=== PATIENT | female | born 1975 | race Caucasian/White ===

== ENCOUNTER 2017-05-21 10:13 | Emergency (ER) | payer OTHER ==
[2017-05-21 10:31] VITALS: BP 149/93; PULSE 83; TEMP 98; BMI 55.7
--- NOTE | 2017-05-21 11:00 | PDOC ---
History of Present Illness - General Chief Complaint: Pain Stated Complaint: LT SHOULDER PAIN Time Seen by Provider: 05/21/17 10:43 History Source: Patient - History of Present Illness Occurred: reports: other (2 weeks ago) Upper Extremity Pain Location: left: forearm Past History - Past Medical History Allergies/Adverse Reactions: Allergies Allergy/AdvReac Type Severity Reaction Status Date / Time No Known Allergies Allergy Verified 05/21/17 10:27 Home Medications: Ambulatory Orders NK [No Known Home Medication] 05/21/17 Asthma: Yes COPD: No HTN: Yes - Suicide/Smoking/Psychosocial Hx Smoking History: Never smoked Review of Systems - Review of Systems Constitutional: No: Chills, Fever Respiratory: No: Shortness of Breath Cardiac (ROS): No: Chest Pain, Palpitations *Physical Exam - Vital Signs Last Vital Signs Temp Pulse Resp BP Pulse Ox 98 F 83 19 149/93 93 L 05/21/17 10:27 05/21/17 10:27 05/21/17 10:27 05/21/17 10:27 05/21/17 10:27 - Physical Exam General Appearance: Yes: Appropriately Dressed. No: Apparent Distress HEENT: positive: Normal Voice Neck: positive: Supple Respiratory/Chest: positive: Lungs Clear, Normal Breath Sounds. negative: Respiratory Distress Cardiovascular: positive: Regular Rate, S1, S2 Musculoskeletal: positive: Other (non-pitting edema to dorsum of L hand/forearm w/ patchy areas of erythema throughout, no increased warmth, no tenderness, NVI , FROMI) ED Treatment Course - LABORATORY CBC & Chemistry Diagram: 05/21/17 11:05 05/21/17 11:05 Medical Decision Making - Medical Decision Making 05/21/17 10:53 41-year-old morbidly obese female with history of asthma, here with swelling of left upper arm 2 weeks. States arm only painful when she lifts things and states pain radiates to shoulder. Seen by her PMD 2 weeks ago and prescribed Tylenol. States she has had cellulitis of her left upper extremity in the past but this feels different. States she does notice some redness to arm on and off. No fever or chills. No recent trauma. See exam LUE edema Possible dependent edema, unlikely cellulitis as d/w ED attg who also evaluated pt, unlikely DVT -labs/US 05/21/17 11:03 05/21/17 11:07 05/21/17 12:20 Labd and US negative. As d/w ED attg, no abx necessary as unlikely infection. Dc to continue tylenol, sling for extremity elevation and follow up with PMD *DC/Admit/Observation/Transfer Diagnosis at time of Disposition: Left arm swelling - Discharge Dispostion Disposition: HOME - Referrals - Patient Instructions Additional Instructions: The cause of your arm swelling is unclear at this time, but there is no sign of infection or blood clot. Take Tylenol for pain and use sling to be able to elevate arm at home. Please follow-up with your PMD next week - Post Discharge Activity
[2017-05-21 11:13] LABS: EOSINOPHIL 2.7 % (0-4.5); MCH 21.4 pg (25.7-33.7); MCHC 29.7 g/dl (32.0-36.0); MEAN PLT VOLUME 7.6 fl (7.5-11.1); NEUTROPHILS 74.3 % (42.8-82.8); PLATELET COUNT 367 K/MM3 (134-434); RDW 18.9 % (11.6-15.6); WHITE BLOOD COUNT 9.3 K/mm3 (4.0-10.0)
[2017-05-21 11:37] LABS: ALBUMIN 3.3 g/dl (3.4-5.0); ANION GAP 4 (8-16); BILIRUBIN,TOTAL 0.7 mg/dL (0.2-1.0); CALCIUM 8.2 mg/dL (8.5-10.1); CO2 33 mmol/L (21-32); CREATININE 0.5 mg/dL (0.55-1.02); GLUCOSE,RANDOM 102 mg/dL (74-106); SGPT/ALT 18 U/L (12-78)
[2017-05-21 11:38] LABS: ALK PHOS 87 U/L (45-117); TOT PROT 7.1 g/dl (6.4-8.2)
[2017-05-21 11:42] LABS: SGOT/AST 16 U/L (15-37)
[2017-05-21 22:16] LABS: ANISOCYTOSIS OCCASIONAL; HYPOCHROMIA 2+; POLYCHROMASIA 1+
[2017-05-21 22:17] LABS: MACROCYTOSIS OCCASIONAL; PLATELET COMMENTS ADEQUATE
== END 2017-05-21 12:37 | disposition home or self-care (01) ==
LOC: JER 10:13
DX: R22.32 Localized swelling, mass and lump, left upper limb (principal); E66.01 Morbid (severe) obesity due to excess calories; Z68.43 Body mass index [BMI] 50.0-59.9, adult; J45.909 Unspecified asthma, uncomplicated
CPT/HCPCS: 36415; 80053; 85025; 93971; 99282-25

== ENCOUNTER 2019-02-11 09:40 | Inpatient (IN) | payer OTHER ==
[2019-02-11] MEDS ORDERED: SULFAMETHOXAZOLE/TRIMETHOPRIM 800MG/160MG D.S. TABLET PO ONE (10:52)
--- NOTE | 2019-02-11 10:52 | PDOC ---
History of Present Illness - General Chief Complaint: Pain Stated Complaint: ABD PAIN Time Seen by Provider: 02/11/19 09:56 - History of Present Illness Initial Comments: 02/11/19 11:36 43f with pmh of asthma, RAINA, HTN, HLD and diabetes, morbidly obese presents with worsening shortness of breath on exertion since last night and fullness in her protuberent panniculus that is hurting her when she ambulates. She denies fever, chills, chest pain, cough, leg swelling. Denies recent travel, denies hormone therapy. 02/11/19 13:50 Past History - Past Medical History Allergies/Adverse Reactions: Allergies Allergy/AdvReac Type Severity Reaction Status Date / Time No Known Allergies Allergy Verified 02/11/19 09:51 Home Medications: Ambulatory Orders NK [No Known Home Medication] 05/21/17 Asthma: Yes COPD: No DVT: No Diabetes: Yes HTN: Yes Hypercholesterolemia: Yes Other medical history: sleep apnea, low oxygen levels - Suicide/Smoking/Psychosocial Hx Smoking History: Never smoked Hx Alcohol Use: No Drug/Substance Use Hx: No Review of Systems - Review of Systems Able to Perform ROS?: Yes Is the patient limited Latvian proficient: No Constitutional: No: Symptoms Reported HEENTM: No: Symptoms Reported Respiratory: Yes: See HPI Cardiac (ROS): No: Symptoms Reported ABD/GI: Yes: See HPI : No: Symptoms Reported Musculoskeletal: No: Symptoms Reported Integumentary: No: Symptoms Reported Neurological: No: Symptoms reported *Physical Exam - Vital Signs Last Vital Signs Temp Pulse Resp BP Pulse Ox 98.3 F 71 20 155/72 88 L 02/11/19 09:46 02/11/19 09:46 02/11/19 09:46 02/11/19 09:46 02/11/19 09:46 - Physical Exam General Appearance: Yes: Obese (morbidly) HEENT: positive: EOMI, WING, Normal ENT Inspection Respiratory/Chest: positive: Lungs Clear, Normal Breath Sounds. negative: Chest Tender, Respiratory Distress Cardiovascular: positive: Regular Rhythm, Regular Rate, S1, S2 Gastrointestinal/Abdominal: positive: Other (cellulitic panniculus) Musculoskeletal: positive: Normal Inspection. negative: CVA Tenderness Extremity: positive: Normal Capillary Refill, Normal Inspection, Normal Range of Motion Integumentary: positive: Normal Color, Dry, Warm Neurologic: positive: Fully Oriented, Normal Response, Motor Strength 10/23 ED Treatment Course - LABORATORY CBC & Chemistry Diagram: 02/11/19 10:46 02/11/19 10:46 - RADIOLOGY Radiology Studies Ordered: Category Date Time Status CXRPORT [CHEST X-RAY PORTABLE*] [RAD] Stat Radiology 02/11/19 10:43 Ordered Medical Decision Making - Medical Decision Making 02/11/19 13:52 43f with acute sob on exertion and superficial cellulitis of the abdomen skin., Treating skin infection with Bactrim Ds. Wells score of 0, cannot PERC out. Due to the acute nature of the shortness of breath, we will need to rule out PE. Unable to obtain CTA chest, machine stopped working due to patient's weight. Will need V/Q scan. Will admit until test can be performed. *DC/Admit/Observation/Transfer Diagnosis at time of Disposition: Shortness of breath on exertion, Cellulitis, Abdominal panniculus, symptomatic - Discharge Dispostion Decision to Admit order: Yes - Referrals - Patient Instructions - Post Discharge Activity
[2019-02-11 11:08] LABS: BASO % 0.9 % (0-2.0); EOS % 2.4 % (0-4.5); HEMATOCRIT 45.1 % (32.4-45.2); HEMOGLOBIN 13.8 GM/dL (10.7-15.3); LYMPH % 13.8 % (8-40); MCH 22.6 pg (25.7-33.7); MCHC 30.5 g/dl (32.0-36.0); MEAN PLT VOLUME 8.4 fl (7.5-11.1); MONO % 5.7 % (3.8-10.2); NEUT % 77.2 % (42.8-82.8); RBC 6.09 M/mm3 (3.60-5.2); RDW 21.6 % (11.6-15.6); WHITE BLOOD COUNT 9.2 K/mm3 (4.0-10.0)
[2019-02-11 11:17] LABS: PLATELET COUNT 273 K/MM3 (134-434)
[2019-02-11 11:40] LABS: ALBUMIN 2.8 g/dl (3.4-5.0); ALK PHOS 67 U/L (45-117); ANION GAP 4 MMOL/L (8-16); BILIRUBIN,TOTAL 0.7 mg/dL (0.2-1); BLOOD UREA NITROGEN 9.3 mg/dL (7-18); CALCIUM 8.3 mg/dL (8.5-10.1); CHLORIDE 100 mmol/L (98-107); CO2 36 mmol/L (21-32); CREATININE 0.6 mg/dL (0.55-1.3); GLUCOSE,RANDOM 104 mg/dL (74-106); POTASSIUM 4.8 mmol/L (3.5-5.1); SGOT/AST 29 U/L (15-37); SGPT/ALT 15 U/L (13-61); SODIUM 140 mmol/L (136-145); TOT PROT 6.4 g/dl (6.4-8.2)
--- NOTE | 2019-02-11 11:46 | PDOC ---
Documentation entered by Panfilo Morris SCRIBE, acting as scribe for Kacie Crawford MD. Kacie Crawford MD: This documentation has been prepared by the Arturo becerril Elijah, SCRIBE, under my direction and personally reviewed by me in its entirety. I confirm that the documentation accurately reflects all work, treatment, procedures, and medical decision making performed by me. Attending Attestation - Resident Resident Name: Stefano Braun - ED Attending Attestation I have performed the following: I have examined & evaluated the patient, The case was reviewed & discussed with the resident, I agree w/resident's findings & plan - HPI HPI: 02/11/19 10:35 Patient is a 43 year old female with a significant past medical history of DM, Asthma, HTN, HLD, and Sleep Apnea who presents to the ED with Lower Abdominal Pain (L>R side) lasting for x3 days. Patient describes her symptoms more as discomfort and notes that her it worsens when she walks. Patient associates dyspnea on exertion beginning last night and reports being tired walking to the which is reported to be below her baseline. Patient reports her SOB is different in nature than her asthma and notes her inhaler did not alleviate her symptoms this morning. Denies fever and cough. Allergies: NKA PCP: Dr. Charlton Surgical History: None - Physicial Exam PE: 02/11/19 10:31 CONSTITUTIONAL: +Morbidly Obese Well-appearing; well-nourished; in no apparent distress HEAD: Normocephalic; atraumatic EYES: PERRL; EOM intact ENMT: External appears normal; normal oropharynx NECK: Supple; non-tender; no cervical lymphadenopathy CARD: Normal S1, S2; no murmurs, rubs, or gallops RESP: +83% on Room air, Back to 99% on Oxygen. Normal chest excursion with respiration; breath sounds clear and equal bilaterally; no wheezes, rhonchi, or rales ABD: +Mild Erythema, Firm Endurated, Thelma rash. Normal Bowel Sounds EXT: Normal ROM in all four extremities; non-tender to palpation; distal pulses intact SKIN: Warm, dry NEURO: No focal neurological deficiencies. - Medical Decision Making 02/11/19 11:42 43 y/o morbidly obese female seen and examined at bedside sitting in chair. Pt came in due to left lower quadrant discomfort with walking x 3 days, pt also with new c/o sob with minimal exertion since last night. DD includes but not limited to: cellulitis of abdomen due to erythema and new discomfort in this morbidly obese female, vs abcess, pt also high risk for Pulm embolism due to acute sob, hypoxia at rest, rm air saturation is 83% pt does not have oxygen at [facility], pt stauration inc to 99% on 3 liter nasal cannula.. Will obtain cbc, cmp, preg test, ua, cxr, d dimer is positive so ct of chest to r/o pulm embolism 02/11/19 13:42 Pt's weight exceeds the limits of the CT scanner here at this facility, will admit pt to hospital obtain V/Q scan to r/o pulm embolism. Pt with recent Sleep study revealing a baseline saturation of 84% during wakefullness but pt was not c/o sob at that time. PT does not have oxygen at home and needs to have home oxygen. Pt's saturation increased to 99% on 3 liters of oxygen, will maintain on 3 liters for now. Will not initiate treatment for PE given recent report that she had a room air sat of 84% during her sleep study. Pt agrees to admisison ,pt in stable condition at time of this note. Pt will require serial abdominal exams while in the hospital due to initial complaint of left lower quadrant discomfort with walking, pt with nl wbc, no fever , and no palpable masses or lesions noted to left lower quadrant. PT is morbidly obese if pain persists imaging of left lower quadrant via sonogram maybe indictaed as pt exceeds limits of ct scan at this facility.
[2019-02-11] MEDS ORDERED: SULFAMETHOXAZOLE/TRIMETHOPRIM 800MG/160MG D.S. TABLET ONE (11:49)
[2019-02-11 12:50] LABS: ANISOCYTOSIS 1+; MACROCYTOSIS 0; OVALOCYTE 1+; PLATELET ESTIMATE NORMAL
[2019-02-11] MEDS ORDERED: LOSARTAN POTASSIUM 25 MG TABLET PO ONE (15:07)
[2019-02-11] MEDS ORDERED: ALBUTEROL SO4 0.083% IH SOL 2.5 MG/3 ML VIAL.NEB. NEB PRN (15:09)
[2019-02-11] MEDS ORDERED: ALBUTEROL SO4 2.5/IPRATROPIUM 0.5 INH SOL 3 ML VIAL.NEB. NEB PRN (15:09)
[2019-02-11] MEDS ORDERED: CLINDAMYCIN 600MG PREMIX IVPB 600 MG/50 ML BAG IVPB ONE (15:22)
[2019-02-11] MEDS ORDERED: LOSARTAN POTASSIUM 50 MG TABLET (FP) ONE (15:22)
[2019-02-11] MEDS: CLINDAMYCIN 300 MG PREMIX IVPB 300 MG/50 ML BAG IVPB SCH ×2 (15:26→18:15)
--- NOTE | 2019-02-11 15:38 | HP ---
CHIEF COMPLAINT: Abdominal Pain and SOB for 3 days PCP: Dr. Charlton HISTORY OF PRESENT ILLNESS: 43 year old female with PMH significant for Asthma (5 years), HTN (4 years), DM (3 years), CHF (2 years), RAINA (sleep study done 4 weeks ago, prescribed BiPAP for home), depression, and restless leg syndrome. She presented to the ER with complaints of LLQ abdominal swelling and pain for the past 3 days, associated with shortness of breath and erythema in LLQ first noticed last night. The abdominal pain is localized in the LLQ, is brought on only when she stands or walks, and is described as a feeling of increased pressure in the LLQ, 7/10 in intesnsity, and alleviated by sitting or lying down. She first noticed LLQ erythema last night, and has no associated complaints itching, fevers, or chills. She has no associated diarrhea, constipation, dysuria, fevers, or chills. Her LMP was from 02/07-02/10. Her menstrual cycles have been regular for the the past 1 year, last 3-4 days and occurs every 4 weeks. Previously, she had irregular cycles of 7-10 days every month, and she would frequently skip cycles every few months. She normally uses 7-8 pads per day, and has not noted any changes in volume or quality. She first noticed SOB as dyspnea on exertion 3 days ago. She is normally able to walk 2-3 steps without becoming short of breath, and uses 2-3 pillows to prop herself up to sleep at night. She is not on any oxygen at home, and does not use any support to ambulate, and does not complain of orthopnea or paroxysmal nocturnal dyspnea. She has no associated cough, chest pain. ER course was notable for: (1) d dimer 508, CTA attempted but unable to perform (2) Sat 83% on room air, 99% on 3L O2 (3) Given Bactrim PO, Ucx collected Recent Travel: None PAST MEDICAL HISTORY: Asthma (5 years) On Albuterol Nebs HTN (4 years). On Losartan 25mg PO DM (3 years) On Metformin 500mg BID CHF (2 years) On Lasix 40mg PO BID RAINA (sleep study done 4 weeks ago, prescribed BiPAP for home) Depression, on Wellbutrin Restless leg syndrome, on PAST SURGICAL HISTORY: None Social History: Smoking: None Alcohol: None Drugs: None Family History: Mother: of Ovarian CA 2 years ago (age 62), DM, HTN, CHF, Asthma Allergies No Known Allergies Allergy (Verified 02/11/19 09:51) HOME MEDICATIONS: Home Medications Medication Instructions Recorded Albuterol Sulfate Inhaler - 1 puff PRN 02/11/19 [Ventolin HFA Inhaler -] Bupropion HCl [Wellbutrin Xl -] 150 mg PO DAILY 02/11/19 Furosemide [Lasix] 40 mg PO BID 02/11/19 Lisinopril/Hydrochlorothiazide 02/11/19 [Lisinopril-Hctz 10-12.5 mg Tab] Losartan Potassium 25 mg PO DAILY 02/11/19 Pravastatin Sodium 10 mg PO DAILY 02/11/19 Ropinirole HCl 0.5 mg PO DAILY 02/11/19 metFORMIN HCL [Glucophage -] 500 mg PO BID 02/11/19 REVIEW OF SYSTEMS CONSTITUTIONAL: Absent: fever, chills, diaphoresis, generalized weakness, malaise, loss of appetite, weight change HEENT: Absent: rhinorrhea, nasal congestion, throat pain, throat swelling, difficulty swallowing, mouth swelling, ear pain, eye pain, visual changes CARDIOVASCULAR: peripheral edema Absent: chest pain, syncope, palpitations, irregular heart rate, lightheadedness RESPIRATORY: shortness of breath, dyspnea with exertion Absent: cough,, orthopnea, wheezing, stridor, hemoptysis GASTROINTESTINAL: abdominal pain Absent: abdominal distension, nausea, vomiting, diarrhea, constipation, melena, hematochezia GENITOURINARY: Absent: dysuria, frequency, urgency, hesitancy, hematuria, flank pain, genital pain MUSCULOSKELETAL: Absent: myalgia, arthralgia, joint swelling, back pain, neck pain SKIN: rash Absent: itching, pallor HEMATOLOGIC/IMMUNOLOGIC: Absent: easy bleeding, easy bruising, lymphadenopathy, frequent infections ENDOCRINE: Absent: unexplained weight gain, unexplained weight loss, heat intolerance, cold intolerance NEUROLOGIC: Absent: headache, focal weakness or paresthesias, dizziness, unsteady gait, seizure, mental status changes, bladder or bowel incontinence PSYCHIATRIC: Absent: anxiety, depression, suicidal or homicidal ideation, hallucinations. PHYSICAL EXAMINATION Vital Signs - 24 hr 02/11/19 09:46 Temperature 98.3 F Pulse Rate 71 Respiratory 20 Rate Blood Pressure 155/72 O2 Sat by Pulse 88 L Oximetry (%) GENERAL: AOx3, signs of hirsutism present HEAD: Normal with no signs of trauma. EYES: Pupils equal, round and reactive to light, extraocular movements intact, sclera anicteric, conjunctiva clear. No lid lag. EARS, NOSE, THROAT: Ears normal, nares patent, oropharynx clear without exudates. Moist mucous membranes. NECK: limited range of motion due to body habitus LUNGS: Breath clear, decreased B/L, no wheezes, and no crackles. No accessory muscle use. HEART: Regular rate and rhythm, normal S1 and S2 without murmur, rub or gallop. ABDOMEN: Soft, erythema over RLQ and LLQ pannus present, nontender, not distended, normoactive bowel sounds, no guarding, no rebound MUSCULOSKELETAL: limited range of motion at all joints. No bony deformities or tenderness. No CVA tenderness. UPPER EXTREMITIES: 2+ pulses, warm, well-perfused. No cyanosis. No clubbing. No peripheral edema. LOWER EXTREMITIES: +1 pitting edema B/L, no ulcers NEUROLOGICAL: Cranial nerves II-XII intact. Normal speech. Normal gait. PSYCHIATRIC: Cooperative. Good eye contact. Appropriate mood and affect. SKIN: Warm, dry, normal turgor, no rashes or lesions noted, normal capillary refill. Laboratory Results - last 24 hr 02/11/19 02/11/19 02/11/19 10:46 10:46 10:46 WBC 9.2 RBC 6.09 H Hgb 13.8 Hct 45.1 MCV 74.0 L MCH 22.6 L MCHC 30.5 L RDW 21.6 H Plt Count 273 MPV 8.4 Absolute Neuts (auto) 7.1 Neutrophils % 77.2 Lymphocytes % 13.8 D Monocytes % 5.7 Eosinophils % 2.4 Basophils % 0.9 Nucleated RBC % 0 Hypochromia 1+ Platelet Estimate Normal Polychromasia 1+ Poikilocytosis 0 Anisocytosis 1+ Microcytosis 1+ Macrocytosis 0 Ovalocytes 1+ Stomatocytes 2+ D-Dimer 598 H Sodium 140 Potassium 4.8 Chloride 100 Carbon Dioxide 36 H Anion Gap 4 L BUN 9.3 Creatinine 0.6 Est GFR (CKD-EPI)AfAm 128.48 Est GFR (CKD-EPI)NonAf 110.86 Random Glucose 104 Calcium 8.3 L Total Bilirubin 0.7 AST 29 ALT 15 Alkaline Phosphatase 67 Troponin I < 0.02 Total Protein 6.4 Albumin 2.8 L Serum , Qual 02/11/19 10:46 WBC RBC Hgb Hct MCV MCH MCHC RDW Plt Count MPV Absolute Neuts (auto) Neutrophils % Lymphocytes % Monocytes % Eosinophils % Basophils % Nucleated RBC % Hypochromia Platelet Estimate Polychromasia Poikilocytosis Anisocytosis Microcytosis Macrocytosis Ovalocytes Stomatocytes D-Dimer Sodium Potassium Chloride Carbon Dioxide Anion Gap BUN Creatinine Est GFR (CKD-EPI)AfAm Est GFR (CKD-EPI)NonAf Random Glucose Calcium Total Bilirubin AST ALT Alkaline Phosphatase Troponin I Total Protein Albumin Serum , Qual Negative ASSESSMENT/PLAN: # Abdominal Pain - USG LLQ to r/o subcutaneous abcess - Given Bactrim PO in ER - Clindamycin for cellulitis/potential sq abcess #PE Risk - d dimer 508\ - CTA attempted but unsuccessful - Duplex LE to check for DVT #CHF exacerbation - Start Lasix 40mg BD IVPUSH - 3L O2 - Echo ordered - Per patient, last echo 2 weeks ago was normal #Hx of asthma - Duonebs, Ventolin #RAINA - Bipap at night #Hx of DM - Home med metofmrin held - Novolog SS started #Hx of HTN - Cont home med Losartan 25mg #FEN - Low Na/Diabetic Diet Visit type - Emergency Visit Emergency Visit: Yes ED Registration Date: 02/11/19 Care time: The patient presented to the Emergency Department on the above date and was hospitalized for further evaluation of their emergent condition. - New Patient This patient is new to me today: Yes Date on this admission: 02/11/19 - Critical Care Critical Care patient: No ATTENDING PHYSICIAN STATEMENT I saw and evaluated the patient. I reviewed the resident's note and discussed the case with the resident. I agree with the resident's findings and plan as documented. SUBJECTIVE: OBJECTIVE: ASSESSMENT AND PLAN:
--- NOTE | 2019-02-11 15:39 | EKG ---
Test Reason : Blood Pressure : / mmHG Vent. Rate : 069 BPM Atrial Rate : 069 BPM P-R Int : 186 ms QRS Dur : 096 ms QT Int : 414 ms P-R-T Axes : 012 152 042 degrees QTc Int : 443 ms NORMAL SINUS RHYTHM LEFT POSTERIOR FASCICULAR BLOCK NONSPECIFIC T WAVE ABNORMALITY POOR R WAVE PROGRESSION ABNORMAL ECG WHEN COMPARED WITH ECG OF 10-FEB-2018 11:28, NO SIGNIFICANT CHANGE WAS FOUND Confirmed by TREVOR SPANN, JONATAN ([id number]) on 02/11/2019 3:38:47 PM Referred By: Confirmed By:JONATAN MURRAY MD
[2019-02-11] MEDS ORDERED: INSULIN SLIDING SCALE (NOVOLOG) 1 VIAL SQ SCH (16:30)
--- NOTE | 2019-02-11 17:01 | PN ---
Teaching Attending Note Name of Resident: Elier Almazan ATTENDING PHYSICIAN STATEMENT I saw and evaluated the patient. I reviewed the resident's note and discussed the case with the resident. I agree with the resident's findings and plan as documented. SUBJECTIVE: CC: Abd pain. HPI: 43 y/o lady with h/o morbid obesity, Asthma, depression , Dm , and HTN, ( denied heart failure) ,who presented with LLQ abd pain and worsening MARKHAM. patient noticed this pain in LLQ 3 days ago. it is present when she stands up, but resolves when she sits down or lies down. she denies any fever or chills. She noticed erythema on L side of her abdomen, yesterday. her base line is walking few steps without SOB as she is mainly bed and chair bound. She noticed in past 3 days that she gets SOB when she takes few steps to her bathroom. she denies any cough or sputum production. she denies wheezing. She had a sleep study recently and she was told she needed BIPAP and she needed O2. All this is in process through her PCP. She deos not have a liner roll changer. she denies h/o heart failrue , and does not have a supervisor nuclear medicine. Her PCP put her on lasix BID. She did not notice any increased swelling in her LE . Now she is in ER, she denies any abd pain or SOB. she feels at her base line. In ER, she had an elevated D dimer and was not able to get a CTA due to her weight. OBJECTIVE: NAD , comfortable, cooperative , alert and awake. Hisrsutism noted. HEENT: facaial hair, no facial droop, EOMI, round equal pupils, MMM, no obvious JVD CV: RRR, 2/6 Sm at SB. Lungs: CTAB Abd: morbidly obese. large pannus . unable to hear any BS. erythema on lower half of her pannus, with increased warmth and thick skin. erythema, wet abrasions under the right side of her pannus and upper thigh . EXt : no edema on legs . very dry cracked skin on soles. EKG reviewed. Not changed from 02/10/18 Cxray reviewed. LAbs reviewed. ASSESSMENT AND PLAN: 43 y/o lady with h/o morbid obesity, RAINA, Asthma, depression , DM , and HTN, ( denied heart failure) ,who presented with LLQ abd pain and worsening MARKHAM. 1- Abd pain: Abdominal wall is thick and erythematous. this could be due to panniculitis vs fluid accumulation. I do not suspect internal abdominal process. - will try lasix 40 mg BId and monitor response and renal function - will start clindamycin - will get US of abd and abdominal wall - I &O. - she denies h/o Heart failure . will get echo 2- MARKHAM and hypoxia: she is hypoxic at base line .recent sleep study 01/13/19 showed base line O2 84 % during wakefulness, and dropped to 30s during sleep Doubt PE even with slightly elevated D dimer ( No tachycardia, no change in O2 sat, R axis on EKG is old , ,,,) . No evidence of PNA or asthma attack - try lasix - cont O2 , 3 L through [place] - USe BIPAP at night - will get US of LE. if neg will ask Pulm if VQ is indicated 4- H/o HTN: will confirm and resume her medications 5- DM : hold metformin and start SSI 6- DVT px : SQ heparin
[2019-02-11] MEDS: HEPARIN NA (PORCINE) 5,000 UNITS/ML 1ML VIAL SQ SCH (22:39)
[2019-02-11] MEDS: NYSTATIN POWDER 100,000 UNITS/GM - 15 GM TOPICAL POWDER TP SCH (22:40)
[2019-02-11] MEDS: INSULIN SLIDING SCALE (NOVOLOG) 1 VIAL SQ SCH (22:43)
[2019-02-12] MEDS: CLINDAMYCIN 300 MG PREMIX IVPB 300 MG/50 ML BAG IVPB SCH ×3 (02:01→17:50)
[2019-02-12] MEDS: ACETAMINOPHEN 325 MG TABLET (FP) PO PRN ×3 (02:02→21:59)
[2019-02-12] MEDS: INSULIN SLIDING SCALE (NOVOLOG) 1 VIAL SQ SCH ×4 (06:38→22:05)
[2019-02-12] MEDS: FUROSEMIDE 40 MG/4 ML INJECTABLE VIAL IVPUSH SCH ×2 (06:39→14:06)
[2019-02-12] MEDS: HEPARIN NA (PORCINE) 5,000 UNITS/ML 1ML VIAL SQ SCH ×3 (06:39→22:00)
[2019-02-12] MEDS ORDERED: PT OWN MED DRAWER 7, Y5N ONE ×2 (10:30→17:32)
[2019-02-12] MEDS: NYSTATIN POWDER 100,000 UNITS/GM - 15 GM TOPICAL POWDER TP SCH ×2 (11:16→22:02)
--- NOTE | 2019-02-12 12:24 | PN ---
Progress Note (short form) - Note Progress Note: PULMONARY CONSULTATION DICTATED 02/12/29 IMP DYSPNEA LIKELY CHRONIC HYPOXEMIC/HYPERCAPNEIC RESPIRATORY FAILURE LIKELY OBESITY HYPOVENTILATION SYNDROME SEVERE RAINA ASTHMA HTN DM MORBID OBESITY ELEVATED D-DIMER NON-SPECIFIC DOUBT PE PLAN INHALED BRONCHODILATORS HOME O2 BIPAP AT [facility] DVT PROPHYLAXIS BARIATRIC SURGERY EVALUATION ECHO TO EVALUATE FOR PULMONARY HTN ABG DR GARCIA Problem List - Problems (1) Morbid (severe) obesity with alveolar hypoventilation Code(s): E66.2 - MORBID (SEVERE) OBESITY WITH ALVEOLAR HYPOVENTILATION (2) Shortness of breath on exertion Code(s): R06.02 - SHORTNESS OF BREATH (3) Asthma Code(s): J45.909 - UNSPECIFIED ASTHMA, UNCOMPLICATED (4) Leg swelling Code(s): M79.89 - OTHER SPECIFIED SOFT TISSUE DISORDERS (5) HTN (hypertension) Code(s): I10 - ESSENTIAL (PRIMARY) HYPERTENSION
[2019-02-12] MEDS ORDERED: ALBUTEROL SO4 0.083% IH SOL 2.5 MG/3 ML VIAL.NEB. NEB PRN (12:32)
[2019-02-12 13:00] LABS: ARTERIAL BLD GAS O2 SATURATION 85.5 % (95-98); ARTERIAL BLOOD GAS BASE EXCESS 9.3 meq/l (-2-2); ARTERIAL BLOOD GAS PCO2 59.3 mmHg (35-45); ARTERIAL BLOOD GAS PO2 54.9 mmHg (80-100)
[2019-02-12 13:12] LABS: ALLENS TEST POSITIVE
[2019-02-12] MEDS ORDERED: LOSARTAN POTASSIUM 25 MG TABLET PO ONE (13:59)
--- NOTE | 2019-02-12 14:00 | PN ---
Progress Note (short form) - Note Progress Note: Subjective: No fever or chills. SOB is better . no pain . Objective: Vital Signs: Last Vital Signs Temp Pulse Resp BP Pulse Ox 97.8 F 76 18 151/77 99 02/12/19 06:00 02/12/19 06:00 02/12/19 06:00 02/12/19 06:00 02/11/19 18:28 Laboratory Results - last 24 hr 02/11/19 02/12/19 02/12/19 22:42 06:37 06:55 Anticoagulation Therapy Puncture Site ABG pH ABG pCO2 at Pt Temp ABG pO2 at Pt Temp ABG HCO3 ABG O2 Sat (Measured) ABG O2 Content ABG Base Excess Raffi Test O2 Delivery Device Oxygen Flow Rate Vent Mode Vent Rate Mechanical Rate Pressure Support Vent POC Glucometer 122 109 TSH 1.11 02/12/19 02/12/19 12:40 12:49 Anticoagulation Therapy No Result Required. Puncture Site Left radial ABG pH 7.40 ABG pCO2 at Pt Temp 59.3 H ABG pO2 at Pt Temp 54.9 L ABG HCO3 36.0 H ABG O2 Sat (Measured) 85.5 L ABG O2 Content 16.5 ABG Base Excess 9.3 H Raffi Test Positive O2 Delivery Device Room air Oxygen Flow Rate 21% Vent Mode No Result Required. Vent Rate No Result Required. Mechanical Rate No Result Required. Pressure Support Vent No Result Required. POC Glucometer 105 TSH Physical Exam: NAD , comfortable HEENT: facial hair, no facial droop, CV: RRR, 2/6 Sm at LUSB. No JVD Lungs: CTAB Abd: morbidly obese. large pannus . unable to hear any BS. erythema on lower half of her pannus ( better ) , with increased warmth and thick skin. erythema, wet abrasions under the right side of her pannus and upper thigh . EXt : no edema on legs . very dry cracked skin on soles. ASSESSMENT AND PLAN: 43 y/o lady with h/o morbid obesity, RAINA, Asthma, depression , DM , and HTN, ( denied heart failure) ,who presented with LLQ abd pain and worsening MARKHAM. 1- Possibel abd wall celluliits /panniculitis VS fluid overload. erythema improved - cont clinda . - cont diuresis 2- MARKHAM and hypoxia: - d/w pulm, unlikely PE despite elevated D dimer. no need fro VQ - cont O2 supp - cont diuresis 4- H/o HTN: give losartan . will confirm is she is on ACEI/HCTZ 5- DM : SSI 6- DVT px : SQ heparin Visit type - Emergency Visit Emergency Visit: Yes ED Registration Date: 02/11/19 Care time: The patient presented to the Emergency Department on the above date and was hospitalized for further evaluation of their emergent condition. - New Patient This patient is new to me today: No - Critical Care Critical Care patient: No
--- NOTE | 2019-02-12 14:24 | CONS ---
DATE OF CONSULTATION: 02/12/2019 REFERRING PHYSICIAN: Alma Rainey MD The patient is a 43-year-old female, with asthma for approximately 5 years, hypertension, morbid obesity, likely obesity hypoventilation syndrome, with chronic hypoxemia, diabetes, congestive heart failure, severe obstructive sleep apnea with AHI of 99, with baseline O2 saturation 84 and DSAT 42, depression, restless legs syndrome, admitted to [facility] with complaint of left lower quadrant abdominal pain for the past 3 days, associated with shortness of breath, erythema to the left lower quadrant. Patient states that a couple days ago she started developing some swelling and left lower quadrant pain. She denied any nausea or vomiting. She stated the pain was 7/10 in intensity, improved with sitting or lying down. She also complained of increasing shortness of breath for the past 3 days and she states that using an inhaler did not offer significant improvement. Apparently she is normally able to walk 2 to 3 steps without getting short of breath. As stated before, apparently she states that her asthma symptoms were not like usual. She has a cough which is nonproductive. States her grandchild had a URI recently. She denies any fevers, chills. Denies hemoptysis. Patient presented to the emergency room with above. In the ER, she was noted to be hypoxic on room air with 83% and then placed on 3 L, with improvement to 99%. She had a D-dimer which is mildly elevated at 508 and the CTA was unable to be performed due to morbid obesity. Past medical history, again, includes asthma, hypertension, diabetes, CHF, obstructive sleep apnea, severe, with severe O2 desaturation, chronic hypoxemia, depression, restless legs syndrome. REVIEW OF SYSTEMS: Positive orthopnea, positive dyspnea, positive wheeze, positive cough. No chest pain. No palpitation. No nausea, no vomiting. Positive lower extremity edema. Current medications include Tylenol, Cleocin, heparin, albuterol, DuoNeb, NovoLog, Lasix, and nystatin. PHYSICAL EXAMINATION: General: The patient is a morbidly obese female, well developed, awake, alert, currently comfortable, in no acute distress. Vital Signs: She is currently afebrile. Blood pressure is 151/77. Respiratory rate 18. O2 saturation is 84% on room air. HEENT: Normocephalic, atraumatic. Neck: Supple. Heart: Regular, S1, S2. Chest: A few scattered bilateral wheezes. Abdomen: Soft. Morbidly obese. Extremities: No cyanosis edema and chronic changes bilaterally. LABORATORY DATA: WBC 9.2, hemoglobin 13.8, hematocrit 45.1, with a platelet count of 273,000, D-dimer is 598. Chemistries: BUN 9, creatinine 0.6. BNP is pending. Chest x-ray: No acute infiltrates or effusion but there are increased markings bilaterally at the bases. Duplex of lower extremities negative for DVT. IMPRESSION: 1. Dyspnea, likely chronic hypoxemic hypercapnic respiratory failure due to obesity hypoventilation syndrome. 2. Severe obstructive sleep apnea, not on CPAP. 3. Chronic asthma, mild exacerbation. 4. Hypertension. 5. Diabetes. 6. Morbid obesity. 7. Elevated D-dimer, nonspecific, doubt pulmonary embolism. PLAN: Inhaled bronchodilators, supplemental O2, also patient will require home O2, BiPAP at night as well as p.r.n., DVT prophylaxis. Check arterial blood gas. Obtain bariatric surgery evaluation. Echo to evaluate for possible pulmonary hypertension. LUCERO GARCIA M.D. [id number]
[2019-02-12] MEDS: ALBUTEROL SO4 2.5/IPRATROPIUM 0.5 INH SOL 3 ML VIAL.NEB. NEB SCH ×2 (16:30→22:00)
[2019-02-12] MEDS ORDERED: INSULIN (NOVOLOG) ASPART 100 UNITS/ML 10ML VIAL ONE (22:05)
[2019-02-13] MEDS ORDERED: PT OWN MED DRAWER 7, Y5N ONE ×3 (02:31→17:45)
[2019-02-13] MEDS: CLINDAMYCIN 300 MG PREMIX IVPB 300 MG/50 ML BAG IVPB SCH (02:40)
[2019-02-13] MEDS: HEPARIN NA (PORCINE) 5,000 UNITS/ML 1ML VIAL SQ SCH ×3 (06:35→21:58)
[2019-02-13] MEDS: FUROSEMIDE 40 MG/4 ML INJECTABLE VIAL IVPUSH SCH ×2 (06:35→13:20)
[2019-02-13] MEDS: INSULIN SLIDING SCALE (NOVOLOG) 1 VIAL SQ SCH ×4 (06:35→21:58)
[2019-02-13] MEDS: ACETAMINOPHEN 325 MG TABLET (FP) PO PRN (06:48)
[2019-02-13] MEDS: ALBUTEROL SO4 2.5/IPRATROPIUM 0.5 INH SOL 3 ML VIAL.NEB. NEB SCH ×4 (07:37→21:02)
[2019-02-13] MEDS ORDERED: INSULIN (NOVOLOG) ASPART 100 UNITS/ML 10ML VIAL ONE (07:45)
[2019-02-13 08:33] LABS: BASO % 0.6 % (0-2.0); EOS % 2.3 % (0-4.5); HEMOGLOBIN 14.6 GM/dL (10.7-15.3); LYMPH % 15.8 % (8-40); MCH 22.3 pg (25.7-33.7); MCHC 29.8 g/dl (32.0-36.0); MEAN CELL VOLUME 74.7 fl (80-96); MEAN PLT VOLUME 8.4 fl (7.5-11.1); MONO % 7.3 % (3.8-10.2); PLATELET COUNT 265 K/MM3 (134-434); RBC 6.56 M/mm3 (3.60-5.2); WHITE BLOOD COUNT 6.3 K/mm3 (4.0-10.0)
--- NOTE | 2019-02-13 08:35 | CON.ID ---
Consult Consult Specialty:: infectious diseases Referred by:: Reason for Consultation:: abd wall cellulitis - History of Present Illness Chief Complaint: sob and abd wall hardness and pain left side History of Present Illness: 43 year old morbidly obese female with PMH significant for Asthma , HTN , DM, CHF , RAINA on BiPAP , depression, and restless leg syndrome. patient came to the hospital because of left sided abd pain and says that it suddenly became hard.Following that she became sob denies any fever SOB on exertion 3 days ago. She is normally able to walk 2-3 steps without becoming short of breath, and uses 2-3 pillows to prop herself up to sleep at night. She is not on any oxygen at home, and does not use any support to ambulate, and does not complain of orthopnea or paroxysmal nocturnal dyspnea. She has no associated cough, chest pain. currently she does feel much better - History Source History Provided By: Patient Limitations to Obtaining History: No Limitations - Alcohol/Substance Use Hx Alcohol Use: No - Smoking History Smoking history: Never smoked Home Medications - Allergies Allergies/Adverse Reactions: Allergies Allergy/AdvReac Type Severity Reaction Status Date / Time No Known Allergies Allergy Verified 02/11/19 09:51 - Home Medications Home Medications: Ambulatory Orders Albuterol Sulfate Inhaler - [Ventolin HFA Inhaler -] 1 puff PRN 02/11/19 Bupropion HCl [Wellbutrin Xl -] 150 mg PO DAILY 02/11/19 Furosemide [Lasix] 40 mg PO BID 02/11/19 Lisinopril/Hydrochlorothiazide [Lisinopril-Hctz 10-12.5 mg Tab] 1 tab PO DAILY 02/11/19 Losartan Potassium 25 mg PO DAILY 02/11/19 Pravastatin Sodium 10 mg PO DAILY 02/11/19 Ropinirole HCl 0.5 mg PO DAILY 02/11/19 metFORMIN HCL [Glucophage -] 500 mg PO BID 02/11/19 Review of Systems - Review of Systems Constitutional: reports: No Symptoms Eyes: reports: No Symptoms HENT: reports: No Symptoms Neck: reports: No Symptoms Cardiovascular: reports: No Symptoms Respiratory: reports: SOB, SOB on Exertion, Wheezing Gastrointestinal: reports: Abdominal Pain, Other (redness on the left side of the abd) Genitourinary: reports: No Symptoms Musculoskeletal: reports: No Symptoms Integumentary: reports: Erythema (abd wall) Neurological: reports: No Symptoms Endocrine: reports: No Symptoms Hematology/Lymphatic: reports: No Symptoms Psychiatric: reports: No Symptoms Physical Exam Vital Signs: Vital Signs Temperature 98.1 F 02/13/19 06:00 Pulse Rate 91 H 02/13/19 06:00 Respiratory Rate 20 02/13/19 06:00 Blood Pressure 135/70 02/13/19 06:00 O2 Sat by Pulse Oximetry (%) 97 02/13/19 07:37 Constitutional: Yes: Well Nourished, No Distress, Calm, Obese (morbid obesity) Eyes: Yes: Conjunctiva Clear Cardiovascular: Yes: Regular Rate and Rhythm Respiratory: Yes: Regular, On Nasal O2, Poor Air Entry Gastrointestinal: Yes: Normal Bowel Sounds, Soft Musculoskeletal: Yes: WNL Extremities: Yes: WNL Integumentary: Yes: Erythema (minimal on the left sie of the abd wall) Neurological: Yes: Alert, Oriented Psychiatric: Yes: Alert, Oriented Imaging - Results Chest X-ray: Report Reviewed, Image Reviewed Cat Scan: Image Reviewed Ultrasound: Report Reviewed, Image Reviewed Assessment/Plan 43 y/o lady with h/o morbid obesity, RAINA, Asthma, depression , DM , and HTN, , who presented with LLQ abd pain and erythema of the abd wall i am going to change abx to unasyn,her erythema has improved from what she is saying . by tomorrow we will see how she doing and then decide further plan Problem List - Problems (1) Morbid (severe) obesity with alveolar hypoventilation Code(s): E66.2 - MORBID (SEVERE) OBESITY WITH ALVEOLAR HYPOVENTILATION (2) Shortness of breath on exertion Code(s): R06.02 - SHORTNESS OF BREATH (3) Asthma Code(s): J45.909 - UNSPECIFIED ASTHMA, UNCOMPLICATED (4) Leg swelling Code(s): M79.89 - OTHER SPECIFIED SOFT TISSUE DISORDERS (5) HTN (hypertension) Code(s): I10 - ESSENTIAL (PRIMARY) HYPERTENSION 6 abd wall cellulitis
[2019-02-13 09:10] LABS: BLOOD UREA NITROGEN 10.1 mg/dL (7-18); CALCIUM 8.9 mg/dL (8.5-10.1); CREATININE 0.6 mg/dL (0.55-1.3); N-TERMINAL BNP 162.1 pg/ml (5-125); POTASSIUM 3.9 mmol/L (3.5-5.1)
[2019-02-13] MEDS: LOSARTAN POTASSIUM 25 MG TABLET PO SCH (09:45)
[2019-02-13] MEDS: NYSTATIN POWDER 100,000 UNITS/GM - 15 GM TOPICAL POWDER TP SCH ×2 (09:45→21:58)
[2019-02-13] MEDS: AMPICILLIN NA/SULBACTAM NA 3 GM in SODIUM CHLORIDE 100 ML IVPB SCH ×2 (10:38→17:48)
--- NOTE | 2019-02-13 12:28 | PN ---
Progress Note, Physician History of Present Illness: PULMONARY ALERT,OOB-CHAIR,FEELING BETTER,LESS DYSPNEIC - Current Medication List Current Medications: Active Medications Acetaminophen (Tylenol -) 650 mg PO Q4H PRN PRN Reason: PAIN Last Admin: 02/13/19 06:48 Dose: 650 mg Albuterol Sulfate (Ventolin 0.083% Nebulizer Soln -) 1 amp NEB Q4H PRN PRN Reason: SHORT OF BREATH/WHEEZING Albuterol/Ipratropium (Duoneb -) 1 amp NEB RQID [facility] Last Admin: 02/13/19 11:33 Dose: 1 amp Furosemide (Lasix Injection -) 40 mg IVPUSH BID@0600,1400 [facility] Last Admin: 02/13/19 06:35 Dose: 40 mg Heparin Sodium (Porcine) (Heparin -) 5,000 unit SQ TID [facility] Last Admin: 02/13/19 06:35 Dose: 5,000 unit Ampicillin Sodium/Sulbactam (Sodium 3 gm/ Sodium Chloride) 100 mls @ 200 mls/ hr IVPB Q8H-IV [facility] Last Admin: 02/13/19 10:38 Dose: 200 mls/hr Insulin Aspart (Novolog Vial Sliding Scale -) 1 vial SQ ACHS [facility]; Protocol Last Admin: 02/13/19 11:36 Dose: Not Given Losartan Potassium (Cozaar -) 25 mg PO DAILY [facility] Last Admin: 02/13/19 09:45 Dose: 25 mg Nystatin (Nystop Powder -) 1 applic TP BID [facility] Last Admin: 02/13/19 09:45 Dose: 1 applic - Objective Vital Signs: Vital Signs Temperature 97.6 F 02/13/19 08:27 Pulse Rate 79 02/13/19 08:27 Respiratory Rate 20 02/13/19 09:00 Blood Pressure 145/81 02/13/19 08:27 O2 Sat by Pulse Oximetry (%) 96 02/13/19 09:00 Constitutional: Yes: Calm, Obese Eyes: Yes: WNL HENT: Yes: WNL Neck: Yes: WNL Cardiovascular: Yes: Regular Rate and Rhythm, S1, S2 Respiratory: Yes: Diminished, Wheezes (FEW WHEEZES) Gastrointestinal: Yes: Normal Bowel Sounds, Soft Extremities: Yes: WNL Edema: Yes Labs: CBC, BMP 02/13/19 06:55 02/13/19 06:55 Laboratory Tests 02/12/19 12:40 ABG pH 7.40 ABG pCO2 at Pt Temp 59.3 H ABG pO2 at Pt Temp 54.9 L ABG HCO3 36.0 H ABG O2 Sat (Measured) 85.5 L Oxygen Flow Rate 21% Problem List - Problems (1) Morbid (severe) obesity with alveolar hypoventilation Code(s): E66.2 - MORBID (SEVERE) OBESITY WITH ALVEOLAR HYPOVENTILATION (2) Shortness of breath on exertion Code(s): R06.02 - SHORTNESS OF BREATH (3) Asthma Code(s): J45.909 - UNSPECIFIED ASTHMA, UNCOMPLICATED (4) Leg swelling Code(s): M79.89 - OTHER SPECIFIED SOFT TISSUE DISORDERS (5) HTN (hypertension) Code(s): I10 - ESSENTIAL (PRIMARY) HYPERTENSION Assessment/Plan IMP DYSPNEA CHRONIC HYPOXEMIC/HYPERCAPNEIC RESPIRATORY FAILURE OBESITY HYPOVENTILATION SYNDROME SEVERE RAINA ASTHMA HTN DM MORBID OBESITY ELEVATED D-DIMER NON-SPECIFIC DOUBT PE PLAN INHALED BRONCHODILATORS HOME O2 BIPAP AT [facility] DVT PROPHYLAXIS BARIATRIC SURGERY EVALUATION ECHO TO EVALUATE FOR PULMONARY HTN ABG ON O2 DR GARCIA Problem List - Problems (1) Morbid (severe) obesity with alveolar hypoventilation Code(s): E66.2 - MORBID (SEVERE) OBESITY WITH ALVEOLAR HYPOVENTILATION (2) Shortness of breath on exertion Code(s): R06.02 - SHORTNESS OF BREATH (3) Asthma Code(s): J45.909 - UNSPECIFIED ASTHMA, UNCOMPLICATED (4) Leg swelling Code(s): M79.89 - OTHER SPECIFIED SOFT TISSUE DISORDERS (5) HTN (hypertension) Code(s): I10 - ESSENTIAL (PRIMARY) HYPERTENSION
--- NOTE | 2019-02-13 14:12 | ECHO ---
Name: VALENTÍN CARLSON Exam:Adult Echocardiogram Study Date: 02/13/2019 12:39 PM Age: 43 yrs Reason For Study: fluid overload Height: 71 in Weight: 450 lb BSA: 3.0 m2 MMode/2D Measurements & Calculations IVSd: 0.85 cm Ao root diam: 2.2 cm LVIDd: 4.6 cm LA dimension: 3.8 cm LVIDs: 2.8 cm LVPWd: 1.1 cm EDV(Teich): 97.8 ml LVOT diam: 2.0 cm ESV(Teich): 30.2 ml Doppler Measurements & Calculations MV E max yon: 23.8 cm/sec Ao V2 max: 190.0 cm/sec MV A max yon: 77.1 cm/sec Ao max P.4 mmHg MV E/A: 0.31 MV dec time: 0.24 sec SANDRA(V,D): 1.5 cm2 LV V1 max P.3 mmHg PA V2 max: 171.0 cm/sec LV V1 max: 90.7 cm/sec PA max P.7 mmHg Med Peak E' Yon: 7.6 cm/sec Med E/e': 3.1 Lat Peak E' Yon: 9.4 cm/sec Lat E/e': 2.5 Procedure A complete two-dimensional transthoracic echocardiogram was performed (2D, M-mode, Doppler and color flow Doppler). Technically limited study with poor acoustic window. Left Ventricle The left ventricle is normal in size. Left ventricular systolic function is normal. Ejection Fraction = 60- 65%. No regional wall motion abnormalities noted. Right Ventricle The right ventricle is not well visualized. Atria The left atrial size is normal. Right atrium not well visualized. Mitral Valve There is mild mitral annular calcification. There is no mitral regurgitation noted. Tricuspid Valve The tricuspid valve is normal in structure and function. No tricuspid regurgitation. Aortic Valve The aortic valve is normal in structure and function. No aortic regurgitation is present. Pulmonic Valve The pulmonic valve is not well visualized. Great Vessels The aortic root is normal size. Pericardium/Pleura There is no pericardial effusion. Interpretation Summary Technically limited study with poor acoustic window The left ventricle is normal in size. Left ventricular systolic function is normal. No regional wall motion abnormalities noted. Ejection Fraction = 60-65%. The right ventricle is not well visualized. The left atrial size is normal. Right atrium not well visualized. There is mild mitral annular calcification. Valvular regurgitations could not be accurately assessed due to poor acoustic window There is no pericardial effusion. Previous study is not available for comparison Onel Dodd MD 02/13/2019 02:11 PM
--- NOTE | 2019-02-13 15:22 | PN ---
Physical Exam: SUBJECTIVE: Patient seen and examined at the bedside. There were no acute events overnight, patient reports her abdominal pain and breathing is improving. OBJECTIVE: Vital Signs Period Temp Pulse Resp BP Sys/Quan Pulse Ox Last 24 Hr 97.6 F-98.1 F 70-91 20-20 135-156/70-90 94-97 GENERAL: awake, alert and oriented in NAD, signs of hirsutism present ( thickened body hair and facial hair present). HEAD: Normal with no signs of trauma. EYES: Pupils equal, round and reactive to light, extraocular movements intact, sclera anicteric, conjunctiva clear. No lid lag. EARS, NOSE, THROAT: Ears normal, nares patent, oropharynx clear without exudates. Moist mucous membranes. LUNGS: Breath clear, decreased B/L due to body habitus, no wheezes, and no crackles. No accessory muscle use. HEART: Regular rate and rhythm, normal S1 and S2 without murmur, rub or gallop. ABDOMEN: Soft, erythema over RLQ and LLQ (appears to have line of demarcation on the L side, will continue to observe), large pannus present, nontender, not distended, no guarding, no rebound, thickened skin over RLQ. MUSCULOSKELETAL: limited range of motion at all joints due to body habitus. No bony deformities or tenderness. UPPER EXTREMITIES: 2+ pulses, warm, well-perfused. No cyanosis. No clubbing. No peripheral edema. LOWER EXTREMITIES: 2+ pulses, no edema, no ulcers NEUROLOGICAL: Cranial nerves II-XII intact. Normal speech. Difficulty with gait due to body habitus, patient was able to move from bed to chair on her own. PSYCHIATRIC: Cooperative. Good eye contact. Appropriate mood and affect. SKIN: Warm, dry, normal turgor, diffuse redness over pannus with apparent line of demarcation on the L side, red rash/ apparent fungal infection beneath pannus , thickened skin over R side of pannus. Laboratory Results - last 24 hr 02/12/19 02/12/19 02/13/19 17:49 21:58 06:33 WBC RBC Hgb Hct MCV MCH MCHC RDW Plt Count MPV Absolute Neuts (auto) Neutrophils % Lymphocytes % Monocytes % Eosinophils % Basophils % Nucleated RBC % Sodium Potassium Chloride Carbon Dioxide Anion Gap BUN Creatinine Est GFR (CKD-EPI)AfAm Est GFR (CKD-EPI)NonAf POC Glucometer 109 155 127 Random Glucose Calcium B-Natriuretic Peptide 02/13/19 02/13/19 02/13/19 06:55 06:55 11:31 WBC 6.3 RBC 6.56 H Hgb 14.6 Hct 49.0 H MCV 74.7 L MCH 22.3 L MCHC 29.8 L RDW 21.0 H Plt Count 265 MPV 8.4 Absolute Neuts (auto) 4.7 Neutrophils % 74.0 Lymphocytes % 15.8 Monocytes % 7.3 Eosinophils % 2.3 Basophils % 0.6 Nucleated RBC % 0 Sodium 140 Potassium 3.9 Chloride 97 L Carbon Dioxide 38 H Anion Gap 6 L BUN 10.1 Creatinine 0.6 Est GFR (CKD-EPI)AfAm 128.48 Est GFR (CKD-EPI)NonAf 110.86 POC Glucometer 149 Random Glucose 98 Calcium 8.9 B-Natriuretic Peptide 162.1 H Active Medications Generic Name Dose Route Start Last Admin Trade Name Freq PRN Reason Stop Dose Admin Acetaminophen 650 mg 02/12/19 01:40 02/13/19 06:48 Tylenol - PO 650 mg Q4H PRN Administration PAIN Albuterol Sulfate 1 amp 02/12/19 12:32 Ventolin 0.083% Nebulizer Soln - NEB Q4H PRN SHORT OF BREATH/WHEEZING Albuterol/Ipratropium 1 amp 02/12/19 16:00 02/13/19 11:33 Duoneb - NEB 1 amp RQID LAK[facility] Administration Furosemide 40 mg 02/12/19 06:00 02/13/19 13:20 Lasix Injection - IVPUSH 40 mg BID@0600,1400 [facility] Administration Heparin Sodium (Porcine) 5,000 unit 02/11/19 22:00 02/13/19 13:20 Heparin - SQ 5,000 unit TID [facility] Administration Ampicillin Sodium/Sulbactam 100 mls @ 200 mls/hr 02/13/19 10:00 02/13/19 10: 38 Sodium 3 gm/ Sodium Chloride IVPB 200 mls/hr Q8H-IV [facility] Administration Insulin Aspart 1 vial 02/11/19 16:56 02/13/19 11:36 Novolog Vial Sliding Scale - SQ Not Given ACHS [facility] Protocol Losartan Potassium 25 mg 02/13/19 10:00 02/13/19 09:45 Cozaar - PO 25 mg DAILY [facility] Administration Nystatin 1 applic 02/11/19 22:00 02/13/19 09:45 Nystop Powder - TP 1 applic BID [facility] Administration ASSESSMENT/PLAN: Ms. Ward is a 43 year old F with morbid obesity, RAINA, asthma, depression, DM , and HTN (w/o HF), presenting with LLQ pain, erythema of the abdominal wall and worsening MARKHAM. # Abdominal Pain- most likely 2/2 cellulitis/ panniculitis vs. volume overload - USG LLQ to r/o subcutaneous abcess > not revealing of any pathology, limited by body habitus - ID Following (Dr. Song) appreciate recommendations: - D/C Clindamycin - Start unasyn for cellulitis/potential sq abcess - Dr. Song will F/U tomorrow to decide further plan #MARKHAM- possibly due to volume overload, improving with diuresis -Dr. Alas following, appreciate reccs - continue inhaled bronchodilators - BiPAP at night - F/U ambulatory pulse ox pre/post to assess for home O2 requirement - DVT PPX - Repeat ABG on O2 -Echo> limited by body habitus, EF 60-65%, no pleural effusion. Cardiac form and function otherwise appears normal, valves not able to be assessed. - continue Lasix 40mg BD IVPUSH - 3L O2 NC #Hx of asthma - Duonebs, Ventolin #RAINA - Bipap at night #Hx of DM - Home med metofmrin held - Novolog SS started #Hx of HTN - Cont home med Losartan 25mg - Home meds also included an ACEi and Thiazide, D/Cing both these meds because patient is well controlled on Losartan and is being actively diuresed. #FEN -Actively diuresing -Replete PRN - Low Na/Diabetic Diet DVT Heparin 5000u TID Visit type - Emergency Visit Emergency Visit: Yes ED Registration Date: 02/11/19 Care time: The patient presented to the Emergency Department on the above date and was hospitalized for further evaluation of their emergent condition. - New Patient This patient is new to me today: Yes Date on this admission: 02/13/19 - Critical Care Critical Care patient: No ATTENDING PHYSICIAN STATEMENT I saw and evaluated the patient. I reviewed the resident's note and discussed the case with the resident. I agree with the resident's findings and plan as documented. SUBJECTIVE: OBJECTIVE: ASSESSMENT AND PLAN:
--- NOTE | 2019-02-13 15:35 | PN ---
Teaching Attending Note Name of Resident: Carol Hicks ATTENDING PHYSICIAN STATEMENT I saw and evaluated the patient. I reviewed the resident's note and discussed the case with the resident. I agree with the resident's findings and plan as documented. SUBJECTIVE: no fever or chills. NO SOB and nO abd pain OBJECTIVE: NAD , comfortable HEENT: facial hair, no facial droop, CV: RRR, 2/6 SM at LUSB. No JVD Lungs: CTAB Abd: morbidly obese. large pannus . unable to hear any BS. erythema on lower half of her pannus ( improved again today ) , erythema, wet abrasions under the right side of her pannus and upper thigh . erythema and wet skin in L groin EXt : no edema on legs . ASSESSMENT AND PLAN: 43 y/o lady with h/o morbid obesity, RAINA, Asthma, depression , DM , and HTN, ( denied heart failure) ,who presented with LLQ abd pain and worsening MARKHAM. 1- Possible abd wall cellulits /panniculitis VS fluid overload. erythema improved - d/w ID , use Unasyn - cont diuresis , as renal function improved 2- MARKHAM and hypoxia: due to chronic hypoventilation/RAINA and likely pulm HTN - Pre-post ambulatory pulse ox - cont O2 supp - cont diuresis - echo reviewed. unable to visualixze R heart . 4- H/o HTN: cont losartan for now 5- DM : SSI 6- DVT px : SQ heparin HLOC
[2019-02-14] MEDS ORDERED: PT OWN MED DRAWER 7, Y5N ONE ×4 (01:41→11:39)
[2019-02-14] MEDS: AMPICILLIN NA/SULBACTAM NA 3 GM in SODIUM CHLORIDE 100 ML IVPB SCH ×2 (02:01→09:16)
[2019-02-14] MEDS: ACETAMINOPHEN 325 MG TABLET (FP) PO PRN ×3 (02:18→21:54)
[2019-02-14] MEDS ORDERED: INSULIN (NOVOLOG) ASPART 100 UNITS/ML 10ML VIAL ONE (06:18)
[2019-02-14] MEDS: FUROSEMIDE 40 MG/4 ML INJECTABLE VIAL IVPUSH SCH ×2 (06:50→13:32)
[2019-02-14] MEDS: HEPARIN NA (PORCINE) 5,000 UNITS/ML 1ML VIAL SQ SCH ×3 (06:50→21:53)
[2019-02-14] MEDS: INSULIN SLIDING SCALE (NOVOLOG) 1 VIAL SQ SCH ×4 (07:01→21:53)
[2019-02-14 07:13] LABS: BLOOD UREA NITROGEN 11.6 mg/dL (7-18); CALCIUM 8.6 mg/dL (8.5-10.1); CREATININE 0.6 mg/dL (0.55-1.3); POTASSIUM 4.1 mmol/L (3.5-5.1)
[2019-02-14] MEDS: ALBUTEROL SO4 2.5/IPRATROPIUM 0.5 INH SOL 3 ML VIAL.NEB. NEB SCH ×4 (08:31→20:35)
[2019-02-14] MEDS: LOSARTAN POTASSIUM 25 MG TABLET PO SCH (09:19)
[2019-02-14] MEDS: NYSTATIN POWDER 100,000 UNITS/GM - 15 GM TOPICAL POWDER TP SCH ×2 (09:20→21:53)
--- NOTE | 2019-02-14 11:31 | PN ---
Progress Note, Physician History of Present Illness: stable feels much better cellulitis nearly resolved - Current Medication List Current Medications: Active Medications Acetaminophen (Tylenol -) 650 mg PO Q4H PRN PRN Reason: PAIN Last Admin: 02/14/19 10:47 Dose: 650 mg Albuterol Sulfate (Ventolin 0.083% Nebulizer Soln -) 1 amp NEB Q4H PRN PRN Reason: SHORT OF BREATH/WHEEZING Albuterol/Ipratropium (Duoneb -) 1 amp NEB RQID [facility] Last Admin: 02/14/19 08:31 Dose: 1 amp Furosemide (Lasix Injection -) 40 mg IVPUSH BID@0600,1400 [facility] Last Admin: 02/14/19 06:50 Dose: 40 mg Heparin Sodium (Porcine) (Heparin -) 5,000 unit SQ TID [facility] Last Admin: 02/14/19 06:50 Dose: 5,000 unit Ampicillin Sodium/Sulbactam (Sodium 3 gm/ Sodium Chloride) 100 mls @ 200 mls/ hr IVPB Q8H-IV [facility] Last Admin: 02/14/19 09:16 Dose: 200 mls/hr Insulin Aspart (Novolog Vial Sliding Scale -) 1 vial SQ ACHS [facility]; Protocol Last Admin: 02/14/19 07:01 Dose: Not Given Losartan Potassium (Cozaar -) 25 mg PO DAILY [facility] Last Admin: 02/14/19 09:19 Dose: 25 mg Nystatin (Nystop Powder -) 1 applic TP BID [facility] Last Admin: 02/14/19 09:20 Dose: 1 applic - Objective Vital Signs: Vital Signs Temperature 97.8 F 02/14/19 10:00 Pulse Rate 68 02/14/19 10:00 Respiratory Rate 20 02/14/19 10:00 Blood Pressure 132/88 02/14/19 10:00 O2 Sat by Pulse Oximetry (%) 98 02/13/19 21:00 Constitutional: Yes: No Distress, Calm, Obese (morbid) HENT: Yes: Atraumatic Cardiovascular: Yes: S1, S2 Respiratory: Yes: Regular, CTA Bilaterally, On Nasal O2 Gastrointestinal: Yes: Normal Bowel Sounds, Soft Musculoskeletal: Yes: WNL Extremities: Yes: WNL Integumentary: Yes: Rash (in both groins) Neurological: Yes: Alert, Oriented Psychiatric: Yes: Alert, Oriented Labs: CBC, BMP 02/13/19 06:55 02/14/19 06:30 Assessment/Plan 43 y/o lady with h/o morbid obesity, RAINA, Asthma, depression , DM , and HTN, , who presented with LLQ abd pain and erythema of the abd wall Problem List - Problems (1) Morbid (severe) obesity with alveolar hypoventilation Code(s): E66.2 - MORBID (SEVERE) OBESITY WITH ALVEOLAR HYPOVENTILATION (2) Shortness of breath on exertion Code(s): R06.02 - SHORTNESS OF BREATH (3) Asthma Code(s): J45.909 - UNSPECIFIED ASTHMA, UNCOMPLICATED (4) Leg swelling Code(s): M79.89 - OTHER SPECIFIED SOFT TISSUE DISORDERS (5) HTN (hypertension) Code(s): I10 - ESSENTIAL (PRIMARY) HYPERTENSION 6 abd wall cellulitis plan can change abx to augmentin to be given for another 5 days
--- NOTE | 2019-02-14 12:43 | PN ---
Progress Note (short form) - Note Progress Note: PULMONARY States breathing is better today. No cough or wheezing. +epistaxis with oxygen. Vital Signs Period Temp Pulse Resp BP Sys/Quan Pulse Ox Last 24 Hr 97.8 F-98.4 F 68-78 20-20 122-154/74-88 96-98 Gen: NAD at rest Heart: RRR Lung: decreased breath sounds at the bases Abd: soft, nontender Ext: +edema CBC, BMP 02/13/19 06:55 02/14/19 06:30 Active Medications Acetaminophen (Tylenol -) 650 mg PO Q4H PRN PRN Reason: PAIN Last Admin: 02/14/19 10:47 Dose: 650 mg Albuterol Sulfate (Ventolin 0.083% Nebulizer Soln -) 1 amp NEB Q4H PRN PRN Reason: SHORT OF BREATH/WHEEZING Albuterol/Ipratropium (Duoneb -) 1 amp NEB RQID [facility] Last Admin: 02/14/19 12:11 Dose: 1 amp Furosemide (Lasix Injection -) 40 mg IVPUSH BID@0600,1400 [facility] Last Admin: 02/14/19 06:50 Dose: 40 mg Heparin Sodium (Porcine) (Heparin -) 5,000 unit SQ TID [facility] Last Admin: 02/14/19 06:50 Dose: 5,000 unit Ampicillin Sodium/Sulbactam (Sodium 3 gm/ Sodium Chloride) 100 mls @ 200 mls/ hr IVPB Q8H-IV [facility] Last Admin: 02/14/19 09:16 Dose: 200 mls/hr Insulin Aspart (Novolog Vial Sliding Scale -) 1 vial SQ ACHS [facility]; Protocol Last Admin: 02/14/19 11:45 Dose: Not Given Losartan Potassium (Cozaar -) 25 mg PO DAILY [facility] Last Admin: 02/14/19 09:19 Dose: 25 mg Nystatin (Nystop Powder -) 1 applic TP BID [facility] Last Admin: 02/14/19 09:20 Dose: 1 applic A/P Chronic Hypoxic and Hypercapneic Respiratory Failure Volume Overload RAINA/OHS Asthma HTN DM Morbid Obesity r/o Cellulitis - continue lasix - monitor urine output, creatinine - o2 to keep Spo2 >90% - BiPAP at night - antibiotics per ID - outpt PFTs - DVT prophylaxis
--- NOTE | 2019-02-14 14:52 | PN ---
Teaching Attending Note Name of Resident: Carol Hicks ATTENDING PHYSICIAN STATEMENT I saw and evaluated the patient. I reviewed the resident's note and discussed the case with the resident. I agree with the resident's findings and plan as documented. SUBJECTIVE: No fever or chills. no pain . feels better OBJECTIVE: NAD, comfortable HEENT: facial hair, no facial droop, CV: RRR, 2/6 SM at LUSB. No JVD Lungs: CTAB Abd: morbidly obese. large pannus . unable to hear any BS. improved erythema over lower abdomen , erythema, wet abrasions under the right side of her pannus and upper thigh . erythema and wet skin in L groin EXt : no edema on legs . ASSESSMENT AND PLAN: 43 y/o lady with h/o morbid obesity, RAINA, Asthma, depression , DM , and HTN, ( denied heart failure) ,who presented with LLQ abd pain and worsening MARKHAM. 1- Possible abd wall cellulits /panniculitis VS fluid overload. erythema improved -switch to Augmentin . seen with Dr. Song 2- MARKHAM and hypoxia: due to chronic hypoventilation/RAINA and likely pulm HTN - Pre-post ambulatory pulse ox. need O2 . 4L with ambulationand 3 at rest switch to po lasix at home dose 40 BID 4- H/o HTN: cont losartan . she was on lisinopril /HCTZ and losartan at home. will continue only losartan due to risk f renal failrue 5- DM : resume metformin dc home f/u with card and pulm as out pt
[2019-02-14] MEDS: SODIUM CHLORIDE NASAL SPRAY 44 ML BOTTLE NS PRN ×2 (15:17→21:52)
[2019-02-14] MEDS: AMOX TR/POT CLAV 875MG/125MG TABLETS (FP) PO SCH (17:38)
--- NOTE | 2019-02-14 18:13 | DS ---
Physical Exam: SUBJECTIVE: Patient seen and examined at the bedside. Patient is breathing well on NC and rash is improving. OBJECTIVE: Vital Signs Period Temp Pulse Resp BP Sys/Quan Pulse Ox Last 24 Hr 97.7 F-98.3 F 68-78 20-20 113-154/71-88 96-98 PHYSICAL EXAM GENERAL: awake, alert and oriented in NAD, signs of hirsutism present ( thickened body hair and facial hair present). HEAD: Normal with no signs of trauma. EYES: Pupils equal, round and reactive to light, extraocular movements intact, sclera anicteric, conjunctiva clear. No lid lag. EARS, NOSE, THROAT: Ears normal, nares patent, oropharynx clear without exudates. Moist mucous membranes. LUNGS: Breath clear, decreased B/L due to body habitus, no wheezes, and no crackles. No accessory muscle use. HEART: Regular rate and rhythm, normal S1 and S2 without murmur, rub or gallop. ABDOMEN: Soft, erythema over RLQ and LLQ (improved from previous exams), large pannus present, nontender, not distended, no guarding, no rebound, thickened skin over RLQ. MUSCULOSKELETAL: limited range of motion at all joints due to body habitus. No bony deformities or tenderness. UPPER EXTREMITIES: 2+ pulses, warm, well-perfused. No cyanosis. No clubbing. No peripheral edema. LOWER EXTREMITIES: 2+ pulses, no edema, no ulcers NEUROLOGICAL: Cranial nerves II-XII intact. Normal speech. Difficulty with gait due to body habitus, patient was able to move from bed to chair on her own. PSYCHIATRIC: Cooperative. Good eye contact. Appropriate mood and affect. SKIN: Warm, dry, normal turgor, diffuse redness over pannus greatly improved on the L side, red rash/ apparent fungal infection beneath pannus, thickened skin over R side of pannus. LABS Laboratory Results - last 24 hr 02/13/19 02/14/19 02/14/19 21:56 06:30 06:49 Sodium 138 Potassium 4.1 Chloride 94 L Carbon Dioxide 38 H Anion Gap 5 L BUN 11.6 Creatinine 0.6 Est GFR (CKD-EPI)AfAm 128.48 Est GFR (CKD-EPI)NonAf 110.86 POC Glucometer 133 130 Random Glucose 105 Calcium 8.6 02/14/19 02/14/19 11:10 16:11 Sodium Potassium Chloride Carbon Dioxide Anion Gap BUN Creatinine Est GFR (CKD-EPI)AfAm Est GFR (CKD-EPI)NonAf POC Glucometer 122 113 Random Glucose Calcium HOSPITAL COURSE: Date of Admission:02/11/19 Ms. Ward is a 43 year old F with a pmhx of morbid obesity, RAINA, Asthma, depression, DM, and HTN (without HF) who presented with LLQ abdominal erythema and pain and worsening dyspnea on exertion. Imaging was difficult because of patient's body habitus but US did not reveal any SQ abcess. The patient was emperically started on Clindamycin, was then switched to Ampicillin/ sulbactam and her symptoms of pain and redness continued to improve. Differential for her abdominal pain/ redness in combination with her worsening MARKHAM also included volume overload so the patient was begun om IV Lasix. ABG revealed she had chronic hypercapnea superimposed on an acute episode of hypoxemic/ hypercapneic respiratory failure. The patient was started on NC and BiPAP at night as her RAINA was likely contributing to her symptoms. Symptoms greatly improved with Lasix and Antibiotics and the patient was discharged with a new prescription for home O2, 5 days of antibiotics to treat for any cellulitis. Reconciliation of her home medications revealed that she was taking both an ACEi and an ARB in addition to Lasix and HCTZ. We discontinued her ACEi and HCTZ on discharge. We also discharged her with instructions to follow up with her PCP and Pulmonology to better assess her home oxygen requirements and potential future need for BiPAP. Date of Discharge: 02/14/19 Minutes to complete discharge: 40 Discharge Summary Reason For Visit: SHORT OF BREATH ON EXERION;CELLUTITIS;SYMPTOMATIC Current Active Problems Asthma (Chronic) HTN (hypertension) (Chronic) Morbid (severe) obesity with alveolar hypoventilation (Chronic) Condition: Improved - Instructions Diet, Activity, Other Instructions: You were in the hospital because you have stomach pain and worsening shortness of breath. When we examined you we found that you had a possible skin infection on your stomach. We also found that your worsening shortness of breath may have been due to fluid overload and/ or your obstructive sleep apnea. While you were in the hospital we put you on medicines to decrease your fluids and antibiotics for a skin infection. We also put you on nasal cannula oxygen during the day and a BiPAP machine which improved your breathing. When you leave the hospital you should follow up with the following doctors within the next week: Dr. Charlton, your primary care doctor within [address] Alas, the title investigator to follow up on your breathing issues, within 1 week follow up with concrete pourer Melita santiago We will discharge you home with a prescription for: 4L nasal cannula Oxygen while walking 3L nsal cannula Oxygen while sitting Augmentin 875mg by moth TWICE per day for FIVE days. () You will be going home with oxygen. do not smoke so you don't burn your face Please return to the ED if you experience increased shortness of breath that does not improve with your oxygen or chest pain, nausea/vomiting fevers, chills. do not take lisinopril/hydrochlorothiazide any more . we stopped it Referrals: Ayan Alas MD [Staff Physician] - 1 Week Ayan Charlton MD [Primary Care Provider] - 1 Week John Jackson MD [Staff Physician] - 2 Weeks Disposition: HOME - Home Medications Comprehensive Discharge Medication List: Ambulatory Orders Albuterol Sulfate Inhaler - [Ventolin HFA Inhaler -] 1 puff PRN 02/11/19 Bupropion HCl [Wellbutrin Xl -] 150 mg PO DAILY 02/11/19 Furosemide [Lasix] 40 mg PO BID 02/11/19 Losartan Potassium 25 mg PO DAILY 02/11/19 Pravastatin Sodium 10 mg PO DAILY 02/11/19 Ropinirole HCl 0.5 mg PO DAILY 02/11/19 metFORMIN HCL [Glucophage -] 500 mg PO BID 02/11/19 Amox-Tr/K Cl [Augmentin 875-125mg Tablet -] 1 tab PO BID@0800,1730 5 Days #10 tablet 02/14/19 This patient is new to me today: No Emergency Visit: Yes ED Registration Date: 02/11/19 Care time: The patient presented to the Emergency Department on the above date and was hospitalized for further evaluation of their emergent condition. Critical Care patient: No - Discharge Referral Referred to [facility] No ATTENDING PHYSICIAN STATEMENT I saw and evaluated the patient. I reviewed the resident's note and discussed the case with the resident. I agree with the resident's findings and plan as documented. SUBJECTIVE: OBJECTIVE: ASSESSMENT AND PLAN:
[2019-02-15] MEDS: ACETAMINOPHEN 325 MG TABLET (FP) PO PRN ×2 (03:49→07:17)
[2019-02-15] MEDS: HEPARIN NA (PORCINE) 5,000 UNITS/ML 1ML VIAL SQ SCH (06:59)
[2019-02-15] MEDS: FUROSEMIDE 40 MG/4 ML INJECTABLE VIAL IVPUSH SCH (06:59)
[2019-02-15] MEDS: INSULIN SLIDING SCALE (NOVOLOG) 1 VIAL SQ SCH ×2 (07:00→11:48)
[2019-02-15] MEDS ORDERED: INSULIN (NOVOLOG) ASPART 100 UNITS/ML 10ML VIAL ONE (07:35)
[2019-02-15] MEDS: ALBUTEROL SO4 2.5/IPRATROPIUM 0.5 INH SOL 3 ML VIAL.NEB. NEB SCH ×2 (07:59→11:17)
[2019-02-15] MEDS: SODIUM CHLORIDE NASAL SPRAY 44 ML BOTTLE NS PRN (09:05)
[2019-02-15] MEDS: AMOX TR/POT CLAV 875MG/125MG TABLETS (FP) PO SCH (09:05)
[2019-02-15] MEDS: NYSTATIN POWDER 100,000 UNITS/GM - 15 GM TOPICAL POWDER TP SCH (09:59)
[2019-02-15] MEDS: LOSARTAN POTASSIUM 25 MG TABLET PO SCH (09:59)
[2019-02-15 10:32] VITALS: BP 108/59; PULSE 71; TEMP 98.2
--- NOTE | 2019-02-15 11:27 | PN ---
Progress Note (short form) - Note Progress Note: PULMONARY States breathing continues to improve. No cough or wheezing. Vital Signs Period Temp Pulse Resp BP Sys/Quan Pulse Ox Last 24 Hr 97.6 F-98.2 F 70-106 20-30 108-140/59-94 93-96 Gen: NAD at rest Heart: RRR Lung: decreased breath sounds at the bases Abd: soft, nontender Ext: +edema CBC, BMP 02/13/19 06:55 02/14/19 06:30 Active Medications Acetaminophen (Tylenol -) 650 mg PO Q4H PRN PRN Reason: PAIN Last Admin: 02/15/19 07:17 Dose: 650 mg Albuterol Sulfate (Ventolin 0.083% Nebulizer Soln -) 1 amp NEB Q4H PRN PRN Reason: SHORT OF BREATH/WHEEZING Albuterol/Ipratropium (Duoneb -) 1 amp NEB RQID [facility] Last Admin: 02/15/19 11:17 Dose: 1 amp Amoxicillin/Clavulanate Potassium (Augmentin - 875mg Tablet) 1 tab PO BID@0800, 1730 [facility] Stop: 02/19/19 17:29 Last Admin: 02/15/19 09:05 Dose: 1 tab Furosemide (Lasix Injection -) 40 mg IVPUSH BID@0600,1400 [facility] Last Admin: 02/15/19 06:59 Dose: 40 mg Heparin Sodium (Porcine) (Heparin -) 5,[address] [facility] Last Admin: 02/15/19 06:59 Dose: 5,000 unit Insulin Aspart (Novolog Vial Sliding Scale -) [address] [facility]; Protocol Last Admin: 02/15/19 07:00 Dose: 2 units Losartan Potassium (Cozaar -) [address] [facility] Last Admin: 02/15/19 09:59 Dose: 25 mg Nystatin (Nystop Powder -) [address] [facility] Last Admin: 02/15/19 09:59 Dose: 1 applic Sodium Chloride ([place] -) 2 spray NS BID PRN PRN Reason: NASAL CONGESTION Last Admin: 02/15/19 09:05 Dose: 2 spray A/P Chronic Hypoxic and Hypercapneic Respiratory Failure Volume Overload RAINA/OHS Asthma HTN DM Morbid Obesity r/o Cellulitis - continue lasix - monitor urine output, creatinine - o2 to keep Spo2 >90% - BiPAP at night - antibiotics per ID - outpt PFTs - encourage weight loss - DVT prophylaxis
[2019-02-16 13:17] VITALS: BMI 63.1
== END 2019-02-15 12:28 | disposition home health service (06) | DRG 383 ==
LOC: JER 09:40 → JERBED 13:17 → J8W 20:01
PROVIDERS: ADMIT Internal Medicine; ATTEND Internal Medicine
DX: L03.311 Cellulitis of abdominal wall (principal); E66.01 Morbid (severe) obesity due to excess calories; E11.9 Type 2 diabetes mellitus without complications; F32.9 Major depressive disorder, single episode, unspecified; G25.81 Restless legs syndrome; G47.33 Obstructive sleep apnea (adult) (pediatric); M79.3 Panniculitis, unspecified; J45.909 Unspecified asthma, uncomplicated; R06.81 Apnea, not elsewhere classified; Z68.44 Body mass index [BMI] 60.0-69.9, adult; E66.2 Morbid (severe) obesity with alveolar hypoventilation; J96.22 Acute and chronic respiratory failure with hypercapnia; I11.0 Hypertensive heart disease with heart failure; E87.70 Fluid overload, unspecified; E78.5 Hyperlipidemia, unspecified; J96.21 Acute and chronic respiratory failure with hypoxia
CPT/HCPCS: 36415; 36600; 71045-TC-FY; 71275-TC; 76700-TC; 80048; 80053; 82803; 82962; 83880; 84443; 84484; 84703; 85025; 85379; 93005; 93010; 93306-TC; 93970-TC; 94640; 94660; 94761; 99283-25; J1644

== ENCOUNTER 2019-05-20 14:53 | Inpatient (IN) | payer OTHER ==
[2019-05-20] MEDS ORDERED: predniSONE 20 MG TABLET (UD) PO ONE (16:19)
[2019-05-20] MEDS ORDERED: methylPREDNISolone NA SUCC 125 MG/2 ML VIAL IVPUSH ONE (16:48)
[2019-05-20 16:55] LABS: VENOUS PO2 < 49 mmHg (28-48)
--- NOTE | 2019-05-20 16:55 | PDOC ---
History of Present Illness - General Chief Complaint: Respiratory Stated Complaint: ASTHMA Time Seen by Provider: 05/20/19 16:05 History Source: Patient Exam Limitations: No Limitations Past History - Past Medical History Allergies/Adverse Reactions: Allergies Allergy/AdvReac Type Severity Reaction Status Date / Time No Known Allergies Allergy Verified 05/20/19 15:06 Home Medications: Ambulatory Orders Albuterol Sulfate Inhaler - [Ventolin HFA Inhaler -] 1 puff PRN 02/11/19 Bupropion HCl [Wellbutrin Xl -] 150 mg PO DAILY 02/11/19 Losartan Potassium 25 mg PO DAILY 02/11/19 Pravastatin Sodium 10 mg PO DAILY 02/11/19 Ropinirole HCl 0.5 mg PO DAILY 02/11/19 metFORMIN HCL [Glucophage -] 500 mg PO BID 02/11/19 Furosemide [Lasix] 40 mg PO BID #60 tablet 02/17/19 Asthma: Yes COPD: No DVT: No Diabetes: Yes HTN: Yes Hypercholesterolemia: Yes Other medical history: morbid obesity - Psycho Social/Smoking Cessation Hx Smoking History: Unknown if ever smoked Hx Alcohol Use: No Drug/Substance Use Hx: No *Physical Exam - Vital Signs Last Vital Signs Temp Pulse Resp BP Pulse Ox 98.3 F 67 20 136/70 97 05/20/19 15:11 05/20/19 15:11 05/20/19 15:11 05/20/19 15:11 05/20/19 15:11 - Physical Exam General Appearance: Yes: Obese. No: Apparent Distress Respiratory/Chest: positive: Wheezing (expiratory B/L). negative: Respiratory Distress, Accessory Muscle Use, Labored Respiration, Rapid RR Cardiovascular: positive: Regular Rhythm, Regular Rate, S1, S2. negative: Murmur Gastrointestinal/Abdominal: positive: Soft. negative: Tender Extremity: positive: Pedal Edema (2+ BLE pitting edema). negative: Calf Tenderness, Erythema Neurologic: positive: Alert ED Treatment Course - LABORATORY CBC & Chemistry Diagram: 05/20/19 16:45 05/20/19 16:45 - RADIOLOGY Radiology Studies Ordered: Category Date Time Status CHEST PA & LAT [RAD] Stat Radiology 05/20/19 16:18 Ordered Medical Decision Making - Medical Decision Making 43 y/o F morbidly obese hx of RAINA (on home 4L oxygen), asthma (never intubated, hospitalized once), depression, HTN, HLD presents with exacerbation of her asthma from 2 days ago. +SOB, chest tightness, wheezing. Mentions she had a cold the past weekend, which exacerbated her sxs. Used albuterol inhaler which wasn't helping; states no longer has her nebulizer machine from last year. Last exacerbation was this year, but did not come to hospital for it; states sxs feel césar her asthma. Denies fever, abd pain, n/v/d. Denies smoking or drug use. On chart review, patient was last admitted on 01/2019, where she was found to have chronic hypercapnea due to her RAINA and was started on home oxygen then; she had echo 01/2019 which showed normal EF and BLE ultrasound was negative for DVT EKG: NSR at 68 bpm, left posterior fascicular block (seen in prior EKG) Consider asthma exacerbation, ACS, CHF Plan: labs, CXR, duonebs, steroids, reassess 05/20/19 16:55 Abnormal Lab Results 05/20/19 05/20/19 05/20/19 16:45 16:45 16:45 RBC 6.42 H Hct 48.3 H MCV 75.3 L MCH 21.9 L MCHC 29.1 L RDW 21.9 H Nucleated RBC % 1 H VBG pH 7.30 L POC VBG pCO2 88.9 H* POC VBG pO2 < 49 H VBG HCO3 42.5 H VBG O2 Sat ([place]) 58.7 L VBG Base Excess 11.7 H Chloride 96 L Carbon Dioxide 43 H Anion Gap 1 L AST 9 L B-Natriuretic Peptide 1270.0 H Total Protein 6.3 L Albumin 2.8 L Labs reviewed - CO2 high Patient started on BiPAP - IPAP of 14 and EPAP of 5 Patient also receiving nebs and steroids Patient feeling better on reassessment BNP also noted to be elevated - patient takes Lasix 40 mg BID Will give Lasix 40 mg IV as well Of note, during last admission, patient was referred to pulmonology, but patient states she never followed up Will admit for further management 05/20/19 18:11 Discharge - Discharge Information Problems reviewed: Yes Clinical Impression/Diagnosis: RAINA (obstructive sleep apnea) Asthma exacerbation Qualifiers: Asthma severity: mild Asthma persistence: unspecified Qualified Code(s): J45.901 - Unspecified asthma with (acute) exacerbation Condition: Improved - Admission Yes - Follow up/Referral Referrals: Ayan Charlton MD [Primary Care Provider] - - Patient Discharge Instructions - Post Discharge Activity
[2019-05-20 16:56] LABS: VENOUS PC02 88.9 mmHg (38-52)
[2019-05-20] MEDS ORDERED: ALBUTEROL SO4 2.5/IPRATROPIUM 0.5 INH SOL 3 ML VIAL.NEB. NEB ONE (16:58)
[2019-05-20] MEDS ORDERED: methylPREDNISolone NA SUCC 125 MG/2 ML VIAL ONE (16:58)
[2019-05-20 17:10] LABS: BASO % 0.7 % (0-2.0); EOS % 2.1 % (0-4.5); HEMATOCRIT 48.3 % (32.4-45.2); HEMOGLOBIN 14.1 GM/dL (10.7-15.3); LYMPH % 15.3 % (8-40); MCH 21.9 pg (25.7-33.7); MCHC 29.1 g/dl (32.0-36.0); MEAN CELL VOLUME 75.3 fl (80-96); MEAN PLT VOLUME 8.2 fl (7.5-11.1); MONO % 7.2 % (3.8-10.2); NEUT % 74.7 % (42.8-82.8); PLATELET COUNT 290 K/MM3 (134-434); RBC 6.42 M/mm3 (3.60-5.2); RDW 21.9 % (11.6-15.6); WHITE BLOOD COUNT 9.3 K/mm3 (4.0-10.0)
[2019-05-20] MEDS: ALBUTEROL SO4 2.5/IPRATROPIUM 0.5 INH SOL 3 ML VIAL.NEB. NEB SCH ×3 (17:20→17:24)
--- NOTE | 2019-05-20 17:20 | PDOC ---
*Physical Exam - Vital Signs Last Vital Signs Temp Pulse Resp BP Pulse Ox 98.3 F 67 20 136/70 97 05/20/19 15:11 05/20/19 15:11 05/20/19 15:11 05/20/19 15:11 05/20/19 15:11 ED Treatment Course - LABORATORY CBC & Chemistry Diagram: 05/23/19 06:35 05/23/19 06:35 - ADDITIONAL ORDERS Additional order review: Laboratory Results 05/20/19 05/20/19 16:45 16:45 WBC 9.3 RBC 6.42 H Hgb 14.1 Hct 48.3 H MCV 75.3 L MCH 21.9 L MCHC 29.1 L RDW 21.9 H Plt Count 290 MPV 8.2 Absolute Neuts (auto) 7.0 Neutrophils % 74.7 Lymphocytes % 15.3 Monocytes % 7.2 Eosinophils % 2.1 Basophils % 0.7 Nucleated RBC % 1 H VBG pH 7.30 L POC VBG pCO2 88.9 H* POC VBG pO2 < 49 H VBG HCO3 42.5 H VBG O2 Sat ([place]) 58.7 L VBG Base Excess 11.7 H 05/20/19 16:45 RBC 6.42 H MCV 75.3 L MCHC 29.1 L RDW 21.9 H MPV 8.2 Neutrophils % 74.7 Lymphocytes % 15.3 Monocytes % 7.2 Eosinophils % 2.1 Basophils % 0.7 - Medications Given in the ED: ED Medications Discontinued Medications Generic Name Dose Route Start Last Admin Trade Name Freq PRN Reason Stop Dose Admin Methylprednisolone Sodium Succinate 125 mg 05/20/19 16:48 05/20/19 17:02 Solu-Medrol - IVPUSH 05/20/19 16:49 125 mg ONCE ONE Administration Medical Decision Making - Critical Care Time Total Critical Care Time (minutes): 60 Critical Care Statement: The care of this patient involved high complexity decision making to prevent further life threatening deterioration of the patient 's condition and/or to evaluate & treat vital organ system(s) failure or risk of failure. - Medical Decision Making 05/20/19 17:19 Mr. Ward is a 43 y/o F morbidly obese hx of RAINA (on home 4L oxygen), asthma ( never intubated, hospitalized once), depression, HTN, HLD presents with exacerbation of her asthma x 2 days. (+) SOB, chest tightness, wheezing. (+) URI since last week Has attempted to use albuterol but this was not helpful No fevers, no productive sputum No tobacco use Denies smoking or drug use. On examination Morbidly obese RRR Faint lung sounds No abdominal tenderness Large pannus facial hair lower extremity edema EKG: NSR rate of 68 bpm, axis nml, intervals nml, t wave inversions noted lateral leads Pt seen by Midlevel Provider under my direct supervision Pt interviewed and examined Ancillary studies reviewed Laboratory Tests 05/20/19 05/20/19 16:45 16:45 WBC 9.3 Hgb 14.1 Hct 48.3 H Plt Count 290 VBG pH 7.30 L POC VBG pCO2 88.9 H* POC VBG pO2 < 49 H VBG HCO3 42.5 H Laboratory Tests 05/20/19 16:45 BUN 13.7 Creatinine 0.6 Troponin I < 0.02 B-Natriuretic Peptide 1270.0 H I agree with plan as outlined by Midlevel Provider 05/20/19 17:20 05/20/19 17:26 05/20/19 17:56 Placed on Bipap BNP elevated , will give Lasix 40mg IV Will admit 05/20/19 21:51 Called to assess pt for somnolence Bipap mask removed spoke with patient and she was more arousable call placed to ICU for assessment Pt is wide awake upon his assessment Pt can go to tele EKG: NSR rate of 68 bpm, RAD, Left posterior fascicular block, no st elevation or depression, t wave inversions I, aVL, lead v2 05/23/19 09:33 Discharge - Discharge Information Problems reviewed: Yes Clinical Impression/Diagnosis: RAINA (obstructive sleep apnea) Asthma exacerbation Qualifiers: Asthma severity: moderate Asthma persistence: persistent Qualified Code(s): J45.41 - Moderate persistent asthma with (acute) exacerbation Condition: Improved - Follow up/Referral - Patient Discharge Instructions - Post Discharge Activity
[2019-05-20 17:40] LABS: ALBUMIN 2.8 g/dl (3.4-5.0); ALK PHOS 70 U/L (45-117); ANION GAP 1 MMOL/L (8-16); BILIRUBIN,TOTAL 0.6 mg/dL (0.2-1); BLOOD UREA NITROGEN 13.7 mg/dL (7-18); CALCIUM 8.5 mg/dL (8.5-10.1); CHLORIDE 96 mmol/L (98-107); CO2 43 mmol/L (21-32); CREATININE 0.6 mg/dL (0.55-1.3); GLUCOSE,RANDOM 96 mg/dL (74-106); POTASSIUM 4.6 mmol/L (3.5-5.1); SGOT/AST 9 U/L (15-37); SGPT/ALT 15 U/L (13-61); SODIUM 140 mmol/L (136-145); TOT PROT 6.3 g/dl (6.4-8.2)
[2019-05-20 17:47] LABS: ANISOCYTOSIS 2+; PLATELET ESTIMATE NORMAL
[2019-05-20] MEDS ORDERED: FUROSEMIDE 40 MG/4 ML INJECTABLE VIAL IVPUSH ONE (18:08)
[2019-05-20] MEDS ORDERED: FUROSEMIDE 40 MG/4 ML INJECTABLE VIAL ONE (18:32)
[2019-05-20] MEDS ORDERED: ALBUTEROL SO4 8 GM HFA INHALER IH SCH (19:45)
--- NOTE | 2019-05-20 20:13 | HP ---
CHIEF COMPLAINT: Shortness of breath PCP: HISTORY OF PRESENT ILLNESS: 43 y/o M, pmh of morbid obesity, hx of RAINA on home oxygen (2-3 L at rest and 3- 4L on ambulation), asthma (never been intubated, one time hospitalization), depression, HTN, HLD, DM presents w/ sob, wheezing and mild chest tightness of 2 day duration that started on exertion. She states that her symptoms did not respond to albuterol, but exertion made her symptoms worse. Pt reports that recently she has been getting short of breath more often at both rest and exertion, with nonproductive coughing and SOB waking her up at night. She reports using multiple pillows to sleep. She is mostly bed bound with minimal ambulation when going to the bathroom or kitchen. She mentions a mild URI last weekend that could have contributed to her exacerbation. She was previously admitted for SOB and cellulitis of her right abdominal skin fold, requiring antibiotics. ECHO and b/l LE duplex were both normal at her last admission. At the time she was sent home with prescription for a CPAP machine, which she never received, therefore, she never used it at home. She also does not use nebulizers at home. She never had any sleep studies, cardiac caths or PFT's done. She was supposed to follow up with a concrete pile driver operator, which she could not do. Pt denies f/c/n/v/d/chest pain/abdominal pain/ lower extremity pain, numbness or tingling. ER course was notable for: (1)40 mg Lasix given (2)Solumderol 125 mg and Prednisone 60 given (3)BNP: 1270 Recent Travel: denies PAST MEDICAL HISTORY: morbid obesity, hx of RAINA on home oxygen (2-3 L at rest and 3-4L on ambulation) , asthma (never been intubated, one time hospitalization), depression, HTN, HLD , DM PAST SURGICAL HISTORY: Denies Social History: Smoking:denies Alcohol:denies Drugs:denies Allergies No Known Allergies Allergy (Verified 05/20/19 15:06) HOME MEDICATIONS: Home Medications Medication Instructions Recorded Albuterol Sulfate Inhaler - 1 puff PRN 02/11/19 [Ventolin HFA Inhaler -] Bupropion HCl [Wellbutrin Xl -] 150 mg PO DAILY 02/11/19 Losartan Potassium 25 mg PO DAILY 02/11/19 Pravastatin Sodium 10 mg PO DAILY 02/11/19 Ropinirole HCl 0.5 mg PO DAILY 02/11/19 metFORMIN HCL [Glucophage -] 500 mg PO BID 02/11/19 Furosemide [Lasix] 40 mg PO BID #60 tablet 02/17/19 REVIEW OF SYSTEMS CONSTITUTIONAL: Absent: fever, chills, diaphoresis, generalized weakness HEENT: Admits: difficulty swallowing Absent: rhinorrhea, nasal congestion, throat pain, throat swelling, CARDIOVASCULAR: Absent: chest pain, syncope, palpitations, RESPIRATORY: Admits: cough, shortness of breath, dyspnea with exertion, orthopnea, wheezing, Absent: stridor, hemoptysis GASTROINTESTINAL: Absent: abdominal pain, abdominal distension, nausea, vomiting, diarrhea, GENITOURINARY: Absent: dysuria, frequency, urgency, SKIN: Absent: rash, itching, pallor HEMATOLOGIC/IMMUNOLOGIC: Absent: easy bleeding, easy bruising, ENDOCRINE: Admits: feeling hot Absent: unexplained weight gain, unexplained weight loss NEUROLOGIC: Absent: headache, focal weakness or paresthesias, dizziness, PSYCHIATRIC: Absent: anxiety, depression PHYSICAL EXAMINATION Vital Signs - 24 hr 05/20/19 05/20/19 15:11 18:41 Temperature 98.3 F 98.2 F Pulse Rate 67 Pulse Rate [ 67 Left Apical] Respiratory 20 22 H Rate Blood Pressure 136/70 Blood Pressure 154/83 [Right Arm] O2 Sat by Pulse 97 100 Oximetry (%) GENERAL: Awake, alert, and fully oriented, in no acute distress. Morbidly obese , On BiPAP- IPAP14, EPAP5, Rate 14, FiO2 40 EYES: Pupils equal, round and reactive to light, extraocular movements intact EARS, NOSE, THROAT: oropharynx clear without exudates. Moist mucous membranes. NECK: Normal range of motion, supple without lymphadenopathy, excess fat around the neck LUNGS: Breath sounds equal, clear to auscultation bilaterally. No wheezes, and trace crackles heard. HEART: Regular rate and rhythm, normal S1 and S2 without murmur, rub or gallop. ABDOMEN: Soft, nontender, not distended, normoactive bowel sounds, no guarding, no rebound, no masses. UPPER EXTREMITIES: 2+ pulses, warm, well-perfused. No cyanosis. No clubbing. Mild peripheral edema b/l LOWER EXTREMITIES: 2+ pulses, warm, well-perfused. No calf tenderness. 3+ peripheral edema b/l w/ scaling and skin breakdown due to chronic venous stasis NEUROLOGICAL: Cranial nerves II-XII intact. Normal speech PSYCHIATRIC: Cooperative. Good eye contact. Appropriate mood and affect. SKIN: Warm, dry, normal turgor, Laboratory Results - last 24 hr 05/20/19 05/20/19 05/20/19 16:45 16:45 16:45 WBC 9.3 RBC 6.42 H Hgb 14.1 Hct 48.3 H MCV 75.3 L MCH 21.9 L MCHC 29.1 L RDW 21.9 H Plt Count 290 MPV 8.2 Absolute Neuts (auto) 7.0 Neutrophils % 74.7 Neutrophils % (Manual) 79.4 Band Neutrophils % 1.0 Lymphocytes % 15.3 Lymphocytes % (Manual) 8.3 Monocytes % 7.2 Monocytes % (Manual) 6 Eosinophils % 2.1 Eosinophils % (Manual) 0.0 Basophils % 0.7 Basophils % (Manual) 1.0 Myelocytes % (Man) 0 Promyelocytes % (Man) 0 Blast Cells % (Manual) 0 Nucleated RBC % 1 H Metamyelocytes 0 Platelet Estimate Normal Polychromasia 1+ Anisocytosis 2+ VBG pH 7.30 L POC VBG pCO2 88.9 H* POC VBG pO2 < 49 H VBG HCO3 42.5 H VBG O2 Sat ([place]) 58.7 L VBG Base Excess 11.7 H Sodium 140 Potassium 4.6 Chloride 96 L Carbon Dioxide 43 H Anion Gap 1 L BUN 13.7 Creatinine 0.6 Est GFR (CKD-EPI)AfAm 128.48 Est GFR (CKD-EPI)NonAf 110.86 Random Glucose 96 Calcium 8.5 Total Bilirubin 0.6 AST 9 L ALT 15 Alkaline Phosphatase 70 Troponin I < 0.02 B-Natriuretic Peptide 1270.0 H Total Protein 6.3 L Albumin 2.8 L ASSESSMENT/PLAN: 43 y/o M, pmh of morbid obesity, hx of RAINA on home oxygen (2-3 L at rest and 3- 4L on ambulation), asthma (never been intubated, one time hospitalization), depression, HTN, HLD, DM presents w/ sob, wheezing and mild chest tightness of 2 day duration is admitted for CHF exacerbation superimposed with asthma exacerbation #CHF exacerbation EF preserved on last ECHO, thus suspect diastolic dysfxn Pt appears fluid overloaded, w/ 3+ b/l extremity edema trace crackles b/l, clinical signs of CHF- recent orthopnea, SOB on exertion, multiple pillow to sleep, b/l leg swelling consider room air in am to see if pt is able to tolerate Lasix 40mg IV BID Fluid restriction Cardiology consulted- Dr. Manuel Goyal ordered to monitor I's&O's Daily weights No reason for an Echo now- last Echo in 02/06- unremarkable Will need Bariatric surgery referral, morbid obesity could be the underlying factor behind her symptoms monitor on Tele #Acute on Chronic hypoxic/hypercapnic resp failure BiPAP overnight r/p ABG (VBG is not enough) Pulmonary consulted-Dr Alas PFT's outpt #R/o PE or DVT low risk, low wells score But due to hx of risk factors and obesity Duplex US of b/l leg ordered #LE edema Lasix 40 BID #HTN cont home meds consider beta blockers in am #DM ISS #Hx of depression Wellbutrin #DVT ppx Lovenox FEN no fluids monitor lytes Diabetic/sodium diet Dispo: f/u with cardio and pulmonary in am, f/u with ABG, monitor on tele Visit type - Emergency Visit Emergency Visit: Yes ED Registration Date: 05/20/19 Care time: The patient presented to the Emergency Department on the above date and was hospitalized for further evaluation of their emergent condition. - New Patient This patient is new to me today: Yes Date on this admission: 05/22/19 - Critical Care Critical Care patient: No ATTENDING PHYSICIAN STATEMENT I saw and evaluated the patient. I reviewed the resident's note and discussed the case with the resident. I agree with the resident's findings and plan as documented. SUBJECTIVE: OBJECTIVE: ASSESSMENT AND PLAN:
--- NOTE | 2019-05-20 20:22 | PN ---
Teaching Attending Note Name of Resident: Yuniel Liu ATTENDING PHYSICIAN STATEMENT I saw and evaluated the patient. I reviewed the resident's note and discussed the case with the resident. I agree with the resident's findings and plan as documented. SUBJECTIVE: 43 y/o F morbidly obese, w/ hx of chronic respiratory failure, RAINA (on home 4L oxygen), asthma, depression, HTN, HLD complained of progressive shortness of breath, nonproductive cough, chest tightness for the past 2 to 3 days. She is using her albuterol inhaler at home which was not helping much. Denied any recent travels or sick contacts. Patient does not use CPAP for her RAINA and has never underwent formal pulmonary function testing. Noted to have been treated for abdominal wall cellulitis on prior admission. OBJECTIVE: Last Vital Signs Temp Pulse Resp BP Pulse Ox 98.2 F 67 22 H 154/83 100 05/20/19 18:41 05/20/19 18:41 05/20/19 18:41 05/20/19 18:41 05/20/19 18:41 GENERAL: Morbidly obese, nontoxic-appearing HEENT: Normocephalic, atraumatic. PERRLA, EOMI. No conjunctival pallor. Sclera are non- icteric. Moist mucous membranes. Oropharynx is clear. NECK: Supple. Full ROM. No JVD. Carotid pulses 2+ and symmetric, without bruits. No thyromegaly. No lymphadenopathy. CARDIOVASCULAR: Regular rate and rhythm. No murmurs, rubs, or gallops. Distal pulses are 2+ and symmetric. PULMONARY: No evidence of respiratory distress. Lungs clear to auscultation bilaterally. No wheezing, rales or rhonchi. ABDOMINAL: Morbidly obese, Soft. Non-tender. Non-distended. No rebound or guarding. No organomegaly. Normoactive bowel sounds. MUSCULOSKELETAL Normal range of motion at all joints. No bony deformities or tenderness. No CVA tenderness. EXTREMITIES: Bilateral lower extremity SKIN: Warm and dry. Normal capillary refill. No rashes. No jaundice. PSYCHIATRIC: Cooperative. Good eye contact. Appropriate mood and affect. Abnormal Lab Results 05/20/19 05/20/19 05/20/19 16:45 16:45 16:45 RBC 6.42 H Hct 48.3 H MCV 75.3 L MCH 21.9 L MCHC 29.1 L RDW 21.9 H Nucleated RBC % 1 H ABG pH ABG pCO2 at Pt Temp ABG HCO3 ABG Base Excess VBG pH 7.30 L POC VBG pCO2 88.9 H* POC VBG pO2 < 49 H VBG HCO3 42.5 H VBG O2 Sat ([place]) 58.7 L VBG Base Excess 11.7 H Chloride 96 L Carbon Dioxide 43 H Anion Gap 1 L AST 9 L B-Natriuretic Peptide 1270.0 H Total Protein 6.3 L Albumin 2.8 L 05/20/19 20:45 RBC Hct MCV MCH MCHC RDW Nucleated RBC % ABG pH 7.32 L ABG pCO2 at Pt Temp 81.3 H* ABG HCO3 40.7 H ABG Base Excess 10.6 H VBG pH POC VBG pCO2 POC VBG pO2 VBG HCO3 VBG O2 Sat ([place]) VBG Base Excess Chloride Carbon Dioxide Anion Gap AST B-Natriuretic Peptide Total Protein Albumin EKG: NSR at 68 bpm, left posterior fascicular block (seen in prior EKG) Chest x-ray with what appears to be bilateral pulmonary edema Imaging studies reviewed ASSESSMENT AND PLAN: 43-year-old woman with morbid obesity on acute on chronic respiratory failure, likely CHF exacerbation. Evidence of fluid overload on exam and elevated BNP. EF was preserved on last echo performed earlier this year however suspect diastolic dysfunction as well as probable pulmonary hypertension. VBG noted to have CO2 retention, suspect probable respiratory acidosis. CO2 retention is likely secondary to obesity hypoventilation syndrome. Admit to telemetry Furosemide 40 mg IV twice daily Beta-rajinder JULIO inhibitor Goyal catheter for accurate I's and O's Monitor I's and O's Daily weights Salt and free water restriction No echo at this time since recent echo was appreciated from 02/06 Cardiology evaluation Trend troponin Weight loss Lower extremity duplex to rule out DVT #Acute on chronic hypoxic/hypercapnic respiratory failure BiPAP ABG on room air Pulmonary follow-up Will need PFTs as an outpatient #Morbid obesity Strongly suggest weight loss Suggest bariatric surgery referral #Heparin subcutaneous for DVT prophylaxis
[2019-05-20 21:11] LABS: ARTERIAL BLD GAS O2 SATURATION 95.3 % (95-98); ARTERIAL BLOOD GAS BASE EXCESS 10.6 meq/l (-2-2); ARTERIAL BLOOD GAS pH 7.32 (7.35-7.45); CARBOXYHEMOGLOBIN 1.6 % (0-2)
[2019-05-20 21:18] LABS: ARTERIAL BLOOD GAS PCO2 81.3 mmHg (35-45)
[2019-05-21 00:11] LABS: ARTERIAL BLD GAS O2 SATURATION 96.3 % (95-98); ARTERIAL BLOOD GAS BASE EXCESS 11.2 meq/l (-2-2); ARTERIAL BLOOD GAS PO2 94.2 mmHg (80-100); ARTERIAL BLOOD GAS pH 7.35 (7.35-7.45)
[2019-05-21 00:17] LABS: ARTERIAL BLOOD GAS PCO2 75.5 mmHg (35-45)
[2019-05-21] MEDS ORDERED: CLOTRIMAZOLE 1% CREAM 15 GM TUBE TP SCH (00:46)
[2019-05-21] MEDS ORDERED: ALBUTEROL SO4 8 GM HFA INHALER IH SCH (06:30)
[2019-05-21] MEDS: FUROSEMIDE 40 MG/4 ML INJECTABLE VIAL IVPUSH SCH ×2 (07:05→14:07)
[2019-05-21 07:20] LABS: ARTERIAL BLOOD GAS PCO2 84.2 mmHg (35-45); ARTERIAL BLOOD GAS PO2 95.3 mmHg (80-100); ARTERIAL BLOOD GAS pH 7.32 (7.35-7.45)
[2019-05-21 07:21] LABS: ARTERIAL BLD GAS O2 SATURATION 96.1 % (95-98); ARTERIAL BLOOD GAS BASE EXCESS 12.5 meq/l (-2-2)
[2019-05-21 07:22] LABS: ALLENS TEST POSITIVE
[2019-05-21 07:22] LABS: HEMATOCRIT 48.2 % (32.4-45.2); HEMOGLOBIN 14.2 GM/dL (10.7-15.3); MCH 22.2 pg (25.7-33.7); MCHC 29.5 g/dl (32.0-36.0); MEAN CELL VOLUME 75.1 fl (80-96); MEAN PLT VOLUME 8.4 fl (7.5-11.1); PLATELET COUNT 326 K/MM3 (134-434); RBC 6.41 M/mm3 (3.60-5.2); RDW 21.6 % (11.6-15.6); WHITE BLOOD COUNT 10.8 K/mm3 (4.0-10.0)
[2019-05-21 07:25] LABS: ALBUMIN 2.9 g/dl (3.4-5.0); ALK PHOS 69 U/L (45-117); ANION GAP 4 MMOL/L (8-16); BILIRUBIN,TOTAL 0.9 mg/dL (0.2-1); BLOOD UREA NITROGEN 14.9 mg/dL (7-18); CALCIUM 8.9 mg/dL (8.5-10.1); CHLORIDE 93 mmol/L (98-107); CO2 41 mmol/L (21-32); CREATININE 0.6 mg/dL (0.55-1.3); GLUCOSE,RANDOM 119 mg/dL (74-106); MAGNESIUM 2.2 mg/dL (1.8-2.4); PHOSPHOROUS 3.8 mg/dL (2.5-4.9); SGOT/AST 9 U/L (15-37); SGPT/ALT 14 U/L (13-61); SODIUM 137 mmol/L (136-145); TOT PROT 6.8 g/dl (6.4-8.2)
[2019-05-21 08:16] LABS: N-TERMINAL BNP 890.9 pg/ml (5-125)
[2019-05-21] MEDS ORDERED: PT OWN MED DRAWER 7, Y5N ONE (09:35)
[2019-05-21] MEDS ORDERED: PATIENT'S OWN MEDICATION (NON-FORMULARY) (Pravastatin Sodium [Pravastatin Sodium] 10 MG) PO SCH (10:00)
[2019-05-21] MEDS ORDERED: FLU VACCINE QUAD 60 MCG/0.5 ML (MDV 19-20) IM ONE (10:00)
--- NOTE | 2019-05-21 10:21 | PN ---
Progress Note (short form) - Note Progress Note: Subjective: No fever or chills. SOB is better . NO NEVAREZ . no cough now but had cough at home with whitish sputum. was wheezy at home. reports increased LE and abd wall edema compared to base line Objective: Vital Signs: Last Vital Signs Temp Pulse Resp BP Pulse Ox 97.6 F 64 18 150/66 96 05/21/19 07:09 05/21/19 07:09 05/21/19 07:09 05/21/19 07:09 05/21/19 07:53 Laboratory Results - last 24 hr 05/20/19 05/20/19 05/20/19 16:45 16:45 16:45 WBC 9.3 RBC 6.42 H Hgb 14.1 Hct 48.3 H MCV 75.3 L MCH 21.9 L MCHC 29.1 L RDW 21.9 H Plt Count 290 MPV 8.2 Absolute Neuts (auto) 7.0 Neutrophils % 74.7 Neutrophils % (Manual) 79.4 Band Neutrophils % 1.0 Lymphocytes % 15.3 Lymphocytes % (Manual) 8.3 Monocytes % 7.2 Monocytes % (Manual) 6 Eosinophils % 2.1 Eosinophils % (Manual) 0.0 Basophils % 0.7 Basophils % (Manual) 1.0 Myelocytes % (Man) 0 Promyelocytes % (Man) 0 Blast Cells % (Manual) 0 Nucleated RBC % 1 H Metamyelocytes 0 Platelet Estimate Normal Polychromasia 1+ Anisocytosis 2+ Anticoagulation Therapy Puncture Site ABG pH ABG pCO2 at Pt Temp ABG pO2 at Pt Temp ABG HCO3 ABG O2 Sat (Measured) ABG O2 Content ABG Base Excess Raffi Test VBG pH 7.30 L POC VBG pCO2 88.9 H* POC VBG pO2 < 49 H VBG HCO3 42.5 H VBG O2 Sat ([place]) 58.7 L VBG Base Excess 11.7 H Carboxyhemoglobin Methemoglobin O2 Delivery Device Oxygen Flow Rate Vent Mode Vent Rate Mechanical Rate Pressure Support Vent Sodium 140 Potassium 4.6 Chloride 96 L Carbon Dioxide 43 H Anion Gap 1 L BUN 13.7 Creatinine 0.6 Est GFR (CKD-EPI)AfAm 128.48 Est GFR (CKD-EPI)NonAf 110.86 POC Glucometer Random Glucose 96 Calcium 8.5 Phosphorus Magnesium Total Bilirubin 0.6 AST 9 L ALT 15 Alkaline Phosphatase 70 Troponin I < 0.02 B-Natriuretic Peptide 1270.0 H Total Protein 6.3 L Albumin 2.8 L 05/20/19 05/20/19 05/21/19 20:45 23:55 05:40 WBC 10.8 H RBC 6.41 H Hgb 14.2 Hct 48.2 H MCV 75.1 L MCH 22.2 L MCHC 29.5 L RDW 21.6 H Plt Count 326 MPV 8.4 Absolute Neuts (auto) Neutrophils % Neutrophils % (Manual) Band Neutrophils % Lymphocytes % Lymphocytes % (Manual) Monocytes % Monocytes % (Manual) Eosinophils % Eosinophils % (Manual) Basophils % Basophils % (Manual) Myelocytes % (Man) Promyelocytes % (Man) Blast Cells % (Manual) Nucleated RBC % Metamyelocytes Platelet Estimate Polychromasia Anisocytosis Anticoagulation Therapy No Result Required. No Result Required. Puncture Site Right radial Right radial ABG pH 7.32 L 7.35 ABG pCO2 at Pt Temp 81.3 H* 75.5 H* ABG pO2 at Pt Temp 90.0 94.2 ABG HCO3 40.7 H 40.3 H ABG O2 Sat (Measured) 95.3 96.3 ABG O2 Content 20.5 19.5 ABG Base Excess 10.6 H 11.2 H Raffi Test No Result Required. No Result Required. VBG pH POC VBG pCO2 POC VBG pO2 VBG HCO3 VBG O2 Sat ([place]) VBG Base Excess Carboxyhemoglobin 1.6 Methemoglobin < 1.0 O2 Delivery Device Bipap Bipap Oxygen Flow Rate 40% 40% Vent Mode S/t S/t Vent Rate 14 18 Mechanical Rate No Result Required. No Result Required. Pressure Support Vent 14/5 14/5 Sodium Potassium Chloride Carbon Dioxide Anion Gap BUN Creatinine Est GFR (CKD-EPI)AfAm Est GFR (CKD-EPI)NonAf POC Glucometer Random Glucose Calcium Phosphorus Magnesium Total Bilirubin AST ALT Alkaline Phosphatase Troponin I B-Natriuretic Peptide Total Protein Albumin 05/21/19 05/21/19 05/21/19 05:40 06:45 07:04 WBC RBC Hgb Hct MCV MCH MCHC RDW Plt Count MPV Absolute Neuts (auto) Neutrophils % Neutrophils % (Manual) Band Neutrophils % Lymphocytes % Lymphocytes % (Manual) Monocytes % Monocytes % (Manual) Eosinophils % Eosinophils % (Manual) Basophils % Basophils % (Manual) Myelocytes % (Man) Promyelocytes % (Man) Blast Cells % (Manual) Nucleated RBC % Metamyelocytes Platelet Estimate Polychromasia Anisocytosis Anticoagulation Therapy No Result Required. Puncture Site Right radial ABG pH 7.32 L ABG pCO2 at Pt Temp 84.2 H* ABG pO2 at Pt Temp 95.3 ABG HCO3 42.5 H ABG O2 Sat (Measured) 96.1 ABG O2 Content 18.5 ABG Base Excess 12.5 H Raffi Test Positive VBG pH POC VBG pCO2 POC VBG pO2 VBG HCO3 VBG O2 Sat ([place]) VBG Base Excess Carboxyhemoglobin Methemoglobin O2 Delivery Device Bipap Oxygen Flow Rate 40% Vent Mode S/t Vent Rate 18 Mechanical Rate No Result Required. Pressure Support Vent 14/5 Sodium 137 Potassium 5.0 Chloride 93 L Carbon Dioxide 41 H Anion Gap 4 L BUN 14.9 Creatinine 0.6 Est GFR (CKD-EPI)AfAm 128.48 Est GFR (CKD-EPI)NonAf 110.86 POC Glucometer 132 Random Glucose 119 H Calcium 8.9 Phosphorus 3.8 Magnesium 2.2 Total Bilirubin 0.9 AST 9 L ALT 14 Alkaline Phosphatase 69 Troponin I < 0.02 B-Natriuretic Peptide 890.9 H Total Protein 6.8 Albumin 2.9 L Physical Exam: NAD, morbidly obese. comfortable, facial hair, no facial droop, CV: RRR, 2/6 SM at LUSB. Lungs: decreased breath sounds half way down on both sides Abd: morbidly obese. large pannus. pitting edema on abd wall . erythema and moist skin under pannus EXt:edema on legs and thighs ASSESSMENT AND PLAN: 43 y/o lady with h/o morbid obesity, RAINA, chronic resp failure with 4 L of O2 at base line Asthma, depression , DM , and HTN,who presented with cough and SOB .She was diagnosed with acute CHF. 1- Acute diastolic heart failure: last echo in 02/06 with NL EF. - cont lasix 40 BID. - Low salt diet. - I&O and weight - not sure that a new echo will foreign exchange clerk. will hold off now - cont losartan - EKG and tele reviewed. No events 2- Acute on chronic resp failure : with hypercapnia . Due to CHF, RAINA, and obesity - ABG this am reviewed. - cont BIPAP PRN and HS - Treat CHF - weight loss sx referral at dc 3-H/o HTN: cont losartan 5- H/o DM ; cont SSI . hold metformin 6- Fungal infection under breasts and pannus: cont clotrimazole 7- DVT PX : Lovenox Visit type - Emergency Visit Emergency Visit: Yes ED Registration Date: 05/20/19 Care time: The patient presented to the Emergency Department on the above date and was hospitalized for further evaluation of their emergent condition. - New Patient This patient is new to me today: Yes Date on this admission: 05/21/19 - Critical Care Critical Care patient: No
[2019-05-21] MEDS: ENOXAPARIN NA (PORCINE) 40 MG/0.4 ML DISP.SYRIN SQ SCH (10:41)
[2019-05-21] MEDS: LOSARTAN POTASSIUM 25 MG TABLET PO SCH (10:41)
[2019-05-21] MEDS: rOPINIRole HCL 0.5 MG TABLET PO SCH (10:41)
[2019-05-21] MEDS: ACETAMINOPHEN 325 MG TABLET (FP) PO PRN ×2 (11:12→22:10)
--- NOTE | 2019-05-21 13:43 | CON.PULM ---
Consult Consult Specialty:: PULMONARY Referred by:: DONNIE Reason for Consultation:: SOB - History of Present Illness Chief Complaint: SOB/COUGH History of Present Illness: 43 y/o M, pmh of morbid obesity, hx of RAINA on home oxygen (2-3 L at rest and 3- 4L on ambulation), asthma (never been intubated, one time hospitalization), depression, HTN, HLD, DM presents w/ sob, wheezing and mild chest tightness of 2 day duration that started on exertion. She states that her symptoms did not respond to albuterol. Pt reports that recently she has been getting short of breath more often at both rest and exertion, with nonproductive coughing and SOB waking her up at night. She is mostly bed bound with minimal ambulation when going to the bathroom or kitchen. She was previously admitted for SOB and cellulitis of her right abdominal skin fold, requiring antibiotics. ECHO and b/ l LE duplex were both normal at her last admission. At the time she was sent home with prescription for a CPAP machine, which she never received, therefore, she never used it at home. She also does not use nebulizers at home. She never had any sleep studies, cardiac caths or PFT's done. She was supposed to follow up with a cryptologic technician operator/analyst, which she could not do. - History Source History Provided By: Patient, Medical Record Limitations to Obtaining History: No Limitations - Past Medical History CAREER DEVELOPMENT ASSOCIATE: No: Alzheimer's Cardio/Vascular: No: AFIB Pulmonary: Yes: Asthma, COPD, O2 Dependent, Sleep Apnea. No: Pneumonia, Previously Intubated, Pulmonary Fibrosis Gastrointestinal: No: Ascites Hepatobiliary: No: Cirrhosis Renal/: No: Renal Failure Heme/Onc: No: Anemia - Alcohol/Substance Use Hx Alcohol Use: No - Smoking History Smoking history: Never smoked Have you smoked in the past 12 months: No Home Medications - Allergies Allergies/Adverse Reactions: Allergies Allergy/AdvReac Type Severity Reaction Status Date / Time No Known Allergies Allergy Verified 05/20/19 15:06 - Home Medications Home Medications: Ambulatory Orders Albuterol Sulfate Inhaler - [Ventolin HFA Inhaler -] 1 puff PRN 02/11/19 Bupropion HCl [Wellbutrin Xl -] 150 mg PO DAILY 02/11/19 Losartan Potassium 25 mg PO DAILY 02/11/19 Pravastatin Sodium 10 mg PO DAILY 02/11/19 Ropinirole HCl 0.5 mg PO DAILY 02/11/19 metFORMIN HCL [Glucophage -] 500 mg PO BID 02/11/19 Furosemide [Lasix] 40 mg PO BID #60 tablet 02/17/19 Family Medical History Family History: Unremarkable Review of Systems - Review of Systems Constitutional: denies: Fever, Loss of Appetite Eyes: denies: Double Vision HENT: denies: Ear Discharge Neck: denies: Lumps Cardiovascular: reports: Edema Respiratory: reports: Cough, Exercise Intolerance, Orthopnea, SOB on Exertion, Wheezing. denies: Hemoptysis Gastrointestinal: denies: Abdominal Pain Genitourinary: denies: Burning Breasts: reports: No Symptoms Reported Musculoskeletal: reports: No Symptoms Integumentary: reports: No Symptoms Neurological: reports: No Symptoms Physical Exam Vital Sings: Vital Signs Temperature 98.8 F 05/21/19 09:00 Pulse Rate 76 05/21/19 09:00 Respiratory Rate 18 05/21/19 09:00 Blood Pressure 114/58 L 05/21/19 09:00 O2 Sat by Pulse Oximetry (%) 95 05/21/19 09:00 Constitutional: Yes: Calm Eyes: Yes: EOM Intact HENT: Yes: Normocephalic Neck: Yes: Trachea Midline Cardiovascular: Yes: S1, S2 Respiratory: Yes: Diminished Gastrointestinal: Yes: Abdomen, Obese Edema: Yes Integumentary: Yes: WNL Neurological: Yes: Alert Psychiatric: Yes: Alert Labs: CBC, BMP 05/21/19 05:40 05/21/19 05:40 ABG Results ABG pH 7.32 (7.35-7.45) L 05/21/19 06:45 ABG pCO2 at Pt Temp 84.2 mmHg (35-45) H* 05/21/19 06:45 ABG pO2 at Pt Temp 95.3 mmHg (80-100) 05/21/19 06:45 ABG HCO3 42.5 mmol/L (22-27) H 05/21/19 06:45 ABG O2 Sat (Measured) 96.1 % (95-98) 05/21/19 06:45 ABG O2 Content 18.5 % vol 05/21/19 06:45 ABG Base Excess 12.5 meq/l (-2-2) H 05/21/19 06:45 REST REVIEWED Problem List - Problems (1) Asthma exacerbation Code(s): J45.901 - UNSPECIFIED ASTHMA WITH (ACUTE) EXACERBATION Qualifiers: Asthma severity: moderate Asthma persistence: persistent Qualified Code(s ): J45.41 - Moderate persistent asthma with (acute) exacerbation (2) RAINA (obstructive sleep apnea) Code(s): G47.33 - OBSTRUCTIVE SLEEP APNEA (ADULT) (PEDIATRIC) (3) HTN (hypertension) Code(s): I10 - ESSENTIAL (PRIMARY) HYPERTENSION (4) Morbid (severe) obesity with alveolar hypoventilation Code(s): E66.2 - MORBID (SEVERE) OBESITY WITH ALVEOLAR HYPOVENTILATION (5) Shortness of breath on exertion Code(s): R06.02 - SHORTNESS OF BREATH (6) Acute on chronic respiratory failure with hypoxemia Code(s): J96.21 - ACUTE AND CHRONIC RESPIRATORY FAILURE WITH HYPOXIA (7) Hypercapnic respiratory failure, chronic Code(s): J96.12 - CHRONIC RESPIRATORY FAILURE WITH HYPERCAPNIA Assessment/Plan OHS/OSAS AUTOPAP HS/PRN O2 TO KEEP SAT GREATER THAN 90% BRONCHODILATORS ANTIBIOTICS CONSIDER SHORT COURSE OF STEROIDS CONTINUE TELE MONITORING FOR NOW DVT PROPHYLAXSIS NEEDS PSG OUTPATIENT Leah GALLEGO MD
[2019-05-21] MEDS: ALBUTEROL SO4 0.083% IH SOL 2.5 MG/3 ML VIAL.NEB. NEB PRN ×2 (16:57→20:35)
--- NOTE | 2019-05-21 17:52 | CON.CARD ---
Consult Consult Specialty:: Cardiology for Dr. Jackson Referred by:: Hospitalist Medicine Reason for Consultation:: Diastolic heart failure - History of Present Illness Chief Complaint: Dyspnea History of Present Illness: 43 y/o F morbidly obese, w/ hx of chronic hypercapneic respiratory failure, RAINA (on home 4L oxygen but no cpap), asthma, depression, HTN, HLD, diastolic dysfunction with h/o failure complained of progressive exertional shortness of breath, nonproductive cough, chest tightness for the past 2 to 3 days. She is using her albuterol inhaler at home which was not helping much. Denied any recent travels or sick contacts. Patient does not use CPAP for her RAINA and has never underwent formal pulmonary function testing. Dyspnea and orthopnea improving with diuresis. - History Source History Provided By: Patient Limitations to Obtaining History: No Limitations - Past Medical History CURTAIN STITCHER: No: Alzheimer's Cardio/Vascular: No: AFIB Pulmonary: Yes: Asthma, COPD, O2 Dependent, Sleep Apnea. No: Pneumonia, Previously Intubated, Pulmonary Fibrosis Gastrointestinal: No: Ascites Hepatobiliary: No: Cirrhosis Renal/: No: Renal Failure - Alcohol/Substance Use Hx Alcohol Use: No - Smoking History Smoking history: Never smoked Have you smoked in the past 12 months: No Home Medications - Allergies Allergies/Adverse Reactions: Allergies Allergy/AdvReac Type Severity Reaction Status Date / Time No Known Allergies Allergy Verified 05/20/19 15:06 - Home Medications Home Medications: Ambulatory Orders Albuterol Sulfate Inhaler - [Ventolin HFA Inhaler -] 1 puff PRN 02/11/19 Bupropion HCl [Wellbutrin Xl -] 150 mg PO DAILY 02/11/19 Losartan Potassium 25 mg PO DAILY 02/11/19 Pravastatin Sodium 10 mg PO DAILY 02/11/19 Ropinirole HCl 0.5 mg PO DAILY 02/11/19 metFORMIN HCL [Glucophage -] 500 mg PO BID 02/11/19 Furosemide [Lasix] 40 mg PO BID #60 tablet 02/17/19 Review of Systems - Review of Systems Cardiovascular: reports: Edema Respiratory: reports: Exercise Intolerance, Orthopnea, SOB, SOB on Exertion Vital Signs: Vital Signs Temperature 98.5 F 05/21/19 14:00 Pulse Rate 71 05/21/19 14:00 Respiratory Rate 20 05/21/19 14:00 Blood Pressure 137/73 05/21/19 14:00 O2 Sat by Pulse Oximetry (%) 95 05/21/19 09:00 Constitutional: Yes: No Distress, Calm Neck: Yes: Supple Respiratory: Yes: Regular, Diminished, On Nasal O2 Gastrointestinal: Yes: Normal Bowel Sounds, Soft, Abdomen, Obese Cardiovascular: Yes: Regular Rate and Rhythm, Other (Distant heart sounds) JVD: No Carotid Bruit: No Heart Sounds: Yes: S1, S2 Edema: Yes Integumentary: Yes: Venous Stasis Changes - Other Data Labs, Other Data: CBC, BMP 05/21/19 05:40 05/21/19 05:40 Troponin, BNP 05/21/19 05:40 Troponin I < 0.02 B-Natriuretic Peptide 890.9 H Troponin, BNP 05/21/19 05:40 Troponin I < 0.02 B-Natriuretic Peptide 890.9 H NSR @ 68 PRWP Echo: Report Reviewed Ejection Fraction %: LVEF > or = 40 % Imaging - Results Chest X-ray: Report Reviewed (Congestion) Problem List - Problems (1) Acute on chronic diastolic (congestive) heart failure Code(s): I50.33 - ACUTE ON CHRONIC DIASTOLIC (CONGESTIVE) HEART FAILURE (2) Hyperlipidemia Code(s): E78.5 - HYPERLIPIDEMIA, UNSPECIFIED Qualifiers: Hyperlipidemia type: pure hypercholesterolemia Qualified Code(s): E78.00 - Pure hypercholesterolemia, unspecified; E78.0 - Pure hypercholesterolemia (3) Hypercapnic respiratory failure, chronic Code(s): J96.12 - CHRONIC RESPIRATORY FAILURE WITH HYPERCAPNIA (4) RAINA (obstructive sleep apnea) Code(s): G47.33 - OBSTRUCTIVE SLEEP APNEA (ADULT) (PEDIATRIC) (5) Morbid (severe) obesity with alveolar hypoventilation Code(s): E66.2 - MORBID (SEVERE) OBESITY WITH ALVEOLAR HYPOVENTILATION Assessment/Plan 1. Acute on chronic hypercapneic respiratory failure 2. Acute on chronic diastolic heart failure 3. Morbid obesity with OHS/OSAS not on cpap! 4. HTN 5. Type 2 DM 6. Hyperlipidemia P:1. IV diuresis with monitor diuretic response, renal function and electrolyes 2. Continue losartan 25 qd, pravachol 10 qd 3. BD, bipap nightly, O2 as needed to keep Spo2 >90%, SW input for cpap at home 4. Thank you for consultative opportunity
[2019-05-21] MEDS: ATORVASTATIN CA 10 MG TABLET (FP) PO SCH (22:11)
[2019-05-21] MEDS: CLOTRIMAZOLE 1% CREAM 15 GM TUBE TP SCH (22:20)
[2019-05-22] MEDS: ALBUTEROL SO4 0.083% IH SOL 2.5 MG/3 ML VIAL.NEB. NEB PRN ×2 (05:02→20:49)
[2019-05-22] MEDS ORDERED: diphenhydrAMINE HCL 25 MG CAPSULE (FP) PO ONE (05:36)
[2019-05-22] MEDS: FUROSEMIDE 40 MG/4 ML INJECTABLE VIAL IVPUSH SCH ×2 (06:59→14:29)
[2019-05-22 07:20] LABS: BLOOD UREA NITROGEN 18.3 mg/dL (7-18); CALCIUM 8.6 mg/dL (8.5-10.1); CREATININE 0.7 mg/dL (0.55-1.3); POTASSIUM 4.1 mmol/L (3.5-5.1)
[2019-05-22] MEDS: ACETAMINOPHEN 325 MG TABLET (FP) PO PRN (08:15)
[2019-05-22] MEDS: ENOXAPARIN NA (PORCINE) 40 MG/0.4 ML DISP.SYRIN SQ SCH (09:28)
[2019-05-22] MEDS: rOPINIRole HCL 0.5 MG TABLET PO SCH (09:29)
[2019-05-22] MEDS: CLOTRIMAZOLE 1% CREAM 15 GM TUBE TP SCH ×2 (09:29→22:37)
[2019-05-22] MEDS: LOSARTAN POTASSIUM 25 MG TABLET PO SCH (09:29)
[2019-05-22 09:37] LABS: BASO % 0.9 % (0-2.0); EOS % 1.9 % (0-4.5); HEMATOCRIT 46.8 % (32.4-45.2); HEMOGLOBIN 13.8 GM/dL (10.7-15.3); LYMPH % 19.7 % (8-40); MCH 21.8 pg (25.7-33.7); MCHC 29.4 g/dl (32.0-36.0); MEAN CELL VOLUME 74.1 fl (80-96); MEAN PLT VOLUME 7.6 fl (7.5-11.1); MONO % 5.5 % (3.8-10.2); PLATELET COUNT 288 K/MM3 (134-434); RBC 6.32 M/mm3 (3.60-5.2); RDW 22.2 % (11.6-15.6); WHITE BLOOD COUNT 7.6 K/mm3 (4.0-10.0)
--- NOTE | 2019-05-22 09:55 | PN ---
Progress Note, Physician History of Present Illness: 43 y/o F morbidly obese, w/ hx of chronic hypercapneic respiratory failure, RAINA (on home 4L oxygen but no cpap), asthma, depression, HTN, HLD, diastolic dysfunction with h/o failure complained of progressive exertional shortness of breath, nonproductive cough, chest tightness for the past 2 to 3 days. She is using her albuterol inhaler at home which was not helping much. Denied any recent travels or sick contacts. Patient does not use CPAP for her RAINA and has never underwent formal pulmonary function testing. Dyspnea and orthopnea improving with diuresis. - Current Medication List Current Medications: Active Medications Acetaminophen (Tylenol -) 650 mg PO Q6H PRN PRN Reason: PAIN Last Admin: 05/22/19 08:15 Dose: 650 mg Albuterol Sulfate (Ventolin 0.083% Nebulizer Soln -) 1 amp NEB Q4H PRN PRN Reason: SHORT OF BREATH/WHEEZING Last Admin: 05/22/19 05:02 Dose: 1 amp Atorvastatin Calcium (Lipitor -) 10 mg PO HS [facility] Last Admin: 05/21/19 22:11 Dose: 10 mg Bupropion HCl (Wellbutrin Xl -) 150 mg PO DAILY [facility] Last Admin: 05/22/19 09:29 Dose: 150 mg Clotrimazole (Lotrimin 1% Cream -) 1 applic TP BID [facility] Last Admin: 05/22/19 09:29 Dose: 1 applic Enoxaparin Sodium (Lovenox -) 40 mg SQ DAILY [facility] Last Admin: 05/22/19 09:28 Dose: 40 mg Furosemide (Lasix Injection -) 40 mg IVPUSH BID@0600,1400 [facility] Last Admin: 05/22/19 06:59 Dose: 40 mg Losartan Potassium (Cozaar -) 25 mg PO DAILY [facility] Last Admin: 05/22/19 09:29 Dose: 25 mg Magnesium Hydroxide (Milk Of Magnesia -) 20 ml PO PRN PRN PRN Reason: CONSTIPATION Ropinirole HCl (Requip -) 0.5 mg PO DAILY [facility] Last Admin: 05/22/19 09:29 Dose: 0.5 mg - Objective Vital Signs: Vital Signs Temperature 97.8 F 05/22/19 08:41 Pulse Rate 62 05/22/19 08:41 Respiratory Rate 20 05/22/19 08:52 Blood Pressure 142/67 05/22/19 08:41 O2 Sat by Pulse Oximetry (%) 96 05/22/19 08:52 Eyes: Yes: WNL, Conjunctiva Clear, EOM Intact HENT: Yes: WNL, Atraumatic, Normocephalic Neck: Yes: WNL, Supple, Trachea Midline Cardiovascular: Yes: WNL, Regular Rate and Rhythm Respiratory: Yes: WNL, Regular, CTA Bilaterally Gastrointestinal: Yes: WNL, Normal Bowel Sounds Genitourinary: Yes: WNL Musculoskeletal: Yes: WNL Extremities: Yes: WNL Edema: Yes Integumentary: Yes: WNL Neurological: Yes: WNL, Alert, Oriented ...Motor Strength: WNL Psychiatric: Yes: WNL Labs: CBC, BMP 05/22/19 09:15 Assessment/Plan 1. Acute on chronic hypercapneic respiratory failure 2. Acute on chronic diastolic heart failure 3. Morbid obesity with OHS/OSAS not on cpap! 4. HTN 5. Type 2 DM 6. Hyperlipidemia P:1. IV diuresis with monitor diuretic response, renal function and electrolyes 2. Continue losartan 25 qd, pravachol 10 qd 3. BD, bipap nightly, O2 as needed to keep Spo2 >90%, SW input for cpap at home
[2019-05-22 10:14] LABS: BLOOD UREA NITROGEN 18.7 mg/dL (7-18); CALCIUM 8.7 mg/dL (8.5-10.1); CREATININE 0.7 mg/dL (0.55-1.3); POTASSIUM 3.7 mmol/L (3.5-5.1)
--- NOTE | 2019-05-22 10:36 | PN ---
Progress Note, Physician History of Present Illness: PULMONARY ALERT ON NASAL CANNULA STILL C/O CHEST CONGESTION - Current Medication List Current Medications: Active Medications Acetaminophen (Tylenol -) 650 mg PO Q6H PRN PRN Reason: PAIN Last Admin: 05/22/19 08:15 Dose: 650 mg Albuterol Sulfate (Ventolin 0.083% Nebulizer Soln -) 1 amp NEB Q4H PRN PRN Reason: SHORT OF BREATH/WHEEZING Last Admin: 05/22/19 05:02 Dose: 1 amp Atorvastatin Calcium (Lipitor -) 10 mg PO HS [facility] Last Admin: 05/21/19 22:11 Dose: 10 mg Bupropion HCl (Wellbutrin Xl -) 150 mg PO DAILY [facility] Last Admin: 05/22/19 09:29 Dose: 150 mg Clotrimazole (Lotrimin 1% Cream -) 1 applic TP BID [facility] Last Admin: 05/22/19 09:29 Dose: 1 applic Enoxaparin Sodium (Lovenox -) 40 mg SQ DAILY [facility] Last Admin: 05/22/19 09:28 Dose: 40 mg Furosemide (Lasix Injection -) 40 mg IVPUSH BID@0600,1400 [facility] Last Admin: 05/22/19 06:59 Dose: 40 mg Losartan Potassium (Cozaar -) 25 mg PO DAILY [facility] Last Admin: 05/22/19 09:29 Dose: 25 mg Magnesium Hydroxide (Milk Of Magnesia -) 20 ml PO PRN PRN PRN Reason: CONSTIPATION Ropinirole HCl (Requip -) 0.5 mg PO DAILY [facility] Last Admin: 05/22/19 09:29 Dose: 0.5 mg - Objective Vital Signs: Vital Signs Temperature 97.8 F 05/22/19 08:41 Pulse Rate 62 05/22/19 08:41 Respiratory Rate 20 05/22/19 08:52 Blood Pressure 142/67 05/22/19 08:41 O2 Sat by Pulse Oximetry (%) 96 05/22/19 08:52 Constitutional: Yes: Calm, Other (MORBIDLY OBESE) Eyes: Yes: WNL HENT: Yes: WNL Neck: Yes: WNL Cardiovascular: Yes: Regular Rate and Rhythm, S1, S2 Respiratory: Yes: Diminished, Wheezes (FEW SCATTTERED WHEEZES) Gastrointestinal: Yes: Normal Bowel Sounds, Soft Extremities: Yes: WNL Edema: Yes Labs: CBC, BMP 05/22/19 09:15 05/22/19 09:15 Assessment/Plan Problem List - Problems (1) Asthma exacerbation Code(s): J45.901 - UNSPECIFIED ASTHMA WITH (ACUTE) EXACERBATION Qualifiers: Asthma severity: moderate Asthma persistence: persistent Qualified Code(s ): J45.41 - Moderate persistent asthma with (acute) exacerbation (2) RAINA (obstructive sleep apnea) Code(s): G47.33 - OBSTRUCTIVE SLEEP APNEA (ADULT) (PEDIATRIC) (3) HTN (hypertension) Code(s): I10 - ESSENTIAL (PRIMARY) HYPERTENSION (4) Morbid (severe) obesity with alveolar hypoventilation Code(s): E66.2 - MORBID (SEVERE) OBESITY WITH ALVEOLAR HYPOVENTILATION (5) Shortness of breath on exertion Code(s): R06.02 - SHORTNESS OF BREATH (6) Acute on chronic respiratory failure with hypoxemia Code(s): J96.21 - ACUTE AND CHRONIC RESPIRATORY FAILURE WITH HYPOXIA (7) Hypercapnic respiratory failure, chronic Code(s): J96.12 - CHRONIC RESPIRATORY FAILURE WITH HYPERCAPNIA Assessment/Plan OHS/OSAS AUTOPAP HS/PRN O2 TO KEEP SAT GREATER THAN 90% BRONCHODILATORS ANTIBIOTICS SHORT COURSE OF STEROIDS BARIATRIC SURGERY EVALUATION DVT PROPHYLAXIS NEEDS PSG OUTPATIENT DR GARCIA
--- NOTE | 2019-05-22 10:45 | EKG ---
Test Reason : Blood Pressure : / mmHG Vent. Rate : 068 BPM Atrial Rate : 068 BPM P-R Int : 176 ms QRS Dur : 100 ms QT Int : 410 ms P-R-T Axes : 046 138 090 degrees QTc Int : 435 ms NORMAL SINUS RHYTHM LEFT POSTERIOR FASCICULAR BLOCK POSSIBLE ANTERIOR INFARCT (CITED ON OR BEFORE 20-MAY-2019) ABNORMAL ECG WHEN COMPARED WITH ECG OF 11-FEB-2019 11:05, T WAVE VARIATION Confirmed by BIANCA LOZANO MD ([id number]) on 05/22/2019 10:45:39 AM Referred By: Confirmed By:BIANCA LOZANO MD
[2019-05-22] MEDS: methylPREDNISolone NA SUCC 40 MG/1 ML VIAL IVPUSH SCH ×2 (11:52→17:13)
[2019-05-22 13:40] LABS: ANISOCYTOSIS 2+; MACROCYTOSIS 1+; PLATELET ESTIMATE NORMAL
--- NOTE | 2019-05-22 14:15 | PN ---
Physical Exam: SUBJECTIVE: Patient seen and examined. Pt appears much more improved and better than previously. Pt had no overnight issues. She c/o of a rash around her neck. She is tolerating room air well. She slept overnight with the BiPAP. No other c/ o. Denies f/c/n/v/d/sob/chest pain OBJECTIVE: Vital Signs Period Temp Pulse Resp BP Sys/Quan Pulse Ox Last 24 Hr 97.3 F-97.8 F 59-66 20-20 124-149/56-75 94-96 GENERAL: Awake, alert, and fully oriented, in no acute distress. Morbidly obese , On Room air- tolerating well EYES: Pupils equal, round and reactive to light, extraocular movements intact EARS, NOSE, THROAT: oropharynx clear without exudates. Moist mucous membranes. NECK: Normal range of motion, supple without lymphadenopathy, excess fat around the neck. Erythematous macular rash around the chest on exposed skin Breast: Intretrigo under left breast, right breast appears normal LUNGS: Breath sounds equal, clear to auscultation bilaterally. No wheezes, and trace crackles heard. HEART: Regular rate and rhythm, normal S1 and S2 without murmur, rub or gallop. ABDOMEN: Soft, nontender, not distended, normoactive bowel sounds, no guarding, no rebound, no masses. No signs of candidal infection under the skin fold of the inguinal region b/l. Difficult to asses for ascites UPPER EXTREMITIES: 2+ pulses, warm, well-perfused. No cyanosis. No clubbing. Mild peripheral edema b/l LOWER EXTREMITIES: 2+ pulses, warm, well-perfused. No calf tenderness. 2+ peripheral edema b/l w/ scaling and skin breakdown due to chronic venous stasis NEUROLOGICAL: Cranial nerves II-XII intact. Normal speech PSYCHIATRIC: Cooperative. Good eye contact. Appropriate mood and affect. SKIN: Warm, dry, normal turgor, Laboratory Results - last 24 hr 05/21/19 05/22/19 05/22/19 16:37 05:00 06:17 WBC RBC Hgb Hct MCV MCH MCHC RDW Plt Count MPV Absolute Neuts (auto) Neutrophils % Lymphocytes % Monocytes % Eosinophils % Basophils % Nucleated RBC % Sodium 139 Potassium 4.1 Chloride 94 L Carbon Dioxide 40 H Anion Gap 5 L BUN 18.3 H Creatinine 0.7 Est GFR (CKD-EPI)AfAm 122.13 Est GFR (CKD-EPI)NonAf 105.37 POC Glucometer 137 159 Random Glucose 106 Calcium 8.6 Active Medications Current Medications Acetaminophen (Tylenol -) 650 mg PO Q6H PRN PRN Reason: PAIN Last Admin: 05/22/19 08:15 Dose: 650 mg Albuterol Sulfate (Ventolin 0.083% Nebulizer Soln -) 1 amp NEB Q4H PRN PRN Reason: SHORT OF BREATH/WHEEZING Last Admin: 05/22/19 05:02 Dose: 1 amp Atorvastatin Calcium (Lipitor -) 10 mg PO HS [facility] Last Admin: 05/21/19 22:11 Dose: 10 mg Bupropion HCl (Wellbutrin Xl -) 150 mg PO DAILY [facility] Last Admin: 05/22/19 09:29 Dose: 150 mg Clotrimazole (Lotrimin 1% Cream -) 1 applic TP BID [facility] Last Admin: 05/22/19 09:29 Dose: 1 applic Enoxaparin Sodium (Lovenox -) 40 mg SQ DAILY [facility] Last Admin: 05/22/19 09:28 Dose: 40 mg Furosemide (Lasix Injection -) 60 mg IVPUSH BID@0600,1400 [facility] Losartan Potassium (Cozaar -) 25 mg PO DAILY [facility] Last Admin: 05/22/19 09:29 Dose: 25 mg Magnesium Hydroxide (Milk Of Magnesia -) 20 ml PO PRN PRN PRN Reason: CONSTIPATION Methylprednisolone Sodium Succinate (Solu-Medrol -) 40 mg IVPUSH Q8H-IV [facility] Last Admin: 05/22/19 11:52 Dose: 40 mg Ropinirole HCl (Requip -) 0.5 mg PO DAILY [facility] Last Admin: 05/22/19 09:29 Dose: 0.5 mg Home Medications Medication Instructions Recorded Albuterol Sulfate Inhaler - 1 puff PRN 02/11/19 [Ventolin HFA Inhaler -] Bupropion HCl [Wellbutrin Xl -] 150 mg PO DAILY 02/11/19 Losartan Potassium 25 mg PO DAILY 02/11/19 Pravastatin Sodium 10 mg PO DAILY 02/11/19 Ropinirole HCl 0.5 mg PO DAILY 02/11/19 metFORMIN HCL [Glucophage -] 500 mg PO BID 02/11/19 Furosemide [Lasix] 40 mg PO BID #60 tablet 02/17/19 ASSESSMENT/PLAN: 43 y/o M, pmh of morbid obesity, hx of RAINA on home oxygen (2-3 L at rest and 3- 4L on ambulation), asthma (never been intubated, one time hospitalization), depression, HTN, HLD, DM presents w/ sob, wheezing and mild chest tightness of 2 day duration is admitted for CHF exacerbation superimposed with asthma exacerbation #CHF exacerbation Last Echo in 02/06- unremarkable, thus suspect diastolic dysfxn Lasix 60mg IV BID Fluid restriction Goyal ordered to monitor I's&O's Daily weights Will need Bariatric surgery referral, morbid obesity could be the underlying factor behind her symptoms monitor on Tele #Acute on Chronic hypoxic/hypercapnic resp failure BiPAP overnight Pulmonary consulted-Dr Alas appreciated PFT's outpt Short course of steroids for now- solumedrol 40 Q8 Arranged BiPaP after D/c #Rash around the neck Benadryl Hydrocortisone topical given #LE edema Lasix 60 BID #HTN cont home meds- Losartan 25mg #DM ISS #Intertrigo under left breast Clotrimazole #Hx of depression Wellbutrin #HLD Pravachol 10 #DVT ppx Lovenox FEN no fluids monitor lytes Diabetic/sodium diet Dispo: monitor overnight, keep bipap if room air not tolerable, Visit type - Emergency Visit Emergency Visit: Yes ED Registration Date: 05/20/19 Care time: The patient presented to the Emergency Department on the above date and was hospitalized for further evaluation of their emergent condition. - New Patient This patient is new to me today: Yes Date on this admission: 05/22/19 - Critical Care Critical Care patient: No - Discharge Referral Referred to [facility] Med P.C.: No ATTENDING PHYSICIAN STATEMENT I saw and evaluated the patient. I reviewed the resident's note and discussed the case with the resident. I agree with the resident's findings and plan as documented. SUBJECTIVE: OBJECTIVE: ASSESSMENT AND PLAN:
--- NOTE | 2019-05-22 17:32 | PN ---
Teaching Attending Note Name of Resident: Yuniel Liu ATTENDING PHYSICIAN STATEMENT I saw and evaluated the patient. I reviewed the resident's note and discussed the case with the resident. I agree with the resident's findings and plan as documented. SUBJECTIVE: itchy rash on upper chest . no CP. SOB has improved OBJECTIVE: NAD, morbidly obese. comfortable, facial hair, no facial droop, maculopapular rash on upper chest . CV: RRR, 2/6 SM at LUSB. Lungs: decreased breath sounds half way down on both sides Abd: morbidly obese. large pannus. pitting edema on abd wall . EXt:edema on legs and thighs ASSESSMENT AND PLAN: 43 y/o lady with h/o morbid obesity, RAINA, chronic resp failure with 4 L of O2 at base line Asthma, depression , DM , and HTN,who presented with cough and SOB .She was diagnosed with acute CHF. 1- Acute diastolic heart failure: - increase lasix to 60 BID - Low salt diet. - I&O and weight - cont losartan - tele reviewed. No events 2- Acute on chronic resp failure : with hypercapnia . Due to CHF, RAINA, and obesity - cont BIPAP PRN and HS - Treat CHF - spoke to SW to help arrange BIPAP after dc 3- H/o HTN: cont losartan 5- H/o DM ; cont SSI . hold metformin 6- Fungal infection under breasts and pannus: cont clotrimazole 7- Rash: likely contact dermatitis . add hydrocortisone cream DVT PX: Lovenox
[2019-05-22] MEDS: INSULIN SLIDING SCALE (NOVOLOG) 1 VIAL SQ SCH (22:37)
[2019-05-22] MEDS: ATORVASTATIN CA 10 MG TABLET (FP) PO SCH (22:37)
[2019-05-23] MEDS: methylPREDNISolone NA SUCC 40 MG/1 ML VIAL IVPUSH SCH ×3 (01:08→17:55)
[2019-05-23] MEDS: BENZOCAINE/MENTH/CETYLPYRD CL 1 EACH LOZENGE MM PRN (03:55)
[2019-05-23] MEDS: ACETAMINOPHEN 325 MG TABLET (FP) PO PRN ×2 (04:40→22:08)
[2019-05-23] MEDS: INSULIN SLIDING SCALE (NOVOLOG) 1 VIAL SQ SCH ×3 (06:44→17:55)
[2019-05-23] MEDS: FUROSEMIDE 40 MG/4 ML INJECTABLE VIAL IVPUSH SCH ×2 (06:44→14:07)
[2019-05-23 07:18] LABS: HEMATOCRIT 48.4 % (32.4-45.2); HEMOGLOBIN 14.4 GM/dL (10.7-15.3); MCHC 29.8 g/dl (32.0-36.0); MEAN CELL VOLUME 73.9 fl (80-96); MEAN PLT VOLUME 8.3 fl (7.5-11.1); PLATELET COUNT 297 K/MM3 (134-434); RBC 6.55 M/mm3 (3.60-5.2); RDW 21.3 % (11.6-15.6); WHITE BLOOD COUNT 8.6 K/mm3 (4.0-10.0)
[2019-05-23] MEDS: ALBUTEROL SO4 0.083% IH SOL 2.5 MG/3 ML VIAL.NEB. NEB PRN (07:30)
[2019-05-23 07:55] LABS: BLOOD UREA NITROGEN 17.6 mg/dL (7-18); CALCIUM 8.8 mg/dL (8.5-10.1); CREATININE 0.6 mg/dL (0.55-1.3); POTASSIUM 4.2 mmol/L (3.5-5.1)
[2019-05-23] MEDS: rOPINIRole HCL 0.5 MG TABLET PO SCH (09:23)
[2019-05-23] MEDS: LOSARTAN POTASSIUM 25 MG TABLET PO SCH (09:23)
[2019-05-23] MEDS: ENOXAPARIN NA (PORCINE) 40 MG/0.4 ML DISP.SYRIN SQ SCH (09:23)
[2019-05-23] MEDS: CLOTRIMAZOLE 1% CREAM 15 GM TUBE TP SCH ×2 (09:24→22:07)
--- NOTE | 2019-05-23 12:17 | PN ---
Progress Note, Physician History of Present Illness: pulmonary alert,sitting up in bed,less dyspneic - Current Medication List Current Medications: Active Medications Acetaminophen (Tylenol -) 650 mg PO Q6H PRN PRN Reason: PAIN Last Admin: 05/23/19 04:40 Dose: 650 mg Albuterol Sulfate (Ventolin 0.083% Nebulizer Soln -) 1 amp NEB Q4H PRN PRN Reason: SHORT OF BREATH/WHEEZING Last Admin: 05/23/19 07:30 Dose: 1 amp Atorvastatin Calcium (Lipitor -) 10 mg PO HS [facility] Last Admin: 05/22/19 22:37 Dose: 10 mg Benzocaine/Menthol (Cepacol Lozenge -) 1 each MM PRN PRN PRN Reason: SORE THROAT Last Admin: 05/23/19 03:55 Dose: 1 each Bupropion HCl (Wellbutrin Xl -) 150 mg PO DAILY [facility] Last Admin: 05/23/19 09:23 Dose: 150 mg Clotrimazole (Lotrimin 1% Cream -) 1 applic TP BID [facility] Last Admin: 05/23/19 09:24 Dose: 1 applic Enoxaparin Sodium (Lovenox -) 40 mg SQ DAILY [facility] Last Admin: 05/23/19 09:23 Dose: 40 mg Furosemide (Lasix Injection -) 60 mg IVPUSH BID@0600,1400 [facility] Last Admin: 05/23/19 06:44 Dose: 60 mg Insulin Aspart (Novolog Vial Sliding Scale -) 1 vial SQ TIDAC [facility]; Protocol Last Admin: 05/23/19 11:40 Dose: Not Given Losartan Potassium (Cozaar -) 25 mg PO DAILY [facility] Last Admin: 05/23/19 09:23 Dose: 25 mg Magnesium Hydroxide (Milk Of Magnesia -) 20 ml PO PRN PRN PRN Reason: CONSTIPATION Methylprednisolone Sodium Succinate (Solu-Medrol -) 40 mg IVPUSH Q8H-IV [facility] Last Admin: 05/23/19 09:23 Dose: 40 mg Ropinirole HCl (Requip -) 0.5 mg PO DAILY [facility] Last Admin: 05/23/19 09:23 Dose: 0.5 mg - Objective Vital Signs: Vital Signs Temperature 97.3 F L 05/23/19 08:15 Pulse Rate 71 05/23/19 08:15 Respiratory Rate 18 05/23/19 08:16 Blood Pressure 132/69 05/23/19 08:15 O2 Sat by Pulse Oximetry (%) 93 L 05/23/19 08:16 Constitutional: Yes: Calm, Other (morbidly obese) Eyes: Yes: WNL HENT: Yes: WNL Neck: Yes: WNL Cardiovascular: Yes: Regular Rate and Rhythm, S1, S2 Respiratory: Yes: Diminished Gastrointestinal: Yes: Soft, Abdomen, Obese Extremities: Yes: WNL Edema: Yes Labs: CBC, BMP 05/23/19 06:35 05/23/19 06:35 Assessment/Plan Problem List - Problems (1) Asthma exacerbation Code(s): J45.901 - UNSPECIFIED ASTHMA WITH (ACUTE) EXACERBATION Qualifiers: Asthma severity: moderate Asthma persistence: persistent Qualified Code(s ): J45.41 - Moderate persistent asthma with (acute) exacerbation (2) RAINA (obstructive sleep apnea) Code(s): G47.33 - OBSTRUCTIVE SLEEP APNEA (ADULT) (PEDIATRIC) (3) HTN (hypertension) Code(s): I10 - ESSENTIAL (PRIMARY) HYPERTENSION (4) Morbid (severe) obesity with alveolar hypoventilation Code(s): E66.2 - MORBID (SEVERE) OBESITY WITH ALVEOLAR HYPOVENTILATION (5) Shortness of breath on exertion Code(s): R06.02 - SHORTNESS OF BREATH (6) Acute on chronic respiratory failure with hypoxemia Code(s): J96.21 - ACUTE AND CHRONIC RESPIRATORY FAILURE WITH HYPOXIA (7) Hypercapnic respiratory failure, chronic Code(s): J96.12 - CHRONIC RESPIRATORY FAILURE WITH HYPERCAPNIA Assessment/Plan OHS/OSAS AUTOPAP HS/PRN O2 TO KEEP SAT GREATER THAN 90% BRONCHODILATORS ANTIBIOTICS SHORT COURSE OF STEROIDS BARIATRIC SURGERY EVALUATION DVT PROPHYLAXIS NEEDS PSG OUTPATIENT CONSIDER TRILOGY DEVICE DR GARCIA
--- NOTE | 2019-05-23 13:04 | CONSULT ---
Consult - text type - Consultation Consultation Note: Asked to see this 43 y.o. female admitted 05/20/19 with SOB and apparent exacerbation of asthma. Pt also noted to have CHF and was treated with diuresis. Pt with hx of HTN, DM, Arthritis, and suspected RAINA. Pt with home O2 secondary to SOB upon minimal exertion. Pt seen with pt sitting upright in bed. Pt with weight of 471 pounds and has fair knowledge of weight-loss surgery. Pt states her sister underwent evaluation for weight loss surgery in the past. Details of sleeve gastrectomy surgery explained including pre-op work-up, surgery and in-hospital care and recovery, and post-surgery recovery at home. Pt asked questions which were answered. I- Morbid Obesity DM, HTN, Asthma, RAINA, Arthritis Asthma exacerbation CHF on admission Rec- Pt encouraged to contact my office to make appointment to begin evaluation for weight-loss surgery. All necessary contact info given to patient. Thank you for the referral.
--- NOTE | 2019-05-23 14:06 | PN ---
Physical Exam: SUBJECTIVE: Patient seen and examined. Pt appears much more improved and better than previously. Pt had no overnight issues. She c/o of a rash around her neck, which has improved. She is tolerating room air well. She slept overnight with the BiPAP. No other c/o. Denies f/c/n/v/d/sob/chest pain OBJECTIVE: Vital Signs Period Temp Pulse Resp BP Sys/Quan Pulse Ox Last 24 Hr 97.3 F-98.2 F 64-75 18-20 129-137/48-69 92-96 GENERAL: Awake, alert, and fully oriented, in no acute distress. Morbidly obese , On Room air- tolerating well EYES: Pupils equal, round and reactive to light, extraocular movements intact EARS, NOSE, THROAT: oropharynx clear without exudates. Moist mucous membranes. NECK: Normal range of motion, supple without lymphadenopathy, excess fat around the neck. Erythematous macular rash around the chest on exposed skin- improved Breast: Intretrigo under left breast, right breast appears normal LUNGS: Breath sounds equal, clear to auscultation bilaterally. No wheezes, and trace crackles heard. HEART: Regular rate and rhythm, normal S1 and S2 without murmur, rub or gallop. ABDOMEN: Soft, nontender, not distended, normoactive bowel sounds, no guarding, no rebound, no masses. No signs of candidal infection under the skin fold of the inguinal region b/l. Difficult to asses for ascites UPPER EXTREMITIES: 2+ pulses, warm, well-perfused. No cyanosis. No clubbing. Mild peripheral edema b/l LOWER EXTREMITIES: 2+ pulses, warm, well-perfused. No calf tenderness. 2+ peripheral edema b/l w/ scaling and skin breakdown due to chronic venous stasis NEUROLOGICAL: Cranial nerves II-XII intact. Normal speech PSYCHIATRIC: Cooperative. Good eye contact. Appropriate mood and affect. SKIN: Warm, dry, normal turgor, Laboratory Results - last 24 hr CBC,CMP WBC 8.6 K/mm3 (4.0-10.0) 05/23/19 06:35 RBC 6.55 M/mm3 (3.60-5.2) H 05/23/19 06:35 Hgb 14.4 GM/dL (10.7-15.3) 05/23/19 06:35 Hct 48.4 % (32.4-45.2) H 05/23/19 06:35 MCV 73.9 fl (80-96) L 05/23/19 06:35 MCH 22.0 pg (25.7-33.7) L 05/23/19 06:35 MCHC 29.8 g/dl (32.0-36.0) L 05/23/19 06:35 RDW 21.3 % (11.6-15.6) H 05/23/19 06:35 Plt Count 297 K/MM3 (134-434) 05/23/19 06:35 MPV 8.3 fl (7.5-11.1) 05/23/19 06:35 Absolute Neuts (auto) 5.4 K/mm3 (1.5-8.0) 05/22/19 09:15 Neutrophils % 72.0 % (42.8-82.8) 05/22/19 09:15 Neutrophils % (Manual) 68.8 % (42.8-82.8) 05/22/19 09:15 Band Neutrophils % 4.6 % 05/22/19 09:15 Lymphocytes % 19.7 % (8-40) D 05/22/19 09:15 Lymphocytes % (Manual) 14.7 % (8-40) D 05/22/19 09:15 Monocytes % 5.5 % (3.8-10.2) 05/22/19 09:15 Monocytes % (Manual) 6 % (3.8-10.2) 05/22/19 09:15 Eosinophils % 1.9 % (0-4.5) 05/22/19 09:15 Eosinophils % (Manual) 3.7 % (0-4.5) D 05/22/19 09:15 Basophils % 0.9 % (0-2.0) 05/22/19 09:15 Basophils % (Manual) 0.0 % (0-2.0) 05/22/19 09:15 Myelocytes % (Man) 0 % (0-2) 05/22/19 09:15 Promyelocytes % (Man) 0 % (0-2) 05/22/19 09:15 Blast Cells % (Manual) 0 % (0-0) 05/22/19 09:15 Nucleated RBC % 0 % (0-0) 05/22/19 09:15 Metamyelocytes 0 % (0-2) 05/22/19 09:15 Hypochromia 0 05/22/19 09:15 Platelet Estimate Normal 05/22/19 09:15 Polychromasia 0 05/22/19 09:15 Poikilocytosis 1+ 05/22/19 09:15 Anisocytosis 2+ 05/22/19 09:15 Microcytosis 2+ 05/22/19 09:15 Macrocytosis 1+ 05/22/19 09:15 Stomatocytes 2+ 05/22/19 09:15 Sodium 135 mmol/L (136-145) L 05/23/19 06:35 Potassium 4.2 mmol/L (3.5-5.1) 05/23/19 06:35 Chloride 93 mmol/L (98-107) L 05/23/19 06:35 Carbon Dioxide 39 mmol/L (21-32) H 05/23/19 06:35 Anion Gap 3 MMOL/L (8-16) L 05/23/19 06:35 BUN 17.6 mg/dL (7-18) 05/23/19 06:35 Creatinine 0.6 mg/dL (0.55-1.3) 05/23/19 06:35 Est GFR (CKD-EPI)AfAm 128.48 05/23/19 06:35 Est GFR (CKD-EPI)NonAf 110.86 05/23/19 06:35 POC Glucometer 148 UNITS (80-120) 05/23/19 11:38 Random Glucose 156 mg/dL (74-106) H 05/23/19 06:35 Calcium 8.8 mg/dL (8.5-10.1) 05/23/19 06:35 Phosphorus 3.8 mg/dL (2.5-4.9) 05/21/19 05:40 Magnesium 2.2 mg/dL (1.8-2.4) 05/21/19 05:40 Total Bilirubin 0.9 mg/dL (0.2-1) 05/21/19 05:40 AST 9 U/L (15-37) L 05/21/19 05:40 ALT 14 U/L (13-61) 05/21/19 05:40 Alkaline Phosphatase 69 U/L (45-117) 05/21/19 05:40 Troponin I < 0.02 ng/ml (0.00-0.05) 05/21/19 05:40 B-Natriuretic Peptide 890.9 pg/ml (5-125) H 05/21/19 05:40 Total Protein 6.8 g/dl (6.4-8.2) 05/21/19 05:40 Albumin 2.9 g/dl (3.4-5.0) L 05/21/19 05:40 Active Medications Current Medications Acetaminophen (Tylenol -) 650 mg PO Q6H PRN PRN Reason: PAIN Last Admin: 05/23/19 04:40 Dose: 650 mg Albuterol Sulfate (Ventolin 0.083% Nebulizer Soln -) 1 amp NEB Q4H PRN PRN Reason: SHORT OF BREATH/WHEEZING Last Admin: 05/23/19 07:30 Dose: 1 amp Atorvastatin Calcium (Lipitor -) 10 mg PO HS [facility] Last Admin: 05/22/19 22:37 Dose: 10 mg Benzocaine/Menthol (Cepacol Lozenge -) 1 each MM PRN PRN PRN Reason: SORE THROAT Last Admin: 05/23/19 03:55 Dose: 1 each Bupropion HCl (Wellbutrin Xl -) 150 mg PO DAILY [facility] Last Admin: 05/23/19 09:23 Dose: 150 mg Clotrimazole (Lotrimin 1% Cream -) 1 applic TP BID [facility] Last Admin: 05/23/19 09:24 Dose: 1 applic Enoxaparin Sodium (Lovenox -) 40 mg SQ DAILY [facility] Last Admin: 05/23/19 09:23 Dose: 40 mg Furosemide (Lasix Injection -) 60 mg IVPUSH BID@0600,1400 [facility] Last Admin: 05/23/19 06:44 Dose: 60 mg Insulin Aspart (Novolog Vial Sliding Scale -) 1 vial SQ TIDAC [facility]; Protocol Last Admin: 05/23/19 11:40 Dose: Not Given Losartan Potassium (Cozaar -) 25 mg PO DAILY [facility] Last Admin: 05/23/19 09:23 Dose: 25 mg Magnesium Hydroxide (Milk Of Magnesia -) 20 ml PO PRN PRN PRN Reason: CONSTIPATION Methylprednisolone Sodium Succinate (Solu-Medrol -) 40 mg IVPUSH Q8H-IV [facility] Last Admin: 05/23/19 09:23 Dose: 40 mg Ropinirole HCl (Requip -) 0.5 mg PO DAILY [facility] Last Admin: 05/23/19 09:23 Dose: 0.5 mg Home Medications Medication Instructions Recorded Albuterol Sulfate Inhaler - 1 puff PRN 02/11/19 [Ventolin HFA Inhaler -] Bupropion HCl [Wellbutrin Xl -] 150 mg PO DAILY 02/11/19 Losartan Potassium 25 mg PO DAILY 02/11/19 Pravastatin Sodium 10 mg PO DAILY 02/11/19 Ropinirole HCl 0.5 mg PO DAILY 02/11/19 metFORMIN HCL [Glucophage -] 500 mg PO BID 02/11/19 Furosemide [Lasix] 40 mg PO BID #60 tablet 02/17/19 ASSESSMENT/PLAN: 43 y/o M, pmh of morbid obesity, hx of RAINA on home oxygen (2-3 L at rest and 3- 4L on ambulation), asthma (never been intubated, one time hospitalization), depression, HTN, HLD, DM presents w/ sob, wheezing and mild chest tightness of 2 day duration is admitted for CHF exacerbation superimposed with asthma exacerbation #CHF exacerbation Last Echo in 02/06- unremarkable, thus suspect diastolic dysfxn Lasix 60mg IV BID Fluid restriction Goyal ordered to monitor I's&O's Daily weights Bariatric surgery saw pt- recommended outpt appt and f/u for weight loss surgery monitor on Tele #Acute on Chronic hypoxic/hypercapnic resp failure BiPAP overnight Pulmonary consulted-Dr Alas appreciated PFT's outpt Arranged BiPaP after D/c #Rash around the neck Hydrocortisone topical given #LE edema Lasix 60 BID Still significant swelling present #HTN cont home meds- Losartan 25mg #DM ISS #Intertrigo under left breast Clotrimazole #Hx of depression Wellbutrin #HLD Pravachol 10 #DVT ppx Lovenox FEN no fluids monitor lytes Diabetic/sodium diet Dispo: monitor overnight, keep bipap if room air not tolerable, will cont lasix Visit type - Emergency Visit Emergency Visit: Yes ED Registration Date: 05/20/19 Care time: The patient presented to the Emergency Department on the above date and was hospitalized for further evaluation of their emergent condition. - New Patient This patient is new to me today: Yes Date on this admission: 05/26/19 - Critical Care Critical Care patient: No - Discharge Referral Referred to [facility] Med [facility] No ATTENDING PHYSICIAN STATEMENT I saw and evaluated the patient. I reviewed the resident's note and discussed the case with the resident. I agree with the resident's findings and plan as documented. SUBJECTIVE: OBJECTIVE: ASSESSMENT AND PLAN:
--- NOTE | 2019-05-23 14:52 | PN ---
Progress Note, Physician History of Present Illness: 43 y/o F morbidly obese, w/ hx of chronic hypercapneic respiratory failure, RAINA (on home 4L oxygen but no cpap), asthma, depression, HTN, HLD, diastolic dysfunction with h/o failure complained of progressive exertional shortness of breath, nonproductive cough, chest tightness for the past 2 to 3 days. She is using her albuterol inhaler at home which was not helping much. Denied any recent travels or sick contacts. Patient does not use CPAP for her RAINA and has never underwent formal pulmonary function testing. Dyspnea and orthopnea improving with diuresis. - Current Medication List Current Medications: Active Medications Acetaminophen (Tylenol -) 650 mg PO Q6H PRN PRN Reason: PAIN Last Admin: 05/23/19 04:40 Dose: 650 mg Albuterol Sulfate (Ventolin 0.083% Nebulizer Soln -) 1 amp NEB Q4H PRN PRN Reason: SHORT OF BREATH/WHEEZING Last Admin: 05/23/19 07:30 Dose: 1 amp Atorvastatin Calcium (Lipitor -) 10 mg PO HS [facility] Last Admin: 05/22/19 22:37 Dose: 10 mg Benzocaine/Menthol (Cepacol Lozenge -) 1 each MM PRN PRN PRN Reason: SORE THROAT Last Admin: 05/23/19 03:55 Dose: 1 each Bupropion HCl (Wellbutrin Xl -) 150 mg PO DAILY [facility] Last Admin: 05/23/19 09:23 Dose: 150 mg Clotrimazole (Lotrimin 1% Cream -) 1 applic TP BID [facility] Last Admin: 05/23/19 09:24 Dose: 1 applic Enoxaparin Sodium (Lovenox -) 40 mg SQ DAILY [facility] Last Admin: 05/23/19 09:23 Dose: 40 mg Furosemide (Lasix Injection -) 60 mg IVPUSH BID@0600,1400 [facility] Last Admin: 05/23/19 14:07 Dose: 60 mg Insulin Aspart (Novolog Vial Sliding Scale -) 1 vial SQ TIDAC [facility]; Protocol Last Admin: 05/23/19 11:40 Dose: Not Given Losartan Potassium (Cozaar -) 25 mg PO DAILY [facility] Last Admin: 05/23/19 09:23 Dose: 25 mg Magnesium Hydroxide (Milk Of Magnesia -) 20 ml PO PRN PRN PRN Reason: CONSTIPATION Methylprednisolone Sodium Succinate (Solu-Medrol -) 40 mg IVPUSH Q8H-IV [facility] Last Admin: 05/23/19 09:23 Dose: 40 mg Ropinirole HCl (Requip -) 0.5 mg PO DAILY [facility] Last Admin: 05/23/19 09:23 Dose: 0.5 mg - Objective Vital Signs: Vital Signs Temperature 97.3 F L 05/23/19 08:15 Pulse Rate 71 05/23/19 08:15 Respiratory Rate 18 05/23/19 08:16 Blood Pressure 132/69 05/23/19 08:15 O2 Sat by Pulse Oximetry (%) 93 L 05/23/19 08:16 Eyes: Yes: WNL, Conjunctiva Clear, EOM Intact HENT: Yes: WNL, Atraumatic, Normocephalic Neck: Yes: WNL, Supple, Trachea Midline Cardiovascular: Yes: WNL, Regular Rate and Rhythm Respiratory: Yes: WNL, Regular, CTA Bilaterally Gastrointestinal: Yes: WNL, Normal Bowel Sounds Genitourinary: Yes: WNL Musculoskeletal: Yes: WNL Extremities: Yes: WNL Edema: Yes Integumentary: Yes: WNL Neurological: Yes: WNL, Alert, Oriented ...Motor Strength: WNL Psychiatric: Yes: WNL Labs: CBC, BMP 05/23/19 06:35 05/23/19 06:35 Assessment/Plan 1. Acute on chronic hypercapneic respiratory failure 2. Acute on chronic diastolic heart failure 3. Morbid obesity with OHS/OSAS not on cpap! 4. HTN 5. Type 2 DM 6. Hyperlipidemia P:1. IV diuresis with monitor diuretic response, renal function and electrolyes 2. Continue losartan 25 qd, pravachol 10 qd 3. BD, bipap nightly, O2 as needed to keep Spo2 >90%, SW input for cpap at home
--- NOTE | 2019-05-23 18:30 | PN ---
Teaching Attending Note Name of Resident: Yuniel Liu ATTENDING PHYSICIAN STATEMENT I saw and evaluated the patient. I reviewed the resident's note and discussed the case with the resident. I agree with the resident's findings and plan as documented. SUBJECTIVE: No fever or chills. Rash on chest has improved. SOB has improved. OBJECTIVE: NAD, morbidly obese. comfortable, facial hair. maculopapular rash on upper chest has improved ( fading ) CV: RRR, 2/6 SM at LUSB. Lungs: decreased breath sounds half way down on both sides Abd: morbidly obese. large pannus. pitting edema on abd wall ( improved ) . EXt: edema on legs and thighs ASSESSMENT AND PLAN: 43 y/o lady with h/o morbid obesity, RAINA, chronic resp failure with 4 L of O2 at base line Asthma, depression , DM , and HTN,who presented with cough and SOB .She was diagnosed with acute CHF. 1- Acute diastolic heart failure: - Cont lasix at 60 BID - Low salt diet. - I&O and weight - cont losartan 2- Acute on chronic resp failure: with hypercapnia Due to CHF, RAINA, and obesity - cont BIPAP PRN and HS - Spoke to the Rep: Insurance did not approve BIPAP as she never had CPAP before. Will try to arrange for CPAP q HS at me . Insurance approval might need 36 hrs. will ask Pulm about IPAP setting 3- H/o HTN: cont losartan 5- H/o DM ; cont SSI . hold metformin 6- Fungal infection under breasts and pannus: cont clotrimazole 7- Rash: likely contact dermatitis. Cont hydrocortisone DVT PX: Lovenox
[2019-05-23] MEDS: ATORVASTATIN CA 10 MG TABLET (FP) PO SCH (22:08)
[2019-05-24] MEDS: MAGNESIUM HYDROX 2400MG/30ML ORAL SUSPENSION 30 ML CUP PO PRN (01:46)
[2019-05-24] MEDS: methylPREDNISolone NA SUCC 40 MG/1 ML VIAL IVPUSH SCH ×3 (01:46→22:12)
[2019-05-24] MEDS: FUROSEMIDE 40 MG/4 ML INJECTABLE VIAL IVPUSH SCH ×2 (06:19→14:27)
[2019-05-24] MEDS: INSULIN SLIDING SCALE (NOVOLOG) 1 VIAL SQ SCH ×3 (06:21→17:44)
[2019-05-24 06:25] LABS: HEMATOCRIT 51.4 % (32.4-45.2); HEMOGLOBIN 15.1 GM/dL (10.7-15.3); MCH 21.9 pg (25.7-33.7); MCHC 29.4 g/dl (32.0-36.0); MEAN CELL VOLUME 74.4 fl (80-96); MEAN PLT VOLUME 7.5 fl (7.5-11.1); PLATELET COUNT 296 K/MM3 (134-434); RBC 6.91 M/mm3 (3.60-5.2); RDW 21.9 % (11.6-15.6); WHITE BLOOD COUNT 8.7 K/mm3 (4.0-10.0)
[2019-05-24 07:10] LABS: BLOOD UREA NITROGEN 20.4 mg/dL (7-18); CALCIUM 9.1 mg/dL (8.5-10.1); CREATININE 0.6 mg/dL (0.55-1.3); POTASSIUM 4.4 mmol/L (3.5-5.1)
--- NOTE | 2019-05-24 09:20 | PN ---
Teaching Attending Note Name of Resident: Yuniel Liu ATTENDING PHYSICIAN STATEMENT I saw and evaluated the patient. I reviewed the resident's note and discussed the case with the resident. I agree with the resident's findings and plan as documented. SUBJECTIVE: Patient is feeling better with no acute distress. OBJECTIVE: Vital Signs Temperature 98.9 F 05/24/19 06:00 Pulse Rate 60 05/24/19 06:00 Respiratory Rate 20 05/24/19 06:00 Blood Pressure 144/92 05/24/19 06:00 O2 Sat by Pulse Oximetry (%) 92 L 05/24/19 08:16 GENERAL: The patient is awake, alert, and fully oriented, in no acute distress. HEAD: Normal with no signs of trauma. EYES: PERRL, extraocular movements intact, sclera anicteric, conjunctiva clear. ENT: Ears normal, oropharynx clear without exudates, moist mucous membranes. NECK: Trachea midline, full range of motion, supple. LUNGS: decreased BS BL , no wheezes, no crackles, no accessory muscle use. HEART: Regular rate and rhythm, S1, S2 without murmur, rub or gallop. ABDOMEN: Soft,Nt,ND, morbidly obese ,NT , normoactive bowel sounds, no guarding , no rebound, no hepatosplenomegaly, no masses. EXTREMITIES: 2+ pulses, warm, well-perfused, no edema. NEUROLOGICAL: Cranial nerves II through XII grossly intact. Normal speech, gait not observed. PSYCH: Normal mood, normal affect. SKIN: Warm, dry, normal turgor, no rashes or lesions noted CBCD WBC 8.7 K/mm3 (4.0-10.0) 05/24/19 06:00 RBC 6.91 M/mm3 (3.60-5.2) H 05/24/19 06:00 Hgb 15.1 GM/dL (10.7-15.3) 05/24/19 06:00 Hct 51.4 % (32.4-45.2) H 05/24/19 06:00 MCV 74.4 fl (80-96) L 05/24/19 06:00 MCHC 29.4 g/dl (32.0-36.0) L 05/24/19 06:00 RDW 21.9 % (11.6-15.6) H 05/24/19 06:00 Plt Count 296 K/MM3 (134-434) 05/24/19 06:00 MPV 7.5 fl (7.5-11.1) 05/24/19 06:00 CMP Sodium 137 mmol/L (136-145) 05/24/19 06:00 Potassium 4.4 mmol/L (3.5-5.1) 05/24/19 06:00 Chloride 94 mmol/L (98-107) L 05/24/19 06:00 Carbon Dioxide 37 mmol/L (21-32) H 05/24/19 06:00 Anion Gap 6 MMOL/L (8-16) L 05/24/19 06:00 BUN 20.4 mg/dL (7-18) H 05/24/19 06:00 Creatinine 0.6 mg/dL (0.55-1.3) 05/24/19 06:00 Random Glucose 146 mg/dL (74-106) H 05/24/19 06:00 Calcium 9.1 mg/dL (8.5-10.1) 05/24/19 06:00 Total Bilirubin 0.9 mg/dL (0.2-1) 05/21/19 05:40 AST 9 U/L (15-37) L 05/21/19 05:40 ALT 14 U/L (13-61) 05/21/19 05:40 Alkaline Phosphatase 69 U/L (45-117) 05/21/19 05:40 Total Protein 6.8 g/dl (6.4-8.2) 05/21/19 05:40 Albumin 2.9 g/dl (3.4-5.0) L 05/21/19 05:40 CARDIAC ENZYMES Troponin I < 0.02 ng/ml (0.00-0.05) 05/21/19 05:40 Current Medications Generic Name Dose Route Start Last Admin Trade Name Freq PRN Reason Stop Dose Admin Acetaminophen 650 mg 05/21/19 10:39 05/23/19 22:08 Tylenol - PO 650 mg Q6H PRN Administration PAIN Albuterol Sulfate 1 amp 05/21/19 10:13 05/23/19 07:30 Ventolin 0.083% Nebulizer Soln - NEB 1 amp Q4H PRN Administration SHORT OF BREATH/WHEEZING Atorvastatin Calcium 10 mg 05/21/19 22:00 05/23/19 22:08 Lipitor - PO 10 mg HS L[facility]SEH[facility] Administration Benzocaine/Menthol 1 each 05/23/19 03:40 05/23/19 03:55 Cepacol Lozenge - MM 1 each PRN PRN Administration SORE THROAT Bupropion HCl 150 mg 05/21/19 10:00 05/23/19 09:23 Wellbutrin Xl - PO 150 mg DAILY [facility] Administration Clotrimazole 1 applic 05/21/19 10:14 05/23/19 22:07 Lotrimin 1% Cream - TP 1 applic BID [facility] Administration Enoxaparin Sodium 40 mg 05/21/19 10:00 05/23/19 09:23 Lovenox - SQ 40 mg DAILY [facility] Administration Furosemide 60 mg 05/22/19 13:00 05/24/19 06:19 Lasix Injection - IVPUSH 60 mg BID@0600,1400 [facility] Administration Insulin Aspart 1 vial 05/22/19 22:45 05/24/19 06:21 Novolog Vial Sliding Scale - SQ 2 units TIDAC [facility] Administration Protocol Losartan Potassium 25 mg 05/21/19 10:00 05/23/19 09:23 Cozaar - PO 25 mg DAILY [facility] Administration Magnesium Hydroxide 20 ml 05/22/19 05:37 05/24/19 01:46 Milk Of Magnesia - PO 20 ml PRN PRN Administration CONSTIPATION Methylprednisolone Sodium Succinate 40 mg 05/22/19 10:45 05/24/19 01:46 Solu-Medrol - IVPUSH 40 mg Q8H-IV [facility] Administration Ropinirole HCl 0.5 mg 05/21/19 10:00 05/23/19 09:23 Requip - PO 0.5 mg DAILY [facility] Administration CBCD WBC 8.7 K/mm3 (4.0-10.0) 05/24/19 06:00 RBC 6.91 M/mm3 (3.60-5.2) H 05/24/19 06:00 Hgb 15.1 GM/dL (10.7-15.3) 05/24/19 06:00 Hct 51.4 % (32.4-45.2) H 05/24/19 06:00 MCV 74.4 fl (80-96) L 05/24/19 06:00 MCHC 29.4 g/dl (32.0-36.0) L 05/24/19 06:00 RDW 21.9 % (11.6-15.6) H 05/24/19 06:00 Plt Count 296 K/MM3 (134-434) 05/24/19 06:00 MPV 7.5 fl (7.5-11.1) 05/24/19 06:00 CMP Sodium 137 mmol/L (136-145) 05/24/19 06:00 Potassium 4.4 mmol/L (3.5-5.1) 05/24/19 06:00 Chloride 94 mmol/L (98-107) L 05/24/19 06:00 Carbon Dioxide 37 mmol/L (21-32) H 05/24/19 06:00 Anion Gap 6 MMOL/L (8-16) L 05/24/19 06:00 BUN 20.4 mg/dL (7-18) H 05/24/19 06:00 Creatinine 0.6 mg/dL (0.55-1.3) 05/24/19 06:00 Random Glucose 146 mg/dL (74-106) H 05/24/19 06:00 Calcium 9.1 mg/dL (8.5-10.1) 05/24/19 06:00 Total Bilirubin 0.9 mg/dL (0.2-1) 05/21/19 05:40 AST 9 U/L (15-37) L 05/21/19 05:40 ALT 14 U/L (13-61) 05/21/19 05:40 Alkaline Phosphatase 69 U/L (45-117) 05/21/19 05:40 Total Protein 6.8 g/dl (6.4-8.2) 05/21/19 05:40 Albumin 2.9 g/dl (3.4-5.0) L 05/21/19 05:40 CARDIAC ENZYMES Troponin I < 0.02 ng/ml (0.00-0.05) 05/21/19 05:40 Home Medications Medication Instructions Recorded Albuterol Sulfate Inhaler - 1 puff PRN 02/11/19 [Ventolin HFA Inhaler -] Bupropion HCl [Wellbutrin Xl -] 150 mg PO DAILY 02/11/19 Losartan Potassium 25 mg PO DAILY 02/11/19 Pravastatin Sodium 10 mg PO DAILY 02/11/19 Ropinirole HCl 0.5 mg PO DAILY 02/11/19 metFORMIN HCL [Glucophage -] 500 mg PO BID 02/11/19 Furosemide [Lasix] 40 mg PO BID #60 tablet 02/17/19 ASSESSMENT AND PLAN: Patient is a 43 y/o morbidly obese female with RAINA, chronic resp failure with 4 L of O2 at base line Asthma, depression , T2DM , and HTN, who presented with cough and SOB. She was diagnosed with acute D. CHF. # Acute diastolic heart failure: on IV lasix continue, Low salt diet, I&O and weight , cont losartan, will continue to monitor # Acute on chronic resp failure: with hypercapnia Due to CHF, RAINA, and obesity , cont BIPAP PRN and HS Spoke to the Rep: Insurance did not approve BIPAP as she never had CPAP before. Will try to arrange for CPAP q HS at al, Insurance approval might need 36 hrs. will ask Pulm about IPAP setting # H/o HTN: cont losartan # H/o T2DM ; cont SSI . hold metformin # Intertiganeous of Breasts and pannus: cont clotrimazole # Rash: likely contact dermatitis. Cont hydrocortisone DVT PX: Lovenox
[2019-05-24] MEDS ORDERED: PT OWN MED DRAWER 7, Y5N ONE (09:47)
[2019-05-24] MEDS: ENOXAPARIN NA (PORCINE) 40 MG/0.4 ML DISP.SYRIN SQ SCH (09:49)
[2019-05-24] MEDS: CLOTRIMAZOLE 1% CREAM 15 GM TUBE TP SCH ×2 (09:49→22:26)
[2019-05-24] MEDS: rOPINIRole HCL 0.5 MG TABLET PO SCH (09:49)
[2019-05-24] MEDS: LOSARTAN POTASSIUM 25 MG TABLET PO SCH (09:49)
[2019-05-24] MEDS: ACETAMINOPHEN 325 MG TABLET (FP) PO PRN ×2 (10:05→22:21)
--- NOTE | 2019-05-24 11:14 | PN ---
Progress Note, Physician History of Present Illness: pulmonary alert,feeling better,less dyspneic,oob-chair - Current Medication List Current Medications: Active Medications Acetaminophen (Tylenol -) 650 mg PO Q6H PRN PRN Reason: PAIN Last Admin: 05/24/19 10:05 Dose: 650 mg Albuterol Sulfate (Ventolin 0.083% Nebulizer Soln -) 1 amp NEB Q4H PRN PRN Reason: SHORT OF BREATH/WHEEZING Last Admin: 05/23/19 07:30 Dose: 1 amp Atorvastatin Calcium (Lipitor -) 10 mg PO HS [facility] Last Admin: 05/23/19 22:08 Dose: 10 mg Benzocaine/Menthol (Cepacol Lozenge -) 1 each MM PRN PRN PRN Reason: SORE THROAT Last Admin: 05/23/19 03:55 Dose: 1 each Bupropion HCl (Wellbutrin Xl -) 150 mg PO DAILY [facility] Last Admin: 05/24/19 09:49 Dose: 150 mg Clotrimazole (Lotrimin 1% Cream -) 1 applic TP BID [facility] Last Admin: 05/24/19 09:49 Dose: 1 applic Enoxaparin Sodium (Lovenox -) 40 mg SQ DAILY [facility] Last Admin: 05/24/19 09:49 Dose: 40 mg Furosemide (Lasix Injection -) 60 mg IVPUSH BID@0600,1400 [facility] Last Admin: 05/24/19 06:19 Dose: 60 mg Insulin Aspart (Novolog Vial Sliding Scale -) 1 vial SQ TIDAC [facility]; Protocol Last Admin: 05/24/19 06:21 Dose: 2 units Losartan Potassium (Cozaar -) 25 mg PO DAILY [facility] Last Admin: 05/24/19 09:49 Dose: 25 mg Magnesium Hydroxide (Milk Of Magnesia -) 20 ml PO PRN PRN PRN Reason: CONSTIPATION Last Admin: 05/24/19 01:46 Dose: 20 ml Methylprednisolone Sodium Succinate (Solu-Medrol -) 40 mg IVPUSH Q8H-IV [facility] Last Admin: 05/24/19 09:49 Dose: 40 mg Ropinirole HCl (Requip -) 0.5 mg PO DAILY [facility] Last Admin: 05/24/19 09:49 Dose: 0.5 mg - Objective Vital Signs: Vital Signs Temperature 98.9 F 05/24/19 06:00 Pulse Rate 60 12/04/19 06:00 Respiratory Rate 20 05/24/19 06:00 Blood Pressure 144/92 05/24/19 06:00 O2 Sat by Pulse Oximetry (%) 92 L 05/24/19 08:16 Constitutional: Yes: No Distress, Calm, Obese, Other (severely obese) Eyes: Yes: WNL HENT: Yes: WNL Neck: Yes: WNL Cardiovascular: Yes: Regular Rate and Rhythm, S1, S2 Respiratory: Yes: Diminished Gastrointestinal: Yes: Soft, Abdomen, Obese Extremities: Yes: WNL Edema: Yes Labs: CBC, BMP 05/24/19 06:00 05/24/19 06:00 Assessment/Plan Problem List - Problems (1) Asthma exacerbation Code(s): J45.901 - UNSPECIFIED ASTHMA WITH (ACUTE) EXACERBATION Qualifiers: Asthma severity: moderate Asthma persistence: persistent Qualified Code(s ): J45.41 - Moderate persistent asthma with (acute) exacerbation (2) RAINA (obstructive sleep apnea) Code(s): G47.33 - OBSTRUCTIVE SLEEP APNEA (ADULT) (PEDIATRIC) (3) HTN (hypertension) Code(s): I10 - ESSENTIAL (PRIMARY) HYPERTENSION (4) Morbid (severe) obesity with alveolar hypoventilation Code(s): E66.2 - MORBID (SEVERE) OBESITY WITH ALVEOLAR HYPOVENTILATION (5) Shortness of breath on exertion Code(s): R06.02 - SHORTNESS OF BREATH (6) Acute on chronic respiratory failure with hypoxemia Code(s): J96.21 - ACUTE AND CHRONIC RESPIRATORY FAILURE WITH HYPOXIA (7) Hypercapnic respiratory failure, chronic Code(s): J96.12 - CHRONIC RESPIRATORY FAILURE WITH HYPERCAPNIA Assessment/Plan OHS/OSAS NIPPV AT NIGHT AND PRN O2 TO KEEP SAT GREATER THAN 90% BRONCHODILATORS STEROIDS BARIATRIC SURGERY EVALUATION DVT PROPHYLAXIS NEEDS PSG OUTPATIENT CONSIDER TRILOGY DEVICE DR GARCIA
--- NOTE | 2019-05-24 12:18 | PN ---
Progress Note, Physician History of Present Illness: 43 y/o F morbidly obese, w/ hx of chronic hypercapneic respiratory failure, RAINA (on home 4L oxygen but no cpap), asthma, depression, HTN, HLD, diastolic dysfunction with h/o failure complained of progressive exertional shortness of breath, nonproductive cough, chest tightness for the past 2 to 3 days. She is using her albuterol inhaler at home which was not helping much. Denied any recent travels or sick contacts. Patient does not use CPAP for her RAINA and has never underwent formal pulmonary function testing. Dyspnea and orthopnea improving with diuresis. - Current Medication List Current Medications: Active Medications Acetaminophen (Tylenol -) 650 mg PO Q6H PRN PRN Reason: PAIN Last Admin: 05/24/19 10:05 Dose: 650 mg Albuterol Sulfate (Ventolin 0.083% Nebulizer Soln -) 1 amp NEB Q4H PRN PRN Reason: SHORT OF BREATH/WHEEZING Last Admin: 05/23/19 07:30 Dose: 1 amp Atorvastatin Calcium (Lipitor -) 10 mg PO HS [facility] Last Admin: 05/23/19 22:08 Dose: 10 mg Benzocaine/Menthol (Cepacol Lozenge -) 1 each MM PRN PRN PRN Reason: SORE THROAT Last Admin: 05/23/19 03:55 Dose: 1 each Bupropion HCl (Wellbutrin Xl -) 150 mg PO DAILY [facility] Last Admin: 05/24/19 09:49 Dose: 150 mg Clotrimazole (Lotrimin 1% Cream -) 1 applic TP BID [facility] Last Admin: 05/24/19 09:49 Dose: 1 applic Enoxaparin Sodium (Lovenox -) 40 mg SQ DAILY [facility] Last Admin: 05/24/19 09:49 Dose: 40 mg Furosemide (Lasix Injection -) 60 mg IVPUSH BID@0600,1400 [facility] Last Admin: 05/24/19 06:19 Dose: 60 mg Insulin Aspart (Novolog Vial Sliding Scale -) 1 vial SQ TIDAC [facility]; Protocol Last Admin: 05/24/19 06:21 Dose: 2 units Losartan Potassium (Cozaar -) 25 mg PO DAILY [facility] Last Admin: 05/24/19 09:49 Dose: 25 mg Magnesium Hydroxide (Milk Of Magnesia -) 20 ml PO PRN PRN PRN Reason: CONSTIPATION Last Admin: 05/24/19 01:46 Dose: 20 ml Methylprednisolone Sodium Succinate (Solu-Medrol -) 40 mg IVPUSH BID [facility] Ropinirole HCl (Requip -) 0.5 mg PO DAILY [facility] Last Admin: 05/24/19 09:49 Dose: 0.5 mg - Objective Vital Signs: Vital Signs Temperature 98.9 F 05/24/19 06:00 Pulse Rate 60 05/24/19 06:00 Respiratory Rate 20 05/24/19 09:00 Blood Pressure 144/92 05/24/19 06:00 O2 Sat by Pulse Oximetry (%) 92 L 05/24/19 09:00 Eyes: Yes: WNL, Conjunctiva Clear, EOM Intact HENT: Yes: WNL, Atraumatic, Normocephalic Neck: Yes: WNL, Supple, Trachea Midline Cardiovascular: Yes: WNL, Regular Rate and Rhythm Respiratory: Yes: WNL, Regular, CTA Bilaterally Gastrointestinal: Yes: WNL, Normal Bowel Sounds Genitourinary: Yes: WNL Musculoskeletal: Yes: WNL Extremities: Yes: WNL Edema: Yes Integumentary: Yes: WNL Neurological: Yes: WNL, Alert, Oriented ...Motor Strength: WNL Psychiatric: Yes: WNL Labs: CBC, BMP 05/24/19 06:00 05/24/19 06:00 Assessment/Plan 1. Acute on chronic hypercapneic respiratory failure 2. Acute on chronic diastolic heart failure 3. Morbid obesity with OHS/OSAS not on cpap! 4. HTN 5. Type 2 DM 6. Hyperlipidemia P:1. IV diuresis with monitor diuretic response, renal function and electrolyes 2. Continue losartan 25 qd, pravachol 10 qd 3. BD, bipap nightly, O2 as needed to keep Spo2 >90%, SW input for cpap at home
--- NOTE | 2019-05-24 13:44 | PN ---
Physical Exam: SUBJECTIVE: Patient seen and examined. Pt appears much more improved and better than previously. Pt had no overnight issues. She c/o of feeling disoriented for a few seconds upon waking up. She also c/o of feeling sweaty and hot. She slept overnight with the BiPAP. No other c/o. Denies f/c/n/v/d/sob/chest pain OBJECTIVE: Vital Signs Period Temp Pulse Resp BP Sys/Quan Pulse Ox Last 24 Hr 97.3 F-98.9 F 60-65 18-20 108-181/59-92 88-93 GENERAL: Awake, alert, and fully oriented, in no acute distress. Morbidly obese , On Room air- tolerating well EYES: Pupils equal, round and reactive to light, extraocular movements intact EARS, NOSE, THROAT: oropharynx clear without exudates. Moist mucous membranes. NECK: Normal range of motion, supple without lymphadenopathy, excess fat around the neck. Erythematous macular rash around the chest on exposed skin- improved Breast: Intretrigo under left breast-improved, right breast appears normal LUNGS: Breath sounds equal, clear to auscultation bilaterally. No wheezes, and trace crackles heard. HEART: Regular rate and rhythm, normal S1 and S2 without murmur, rub or gallop. ABDOMEN: Soft, nontender, not distended, normoactive bowel sounds, no guarding, no rebound, no masses. No signs of candidal infection under the skin fold of the inguinal region b/l. Difficult to asses for ascites UPPER EXTREMITIES: 2+ pulses, warm, well-perfused. No cyanosis. No clubbing. Mild peripheral edema b/l LOWER EXTREMITIES: 2+ pulses, warm, well-perfused. No calf tenderness. 2+ peripheral edema b/l w/ scaling and skin breakdown due to chronic venous stasis NEUROLOGICAL: Cranial nerves II-XII intact. Normal speech PSYCHIATRIC: Cooperative. Good eye contact. Appropriate mood and affect. SKIN: Warm, dry, normal turgor, Laboratory Results - last 24 hr CBC,CMP WBC 8.7 K/mm3 (4.0-10.0) 05/24/19 06:00 RBC 6.91 M/mm3 (3.60-5.2) H 05/24/19 06:00 Hgb 15.1 GM/dL (10.7-15.3) 05/24/19 06:00 Hct 51.4 % (32.4-45.2) H 05/24/19 06:00 MCV 74.4 fl (80-96) L 05/24/19 06:00 MCH 21.9 pg (25.7-33.7) L 05/24/19 06:00 MCHC 29.4 g/dl (32.0-36.0) L 05/24/19 06:00 RDW 21.9 % (11.6-15.6) H 05/24/19 06:00 Plt Count 296 K/MM3 (134-434) 05/24/19 06:00 MPV 7.5 fl (7.5-11.1) 05/24/19 06:00 Absolute Neuts (auto) 5.4 K/mm3 (1.5-8.0) 05/22/19 09:15 Neutrophils % 72.0 % (42.8-82.8) 05/22/19 09:15 Neutrophils % (Manual) 68.8 % (42.8-82.8) 05/22/19 09:15 Band Neutrophils % 4.6 % 05/22/19 09:15 Lymphocytes % 19.7 % (8-40) D 05/22/19 09:15 Lymphocytes % (Manual) 14.7 % (8-40) D 05/22/19 09:15 Monocytes % 5.5 % (3.8-10.2) 05/22/19 09:15 Monocytes % (Manual) 6 % (3.8-10.2) 05/22/19 09:15 Eosinophils % 1.9 % (0-4.5) 05/22/19 09:15 Eosinophils % (Manual) 3.7 % (0-4.5) D 05/22/19 09:15 Basophils % 0.9 % (0-2.0) 05/22/19 09:15 Basophils % (Manual) 0.0 % (0-2.0) 05/22/19 09:15 Myelocytes % (Man) 0 % (0-2) 05/22/19 09:15 Promyelocytes % (Man) 0 % (0-2) 05/22/19 09:15 Blast Cells % (Manual) 0 % (0-0) 05/22/19 09:15 Nucleated RBC % 0 % (0-0) 05/22/19 09:15 Metamyelocytes 0 % (0-2) 05/22/19 09:15 Hypochromia 0 05/22/19 09:15 Platelet Estimate Normal 05/22/19 09:15 Polychromasia 0 05/22/19 09:15 Poikilocytosis 1+ 05/22/19 09:15 Anisocytosis 2+ 05/22/19 09:15 Microcytosis 2+ 05/22/19 09:15 Macrocytosis 1+ 05/22/19 09:15 Stomatocytes 2+ 05/22/19 09:15 Sodium 137 mmol/L (136-145) 05/24/19 06:00 Potassium 4.4 mmol/L (3.5-5.1) 05/24/19 06:00 Chloride 94 mmol/L (98-107) L 05/24/19 06:00 Carbon Dioxide 37 mmol/L (21-32) H 05/24/19 06:00 Anion Gap 6 MMOL/L (8-16) L 05/24/19 06:00 BUN 20.4 mg/dL (7-18) H 05/24/19 06:00 Creatinine 0.6 mg/dL (0.55-1.3) 05/24/19 06:00 Est GFR (CKD-EPI)AfAm 128.48 05/24/19 06:00 Est GFR (CKD-EPI)NonAf 110.86 05/24/19 06:00 POC Glucometer 140 UNITS (80-120) 05/24/19 12:02 Random Glucose 146 mg/dL (74-106) H 05/24/19 06:00 Calcium 9.1 mg/dL (8.5-10.1) 05/24/19 06:00 Phosphorus 3.8 mg/dL (2.5-4.9) 05/21/19 05:40 Magnesium 2.2 mg/dL (1.8-2.4) 05/21/19 05:40 Total Bilirubin 0.9 mg/dL (0.2-1) 05/21/19 05:40 AST 9 U/L (15-37) L 05/21/19 05:40 ALT 14 U/L (13-61) 05/21/19 05:40 Alkaline Phosphatase 69 U/L (45-117) 05/21/19 05:40 Troponin I < 0.02 ng/ml (0.00-0.05) 05/21/19 05:40 B-Natriuretic Peptide 890.9 pg/ml (5-125) H 05/21/19 05:40 Total Protein 6.8 g/dl (6.4-8.2) 05/21/19 05:40 Albumin 2.9 g/dl (3.4-5.0) L 05/21/19 05:40 Active Medications Current Medications Acetaminophen (Tylenol -) 650 mg PO Q6H PRN PRN Reason: PAIN Last Admin: 05/24/19 10:05 Dose: 650 mg Albuterol Sulfate (Ventolin 0.083% Nebulizer Soln -) 1 amp NEB Q4H PRN PRN Reason: SHORT OF BREATH/WHEEZING Last Admin: 05/23/19 07:30 Dose: 1 amp Atorvastatin Calcium (Lipitor -) 10 mg PO HS [facility] Last Admin: 05/23/19 22:08 Dose: 10 mg Benzocaine/Menthol (Cepacol Lozenge -) 1 each MM PRN PRN PRN Reason: SORE THROAT Last Admin: 05/23/19 03:55 Dose: 1 each Bupropion HCl (Wellbutrin Xl -) 150 mg PO DAILY [facility] Last Admin: 05/24/19 09:49 Dose: 150 mg Clotrimazole (Lotrimin 1% Cream -) 1 applic TP BID [facility] Last Admin: 05/24/19 09:49 Dose: 1 applic Enoxaparin Sodium (Lovenox -) 40 mg SQ DAILY [facility] Last Admin: 05/24/19 09:49 Dose: 40 mg Furosemide (Lasix Injection -) 60 mg IVPUSH BID@0600,1400 [facility] Last Admin: 05/24/19 06:19 Dose: 60 mg Insulin Aspart (Novolog Vial Sliding Scale -) 1 vial SQ TIDAC [facility]; Protocol Last Admin: 05/24/19 06:21 Dose: 2 units Losartan Potassium (Cozaar -) 25 mg PO DAILY [facility] Last Admin: 05/24/19 09:49 Dose: 25 mg Magnesium Hydroxide (Milk Of Magnesia -) 20 ml PO PRN PRN PRN Reason: CONSTIPATION Last Admin: 12/04/19 01:46 Dose: 20 ml Methylprednisolone Sodium Succinate (Solu-Medrol -) 40 mg IVPUSH BID [facility] Ropinirole HCl (Requip -) 0.5 mg PO DAILY [facility] Last Admin: 05/24/19 09:49 Dose: 0.5 mg Home Medications Medication Instructions Recorded Albuterol Sulfate Inhaler - 1 puff PRN 02/11/19 [Ventolin HFA Inhaler -] Bupropion HCl [Wellbutrin Xl -] 150 mg PO DAILY 02/11/19 Losartan Potassium 25 mg PO DAILY 02/11/19 Pravastatin Sodium 10 mg PO DAILY 02/11/19 Ropinirole HCl 0.5 mg PO DAILY 02/11/19 metFORMIN HCL [Glucophage -] 500 mg PO BID 02/11/19 Furosemide [Lasix] 40 mg PO BID #60 tablet 02/17/19 ASSESSMENT/PLAN: 43 y/o M, pmh of morbid obesity, hx of RAINA on home oxygen (2-3 L at rest and 3- 4L on ambulation), asthma (never been intubated, one time hospitalization), depression, HTN, HLD, DM presents w/ sob, wheezing and mild chest tightness of 2 day duration is admitted for CHF exacerbation superimposed with asthma exacerbation #CHF exacerbation Last Echo in 02/06- unremarkable, thus suspect diastolic dysfxn Lasix 60mg IV BID Fluid restriction monitor I's&O's Daily weights Bariatric surgery saw pt- recommended outpt appt and f/u for weight loss surgery Feeling sweaty and disoriented could be likely to overnight BiPaP use, will monitor for now Pulmonology recommends pt for Trilogy device #Acute on Chronic hypoxic/hypercapnic resp failure BiPAP overnight Solumedrol 40mg BID PFT's outpt Arranged BiPaP after D/c #Rash around the neck Now improved Hydrocortisone topical given #LE edema Lasix 60 BID Still significant swelling present #Intertrigo under left breast Now improved Clotrimazole #HTN cont home meds- Losartan 25mg #DM ISS #Hx of depression Wellbutrin #HLD Pravachol 10 #DVT ppx Lovenox FEN no fluids monitor lytes Diabetic/sodium diet Dispo: monitor overnight, keep bipap if room air not tolerable, will cont lasix Visit type - Emergency Visit Emergency Visit: Yes ED Registration Date: 05/20/19 Care time: The patient presented to the Emergency Department on the above date and was hospitalized for further evaluation of their emergent condition. - New Patient This patient is new to me today: Yes Date on this admission: 05/25/19 - Critical Care Critical Care patient: No - Discharge Referral Referred to [facility] Med P.C.: No ATTENDING PHYSICIAN STATEMENT I saw and evaluated the patient. I reviewed the resident's note and discussed the case with the resident. I agree with the resident's findings and plan as documented. SUBJECTIVE: OBJECTIVE: ASSESSMENT AND PLAN:
--- NOTE | 2019-05-24 15:42 | EKG ---
Test Reason : Blood Pressure : / mmHG Vent. Rate : 068 BPM Atrial Rate : 068 BPM P-R Int : 166 ms QRS Dur : 098 ms QT Int : 438 ms P-R-T Axes : 060 132 104 degrees QTc Int : 465 ms NORMAL SINUS RHYTHM LEFT POSTERIOR FASCICULAR BLOCK CANNOT RULE OUT ANTERIOR INFARCT (CITED ON OR BEFORE 20-MAY-2019) ABNORMAL ECG WHEN COMPARED WITH ECG OF 20-MAY-2019 14:59, NO SIGNIFICANT CHANGE WAS FOUND Confirmed by JOSELIN TY MD ([id number]) on 05/24/2019 3:41:59 PM Referred By: Confirmed By:JOSELIN TY MD
[2019-05-24] MEDS: ALBUTEROL SO4 0.083% IH SOL 2.5 MG/3 ML VIAL.NEB. NEB PRN ×2 (16:25→20:36)
[2019-05-24 17:43] VITALS: BMI 65.7
[2019-05-24] MEDS: ATORVASTATIN CA 10 MG TABLET (FP) PO SCH (22:12)
[2019-05-24] MEDS: BENZOCAINE/MENTH/CETYLPYRD CL 1 EACH LOZENGE MM PRN (22:31)
[2019-05-25] MEDS: ALBUTEROL SO4 0.083% IH SOL 2.5 MG/3 ML VIAL.NEB. NEB PRN ×3 (03:40→20:34)
[2019-05-25] MEDS: MAGNESIUM HYDROX 2400MG/30ML ORAL SUSPENSION 30 ML CUP PO PRN (05:21)
[2019-05-25] MEDS: INSULIN SLIDING SCALE (NOVOLOG) 1 VIAL SQ SCH ×3 (06:35→18:00)
[2019-05-25] MEDS: FUROSEMIDE 40 MG/4 ML INJECTABLE VIAL IVPUSH SCH ×2 (06:58→13:37)
[2019-05-25 07:21] LABS: HEMOGLOBIN 14.8 GM/dL (10.7-15.3); MCH 22.1 pg (25.7-33.7); MCHC 29.7 g/dl (32.0-36.0); MEAN CELL VOLUME 74.4 fl (80-96); MEAN PLT VOLUME 8.4 fl (7.5-11.1); PLATELET COUNT 284 K/MM3 (134-434); RBC 6.71 M/mm3 (3.60-5.2); RDW 21.4 % (11.6-15.6); WHITE BLOOD COUNT 8.9 K/mm3 (4.0-10.0)
[2019-05-25 07:46] LABS: BLOOD UREA NITROGEN 23.8 mg/dL (7-18); CALCIUM 9.4 mg/dL (8.5-10.1); CREATININE 0.7 mg/dL (0.55-1.3); POTASSIUM 4.2 mmol/L (3.5-5.1)
[2019-05-25] MEDS: methylPREDNISolone NA SUCC 40 MG/1 ML VIAL IVPUSH SCH ×2 (10:34→21:40)
[2019-05-25] MEDS: LOSARTAN POTASSIUM 25 MG TABLET PO SCH (10:34)
[2019-05-25] MEDS: ENOXAPARIN NA (PORCINE) 40 MG/0.4 ML DISP.SYRIN SQ SCH (10:34)
[2019-05-25] MEDS: CLOTRIMAZOLE 1% CREAM 15 GM TUBE TP SCH ×2 (10:35→21:43)
[2019-05-25] MEDS: rOPINIRole HCL 0.5 MG TABLET PO SCH (10:35)
[2019-05-25] MEDS: ACETAMINOPHEN 325 MG TABLET (FP) PO PRN (10:39)
[2019-05-25] MEDS ORDERED: SODIUM CHLORIDE NASAL SPRAY 44 ML BOTTLE NS PRN (13:09)
--- NOTE | 2019-05-25 13:11 | PN ---
Progress Note (short form) - Note Progress Note: PULMONARY States breathing is better. Cough with yellow sputum. No fevers. Vital Signs Period Temp Pulse Resp BP Sys/Quan Pulse Ox Last 24 Hr 97.5 F-98.4 F 51-74 18-20 121-174/73-97 91-98 Gen: NAD at rest Heart: RRR Lung: distant breath sounds Abd: soft, nontender Ext: + edema CBC, BMP 05/25/19 06:45 05/25/19 06:45 Active Medications Acetaminophen (Tylenol -) 650 mg PO Q6H PRN PRN Reason: PAIN Last Admin: 05/25/19 10:39 Dose: 650 mg Albuterol Sulfate (Ventolin 0.083% Nebulizer Soln -) 1 amp NEB Q4H PRN PRN Reason: SHORT OF BREATH/WHEEZING Last Admin: 05/25/19 07:45 Dose: 1 amp Atorvastatin Calcium (Lipitor -) 10 mg PO HS [facility] Last Admin: 05/24/19 22:12 Dose: 10 mg Benzocaine/Menthol (Cepacol Lozenge -) 1 each MM PRN PRN PRN Reason: SORE THROAT Last Admin: 05/24/19 22:31 Dose: 1 each Bupropion HCl (Wellbutrin Xl -) 150 mg PO DAILY [facility] Last Admin: 05/25/19 10:34 Dose: 150 mg Clotrimazole (Lotrimin 1% Cream -) 1 applic TP BID [facility] Last Admin: 05/25/19 10:35 Dose: 1 applic Enoxaparin Sodium (Lovenox -) 40 mg SQ DAILY [facility] Last Admin: 05/25/19 10:34 Dose: 40 mg Furosemide (Lasix Injection -) 60 mg IVPUSH BID@0600,1400 [facility] Last Admin: 05/25/19 06:58 Dose: 60 mg Insulin Aspart (Novolog Vial Sliding Scale -) 1 vial SQ TIDAC [facility]; Protocol Last Admin: 05/25/19 12:15 Dose: Not Given Losartan Potassium (Cozaar -) 25 mg PO DAILY [facility] Last Admin: 05/25/19 10:34 Dose: 25 mg Magnesium Hydroxide (Milk Of Magnesia -) 20 ml PO PRN PRN PRN Reason: CONSTIPATION Last Admin: 05/25/19 05:21 Dose: 20 ml Methylprednisolone Sodium Succinate (Solu-Medrol -) 40 mg IVPUSH BID [facility] Last Admin: 05/25/19 10:34 Dose: 40 mg Ropinirole HCl (Requip -) 0.5 mg PO DAILY [facility] Last Admin: 05/25/19 10:35 Dose: 0.5 mg Sodium Chloride ([place] -) 2 spray NS TID PRN PRN Reason: NASAL CONGESTION A/P Acute on Chronic Hypercapneic Respiratory Failure Acute on Chronic Diastolic Heart Failure Morbid Obesity RAINA/OHS HTN DM Hyperlipidemia - continue lasix - monitor urine output, creatinine - taper off medrol - inhaled bronchodilators - O2 to keep Spo2 >90% - BiPAP at night and PRN during day
--- NOTE | 2019-05-25 17:10 | PN ---
Physical Exam: SUBJECTIVE: Patient seen and examined. Pt appears much more improved. Pt had no overnight issues. Pt reports feeling "good" today. She slept overnight with the BiPAP. No other c/o. Denies f/c/n/v/d/sob/chest pain OBJECTIVE: Vital Signs Period Temp Pulse Resp BP Sys/Quan Pulse Ox Last 24 Hr 97.5 F-98.3 F 51-74 18-20 121-159/73-97 91-98 GENERAL: Awake, alert, and fully oriented, in no acute distress. Morbidly obese , On Room air- tolerating well EYES: Pupils equal, round and reactive to light, extraocular movements intact EARS, NOSE, THROAT: oropharynx clear without exudates. Moist mucous membranes. NECK: Normal range of motion, supple without lymphadenopathy, excess fat around the neck. Erythematous macular rash around the chest on exposed skin- improved Breast: Intretrigo under left breast-improved, right breast appears normal LUNGS: Breath sounds equal, clear to auscultation bilaterally. No wheezes, and trace crackles heard. HEART: Regular rate and rhythm, normal S1 and S2 without murmur, rub or gallop. ABDOMEN: Soft, nontender, not distended, normoactive bowel sounds, no guarding, no rebound, no masses. No signs of candidal infection under the skin fold of the inguinal region b/l. Difficult to asses for ascites UPPER EXTREMITIES: 2+ pulses, warm, well-perfused. No cyanosis. No clubbing. Mild peripheral edema b/l LOWER EXTREMITIES: 2+ pulses, warm, well-perfused. No calf tenderness. 2+ peripheral edema b/l w/ scaling and skin breakdown due to chronic venous stasis NEUROLOGICAL: Cranial nerves II-XII intact. Normal speech PSYCHIATRIC: Cooperative. Good eye contact. Appropriate mood and affect. SKIN: Warm, dry, normal turgor, Laboratory Results - last 24 hr 05/24/19 05/25/19 05/25/19 17:28 06:23 06:45 WBC 8.9 RBC 6.71 H Hgb 14.8 Hct 50.0 H MCV 74.4 L MCH 22.1 L MCHC 29.7 L RDW 21.4 H Plt Count 284 MPV 8.4 D Sodium Potassium Chloride Carbon Dioxide Anion Gap BUN Creatinine Est GFR (CKD-EPI)AfAm Est GFR (CKD-EPI)NonAf POC Glucometer 140 150 Random Glucose Calcium Active Medications Generic Name Dose Route Start Last Admin Trade Name Freq PRN Reason Stop Dose Admin Acetaminophen 650 mg 05/21/19 10:39 05/25/19 10:39 Tylenol - PO 650 mg Q6H PRN Administration PAIN Albuterol Sulfate 1 amp 05/21/19 10:13 05/25/19 07:45 Ventolin 0.083% Nebulizer Soln - NEB 1 amp Q4H PRN Administration SHORT OF BREATH/WHEEZING Atorvastatin Calcium 10 mg 05/21/19 22:00 05/24/19 22:12 Lipitor - PO 10 mg HS [facility] Administration Benzocaine/Menthol 1 each 05/23/19 03:40 05/24/19 22:31 Cepacol Lozenge - MM 1 each PRN PRN Administration SORE THROAT Bupropion HCl 150 mg 05/21/19 10:00 05/25/19 10:34 Wellbutrin Xl - PO 150 mg DAILY [facility] Administration Clotrimazole 1 applic 05/21/19 10:14 05/25/19 10:35 Lotrimin 1% Cream - TP 1 applic BID [facility] Administration Enoxaparin Sodium 40 mg 05/21/19 10:00 05/25/19 10:34 Lovenox - SQ 40 mg DAILY [facility] Administration Furosemide 60 mg 05/22/19 13:00 05/25/19 13:37 Lasix Injection - IVPUSH 60 mg BID@0600,1400 [facility] Administration Insulin Aspart 1 vial 05/22/19 22:45 05/25/19 12:15 Novolog Vial Sliding Scale - SQ Not Given TIDAC [facility] Protocol Losartan Potassium 25 mg 05/21/19 10:00 05/25/19 10:34 Cozaar - PO 25 mg DAILY [facility] Administration Magnesium Hydroxide 20 ml 05/22/19 05:37 05/25/19 05:21 Milk Of Magnesia - PO 20 ml PRN PRN Administration CONSTIPATION Methylprednisolone Sodium Succinate 40 mg 05/24/19 22:00 05/25/19 10:34 Solu-Medrol - IVPUSH 40 mg BID [facility] Administration Ropinirole HCl 0.5 mg 05/21/19 10:00 05/25/19 10:35 Requip - PO 0.5 mg DAILY [facility] Administration Sodium Chloride 2 spray 05/25/19 13:09 05/25/19 13:36 [place] Nasal [place] - NS 2 spray TID PRN Administration NASAL CONGESTION ASSESSMENT/PLAN: 43 y/o M, pmh of morbid obesity, hx of RAINA on home oxygen (2-3 L at rest and 3- 4L on ambulation), asthma (never been intubated, one time hospitalization), depression, HTN, HLD, DM presents w/ sob, wheezing and mild chest tightness of 2 day duration is admitted for CHF exacerbation superimposed with asthma exacerbation #CHF exacerbation Last Echo in 02/06- unremarkable, thus suspect diastolic dysfxn Lasix 60mg IV BID Fluid restriction monitor I's&O's Daily weights Bariatric surgery saw pt- recommended outpt appt and f/u for weight loss surgery Pulmonology recommends pt for Trilogy device Waiting for social work to set up Bipap at home #Acute on Chronic hypoxic/hypercapnic resp failure BiPAP overnight Solumedrol 40mg BID PFT's outpt #LE edema Lasix 60 BID Still significant swelling present #Intertrigo under left breast Now improved Clotrimazole #HTN cont home meds- Losartan 25mg #DM ISS #Hx of depression Wellbutrin #HLD Pravachol 10 #DVT ppx Lovenox FEN no fluids monitor lytes Diabetic/sodium diet Dispo: monitor overnight, keep bipap if room air not tolerable, will cont lasix Visit type - Emergency Visit Emergency Visit: Yes ED Registration Date: 05/20/19 Care time: The patient presented to the Emergency Department on the above date and was hospitalized for further evaluation of their emergent condition. - New Patient This patient is new to me today: Yes Date on this admission: 05/26/19 - Critical Care Critical Care patient: No - Discharge Referral Referred to [facility] Med P.C.: No ATTENDING PHYSICIAN STATEMENT I saw and evaluated the patient. I reviewed the resident's note and discussed the case with the resident. I agree with the resident's findings and plan as documented. SUBJECTIVE: OBJECTIVE: ASSESSMENT AND PLAN:
--- NOTE | 2019-05-25 18:24 | PN ---
Teaching Attending Note Name of Resident: Yuniel Liu ATTENDING PHYSICIAN STATEMENT I saw and evaluated the patient. I reviewed the resident's note and discussed the case with the resident. I agree with the resident's findings and plan as documented. SUBJECTIVE: Patient is feeling better with no acute distress. OBJECTIVE: Vital Signs Temperature 98.3 F 05/25/19 14:00 Pulse Rate 64 05/25/19 14:00 Respiratory Rate 18 05/25/19 10:00 Blood Pressure 150/76 05/25/19 14:00 O2 Sat by Pulse Oximetry (%) 95 05/25/19 12:40 GENERAL: The patient is awake, alert, and fully oriented, in no acute distress. HEAD: Normal with no signs of trauma. EYES: PERRL, extraocular movements intact, sclera anicteric, conjunctiva clear. ENT: Ears normal, oropharynx clear without exudates, moist mucous membranes. NECK: Trachea midline, full range of motion, supple. LUNGS: decreased BS BL , no wheezes, no crackles, no accessory muscle use. HEART: Regular rate and rhythm, S1, S2 without murmur, rub or gallop. ABDOMEN: Soft,Nt,ND, morbidly obese ,NT , normoactive bowel sounds, no guarding , no rebound, no hepatosplenomegaly, no masses. EXTREMITIES: 2+ pulses, warm, well-perfused, no edema. NEUROLOGICAL: Cranial nerves II through XII grossly intact. Normal speech, gait not observed. PSYCH: Normal mood, normal affect. SKIN: Warm, dry, normal turgor, no rashes or lesions noted CBCD WBC 8.9 K/mm3 (4.0-10.0) 05/25/19 06:45 RBC 6.71 M/mm3 (3.60-5.2) H 05/25/19 06:45 Hgb 14.8 GM/dL (10.7-15.3) 05/25/19 06:45 Hct 50.0 % (32.4-45.2) H 05/25/19 06:45 MCV 74.4 fl (80-96) L 05/25/19 06:45 MCHC 29.7 g/dl (32.0-36.0) L 05/25/19 06:45 RDW 21.4 % (11.6-15.6) H 05/25/19 06:45 Plt Count 284 K/MM3 (134-434) 05/25/19 06:45 MPV 8.4 fl (7.5-11.1) D 05/25/19 06:45 CMP Sodium 138 mmol/L (136-145) 05/25/19 06:45 Potassium 4.2 mmol/L (3.5-5.1) 05/25/19 06:45 Chloride 94 mmol/L (98-107) L 05/25/19 06:45 Carbon Dioxide 38 mmol/L (21-32) H 05/25/19 06:45 Anion Gap 6 MMOL/L (8-16) L 05/25/19 06:45 BUN 23.8 mg/dL (7-18) H 05/25/19 06:45 Creatinine 0.7 mg/dL (0.55-1.3) 05/25/19 06:45 Random Glucose 141 mg/dL (74-106) H 05/25/19 06:45 Calcium 9.4 mg/dL (8.5-10.1) 05/25/19 06:45 Total Bilirubin 0.9 mg/dL (0.2-1) 05/21/19 05:40 AST 9 U/L (15-37) L 05/21/19 05:40 ALT 14 U/L (13-61) 05/21/19 05:40 Alkaline Phosphatase 69 U/L (45-117) 05/21/19 05:40 Total Protein 6.8 g/dl (6.4-8.2) 05/21/19 05:40 Albumin 2.9 g/dl (3.4-5.0) L 05/21/19 05:40 CARDIAC ENZYMES Troponin I < 0.02 ng/ml (0.00-0.05) 05/21/19 05:40 Current Medications Generic Name Dose Route Start Last Admin Trade Name Freq PRN Reason Stop Dose Admin Acetaminophen 650 mg 05/21/19 10:39 05/25/19 10:39 Tylenol - PO 650 mg Q6H PRN Administration PAIN Albuterol Sulfate 1 amp 05/21/19 10:13 05/25/19 07:45 Ventolin 0.083% Nebulizer Soln - NEB 1 amp Q4H PRN Administration SHORT OF BREATH/WHEEZING Atorvastatin Calcium 10 mg 05/21/19 22:00 05/24/19 22:12 Lipitor - PO 10 mg HS LAKESHIA Administration Benzocaine/Menthol 1 each 05/23/19 03:40 05/24/19 22:31 Cepacol Lozenge - MM 1 each PRN PRN Administration SORE THROAT Bupropion HCl 150 mg 05/21/19 10:00 05/25/19 10:34 Wellbutrin Xl - PO 150 mg DAILY LAKESHIA Administration Clotrimazole 1 applic 05/21/19 10:14 05/25/19 10:35 Lotrimin 1% Cream - TP 1 applic BID LAKESHIA Administration Enoxaparin Sodium 40 mg 05/21/19 10:00 05/25/19 10:34 Lovenox - SQ 40 mg DAILY LAKESHIA Administration Furosemide 60 mg 05/22/19 13:00 05/25/19 13:37 Lasix Injection - IVPUSH 60 mg BID@0600,1400 LAKESHIA Administration Insulin Aspart 1 vial 05/22/19 22:45 05/25/19 18:00 Novolog Vial Sliding Scale - SQ 2 units TIDAC LAKESHIA Administration Protocol Losartan Potassium 25 mg 05/21/19 10:00 05/25/19 10:34 Cozaar - PO 25 mg DAILY LAKESHIA Administration Magnesium Hydroxide 20 ml 05/22/19 05:37 05/25/19 05:21 Milk Of Magnesia - PO 20 ml PRN PRN Administration CONSTIPATION Methylprednisolone Sodium Succinate 40 mg 05/24/19 22:00 05/25/19 10:34 Solu-Medrol - IVPUSH 40 mg BID LAKESHIA Administration Ropinirole HCl 0.5 mg 05/21/19 10:00 05/25/19 10:35 Requip - PO 0.5 mg DAILY LAKESHIA Administration Sodium Chloride 2 spray 05/25/19 13:09 05/25/19 13:36 [place] Nasal [place] - NS 2 spray TID PRN Administration NASAL CONGESTION Home Medications Medication Instructions Recorded Albuterol Sulfate Inhaler - 1 puff PRN 02/11/19 [Ventolin HFA Inhaler -] Bupropion HCl [Wellbutrin Xl -] 150 mg PO DAILY 02/11/19 Losartan Potassium 25 mg PO DAILY 02/11/19 Pravastatin Sodium 10 mg PO DAILY 02/11/19 Ropinirole HCl 0.5 mg PO DAILY 02/11/19 metFORMIN HCL [Glucophage -] 500 mg PO BID 02/11/19 Furosemide [Lasix] 40 mg PO BID #60 tablet 02/17/19 ASSESSMENT AND PLAN: Patient is a 43 y/o morbidly obese female with RAINA, chronic resp failure with 4 L of O2 at base line Asthma, depression , T2DM , and HTN, who presented with cough and SOB. She was diagnosed with acute D. CHF. # Acute diastolic heart failure: on IV lasix continue, Low salt diet, I&O and weight , cont losartan, will continue to monitor # Acute on chronic resp failure: with hypercapnia Due to CHF, RAINA, and obesity , cont BIPAP PRN and HS The insurance did not approve BIPAP as she never had CPAP before. SW is getting CPAP machine arranged to deliver to her house, wait for insurance authorization , q HS at [place],will ask Pulm about IPAP setting . On steroid continue # H/o HTN: cont losartan # H/o T2DM ; cont SSI . hold metformin # Intertiganeous of Breasts and pannus: cont clotrimazole # Rash: likely contact dermatitis. Cont hydrocortisone DVT PX: Lovenox
[2019-05-25] MEDS: ATORVASTATIN CA 10 MG TABLET (FP) PO SCH (21:40)
[2019-05-25] MEDS: BENZOCAINE/MENTH/CETYLPYRD CL 1 EACH LOZENGE MM PRN (21:44)
[2019-05-25] MEDS ORDERED: IBUPROFEN 600 MG TABLET (FP) PO ONE (21:56)
[2019-05-26 06:55] LABS: HEMATOCRIT 52.5 % (32.4-45.2); HEMOGLOBIN 15.4 GM/dL (10.7-15.3); MCH 21.8 pg (25.7-33.7); MCHC 29.3 g/dl (32.0-36.0); MEAN CELL VOLUME 74.6 fl (80-96); MEAN PLT VOLUME 8.2 fl (7.5-11.1); PLATELET COUNT 312 K/MM3 (134-434); RDW 21.7 % (11.6-15.6)
[2019-05-26] MEDS: INSULIN SLIDING SCALE (NOVOLOG) 1 VIAL SQ SCH ×3 (07:09→17:53)
[2019-05-26 07:12] LABS: BLOOD UREA NITROGEN 25.9 mg/dL (7-18); CALCIUM 9.5 mg/dL (8.5-10.1); CREATININE 0.7 mg/dL (0.55-1.3); POTASSIUM 4.2 mmol/L (3.5-5.1)
[2019-05-26] MEDS: FUROSEMIDE 40 MG/4 ML INJECTABLE VIAL IVPUSH SCH ×2 (07:15→14:36)
[2019-05-26 07:56] LABS: RBC 7.04 M/mm3 (3.60-5.2)
[2019-05-26] MEDS: ALBUTEROL SO4 0.083% IH SOL 2.5 MG/3 ML VIAL.NEB. NEB PRN (08:25)
[2019-05-26] MEDS: LOSARTAN POTASSIUM 25 MG TABLET PO SCH (09:29)
[2019-05-26] MEDS: ENOXAPARIN NA (PORCINE) 40 MG/0.4 ML DISP.SYRIN SQ SCH (09:29)
[2019-05-26] MEDS: rOPINIRole HCL 0.5 MG TABLET PO SCH (09:29)
[2019-05-26] MEDS: CLOTRIMAZOLE 1% CREAM 15 GM TUBE TP SCH ×2 (09:30→21:43)
[2019-05-26] MEDS: methylPREDNISolone NA SUCC 40 MG/1 ML VIAL IVPUSH SCH (09:30)
--- NOTE | 2019-05-26 12:31 | PN ---
Progress Note (short form) - Note Progress Note: OOB to chair. Breathing is better but some intermittent wheeze and cough. No acute events overnight. No fevers. Intake & Output 05/23/19 05/24/19 05/25/19 05/26/19 23:59 23:59 23:59 23:59 Intake Total 531 175 6800 Balance 819 042 8962 Weight 471 lb 6 oz 471 lb 6 oz 448 lb Last Vital Signs Temp Pulse Resp BP Pulse Ox 98.7 F 68 22 H 155/50 L 92 L 05/26/19 10:00 05/26/19 10:00 05/26/19 10:00 05/26/19 10:00 05/26/19 10:00 Active Medications Acetaminophen (Tylenol -) 650 mg PO Q6H PRN PRN Reason: PAIN Last Admin: 05/25/19 10:39 Dose: 650 mg Albuterol Sulfate (Ventolin 0.083% Nebulizer Soln -) 1 amp NEB Q4H PRN PRN Reason: SHORT OF BREATH/WHEEZING Last Admin: 05/26/19 08:25 Dose: 1 amp Atorvastatin Calcium (Lipitor -) 10 mg PO HS [facility] Last Admin: 05/25/19 21:40 Dose: 10 mg Benzocaine/Menthol (Cepacol Lozenge -) 1 each MM PRN PRN PRN Reason: SORE THROAT Last Admin: 05/25/19 21:44 Dose: 1 each Bupropion HCl (Wellbutrin Xl -) 150 mg PO DAILY [facility] Last Admin: 05/26/19 09:29 Dose: 150 mg Clotrimazole (Lotrimin 1% Cream -) 1 applic TP BID [facility] Last Admin: 05/26/19 09:30 Dose: 1 applic Enoxaparin Sodium (Lovenox -) 40 mg SQ DAILY [facility] Last Admin: 05/26/19 09:29 Dose: 40 mg Furosemide (Lasix Injection -) 60 mg IVPUSH BID@0600,1400 [facility] Last Admin: 05/26/19 07:15 Dose: 60 mg Insulin Aspart (Novolog Vial Sliding Scale -) 1 vial SQ TIDAC [facility]; Protocol Last Admin: 05/26/19 11:58 Dose: Not Given Losartan Potassium (Cozaar -) 25 mg PO DAILY [facility] Last Admin: 05/26/19 09:29 Dose: 25 mg Magnesium Hydroxide (Milk Of Magnesia -) 20 ml PO PRN PRN PRN Reason: CONSTIPATION Last Admin: 05/25/19 05:21 Dose: 20 ml Methylprednisolone Sodium Succinate (Solu-Medrol -) 40 mg IVPUSH BID [facility] Last Admin: 05/26/19 09:30 Dose: 40 mg Ropinirole HCl (Requip -) 0.5 mg PO DAILY [facility] Last Admin: 05/26/19 09:29 Dose: 0.5 mg Sodium Chloride ([place] Nasal [place] -) 2 spray NS TID PRN PRN Reason: NASAL CONGESTION Last Admin: 05/25/19 13:36 Dose: 2 spray Gen: NAD at rest Heart: RRR Lung: distant breath sounds Abd: soft, nontender Ext: + edema Laboratory Results - last 24 hr 05/25/19 05/26/19 05/26/19 17:34 05:45 05:45 WBC 9.0 RBC 7.04 H Hgb 15.4 H Hct 52.5 H MCV 74.6 L MCH 21.8 L MCHC 29.3 L RDW 21.7 H Plt Count 312 MPV 8.2 Sodium 137 Potassium 4.2 Chloride 92 L Carbon Dioxide 39 H Anion Gap 6 L BUN 25.9 H Creatinine 0.7 Est GFR (CKD-EPI)AfAm 122.13 Est GFR (CKD-EPI)NonAf 105.37 POC Glucometer 160 Random Glucose 136 H Calcium 9.5 05/26/19 05/26/19 05:57 11:53 WBC RBC Hgb Hct MCV MCH MCHC RDW Plt Count MPV Sodium Potassium Chloride Carbon Dioxide Anion Gap BUN Creatinine Est GFR (CKD-EPI)AfAm Est GFR (CKD-EPI)NonAf POC Glucometer 155 137 Random Glucose Calcium A/P Acute on Chronic Hypercapneic Respiratory Failure Acute on Chronic Diastolic Heart Failure Morbid Obesity RAINA/OHS HTN DM Hyperlipidemia - continue lasix - monitor urine output, creatinine - Medrol: cam change to Prednisone over the next 24 hours - inhaled bronchodilators - O2 to keep Spo2 >90% - BiPAP at night and PRN during day Dr Carreno
--- NOTE | 2019-05-26 15:45 | PN ---
Physical Exam: SUBJECTIVE: Patient seen and examined. Pt appears much more improved. Wants to go home. Pt had no overnight issues. Pt reports feeling "good" today. She slept overnight with the BiPAP. No other c/o. Denies f/c/n/v/d/sob/chest pain OBJECTIVE: Vital Signs Period Temp Pulse Resp BP Sys/Quan Pulse Ox Last 24 Hr 97.9 F-98.7 F 60-68 20-22 124-163/50-91 92-95 GENERAL: Awake, alert, and fully oriented, in no acute distress. Morbidly obese , On Room air- tolerating well EYES: Pupils equal, round and reactive to light, extraocular movements intact EARS, NOSE, THROAT: oropharynx clear without exudates. Moist mucous membranes. NECK: Normal range of motion, supple without lymphadenopathy, excess fat around the neck. Breast: Intretrigo under left breast-improved, right breast appears normal LUNGS: Breath sounds equal, clear to auscultation bilaterally. No wheezes, and trace crackles heard. HEART: Regular rate and rhythm, normal S1 and S2 without murmur, rub or gallop. ABDOMEN: Soft, nontender, not distended, normoactive bowel sounds, no guarding, no rebound, no masses. No signs of candidal infection under the skin fold of the inguinal region b/l. Difficult to asses for ascites UPPER EXTREMITIES: 2+ pulses, warm, well-perfused. No cyanosis. No clubbing. Mild peripheral edema b/l LOWER EXTREMITIES: 2+ pulses, warm, well-perfused. No calf tenderness. 2+ peripheral edema b/l w/ scaling and skin breakdown due to chronic venous stasis NEUROLOGICAL: Cranial nerves II-XII intact. Normal speech PSYCHIATRIC: Cooperative. Good eye contact. Appropriate mood and affect. SKIN: Warm, dry, normal turgor, Laboratory Results - last 24 hr CBC,CMP WBC 9.0 K/mm3 (4.0-10.0) 05/26/19 05:45 RBC 7.04 M/mm3 (3.60-5.2) H 05/26/19 05:45 Hgb 15.4 GM/dL (10.7-15.3) H 05/26/19 05:45 Hct 52.5 % (32.4-45.2) H 05/26/19 05:45 MCV 74.6 fl (80-96) L 05/26/19 05:45 MCH 21.8 pg (25.7-33.7) L 05/26/19 05:45 MCHC 29.3 g/dl (32.0-36.0) L 05/26/19 05:45 RDW 21.7 % (11.6-15.6) H 05/26/19 05:45 Plt Count 312 K/MM3 (134-434) 05/26/19 05:45 MPV 8.2 fl (7.5-11.1) 05/26/19 05:45 Absolute Neuts (auto) 5.4 K/mm3 (1.5-8.0) 05/22/19 09:15 Neutrophils % 72.0 % (42.8-82.8) 05/22/19 09:15 Neutrophils % (Manual) 68.8 % (42.8-82.8) 05/22/19 09:15 Band Neutrophils % 4.6 % 05/22/19 09:15 Lymphocytes % 19.7 % (8-40) D 05/22/19 09:15 Lymphocytes % (Manual) 14.7 % (8-40) D 05/22/19 09:15 Monocytes % 5.5 % (3.8-10.2) 05/22/19 09:15 Monocytes % (Manual) 6 % (3.8-10.2) 05/22/19 09:15 Eosinophils % 1.9 % (0-4.5) 05/22/19 09:15 Eosinophils % (Manual) 3.7 % (0-4.5) D 05/22/19 09:15 Basophils % 0.9 % (0-2.0) 05/22/19 09:15 Basophils % (Manual) 0.0 % (0-2.0) 05/22/19 09:15 Myelocytes % (Man) 0 % (0-2) 05/22/19 09:15 Promyelocytes % (Man) 0 % (0-2) 05/22/19 09:15 Blast Cells % (Manual) 0 % (0-0) 05/22/19 09:15 Nucleated RBC % 0 % (0-0) 05/22/19 09:15 Metamyelocytes 0 % (0-2) 05/22/19 09:15 Hypochromia 0 05/22/19 09:15 Platelet Estimate Normal 05/22/19 09:15 Polychromasia 0 05/22/19 09:15 Poikilocytosis 1+ 05/22/19 09:15 Anisocytosis 2+ 05/22/19 09:15 Microcytosis 2+ 05/22/19 09:15 Macrocytosis 1+ 05/22/19 09:15 Stomatocytes 2+ 05/22/19 09:15 Sodium 137 mmol/L (136-145) 05/26/19 05:45 Potassium 4.2 mmol/L (3.5-5.1) 05/26/19 05:45 Chloride 92 mmol/L (98-107) L 05/26/19 05:45 Carbon Dioxide 39 mmol/L (21-32) H 05/26/19 05:45 Anion Gap 6 MMOL/L (8-16) L 05/26/19 05:45 BUN 25.9 mg/dL (7-18) H 05/26/19 05:45 Creatinine 0.7 mg/dL (0.55-1.3) 05/26/19 05:45 Est GFR (CKD-EPI)AfAm 122.13 05/26/19 05:45 Est GFR (CKD-EPI)NonAf 105.37 05/26/19 05:45 POC Glucometer 137 UNITS (80-120) 05/26/19 11:53 Random Glucose 136 mg/dL (74-106) H 05/26/19 05:45 Calcium 9.5 mg/dL (8.5-10.1) 05/26/19 05:45 Phosphorus 3.8 mg/dL (2.5-4.9) 05/21/19 05:40 Magnesium 2.2 mg/dL (1.8-2.4) 05/21/19 05:40 Total Bilirubin 0.9 mg/dL (0.2-1) 05/21/19 05:40 AST 9 U/L (15-37) L 05/21/19 05:40 ALT 14 U/L (13-61) 05/21/19 05:40 Alkaline Phosphatase 69 U/L (45-117) 05/21/19 05:40 Troponin I < 0.02 ng/ml (0.00-0.05) 05/21/19 05:40 B-Natriuretic Peptide 890.9 pg/ml (5-125) H 05/21/19 05:40 Total Protein 6.8 g/dl (6.4-8.2) 05/21/19 05:40 Albumin 2.9 g/dl (3.4-5.0) L 05/21/19 05:40 Active Medications Current Medications Acetaminophen (Tylenol -) 650 mg PO Q6H PRN PRN Reason: PAIN Last Admin: 05/25/19 10:39 Dose: 650 mg Albuterol Sulfate (Ventolin 0.083% Nebulizer Soln -) 1 amp NEB Q4H PRN PRN Reason: SHORT OF BREATH/WHEEZING Last Admin: 05/26/19 08:25 Dose: 1 amp Atorvastatin Calcium (Lipitor -) 10 mg PO HS [facility] Last Admin: 05/25/19 21:40 Dose: 10 mg Benzocaine/Menthol (Cepacol Lozenge -) 1 each MM PRN PRN PRN Reason: SORE THROAT Last Admin: 05/25/19 21:44 Dose: 1 each Bupropion HCl (Wellbutrin Xl -) 150 mg PO DAILY [facility] Last Admin: 05/26/19 09:29 Dose: 150 mg Clotrimazole (Lotrimin 1% Cream -) 1 applic TP BID [facility] Last Admin: 05/26/19 09:30 Dose: 1 applic Enoxaparin Sodium (Lovenox -) 40 mg SQ DAILY [facility] Last Admin: 05/26/19 09:29 Dose: 40 mg Furosemide (Lasix Injection -) 60 mg IVPUSH BID@0600,1400 [facility] Last Admin: 05/26/19 14:36 Dose: 60 mg Insulin Aspart (Novolog Vial Sliding Scale -) 1 vial SQ TIDAC [facility]; Protocol Last Admin: 05/26/19 11:58 Dose: Not Given Losartan Potassium (Cozaar -) 25 mg PO DAILY [facility] Last Admin: 05/26/19 09:29 Dose: 25 mg Magnesium Hydroxide (Milk Of Magnesia -) 20 ml PO PRN PRN PRN Reason: CONSTIPATION Last Admin: 05/25/19 05:21 Dose: 20 ml Ropinirole HCl (Requip -) 0.5 mg PO DAILY [facility] Last Admin: 05/26/19 09:29 Dose: 0.5 mg Sodium Chloride ([place] Nasal [place] -) 2 spray NS TID PRN PRN Reason: NASAL CONGESTION Last Admin: 05/25/19 13:36 Dose: 2 spray Home Medications Medication Instructions Recorded Albuterol Sulfate Inhaler - 1 puff PRN 02/11/19 [Ventolin HFA Inhaler -] Bupropion HCl [Wellbutrin Xl -] 150 mg PO DAILY 02/11/19 Losartan Potassium 25 mg PO DAILY 02/11/19 Pravastatin Sodium 10 mg PO DAILY 02/11/19 Ropinirole HCl 0.5 mg PO DAILY 02/11/19 metFORMIN HCL [Glucophage -] 500 mg PO BID 02/11/19 Furosemide [Lasix] 40 mg PO BID #60 tablet 02/17/19 ASSESSMENT/PLAN: 43 y/o M, pmh of morbid obesity, hx of RAINA on home oxygen (2-3 L at rest and 3- 4L on ambulation), asthma (never been intubated, one time hospitalization), depression, HTN, HLD, DM presents w/ sob, wheezing and mild chest tightness of 2 day duration is admitted for CHF exacerbation superimposed with asthma exacerbation #CHF exacerbation Last Echo in 02/06- unremarkable, thus suspect diastolic dysfxn Lasix 60mg IV BID Bariatric surgery saw pt- recommended outpt appt and f/u for weight loss surgery Pulmonology recommends pt for Trilogy device Waiting for social work to set up Bipap at home- likely authorization in am tomorrow Pt wants to establish care at our clinic #Acute on Chronic hypoxic/hypercapnic resp failure BiPAP overnight Solumedrol 40mg BID PFT's outpt #LE edema Lasix 60 BID Still significant swelling present #Intertrigo under left breast Now improved #HTN cont home meds- Losartan 25mg #DM ISS #Hx of depression Wellbutrin #HLD Pravachol 10 #DVT ppx Lovenox FEN no fluids monitor lytes Diabetic/sodium diet Dispo: monitor overnight, keep bipap if room air not tolerable, will cont lasix , f/u authorization for bipap at home Visit type - Emergency Visit Emergency Visit: Yes ED Registration Date: 05/20/19 Care time: The patient presented to the Emergency Department on the above date and was hospitalized for further evaluation of their emergent condition. - New Patient This patient is new to me today: Yes Date on this admission: 05/28/19 - Critical Care Critical Care patient: No - Discharge Referral Referred to [facility] Med [facility] No ATTENDING PHYSICIAN STATEMENT I saw and evaluated the patient. I reviewed the resident's note and discussed the case with the resident. I agree with the resident's findings and plan as documented. SUBJECTIVE: OBJECTIVE: ASSESSMENT AND PLAN:
--- NOTE | 2019-05-26 17:18 | PN ---
Progress Note, Physician History of Present Illness: 43 y/o F morbidly obese, w/ hx of chronic hypercapneic respiratory failure, RAINA (on home 4L oxygen but no cpap), asthma, depression, HTN, HLD, diastolic dysfunction with h/o failure complained of progressive exertional shortness of breath, nonproductive cough, chest tightness for the past 2 to 3 days. She is using her albuterol inhaler at home which was not helping much. Denied any recent travels or sick contacts. Patient does not use CPAP for her RAINA and has never underwent formal pulmonary function testing. Dyspnea and orthopnea improving with diuresis. - Current Medication List Current Medications: Active Medications Acetaminophen (Tylenol -) 650 mg PO Q6H PRN PRN Reason: PAIN Last Admin: 05/25/19 10:39 Dose: 650 mg Albuterol Sulfate (Ventolin 0.083% Nebulizer Soln -) 1 amp NEB Q4H PRN PRN Reason: SHORT OF BREATH/WHEEZING Last Admin: 05/26/19 08:25 Dose: 1 amp Atorvastatin Calcium (Lipitor -) 10 mg PO HS [facility] Last Admin: 05/25/19 21:40 Dose: 10 mg Benzocaine/Menthol (Cepacol Lozenge -) 1 each MM PRN PRN PRN Reason: SORE THROAT Last Admin: 05/25/19 21:44 Dose: 1 each Bupropion HCl (Wellbutrin Xl -) 150 mg PO DAILY [facility] Last Admin: 05/26/19 09:29 Dose: 150 mg Clotrimazole (Lotrimin 1% Cream -) 1 applic TP BID [facility] Last Admin: 05/26/19 09:30 Dose: 1 applic Enoxaparin Sodium (Lovenox -) 40 mg SQ DAILY [facility] Last Admin: 05/26/19 09:29 Dose: 40 mg Furosemide (Lasix Injection -) 60 mg IVPUSH BID@0600,1400 [facility] Last Admin: 05/26/19 14:36 Dose: 60 mg Insulin Aspart (Novolog Vial Sliding Scale -) 1 vial SQ TIDAC [facility]; Protocol Last Admin: 05/26/19 11:58 Dose: Not Given Losartan Potassium (Cozaar -) 25 mg PO DAILY [facility] Last Admin: 05/26/19 09:29 Dose: 25 mg Magnesium Hydroxide (Milk Of Magnesia -) 20 ml PO PRN PRN PRN Reason: CONSTIPATION Last Admin: 05/25/19 05:21 Dose: 20 ml Ropinirole HCl (Requip -) 0.5 mg PO DAILY [facility] Last Admin: 05/26/19 09:29 Dose: 0.5 mg Sodium Chloride ([place] Nasal [place] -) 2 spray NS TID PRN PRN Reason: NASAL CONGESTION Last Admin: 05/25/19 13:36 Dose: 2 spray - Objective Vital Signs: Vital Signs Temperature 98.7 F 05/26/19 14:00 Pulse Rate 66 05/26/19 14:00 Respiratory Rate 21 H 05/26/19 14:00 Blood Pressure 147/63 05/26/19 14:00 O2 Sat by Pulse Oximetry (%) 92 L 05/26/19 10:00 Eyes: Yes: WNL, Conjunctiva Clear, EOM Intact HENT: Yes: WNL, Atraumatic, Normocephalic Neck: Yes: WNL, Supple, Trachea Midline Cardiovascular: Yes: WNL, Regular Rate and Rhythm Respiratory: Yes: WNL, Regular, CTA Bilaterally Gastrointestinal: Yes: WNL, Normal Bowel Sounds Genitourinary: Yes: WNL Musculoskeletal: Yes: WNL Extremities: Yes: WNL Edema: Yes Integumentary: Yes: WNL Neurological: Yes: WNL, Alert, Oriented ...Motor Strength: WNL Psychiatric: Yes: WNL Labs: CBC, BMP 05/26/19 05:45 05/26/19 05:45 Assessment/Plan 1. Acute on chronic hypercapneic respiratory failure 2. Acute on chronic diastolic heart failure 3. Morbid obesity with OHS/OSAS not on cpap! 4. HTN 5. Type 2 DM 6. Hyperlipidemia P:1. change Lasix to PO 2. Continue losartan 25 qd, pravachol 10 qd 3. BD, bipap nightly, O2 as needed to keep Spo2 >90%, SW input for cpap at home Add Amlodipine for BP control d/c telemetry cardiac gerard stable
[2019-05-26] MEDS: amLODIPine BESYLATE 5 MG TABLET (FP) PO SCH (17:53)
--- NOTE | 2019-05-26 19:31 | PN ---
Teaching Attending Note Name of Resident: Yunile Liu ATTENDING PHYSICIAN STATEMENT I saw and evaluated the patient. I reviewed the resident's note and discussed the case with the resident. I agree with the resident's findings and plan as documented. SUBJECTIVE: Patient is feeling better with no acute distress. OBJECTIVE: Vital Signs Temperature 97.8 F 05/26/19 18:00 Pulse Rate 61 05/26/19 18:00 Respiratory Rate 20 05/26/19 18:00 Blood Pressure 152/81 05/26/19 18:00 O2 Sat by Pulse Oximetry (%) 92 L 05/26/19 10:00 GENERAL: The patient is awake, alert, and fully oriented, in no acute distress. HEAD: Normal with no signs of trauma. EYES: PERRL, extraocular movements intact, sclera anicteric, conjunctiva clear. ENT: Ears normal, oropharynx clear without exudates, moist mucous membranes. NECK: Trachea midline, full range of motion, supple. LUNGS: decreased BS BL , no wheezes, no crackles, no accessory muscle use. HEART: Regular rate and rhythm, S1, S2 without murmur, rub or gallop. ABDOMEN: Soft,Nt,ND, morbidly obese ,NT , normoactive bowel sounds, no guarding , no rebound, no hepatosplenomegaly, no masses. EXTREMITIES: 2+ pulses, warm, well-perfused, no edema. NEUROLOGICAL: Cranial nerves II through XII grossly intact. Normal speech, gait not observed. PSYCH: Normal mood, normal affect. SKIN: Warm, dry, normal turgor, no rashes or lesions noted CBCD WBC 9.0 K/mm3 (4.0-10.0) 05/26/19 05:45 RBC 7.04 M/mm3 (3.60-5.2) H 05/26/19 05:45 Hgb 15.4 GM/dL (10.7-15.3) H 05/26/19 05:45 Hct 52.5 % (32.4-45.2) H 05/26/19 05:45 MCV 74.6 fl (80-96) L 05/26/19 05:45 MCHC 29.3 g/dl (32.0-36.0) L 05/26/19 05:45 RDW 21.7 % (11.6-15.6) H 05/26/19 05:45 Plt Count 312 K/MM3 (134-434) 05/26/19 05:45 MPV 8.2 fl (7.5-11.1) 05/26/19 05:45 CMP Sodium 137 mmol/L (136-145) 05/26/19 05:45 Potassium 4.2 mmol/L (3.5-5.1) 05/26/19 05:45 Chloride 92 mmol/L (98-107) L 05/26/19 05:45 Carbon Dioxide 39 mmol/L (21-32) H 05/26/19 05:45 Anion Gap 6 MMOL/L (8-16) L 05/26/19 05:45 BUN 25.9 mg/dL (7-18) H 05/26/19 05:45 Creatinine 0.7 mg/dL (0.55-1.3) 05/26/19 05:45 Random Glucose 136 mg/dL (74-106) H 05/26/19 05:45 Calcium 9.5 mg/dL (8.5-10.1) 05/26/19 05:45 Total Bilirubin 0.9 mg/dL (0.2-1) 05/21/19 05:40 AST 9 U/L (15-37) L 05/21/19 05:40 ALT 14 U/L (13-61) 05/21/19 05:40 Alkaline Phosphatase 69 U/L (45-117) 05/21/19 05:40 Total Protein 6.8 g/dl (6.4-8.2) 05/21/19 05:40 Albumin 2.9 g/dl (3.4-5.0) L 05/21/19 05:40 CARDIAC ENZYMES Troponin I < 0.02 ng/ml (0.00-0.05) 05/21/19 05:40 Current Medications Generic Name Dose Route Start Last Admin Trade Name Freq PRN Reason Stop Dose Admin Acetaminophen 650 mg 05/21/19 10:39 05/25/19 10:39 Tylenol - PO 650 mg Q6H PRN Administration PAIN Albuterol Sulfate 1 amp 05/21/19 10:13 05/26/19 08:25 Ventolin 0.083% Nebulizer Soln - NEB 1 amp Q4H PRN Administration SHORT OF BREATH/WHEEZING Amlodipine Besylate 5 mg 05/26/19 17:30 05/26/19 17:53 Norvasc - PO 5 mg DAILY [facility] Administration Atorvastatin Calcium 10 mg 05/21/19 22:00 05/25/19 21:40 Lipitor - PO 10 mg HS [facility] Administration Benzocaine/Menthol 1 each 05/23/19 03:40 05/25/19 21:44 Cepacol Lozenge - MM 1 each PRN PRN Administration SORE THROAT Bupropion HCl 150 mg 05/21/19 10:00 05/26/19 09:29 Wellbutrin Xl - PO 150 mg DAILY [facility] Administration Clotrimazole 1 applic 05/21/19 10:14 05/26/19 09:30 Lotrimin 1% Cream - TP 1 applic BID [facility] Administration Enoxaparin Sodium 40 mg 05/21/19 10:00 05/26/19 09:29 Lovenox - SQ 40 mg DAILY [facility] Administration Furosemide 40 mg 05/27/19 10:00 Lasix - PO DAILY [facility] Insulin Aspart 1 vial 05/22/19 22:45 05/26/19 17:53 Novolog Vial Sliding Scale - SQ 2 units TIDAC [facility] Administration Protocol Losartan Potassium 25 mg 05/21/19 10:00 05/26/19 09:29 Cozaar - PO 25 mg DAILY [facility] Administration Magnesium Hydroxide 20 ml 05/22/19 05:37 05/25/19 05:21 Milk Of Magnesia - PO 20 ml PRN PRN Administration CONSTIPATION Ropinirole HCl 0.5 mg 05/21/19 10:00 05/26/19 09:29 Requip - PO 0.5 mg DAILY [facility] Administration Sodium Chloride 2 spray 05/25/19 13:09 05/25/19 13:36 [place] Nasal [place] - NS 2 spray TID PRN Administration NASAL CONGESTION Home Medications Medication Instructions Recorded Albuterol Sulfate Inhaler - 1 puff PRN 02/11/19 [Ventolin HFA Inhaler -] Bupropion HCl [Wellbutrin Xl -] 150 mg PO DAILY 02/11/19 Losartan Potassium 25 mg PO DAILY 02/11/19 Pravastatin Sodium 10 mg PO DAILY 02/11/19 Ropinirole HCl 0.5 mg PO DAILY 02/11/19 metFORMIN HCL [Glucophage -] 500 mg PO BID 02/11/19 Furosemide [Lasix] 40 mg PO BID #60 tablet 02/17/19 ASSESSMENT AND PLAN: Patient is a 43 y/o morbidly obese female with RAINA, chronic resp failure with 4 L of O2 at base line Asthma, depression , T2DM , and HTN, who presented with cough and SOB. She was diagnosed with acute D. CHF. # Acute diastolic heart failure: on IV lasix continue, Low salt diet, I&O and weight , cont losartan, will continue to monitor # Acute on chronic resp failure: with hypercapnia Due to CHF, RAINA, and obesity , cont BIPAP PRN and HS The insurance did not approve BIPAP as she never had CPAP before. SW is getting CPAP machine arranged to deliver to her house, waitng for insurance authorization , q HS at [place],will ask Pulm about IPAP setting . On steroid will taper # H/o HTN: cont losartan # H/o T2DM ; cont SSI . hold metformin # Intertiganeous of Breasts and pannus: cont clotrimazole # Rash: likely contact dermatitis. Cont hydrocortisone DVT PX: Lovenox waiting for insurance approval for Cpap
[2019-05-26] MEDS: ATORVASTATIN CA 10 MG TABLET (FP) PO SCH (21:43)
[2019-05-27] MEDS: INSULIN SLIDING SCALE (NOVOLOG) 1 VIAL SQ SCH ×3 (06:05→17:54)
[2019-05-27 08:17] LABS: BLOOD UREA NITROGEN 26.6 mg/dL (7-18); CALCIUM 9.4 mg/dL (8.5-10.1); CREATININE 0.7 mg/dL (0.55-1.3); POTASSIUM 3.6 mmol/L (3.5-5.1)
[2019-05-27] MEDS: amLODIPine BESYLATE 5 MG TABLET (FP) PO SCH (09:11)
[2019-05-27] MEDS: LOSARTAN POTASSIUM 25 MG TABLET PO SCH (09:11)
[2019-05-27] MEDS: rOPINIRole HCL 0.5 MG TABLET PO SCH (09:12)
[2019-05-27] MEDS: ENOXAPARIN NA (PORCINE) 40 MG/0.4 ML DISP.SYRIN SQ SCH (09:12)
[2019-05-27] MEDS: CLOTRIMAZOLE 1% CREAM 15 GM TUBE TP SCH (09:12)
[2019-05-27] MEDS: ACETAMINOPHEN 325 MG TABLET (FP) PO PRN (09:14)
[2019-05-27] MEDS ORDERED: FUROSEMIDE 40 MG TABLET (FP) PO SCH (10:00)
[2019-05-27 11:42] LABS: HEMATOCRIT 54.2 % (32.4-45.2); MCHC 29.5 g/dl (32.0-36.0); MEAN CELL VOLUME 74.7 fl (80-96); MEAN PLT VOLUME 8.7 fl (7.5-11.1); PLATELET COUNT 317 K/MM3 (134-434); RDW 21.5 % (11.6-15.6); WHITE BLOOD COUNT 11.6 K/mm3 (4.0-10.0)
[2019-05-27 11:45] LABS: RBC 7.25 M/mm3 (3.60-5.2)
[2019-05-27] MEDS: ALBUTEROL SO4 0.083% IH SOL 2.5 MG/3 ML VIAL.NEB. NEB PRN (11:59)
--- NOTE | 2019-05-27 13:47 | PN ---
Progress Note (short form) - Note Progress Note: OOB to wheelchair. Breathing is better but some intermittent cough. No acute events overnight. No fevers. Intake & Output 05/24/19 05/25/19 05/26/19 05/27/19 23:59 23:59 23:59 23:59 Intake Total 600 1050 400 10 Balance 600 1050 400 10 Weight 471 lb 6 oz 448 lb Last Vital Signs Temp Pulse Resp BP Pulse Ox 97.8 F 63 20 133/70 95 05/27/19 10:00 05/27/19 10:00 05/27/19 10:00 05/27/19 10:00 05/27/19 11:58 Active Medications Acetaminophen (Tylenol -) 650 mg PO Q6H PRN PRN Reason: PAIN Last Admin: 05/27/19 09:14 Dose: 650 mg Albuterol Sulfate (Ventolin 0.083% Nebulizer Soln -) 1 amp NEB Q4H PRN PRN Reason: SHORT OF BREATH/WHEEZING Last Admin: 05/27/19 11:59 Dose: 1 amp Amlodipine Besylate (Norvasc -) 5 mg PO DAILY [facility] Last Admin: 05/27/19 09:11 Dose: 5 mg Atorvastatin Calcium (Lipitor -) 10 mg PO HS [facility] Last Admin: 05/26/19 21:43 Dose: 10 mg Benzocaine/Menthol (Cepacol Lozenge -) 1 each MM PRN PRN PRN Reason: SORE THROAT Last Admin: 05/25/19 21:44 Dose: 1 each Bupropion HCl (Wellbutrin Xl -) 150 mg PO DAILY [facility] Last Admin: 05/27/19 09:11 Dose: 150 mg Clotrimazole (Lotrimin 1% Cream -) 1 applic TP BID [facility] Last Admin: 05/27/19 09:12 Dose: 1 applic Enoxaparin Sodium (Lovenox -) 40 mg SQ DAILY [facility] Last Admin: 05/27/19 09:12 Dose: 40 mg Furosemide (Lasix -) 40 mg PO DAILY [facility] Last Admin: 05/27/19 09:11 Dose: 40 mg Insulin Aspart (Novolog Vial Sliding Scale -) 1 vial SQ TIDAC [facility]; Protocol Last Admin: 05/27/19 11:01 Dose: Not Given Losartan Potassium (Cozaar -) 25 mg PO DAILY [facility] Last Admin: 12/07/19 09:11 Dose: 25 mg Magnesium Hydroxide (Milk Of Magnesia -) 20 ml PO PRN PRN PRN Reason: CONSTIPATION Last Admin: 05/25/19 05:21 Dose: 20 ml Ropinirole HCl (Requip -) 0.5 mg PO DAILY [facility] Last Admin: 05/27/19 09:12 Dose: 0.5 mg Sodium Chloride ([place] Nasal [place] -) 2 spray NS TID PRN PRN Reason: NASAL CONGESTION Last Admin: 05/25/19 13:36 Dose: 2 spray Gen: NAD at rest Heart: RRR Lung: distant breath sounds Abd: soft, nontender Ext: + edema Laboratory Results - last 24 hr 05/26/19 05/27/19 05/27/19 17:26 05:50 06:05 WBC 11.6 H RBC 7.25 H Hgb 16.0 H Hct 54.2 H MCV 74.7 L MCH 22.0 L MCHC 29.5 L RDW 21.5 H Plt Count 317 MPV 8.7 Sodium Potassium Chloride Carbon Dioxide Anion Gap BUN Creatinine Est GFR (CKD-EPI)AfAm Est GFR (CKD-EPI)NonAf POC Glucometer 161 112 Random Glucose Calcium 05/27/19 05/27/19 06:05 10:58 WBC RBC Hgb Hct MCV MCH MCHC RDW Plt Count MPV Sodium 140 Potassium 3.6 Chloride 92 L Carbon Dioxide 39 H Anion Gap 9 BUN 26.6 H Creatinine 0.7 Est GFR (CKD-EPI)AfAm 122.13 Est GFR (CKD-EPI)NonAf 105.37 POC Glucometer 119 Random Glucose 89 Calcium 9.4 A/P Acute on Chronic Hypercapneic Respiratory Failure Acute on Chronic Diastolic Heart Failure Morbid Obesity RAINA/OHS HTN DM Hyperlipidemia - Lasix PO - monitor urine output, creatinine - inhaled bronchodilators - O2 to keep Spo2 >90% - BiPAP at night and PRN during day - DC planning Dr Carreno
--- NOTE | 2019-05-27 14:57 | PN ---
Progress Note, Physician Chief Complaint: Events noted Coverage for Dr. Joe Not in distress History of Present Illness: Patient was seen and examined. Awake and alert. Chart was reviewed Denies chest pain or palpitations Less SOB - Current Medication List Current Medications: Active Medications Acetaminophen (Tylenol -) 650 mg PO Q6H PRN PRN Reason: PAIN Last Admin: 05/27/19 09:14 Dose: 650 mg Albuterol Sulfate (Ventolin 0.083% Nebulizer Soln -) 1 amp NEB Q4H PRN PRN Reason: SHORT OF BREATH/WHEEZING Last Admin: 05/27/19 11:59 Dose: 1 amp Amlodipine Besylate (Norvasc -) 5 mg PO DAILY [facility] Last Admin: 05/27/19 09:11 Dose: 5 mg Atorvastatin Calcium (Lipitor -) 10 mg PO HS [facility] Last Admin: 05/26/19 21:43 Dose: 10 mg Benzocaine/Menthol (Cepacol Lozenge -) 1 each MM PRN PRN PRN Reason: SORE THROAT Last Admin: 05/25/19 21:44 Dose: 1 each Bupropion HCl (Wellbutrin Xl -) 150 mg PO DAILY [facility] Last Admin: 05/27/19 09:11 Dose: 150 mg Clotrimazole (Lotrimin 1% Cream -) 1 applic TP BID [facility] Last Admin: 05/27/19 09:12 Dose: 1 applic Enoxaparin Sodium (Lovenox -) 40 mg SQ DAILY [facility] Last Admin: 05/27/19 09:12 Dose: 40 mg Furosemide (Lasix -) 40 mg PO DAILY [facility] Last Admin: 05/27/19 09:11 Dose: 40 mg Insulin Aspart (Novolog Vial Sliding Scale -) 1 vial SQ TIDAC [facility]; Protocol Last Admin: 05/27/19 11:01 Dose: Not Given Losartan Potassium (Cozaar -) 25 mg PO DAILY [facility] Last Admin: 05/27/19 09:11 Dose: 25 mg Magnesium Hydroxide (Milk Of Magnesia -) 20 ml PO PRN PRN PRN Reason: CONSTIPATION Last Admin: 05/25/19 05:21 Dose: 20 ml Ropinirole HCl (Requip -) 0.5 mg PO DAILY [facility] Last Admin: 05/27/19 09:12 Dose: 0.5 mg Sodium Chloride ([place] Nasal [place] -) 2 spray NS TID PRN PRN Reason: NASAL CONGESTION Last Admin: 05/25/19 13:36 Dose: 2 spray - Objective Vital Signs: Vital Signs Temperature 97.8 F 05/27/19 10:00 Pulse Rate 63 05/27/19 10:00 Respiratory Rate 20 05/27/19 10:00 Blood Pressure 133/70 05/27/19 10:00 O2 Sat by Pulse Oximetry (%) 95 05/27/19 11:58 Eyes: Yes: PERRL HENT: Yes: Atraumatic Neck: Yes: Supple Cardiovascular: Yes: Regular Rate and Rhythm, S1, S2 Respiratory: Yes: Diminished Gastrointestinal: Yes: Normal Bowel Sounds, Soft, Abdomen, Obese. No: Tenderness Edema: Yes Additional Findings/Remarks: - Review of Systems Constitutional: denies: Chills, Fever Cardiovascular: denies Palpitations, (+) Shortness of Breath. denies: Chest Pain Respiratory: reports: SOB. denies: Cough, Hemoptysis, PND, Snoring, (+) SOB on Exertion, Wheezing Gastrointestinal: denies Abdominal Pain, Bloating, Diarrhea, Nausea, Vomiting. denies: Constipation, Melena, Rectal Bleeding Genitourinary: denies: Discharge, Hematuria Neurological: denies: Dizziness, Headache, Seizure, Syncope Labs: CBC, BMP 05/27/19 06:05 05/27/19 06:05 Problem List - Problems (1) Hypercholesterolemia Code(s): E78.00 - PURE HYPERCHOLESTEROLEMIA, UNSPECIFIED (2) Acute on chronic diastolic (congestive) heart failure Code(s): I50.33 - ACUTE ON CHRONIC DIASTOLIC (CONGESTIVE) HEART FAILURE (3) Acute on chronic respiratory failure with hypoxemia Code(s): J96.21 - ACUTE AND CHRONIC RESPIRATORY FAILURE WITH HYPOXIA (4) Asthma exacerbation Code(s): J45.901 - UNSPECIFIED ASTHMA WITH (ACUTE) EXACERBATION Qualifiers: Asthma severity: moderate Asthma persistence: persistent Qualified Code(s ): J45.41 - Moderate persistent asthma with (acute) exacerbation (5) Hypercapnic respiratory failure, chronic Code(s): J96.12 - CHRONIC RESPIRATORY FAILURE WITH HYPERCAPNIA (6) Hyperlipidemia Code(s): E78.5 - HYPERLIPIDEMIA, UNSPECIFIED Qualifiers: Hyperlipidemia type: pure hypercholesterolemia Qualified Code(s): E78.00 - Pure hypercholesterolemia, unspecified; E78.0 - Pure hypercholesterolemia (7) RAINA (obstructive sleep apnea) Code(s): G47.33 - OBSTRUCTIVE SLEEP APNEA (ADULT) (PEDIATRIC) (8) HTN (hypertension) Code(s): I10 - ESSENTIAL (PRIMARY) HYPERTENSION Assessment/Plan 1. Acute on chronic hypercapneic respiratory failure 2. Acute on chronic diastolic heart failure 3. Morbid obesity with RAINA 4. HTN 5. T2DM 6. Hyperlipidemia PLAN: 1. Oral diuretics and monitor renal function and electrolytes 2. Continue Losartan 25 mg QD, Amlodipine 5 mg QD and Atorvastatin 10 mg QD 3. Bronchodilator, BIPAP nightly, O2 as needed to keep Spo2 >90% May transfer to floor care Onel Dodd MD
[2019-05-27] MEDS ORDERED: BENZOCAINE/MENTH/CETYLPYRD CL 1 EACH LOZENGE MM PRN (18:29)
[2019-05-27] MEDS ORDERED: ACETAMINOPHEN 325 MG TABLET (FP) PO PRN (18:29)
[2019-05-27] MEDS ORDERED: ALBUTEROL SO4 0.083% IH SOL 2.5 MG/3 ML VIAL.NEB. NEB PRN (18:29)
[2019-05-27] MEDS ORDERED: SODIUM CHLORIDE NASAL SPRAY 44 ML BOTTLE NS PRN (18:29)
[2019-05-27] MEDS ORDERED: MAGNESIUM HYDROX 2400MG/30ML ORAL SUSPENSION 30 ML CUP PO PRN (18:29)
--- NOTE | 2019-05-27 18:53 | PN ---
Progress Note (short form) - Note Progress Note: Patient is feeling better with no acute distress. OBJECTIVE: Vital Signs Temperature 97.8 F 05/27/19 10:00 Pulse Rate 63 05/27/19 10:00 Respiratory Rate 20 05/27/19 10:00 Blood Pressure 133/70 05/27/19 10:00 O2 Sat by Pulse Oximetry (%) 96 05/27/19 16:01 GENERAL: The patient is awake, alert, and fully oriented, in no acute distress. HEAD: Normal with no signs of trauma. EYES: PERRL, extraocular movements intact, sclera anicteric, conjunctiva clear. ENT: Ears normal, oropharynx clear without exudates, moist mucous membranes. NECK: Trachea midline, full range of motion, supple. LUNGS: decreased BS BL , no wheezes, no crackles, no accessory muscle use. HEART: Regular rate and rhythm, S1, S2 without murmur, rub or gallop. ABDOMEN: Soft,Nt,ND, morbidly obese ,NT , normoactive bowel sounds, no guarding , no rebound, no hepatosplenomegaly, no masses. EXTREMITIES: 2+ pulses, warm, well-perfused, no edema. NEUROLOGICAL: Cranial nerves II through XII grossly intact. Normal speech, gait not observed. PSYCH: Normal mood, normal affect. SKIN: Warm, dry, normal turgor, CBCD WBC 11.6 K/mm3 (4.0-10.0) H 05/27/19 06:05 RBC 7.25 M/mm3 (3.60-5.2) H 05/27/19 06:05 Hgb 16.0 GM/dL (10.7-15.3) H 05/27/19 06:05 Hct 54.2 % (32.4-45.2) H 05/27/19 06:05 MCV 74.7 fl (80-96) L 05/27/19 06:05 MCHC 29.5 g/dl (32.0-36.0) L 05/27/19 06:05 RDW 21.5 % (11.6-15.6) H 05/27/19 06:05 Plt Count 317 K/MM3 (134-434) 05/27/19 06:05 MPV 8.7 fl (7.5-11.1) 05/27/19 06:05 CMP Sodium 140 mmol/L (136-145) 05/27/19 06:05 Potassium 3.6 mmol/L (3.5-5.1) 05/27/19 06:05 Chloride 92 mmol/L (98-107) L 05/27/19 06:05 Carbon Dioxide 39 mmol/L (21-32) H 05/27/19 06:05 Anion Gap 9 MMOL/L (8-16) 05/27/19 06:05 BUN 26.6 mg/dL (7-18) H 05/27/19 06:05 Creatinine 0.7 mg/dL (0.55-1.3) 05/27/19 06:05 Random Glucose 89 mg/dL (74-106) 05/27/19 06:05 Calcium 9.4 mg/dL (8.5-10.1) 05/27/19 06:05 Total Bilirubin 0.9 mg/dL (0.2-1) 05/21/19 05:40 AST 9 U/L (15-37) L 05/21/19 05:40 ALT 14 U/L (13-61) 05/21/19 05:40 Alkaline Phosphatase 69 U/L (45-117) 05/21/19 05:40 Total Protein 6.8 g/dl (6.4-8.2) 05/21/19 05:40 Albumin 2.9 g/dl (3.4-5.0) L 05/21/19 05:40 CARDIAC ENZYMES Troponin I < 0.02 ng/ml (0.00-0.05) 05/21/19 05:40 Current Medications Generic Name Dose Route Start Last Admin Trade Name Freq PRN Reason Stop Dose Admin Acetaminophen 650 mg 05/27/19 18:29 Tylenol - PO Q6H PRN PAIN Albuterol Sulfate 1 amp 05/27/19 18:29 Ventolin 0.083% Nebulizer Soln - NEB Q4H PRN SHORT OF BREATH/WHEEZING Amlodipine Besylate 5 mg 05/28/19 10:00 Norvasc - PO DAILY [facility] Atorvastatin Calcium 10 mg 05/27/19 22:00 Lipitor - PO HS [facility] Benzocaine/Menthol 1 each 05/27/19 18:29 Cepacol Lozenge - MM PRN PRN SORE THROAT Bupropion HCl 150 mg 05/28/19 10:00 Wellbutrin Xl - PO DAILY [facility] Clotrimazole 1 applic 05/27/19 22:00 Lotrimin 1% Cream - TP BID [facility] Enoxaparin Sodium 40 mg 05/28/19 10:00 Lovenox - SQ DAILY [facility] Furosemide 40 mg 05/28/19 10:00 Lasix - PO DAILY [facility] Insulin Aspart 1 vial 05/28/19 07:00 Novolog Vial Sliding Scale - SQ TIDAC [facility] Protocol Losartan Potassium 25 mg 05/28/19 10:00 Cozaar - PO DAILY [facility] Magnesium Hydroxide 20 ml 05/27/19 18:29 Milk Of Magnesia - PO PRN PRN CONSTIPATION Ropinirole HCl 0.5 mg 05/28/19 10:00 Requip - PO DAILY [facility] Sodium Chloride 2 spray 05/27/19 18:29 [place] Nasal [place] - NS TID PRN NASAL CONGESTION Home Medications Medication Instructions Recorded Albuterol Sulfate Inhaler - 1 puff PRN 02/11/19 [Ventolin HFA Inhaler -] Bupropion HCl [Wellbutrin Xl -] 150 mg PO DAILY 02/11/19 Losartan Potassium 25 mg PO DAILY 02/11/19 Pravastatin Sodium 10 mg PO DAILY 02/11/19 Ropinirole HCl 0.5 mg PO DAILY 02/11/19 metFORMIN HCL [Glucophage -] 500 mg PO BID 02/11/19 Furosemide [Lasix] 40 mg PO BID #60 tablet 02/17/19 ASSESSMENT AND PLAN: Patient is a 43 y/o morbidly obese female with RAINA, chronic resp failure with 4 L of O2 at base line Asthma, depression , T2DM , and HTN, who presented with cough and SOB. She was diagnosed with acute D. CHF. # Acute diastolic heart failure: on po lasix now, continue, Low salt diet, I& O and weight , cont losartan, will continue to monitor # Acute on chronic resp failure: with hypercapnia Due to CHF, RAINA, and obesity , cont BIPAP PRN and HS Spoke to the Rep: Insurance did not approve BIPAP as she never had CPAP before. Will try to arrange for CPAP q [place], Insurance approval might need 36 hrs. will ask Pulm about IPAP setting , started the patient on oral prednisone with taper for 12 days # H/o HTN: cont losartan # H/o T2DM ; cont SSI . hold metformin # Intertiganeous of Breasts and pannus: cont clotrimazole # Rash: likely contact dermatitis. Cont hydrocortisone DVT PX: Lovenox waiting for Cpap approval Visit type - Emergency Visit Emergency Visit: Yes ED Registration Date: 05/20/19 Care time: The patient presented to the Emergency Department on the above date and was hospitalized for further evaluation of their emergent condition. - New Patient This patient is new to me today: No - Critical Care Critical Care patient: No - Discharge Referral Referred to [facility] Med P.C.: No
[2019-05-27 19:21] VITALS: TEMP 98.2
[2019-05-27 21:52] VITALS: BP 146/73; PULSE 72
[2019-05-27] MEDS ORDERED: ATORVASTATIN CA 10 MG TABLET (FP) PO SCH (22:00)
[2019-05-27] MEDS ORDERED: CLOTRIMAZOLE 1% CREAM 15 GM TUBE TP SCH (22:00)
[2019-05-28] MEDS ORDERED: INSULIN SLIDING SCALE (NOVOLOG) 1 VIAL SQ SCH (07:00)
[2019-05-28] MEDS ORDERED: amLODIPine BESYLATE 5 MG TABLET (FP) PO SCH (10:00)
[2019-05-28] MEDS ORDERED: LOSARTAN POTASSIUM 25 MG TABLET PO SCH (10:00)
[2019-05-28] MEDS ORDERED: ENOXAPARIN NA (PORCINE) 40 MG/0.4 ML DISP.SYRIN SQ SCH (10:00)
[2019-05-28] MEDS ORDERED: FUROSEMIDE 40 MG TABLET (FP) PO SCH (10:00)
[2019-05-28] MEDS ORDERED: rOPINIRole HCL 0.5 MG TABLET PO SCH (10:00)
--- NOTE | 2019-05-30 13:19 | DS ---
Physical Exam: SUBJECTIVE: Patient seen and examined Pt appears much more improved. Wants to go home. Pt had no overnight issues. Pt reports feeling "good" today. She slept overnight with the BiPAP. No other c/o. Denies f/c/n/v/d/sob/chest pain OBJECTIVE: PHYSICAL EXAM GENERAL: Awake, alert, and fully oriented, in no acute distress. Morbidly obese , On Room air- tolerating well EYES: Pupils equal, round and reactive to light, extraocular movements intact EARS, NOSE, THROAT: oropharynx clear without exudates. Moist mucous membranes. NECK: Normal range of motion, supple without lymphadenopathy, excess fat around the neck. Breast: Intretrigo under left breast-improved, right breast appears normal LUNGS: Breath sounds equal, clear to auscultation bilaterally. No wheezes, and trace crackles heard. HEART: Regular rate and rhythm, normal S1 and S2 without murmur, rub or gallop. ABDOMEN: Soft, nontender, not distended, normoactive bowel sounds, no guarding, no rebound, no masses. No signs of candidal infection under the skin fold of the inguinal region b/l. Difficult to asses for ascites UPPER EXTREMITIES: 2+ pulses, warm, well-perfused. No cyanosis. No clubbing. Mild peripheral edema b/l LOWER EXTREMITIES: 2+ pulses, warm, well-perfused. No calf tenderness. 2+ peripheral edema b/l w/ scaling and skin breakdown due to chronic venous stasis NEUROLOGICAL: Cranial nerves II-XII intact. Normal speech PSYCHIATRIC: Cooperative. Good eye contact. Appropriate mood and affect. SKIN: Warm, dry, normal turgor, LABS CBC,CMP WBC 11.6 K/mm3 (4.0-10.0) H 05/27/19 06:05 RBC 7.25 M/mm3 (3.60-5.2) H 05/27/19 06:05 Hgb 16.0 GM/dL (10.7-15.3) H 05/27/19 06:05 Hct 54.2 % (32.4-45.2) H 05/27/19 06:05 MCV 74.7 fl (80-96) L 05/27/19 06:05 MCH 22.0 pg (25.7-33.7) L 05/27/19 06:05 MCHC 29.5 g/dl (32.0-36.0) L 05/27/19 06:05 RDW 21.5 % (11.6-15.6) H 05/27/19 06:05 Plt Count 317 K/MM3 (134-434) 05/27/19 06:05 MPV 8.7 fl (7.5-11.1) 05/27/19 06:05 Absolute Neuts (auto) 5.4 K/mm3 (1.5-8.0) 05/22/19 09:15 Neutrophils % 72.0 % (42.8-82.8) 05/22/19 09:15 Neutrophils % (Manual) 68.8 % (42.8-82.8) 05/22/19 09:15 Band Neutrophils % 4.6 % 05/22/19 09:15 Lymphocytes % 19.7 % (8-40) D 05/22/19 09:15 Lymphocytes % (Manual) 14.7 % (8-40) D 05/22/19 09:15 Monocytes % 5.5 % (3.8-10.2) 05/22/19 09:15 Monocytes % (Manual) 6 % (3.8-10.2) 05/22/19 09:15 Eosinophils % 1.9 % (0-4.5) 05/22/19 09:15 Eosinophils % (Manual) 3.7 % (0-4.5) D 05/22/19 09:15 Basophils % 0.9 % (0-2.0) 05/22/19 09:15 Basophils % (Manual) 0.0 % (0-2.0) 05/22/19 09:15 Myelocytes % (Man) 0 % (0-2) 05/22/19 09:15 Promyelocytes % (Man) 0 % (0-2) 05/22/19 09:15 Blast Cells % (Manual) 0 % (0-0) 05/22/19 09:15 Nucleated RBC % 0 % (0-0) 05/22/19 09:15 Metamyelocytes 0 % (0-2) 05/22/19 09:15 Hypochromia 0 05/22/19 09:15 Platelet Estimate Normal 05/22/19 09:15 Polychromasia 0 05/22/19 09:15 Poikilocytosis 1+ 12/02/19 09:15 Anisocytosis 2+ 05/22/19 09:15 Microcytosis 2+ 05/22/19 09:15 Macrocytosis 1+ 05/22/19 09:15 Stomatocytes 2+ 05/22/19 09:15 Sodium 140 mmol/L (136-145) 05/27/19 06:05 Potassium 3.6 mmol/L (3.5-5.1) 05/27/19 06:05 Chloride 92 mmol/L (98-107) L 05/27/19 06:05 Carbon Dioxide 39 mmol/L (21-32) H 05/27/19 06:05 Anion Gap 9 MMOL/L (8-16) 05/27/19 06:05 BUN 26.6 mg/dL (7-18) H 05/27/19 06:05 Creatinine 0.7 mg/dL (0.55-1.3) 05/27/19 06:05 Est GFR (CKD-EPI)AfAm 122.13 05/27/19 06:05 Est GFR (CKD-EPI)NonAf 105.37 05/27/19 06:05 POC Glucometer 102 UNITS (80-120) 05/27/19 16:55 Random Glucose 89 mg/dL (74-106) 05/27/19 06:05 Calcium 9.4 mg/dL (8.5-10.1) 05/27/19 06:05 Phosphorus 3.8 mg/dL (2.5-4.9) 05/21/19 05:40 Magnesium 2.2 mg/dL (1.8-2.4) 05/21/19 05:40 Total Bilirubin 0.9 mg/dL (0.2-1) 05/21/19 05:40 AST 9 U/L (15-37) L 05/21/19 05:40 ALT 14 U/L (13-61) 05/21/19 05:40 Alkaline Phosphatase 69 U/L (45-117) 05/21/19 05:40 Troponin I < 0.02 ng/ml (0.00-0.05) 05/21/19 05:40 B-Natriuretic Peptide 890.9 pg/ml (5-125) H 05/21/19 05:40 Total Protein 6.8 g/dl (6.4-8.2) 05/21/19 05:40 Albumin 2.9 g/dl (3.4-5.0) L 05/21/19 05:40 Home Medications Medication Instructions Recorded Albuterol Sulfate Inhaler - 1 puff PRN 02/11/19 [Ventolin HFA Inhaler -] Bupropion HCl [Wellbutrin Xl -] 150 mg PO DAILY 02/11/19 Losartan Potassium 25 mg PO DAILY 02/11/19 Pravastatin Sodium 10 mg PO DAILY 02/11/19 Ropinirole HCl 0.5 mg PO DAILY 02/11/19 metFORMIN HCL [Glucophage -] 500 mg PO BID 02/11/19 Albuterol 0.083% Nebulizer Licha 1 amp NEB Q4H PRN #25 amp 05/27/19 [Ventolin 0.083% Nebulizer Soln -] Amlodipine Besylate [Norvasc -] 5 mg PO DAILY tablet 05/27/19 Furosemide [Lasix] 40 mg PO BID #60 tablet 05/27/19 Prednisone See Taper PO DAILY #17 tablet 05/27/19 HOSPITAL COURSE: Date of Admission:05/20/19 43 y/o M, pmh of morbid obesity, hx of RAINA on home oxygen (2-3 L at rest and 3- 4L on ambulation), asthma (never been intubated, one time hospitalization), depression, HTN, HLD, DM presents w/ sob, wheezing and mild chest tightness of 2 day duration is admitted for Acute on Chronic hypoxic/hypercapnic resp failure along with CHF exacerbation. On presentation pt appeared fluid overloaded, w/ 3+ b/l extremity edema, trace crackles b/l, clinical signs of CHF including recent orthopnea, SOB on exertion, multiple pillow to sleep, b/l leg swelling. Pt also had b/l wheezing and needed respiratory support with a BiPAP machine. She was previously admitted for a similar presentation and at the time she was sent home with prescription for a CPAP machine, which she never received, therefore, she never used it at home. She also does not use nebulizers at home. She never had any sleep studies, cardiac caths or PFT's done. ECHO and b/l LE duplex were both normal at her last admission. She was started on 40 mg IV Lasix then switched to 60mg IV Lasix BID, Solumderol 125 mg and Prednisone 60. After a few treatment courses with medications nad BiPAP, her symptoms improved significantly. She was set up with a BiPAP machine at home and discharged w/ recommendation to f/u with chain machine operator for outpt PFT work up. CXR 05/20- worsening new congestive changes EKG: NSR, posterior fasicular block Duplex- no DVT Last Echo in 02/06- unremarkable, thus suspect diastolic dysfxn BNP: 1270 Bariatric surgery saw pt- recommended outpt appt and f/u for weight loss surgery Date of Discharge: 05/30/19 Minutes to complete discharge: 35 Discharge Summary Problems reviewed: Yes Reason For Visit: EXACERBATION OF ASTHMA, OBSTRUCTIVE SLEEP Condition: Improved - Instructions Referrals: Ayan Charlton MD [Primary Care Provider] - Disposition: AGAINST MEDICAL ADVICE - Home Medications Comprehensive Discharge Medication List: Ambulatory Orders Albuterol Sulfate Inhaler - [Ventolin HFA Inhaler -] 1 puff PRN 02/11/19 Bupropion HCl [Wellbutrin Xl -] 150 mg PO DAILY 02/11/19 Losartan Potassium 25 mg PO DAILY 02/11/19 Pravastatin Sodium 10 mg PO DAILY 02/11/19 Ropinirole HCl 0.5 mg PO DAILY 02/11/19 metFORMIN HCL [Glucophage -] 500 mg PO BID 02/11/19 Albuterol 0.083% Nebulizer Licha [Ventolin 0.083% Nebulizer Soln -] 1 amp NEB Q4H PRN #25 amp 05/27/19 Amlodipine Besylate [Norvasc -] 5 mg PO DAILY tablet 05/27/19 Furosemide [Lasix] 40 mg PO BID #60 tablet 05/27/19 Prednisone See Taper PO DAILY #17 tablet 05/27/19 This patient is new to me today: Yes Date on this admission: 05/30/19 Emergency Visit: Yes ED Registration Date: 05/20/19 Care time: The patient presented to the Emergency Department on the above date and was hospitalized for further evaluation of their emergent condition. Critical Care patient: No - Discharge Referral Referred to [facility] No ATTENDING PHYSICIAN STATEMENT I saw and evaluated the patient. I reviewed the resident's note and discussed the case with the resident. I agree with the resident's findings and plan as documented. SUBJECTIVE: OBJECTIVE: ASSESSMENT AND PLAN:
== END 2019-05-27 23:21 | disposition left against medical advice (07) | DRG 133 ==
LOC: JER 14:53 → JERBED 18:13 → J4W 22:41 → J5S 05-27 17:44
PROVIDERS: ADMIT Internal Medicine; ATTEND Internal Medicine
DX: J96.01 Acute respiratory failure with hypoxia (principal); I11.0 Hypertensive heart disease with heart failure; I50.33 Acute on chronic diastolic (congestive) heart failure; G47.33 Obstructive sleep apnea (adult) (pediatric); E66.01 Morbid (severe) obesity due to excess calories; Z68.44 Body mass index [BMI] 60.0-69.9, adult; E78.5 Hyperlipidemia, unspecified; F32.9 Major depressive disorder, single episode, unspecified; J45.41 Moderate persistent asthma with (acute) exacerbation; E11.9 Type 2 diabetes mellitus without complications; J96.02 Acute respiratory failure with hypercapnia; L30.4 Erythema intertrigo; L25.9 Unspecified contact dermatitis, unspecified cause; I44.5 Left posterior fascicular block; Z99.81 Dependence on supplemental oxygen
CPT/HCPCS: 36415; 36600; 71045-TC-FY; 71046-TC-FY; 80048; 80053; 82375; 82803; 82962; 83050; 83735; 83880; 84100; 84484; 85025; 85027; 93005; 93010; 93970-TC; 94640; 94660; 99282-25; Q2036

== ENCOUNTER 2019-08-16 09:47 | Inpatient (IN) | payer OTHER ==
[2019-08-16 11:32] LABS: BASO % 1.1 % (0-2.0); EOS % 2.2 % (0-4.5); HEMATOCRIT 46.6 % (32.4-45.2); HEMOGLOBIN 13.7 GM/dL (10.7-15.3); LYMPH % 12.5 % (8-40); MCH 22.7 pg (25.7-33.7); MCHC 29.5 g/dl (32.0-36.0); MEAN CELL VOLUME 76.8 fl (80-96); MEAN PLT VOLUME 7.9 fl (7.5-11.1); MONO % 5.9 % (3.8-10.2); NEUT % 78.3 % (42.8-82.8); PLATELET COUNT 285 K/MM3 (134-434); RBC 6.06 M/mm3 (3.60-5.2); RDW 22.6 % (11.6-15.6); WHITE BLOOD COUNT 9.4 K/mm3 (4.0-10.0)
[2019-08-16] MEDS ORDERED: FUROSEMIDE 40 MG/4 ML INJECTABLE VIAL IVPUSH ONE (11:42)
[2019-08-16] MEDS ORDERED: FUROSEMIDE 40 MG/4 ML INJECTABLE VIAL ONE (11:45)
[2019-08-16 12:50] LABS: ALBUMIN 2.9 g/dl (3.4-5.0); BILIRUBIN,TOTAL 0.8 mg/dL (0.2-1); BLOOD UREA NITROGEN 13.2 mg/dL (7-18); CALCIUM 8.6 mg/dL (8.5-10.1); CREATININE 0.6 mg/dL (0.55-1.3); N-TERMINAL BNP 438.6 pg/ml (5-125); POTASSIUM 3.8 mmol/L (3.5-5.1); TOT PROT 6.2 g/dl (6.4-8.2)
[2019-08-16 13:03] LABS: ANISOCYTOSIS 2+; PLATELET ESTIMATE ADEQUATE
--- NOTE | 2019-08-16 13:39 | PDOC ---
Documentation entered by Becky Reed SCRIBE, acting as scribe for Krishna Pierre MD. Krishna Pierre MD: This documentation has been prepared by the Derek becerril Adrianna, SCRIBE, under my direction and personally reviewed by me in its entirety. I confirm that the documentation accurately reflects all work, treatment, procedures, and medical decision making performed by me. History of Present Illness - General Chief Complaint: Edema Stated Complaint: PAIN, EDEMA, ABD Pain - History of Present Illness Initial Comments: The patient is a 44 morbidly obese female, with a significant PMH of RAINA (on home 4L oxygen), asthma (never intubated, hospitalized once), depression, HTN, HLD, who presents to the ED for evaluation of edema for 2 days. Patient notes she has bilateral lower extremity edema at baseline, but notes it has become significantly worse over the past couple days. She feels as if she is retaining more fluid in her legs and abdomen than typical, despite the fact that she is on Lasix daily. Patient notes it is painful for her to walk secondary to her edema, and her stomach feels harder than usual. She additionally reports ~20pd weight gain at this time. Patient endorses associated SOB (despite being on 4L of home O2), wheezing, and dyspnea on exertion. Allergies: NKA, NKDA Surgical History: None reported Social History: Denies EtOH, tobacco, or illicit drug use PCP: Dr. Charlton Ingredient Handler: Dr. Jackson Pulmonology: Dr. Alas Past History - Past Medical History Allergies/Adverse Reactions: Allergies Allergy/AdvReac Type Severity Reaction Status Date / Time No Known Allergies Allergy Verified 08/16/19 09:58 Home Medications: Ambulatory Orders Albuterol Sulfate Inhaler - [Ventolin HFA Inhaler -] 1 puff PRN 02/11/19 Bupropion HCl [Wellbutrin Xl -] 150 mg PO DAILY 02/11/19 Losartan Potassium 25 mg PO DAILY 02/11/19 Pravastatin Sodium 10 mg PO DAILY 02/11/19 Ropinirole HCl 0.5 mg PO DAILY 02/11/19 metFORMIN HCL [Glucophage -] 500 mg PO BID 02/11/19 Albuterol 0.083% Nebulizer Licha [Ventolin 0.083% Nebulizer Soln -] 1 amp NEB Q4H PRN #25 amp 05/27/19 Amlodipine Besylate [Norvasc -] 5 mg PO DAILY tablet 05/27/19 Furosemide [Lasix] 40 mg PO BID #60 tablet 05/27/19 Prednisone See Taper PO DAILY #17 tablet 05/27/19 Asthma: Yes COPD: No DVT: No Diabetes: Yes HTN: Yes Hypercholesterolemia: Yes Other medical history: obesity - Psycho Social/Smoking Cessation Hx Smoking History: Never smoked Have you smoked in the past 12 months: No Information on smoking cessation initiated: No Hx Alcohol Use: No Drug/Substance Use Hx: No Substance Use Type: None Hx Substance Use Treatment: No Review of Systems - Review of Systems Comments:: CONSTITUTIONAL: +~20 pound weight gain 2/2 edema. No fever, no chills, no fatigue EYES: No visual changes ENT: No ear pain, no sore throat CARDIOVASCULAR: No chest pain, no palpitations RESPIRATORY: +SOB. +Wheezing. +Dyspnea on exertion. No cough. GI: +Abdominal edema & hardness. No nausea, no vomiting, no constipation, no diarrhea GENITOURINARY: No dysuria, no frequency, no hematuria MUSKULOSKELETAL: +Bilateral lower extremity edema. +Pain with ambulating 2/2 edema. No back pain, no joint pain, no myalgias SKIN: No rash NEURO: No headache *Physical Exam - Vital Signs Last Vital Signs Temp Pulse Resp BP Pulse Ox 97.9 F 71 19 116/65 80 L 08/16/19 09:55 08/16/19 09:55 08/16/19 09:55 08/16/19 09:55 08/16/19 09:55 - Physical Exam CONSTITUTIONAL: +Morbidly obese. Awake, alert, and oriented. no apparent distress HEAD: Normocephalic; atraumatic EYES: PERRL; EOM intact ENMT: External appears normal; normal oropharynx NECK: Supple; non-tender; no cervical lymphadenopathy CARD: +Tachycardic. Normal S1, S2; no murmurs, rubs, or gallops RESP: +Distant breath sounds bilaterally. Normal chest excursion with respiration; no wheezes, rhonchi, or rales ABD: +Obese. Soft, non-distended; non-tender; no palpable organomegaly, no palpable hernias EXT: +3+ pitting edema of the bilateral lower extremities. Normal ROM in all four extremities; non-tender to palpation; distal pulses intact SKIN: +Extensive excoriations to the dorsolateral aspect of both feet. + Extensive erythema with foul smelling discharge to the intertriginous regions of the lower abdomen consistent with intertrigo. Warm, dry. NEURO: No focal neurological deficiencies. Heart Score/ECG Review - ECG Impressions Comment:: EKG performed at 11:14 on 08/16/2019 demonstrates rate of 69bpm, normal sinus rhythm, possible anterolateral infarct, age undetermined. ED Treatment Course - LABORATORY CBC & Chemistry Diagram: 08/16/19 11:20 08/16/19 11:20 - ADDITIONAL ORDERS Additional order review: Laboratory Results 08/16/19 08/16/19 11:20 11:20 Sodium 141 Potassium 3.8 Chloride 94 L Carbon Dioxide 41 H Anion Gap 6 L BUN 13.2 Creatinine 0.6 Est GFR (CKD-EPI)AfAm 127.58 Est GFR (CKD-EPI)NonAf 110.08 Random Glucose 146 H Calcium 8.6 Total Bilirubin 0.8 AST 6 L ALT 12 L Alkaline Phosphatase 66 B-Natriuretic Peptide 438.6 H Total Protein 6.2 L Albumin 2.9 L Serum , Qual Negative 08/16/19 11:20 RBC 6.06 H MCV 76.8 L MCHC 29.5 L RDW 22.6 H MPV 7.9 Neutrophils % 78.3 Lymphocytes % 12.5 D Monocytes % 5.9 Eosinophils % 2.2 Basophils % 1.1 - RADIOLOGY Radiology Studies Ordered: Category Date Time Status CHEST X-RAY PORTABLE* [RAD] Stat Radiology 08/16/19 11:06 Completed Radiograph Interpretation: EXAM#: TYPE/EXAM: RESULT: [id number] RAD/CHEST X-RAY PORTABLE* Chest: Shortness of breath A single view of the chest is been submitted. There is a large heart with progressive congestive changes since 05/26/2019. There may be a left humeral subluxation. Reported By: Ja Adams MD 08/16/19 12:16 - Medications Given in the ED: ED Medications Discontinued Medications Generic Name Dose Route Start Last Admin Trade Name Freq PRN Reason Stop Dose Admin Furosemide 40 mg 08/16/19 11:42 08/16/19 11:48 Lasix Injection - IVPUSH 08/16/19 11:43 40 mg ONCE ONE Administration Discharge - Discharge Information Problems reviewed: Yes Clinical Impression/Diagnosis: Acute on chronic diastolic (congestive) heart failure, Intertrigo Condition: Fair - Admission Yes - Follow up/Referral Referrals: Ayan Charlton MD [Primary Care Provider] - - Patient Discharge Instructions - Post Discharge Activity
[2019-08-16] MEDS ORDERED: ALBUTEROL SO4 2.5/IPRATROPIUM 0.5 INH SOL 3 ML VIAL.NEB. NEB PRN (14:39)
[2019-08-16] MEDS: NYSTATIN POWDER 100,000 UNITS/GM - 15 GM TOPICAL POWDER TP SCH (14:58)
--- NOTE | 2019-08-16 14:59 | HP ---
CHIEF COMPLAINT: shortness of breath PCP: Slasher Hand: Dr. Jackson Pulmonology: Dr. Alas HISTORY OF PRESENT ILLNESS: Patient is a 44 year old female with past medical history of RAINA (on 4L NC, CPAP at night), asthma, depression, HTN, and HLD, presented today due to worsening leg swelling for 2 days. Patient reported she gained weight recently and noted that her legs are more swollen. Today, patient experienced shortness of breath which prompted her to go to the ED. Patient reported she was admitted last April for CHF exacerbation, where she was discharged with increased Lasix dose of 40mg bid, to which she was compliant. In the past few days, patient experienced heaviness and more swelling in her legs and belly and had less urine output. This was accompanied by orthopnea and dyspnea on exertion. Patient denies fevers, chills, recent illness, cough, colds, nausea, vomiting, chest pain, abdominal pain, diarrhea, urinary symptoms. ER course was notable for: (1) (2) (3) Recent Travel:denies PAST MEDICAL HISTORY: RAINA (on 4L NC, CPAP at night) asthma depression HTN HLD PAST SURGICAL HISTORY: none Social History: Smoking:denies Alcohol:denies Drugs: denies Allergies No Known Allergies Allergy (Verified 08/16/19 09:58) HOME MEDICATIONS: Home Medications Medication Instructions Recorded Albuterol Sulfate Inhaler - 1 puff PRN 02/11/19 [Ventolin HFA Inhaler -] Bupropion HCl [Wellbutrin Xl -] 150 mg PO DAILY 02/11/19 Losartan Potassium 25 mg PO DAILY 02/11/19 Pravastatin Sodium 10 mg PO DAILY 02/11/19 Ropinirole HCl 0.5 mg PO DAILY 02/11/19 metFORMIN HCL [Glucophage -] 500 mg PO BID 02/11/19 Albuterol 0.083% Nebulizer Licha 1 amp NEB Q4H PRN #25 amp 05/27/19 [Ventolin 0.083% Nebulizer Soln -] Amlodipine Besylate [Norvasc -] 5 mg PO DAILY tablet 05/27/19 Furosemide [Lasix] 40 mg PO BID #60 tablet 05/27/19 Prednisone See Taper PO DAILY #17 tablet 05/27/19 REVIEW OF SYSTEMS CONSTITUTIONAL: Absent: fever, chills, diaphoresis, generalized weakness, malaise, loss of appetite, weight change HEENT: Absent: rhinorrhea, nasal congestion, throat pain, throat swelling, difficulty swallowing, mouth swelling, ear pain, eye pain, visual changes CARDIOVASCULAR: Absent: chest pain, syncope, palpitations, irregular heart rate, lightheadedness, peripheral edema RESPIRATORY: shortness of breath, dyspnea with exertion Absent: cough, orthopnea, wheezing, stridor, hemoptysis GASTROINTESTINAL: Absent: abdominal pain, abdominal distension, nausea, vomiting, diarrhea, constipation, melena, hematochezia GENITOURINARY: Absent: dysuria, frequency, urgency, hesitancy, hematuria, flank pain, genital pain MUSCULOSKELETAL: Absent: myalgia, arthralgia, joint swelling, back pain, neck pain SKIN: Absent: rash, itching, pallor HEMATOLOGIC/IMMUNOLOGIC: Absent: easy bleeding, easy bruising, lymphadenopathy, frequent infections ENDOCRINE: Absent: unexplained weight gain, unexplained weight loss, heat intolerance, cold intolerance NEUROLOGIC: Absent: headache, focal weakness or paresthesias, dizziness, unsteady gait, seizure, mental status changes, bladder or bowel incontinence PSYCHIATRIC: Absent: anxiety, depression, suicidal or homicidal ideation, hallucinations. PHYSICAL EXAMINATION Vital Signs - 24 hr 08/16/19 08/16/19 09:55 10:20 Temperature 97.9 F Pulse Rate 71 Respiratory 19 Rate Blood Pressure 116/65 O2 Sat by Pulse 80 L 96 Oximetry (%) GENERAL: Awake, alert, and fully oriented, on 4L NC HEAD: Normal with no signs of trauma. EYES:PERRLA, EOMI, sclera anicteric, conjunctiva clear. EARS, NOSE, THROAT: Moist mucous membranes. NECK: Normal range of motion, supple LUNGS: Distant breath sound bilaterally HEART: Regular rate and rhythm, normal S1 and S2 ABDOMEN: Soft, nontender, not distended, normoactive bowel sounds. MUSCULOSKELETAL: Normal range of motion at all joints. LOWER EXTREMITIES: 2+ pulses, warm, well-perfused. +erythema on groin area bilaterally, +3 b/l pitting edema NEUROLOGICAL: Cranial nerves II-XII intact. Normal speech. Normal gait. PSYCHIATRIC: Cooperative. Good eye contact. Appropriate mood and affect. SKIN: Warm, dry, normal turgor. Laboratory Results - last 24 hr 08/16/19 08/16/19 08/16/19 11:20 11:20 11:20 WBC 9.4 RBC 6.06 H Hgb 13.7 Hct 46.6 H MCV 76.8 L MCH 22.7 L MCHC 29.5 L RDW 22.6 H Plt Count 285 MPV 7.9 Absolute Neuts (auto) 7.4 Total Counted 100 Neutrophils % 78.3 Neutrophils % (Manual) 82.0 Band Neutrophils % 5.0 Lymphocytes % 12.5 D Lymphocytes % (Manual) 5.0 L D Monocytes % 5.9 Monocytes % (Manual) 4 Eosinophils % 2.2 Eosinophils % (Manual) 2.0 Basophils % 1.1 Nucleated RBC % 1 H Metamyelocytes 2 D Platelet Estimate Adequate Platelet Comment Rare giant plts Anisocytosis 2+ Microcytosis 1+ Sodium 141 Potassium 3.8 Chloride 94 L Carbon Dioxide 41 H Anion Gap 6 L BUN 13.2 Creatinine 0.6 Est GFR (CKD-EPI)AfAm 127.58 Est GFR (CKD-EPI)NonAf 110.08 Random Glucose 146 H Calcium 8.6 Total Bilirubin 0.8 AST 6 L ALT 12 L Alkaline Phosphatase 66 B-Natriuretic Peptide 438.6 H Total Protein 6.2 L Albumin 2.9 L Serum , Qual Negative ASSESSMENT/PLAN: Patient is a 44 year old female with past medical history of RAINA (on 4L NC, CPAP at night), asthma, depression, HTN, and HLD, presented today due to worsening leg swelling for 2 days. #Shortness of breath -may be 2/2 CHF exacerbation vs morbid obesity -CXR - increased congestive changes -will start IV Lasix 40mg bid -repeat Echo -Cardiology consulted -Supplemental O2 to keep SpO2 >90% -jackiebs prn -I&O, daily weights #Intertrigo -Nystatin powder to affected areas #ARINA -CPAP at bedtime #Depression -Continue Wellbutrin 150mg daily #HTN -Continue home Losartan 25mg daily, Iv lasix #HLD -Continue home Pravastatin 10mg daily #FEN -Not on any standing fluids -Electrolytes wnl, routine bmp monitoring -Sodium restricted diet #Prophylaxis -Lovenox 40mg sq daily #Disposition -full code -admit to tele Visit type - Emergency Visit Emergency Visit: Yes ED Registration Date: 08/16/19 Care time: The patient presented to the Emergency Department on the above date and was hospitalized for further evaluation of their emergent condition. - New Patient This patient is new to me today: Yes Date on this admission: 08/16/19 - Critical Care Critical Care patient: No ATTENDING PHYSICIAN STATEMENT I saw and evaluated the patient. I reviewed the resident's note and discussed the case with the resident. I agree with the resident's findings and plan as documented. SUBJECTIVE: OBJECTIVE: ASSESSMENT AND PLAN:
--- NOTE | 2019-08-16 15:15 | PN ---
Teaching Attending Note Name of Resident: Sheryl Gutierrez ATTENDING PHYSICIAN STATEMENT I saw and evaluated the patient. I reviewed the resident's note and discussed the case with the resident. I agree with the resident's findings and plan as documented. SUBJECTIVE:Patient is a 44 year old female with past medical history of RAINA (on 4L NC, CPAP at night), asthma, depression, HTN, and HLD, morbidly obese, presented today due to worsening leg swelling for 2 days. Patient reported she gained weight recently and noted that her legs are more swollen. Today, patient experienced shortness of breath which prompted her to go to the ED. Patient reported she was admitted last April for CHF exacerbation, where she was discharged with increased Lasix dose of 40mg bid, to which she was compliant. In the past few days, patient experienced heaviness and more swelling in her legs and belly and had less urine output. This was accompanied by orthopnea and dyspnea on exertion. Patient denies fevers, chills, recent illness, cough, colds, nausea, vomiting, chest pain, abdominal pain, diarrhea, urinary symptoms. OBJECTIVE: O/e appers comfortable, nad, vss neck supple no jvd cvs s1/s2/0 chest ctab abd, distended, hangs over the groin, edematous, and redness all over the gorin, and under the skin folds, ext , 2 + edema, ASSESSMENT AND PLAN: Patient is a 44 year old female with past medical history of RAINA (on 4L NC, CPAP at night), asthma, depression, HTN, and HLD, presented today due to worsening leg swelling for 2 days. Shortness of breath, and asthma, / chf, -may be 2/2 CHF exacerbation vs morbid obesity -CXR - increased congestive changes -will start IV Lasix 40mg bid -repeat Echo -Cardiology consulted -Supplemental O2 to keep SpO2 >90% -duonebs prn -I&O, daily weights Intertrigo -Nystatin powder to affected areas RAINA -CPAP at bedtime continue home meds, for depression and hld, and fu,
--- NOTE | 2019-08-16 16:34 | EKG ---
Test Reason : Blood Pressure : / mmHG Vent. Rate : 069 BPM Atrial Rate : 069 BPM P-R Int : 186 ms QRS Dur : 098 ms QT Int : 398 ms P-R-T Axes : -07 114 053 degrees QTc Int : 426 ms NORMAL SINUS RHYTHM POSSIBLE ANTEROLATERAL INFARCT (CITED ON OR BEFORE 20-MAY-2019) ABNORMAL ECG Confirmed by MD ANGÉLICA, SURJIT ([id number]) on 08/16/2019 4:34:07 PM Referred By: Confirmed By:SURJIT LINDSAY MD
[2019-08-16] MEDS ORDERED: PNEUMOC 13-VAL CONJ-DIP CRM/PF 0.5 ML DISP.SYRIN IM ONE (18:35)
[2019-08-16] MEDS ORDERED: PT OWN MED DRAWER 7, Y5N ONE (20:16)
[2019-08-17] MEDS ORDERED: ACETAMINOPHEN 325 MG TABLET (FP) PO ONE ×2 (00:20→16:47)
[2019-08-17] MEDS ORDERED: FAMOTIDINE 20 MG TABLET PO ONE (00:44)
[2019-08-17] MEDS: FUROSEMIDE 40 MG/4 ML INJECTABLE VIAL IVPUSH SCH ×2 (06:24→13:32)
[2019-08-17 07:21] LABS: BASO % 0.6 % (0-2.0); EOS % 2.2 % (0-4.5); HEMATOCRIT 46.1 % (32.4-45.2); HEMOGLOBIN 13.8 GM/dL (10.7-15.3); LYMPH % 17.4 % (8-40); MCH 22.6 pg (25.7-33.7); MEAN CELL VOLUME 75.2 fl (80-96); MEAN PLT VOLUME 8.1 fl (7.5-11.1); MONO % 5.9 % (3.8-10.2); NEUT % 73.9 % (42.8-82.8); PLATELET COUNT 289 K/MM3 (134-434); RBC 6.13 M/mm3 (3.60-5.2); RDW 23.3 % (11.6-15.6); WHITE BLOOD COUNT 7.9 K/mm3 (4.0-10.0)
[2019-08-17 08:25] LABS: ALBUMIN 3.2 g/dl (3.4-5.0); BILIRUBIN,TOTAL 1.6 mg/dL (0.2-1); BLOOD UREA NITROGEN 14.1 mg/dL (7-18); CREATININE 0.6 mg/dL (0.55-1.3); MAGNESIUM 2.1 mg/dL (1.8-2.4); POTASSIUM 4.2 mmol/L (3.5-5.1); TOT PROT 6.5 g/dl (6.4-8.2)
[2019-08-17] MEDS: ENOXAPARIN NA (PORCINE) 40 MG/0.4 ML DISP.SYRIN SQ SCH (09:16)
[2019-08-17] MEDS: NYSTATIN POWDER 100,000 UNITS/GM - 15 GM TOPICAL POWDER TP SCH (09:17)
[2019-08-17] MEDS ORDERED: ATORVASTATIN CA 10 MG TABLET (FP) PO SCH (10:00)
[2019-08-17] MEDS ORDERED: LOSARTAN POTASSIUM 25 MG TABLET PO SCH (10:00)
--- NOTE | 2019-08-17 10:06 | CON.CARD ---
Consult - History of Present Illness History of Present Illness: The patient is a 44 morbidly obese female, with a significant PMH of RAINA (on home 4L oxygen), asthma (never intubated, hospitalized once), depression, HTN, HLD, who presents to the ED for evaluation of edema for 2 days. Patient notes she has bilateral lower extremity edema at baseline, but notes it has become significantly worse over the past couple days. She feels as if she is retaining more fluid in her legs and abdomen than typical, despite the fact that she is on Lasix daily. Patient notes it is painful for her to walk secondary to her edema, and her stomach feels harder than usual. She additionally reports ~20pd weight gain at this time. Patient endorses associated SOB (despite being on 4L of home O2), wheezing, and dyspnea on exertion. Allergies: NKA, NKDA Surgical History: None reported Social History: Denies EtOH, tobacco, or illicit drug use PCP: Dr. Charlton Elementary Librarian: Dr. Jackson Pulmonology: Dr. Alas - History Source History Provided By: Patient, Medical Record - Past Medical History Pulmonary: Yes: Asthma, COPD, Sleep Apnea, O2 Dependent ...LMP: 07/11/19 ...LMP Comment: Duration: 2 days, limited discharge ...: No - Alcohol/Substance Use Hx Alcohol Use: No - Smoking History Smoking history: Never smoked Have you smoked in the past 12 months: No Home Medications - Allergies Allergies/Adverse Reactions: Allergies Allergy/AdvReac Type Severity Reaction Status Date / Time No Known Allergies Allergy Verified 08/16/19 09:58 - Home Medications Home Medications: Ambulatory Orders Albuterol Sulfate Inhaler - [Ventolin HFA Inhaler -] 1 puff PRN 02/11/19 Bupropion HCl [Wellbutrin Xl -] 150 mg PO DAILY 02/11/19 Losartan Potassium 25 mg PO DAILY 02/11/19 Pravastatin Sodium 10 mg PO DAILY 02/11/19 Furosemide [Lasix] 40 mg PO BID #60 tablet 05/27/19 Amlodipine Besylate [Norvasc -] 5 mg PO DAILY 08/16/19 Metformin HCl [Glucophage] 500 mg PO BID 08/16/19 Ropinirole HCl [Requip -] 0.5 mg PO DAILY 08/16/19 Review of Systems - Review of Systems Constitutional: reports: No Symptoms Eyes: reports: No Symptoms HENT: reports: No Symptoms Neck: reports: No Symptoms Cardiovascular: reports: Edema, Shortness of Breath Respiratory: reports: SOB, SOB on Exertion Gastrointestinal: reports: No Symptoms Genitourinary: reports: No Symptoms Breasts: reports: No Symptoms Reported Musculoskeletal: reports: No Symptoms Integumentary: reports: No Symptoms Neurological: reports: No Symptoms Endocrine: reports: No Symptoms Hematology/Lymphatic: reports: No Symptoms Psychiatric: reports: No Symptoms Vital Signs: Vital Signs Temperature 97.9 F 08/17/19 06:45 Pulse Rate 64 08/17/19 06:45 Respiratory Rate 20 08/17/19 06:45 Blood Pressure 157/72 08/17/19 06:45 O2 Sat by Pulse Oximetry (%) 97 08/16/19 21:00 Constitutional: Yes: Well Nourished, No Distress, Calm Eyes: Yes: WNL, Conjunctiva Clear, EOM Intact HENT: Yes: WNL, Atraumatic, Normocephalic Neck: Yes: WNL, Supple, Trachea Midline Respiratory: Yes: WNL, Regular, CTA Bilaterally Gastrointestinal: Yes: WNL, Normal Bowel Sounds Renal/: Yes: WNL Cardiovascular: Yes: WNL, Regular Rate and Rhythm Musculoskeletal: Yes: WNL Extremities: Yes: WNL Edema: Yes Integumentary: Yes: WNL Neurological: Yes: WNL, Alert, Oriented ...Motor Strength: WNL Psychiatric: Yes: WNL, Alert, Oriented - Other Data Labs, Other Data: CBC, BMP 08/17/19 05:45 08/17/19 05:45 Troponin, BNP 08/16/19 11:20 B-Natriuretic Peptide 438.6 H Troponin, BNP 08/16/19 11:20 B-Natriuretic Peptide 438.6 H Imaging - Results Chest X-ray: Image Reviewed (no i/e) EKG: Image Reviewed (sr ? old lateral NM) Assessment/Plan 44 year old female with past medical history of RAINA (on 4L NC, CPAP at night), asthma, depression, HTN, and HLD, presented today due to worsening leg swelling for 2 days. Patient reported she gained weight recently and noted that her legs are more swollen. r/o CHF Plan; BNP ECHO Lasix pulm eval DVT plx keep ldl below 70 mg/dl MIBI stress test for risk stratification when stable
[2019-08-17 10:34] LABS: BILIRUBIN,DIRECT 0.3 mg/dL (0.0-0.2)
--- NOTE | 2019-08-17 10:37 | PN ---
Progress Note, Physician Chief Complaint: Pt A&Ox3; OOB in chair; c/o "too much fluid in my body,and it won't come out, even with the water pill". History of Present Illness: 44 yr old white woman with PMH of morbid obesity, RAINA (on home 4L oxygen), asthma (never intubated, hospitalized once), depression, HTN, HLD, who presents to the ED for evaluation of edema for 2 days. Patient notes she has bilateral lower extremity edema at baseline, but notes it has become significantly worse over the past few days. She feels as if she is retaining more fluid in her legs and abdomen than typical, despite the fact that she is on Lasix daily. Patient notes it is painful for her to walk secondary to her edema, and her stomach feels harder than usual. She additionally reports ~20pd weight gain at this time. Patient endorses associated SOB (despite being on 4L of home O2), wheezing , and dyspnea on exertion. Allergies: NKA, NKDA Surgical History: None reported Social History: Denies EtOH, tobacco, or illicit drug use PCP: Dr. Charlton Pulmonology: Dr. Alas - Current Medication List Current Medications: Active Medications Albuterol/Ipratropium (Duoneb -) 1 amp NEB Q6H PRN PRN Reason: SHORTNESS OF BREATH Last Admin: 08/16/19 22:19 Dose: 1 amp Atorvastatin Calcium (Lipitor -) 10 mg PO DAILY [facility] Last Admin: 08/17/19 09:16 Dose: 10 mg Bupropion HCl (Wellbutrin Xl -) 150 mg PO DAILY [facility] Last Admin: 08/17/19 09:16 Dose: 150 mg Enoxaparin Sodium (Lovenox -) 40 mg SQ DAILY [facility] Last Admin: 08/17/19 09:16 Dose: 40 mg Furosemide (Lasix Injection -) 40 mg IVPUSH BID@0600,1400 [facility] Last Admin: 08/17/19 06:24 Dose: 40 mg Losartan Potassium (Cozaar -) 25 mg PO DAILY [facility] Last Admin: 08/17/19 09:16 Dose: 25 mg Nystatin (Nystop Powder -) 1 applic TP DAILY [facility] Last Admin: 08/17/19 09:17 Dose: 1 applic - Objective Vital Signs: Vital Signs Temperature 97.9 F 02/27/20 06:45 Pulse Rate 64 08/17/19 06:45 Respiratory Rate 20 08/17/19 06:45 Blood Pressure 157/72 08/17/19 06:45 O2 Sat by Pulse Oximetry (%) 97 08/16/19 21:00 Constitutional: Yes: Anxious Eyes: Yes: WNL HENT: Yes: WNL Neck: Yes: WNL Cardiovascular: Yes: S1, S2, S4 Respiratory: Yes: Regular Gastrointestinal: Yes: Soft ...Rectal Exam: Yes: Deferred Genitourinary: No: Anuria Breast(s): Yes: WNL Musculoskeletal: Yes: Back Pain, Joint Stiffness, Muscle Weakness Extremities: Yes: Cool Edema: Yes Edema: LLE: 1+, RLE: 1+ Peripheral Pulses WNL: Yes Integumentary: Yes: Venous Stasis Changes Neurological: Yes: Alert, Oriented, Weakness Psychiatric: Yes: Alert, Other. No: Oriented Labs: CBC, BMP 08/17/19 05:45 08/17/19 05:45 Abnormal Lab Results 08/17/19 08/17/19 08/17/19 05:45 05:45 06:00 RBC 6.13 H Hct 46.1 H MCV 75.2 L MCH 22.6 L MCHC 30.0 L RDW 23.3 H Chloride 93 L Carbon Dioxide 38 H Hemoglobin A1c % 6.7 H Total Bilirubin 1.6 H Direct Bilirubin 0.3 H AST 11 L Albumin 3.2 L Triglycerides 202 H Total LDL Cholesterol 138 H HDL Cholesterol 38 L - ....Imaging Chest X-ray: Image Reviewed Ultrasound: Report Reviewed (ECHO: normal LVEF) EKG: Image Reviewed Problem List - Problems (1) Payne cardiac risk >20% in next 10 years Assessment/Plan: Pt does not remember ever having a stress test or coronary angiogram. Her weight makes it difficult to have either of the above tests at the present time. Mother had CHF. Pt never smoked; no hx cocaine; No hx alcoholism. Code(s): Z91.89 - OTH PERSONAL RISK FACTORS, NOT ELSEWHERE CLASSIFIED (2) Acute on chronic diastolic (congestive) heart failure Assessment/Plan: On losartan, amlodipine, and furosemide. Morbid obesity is the prime factor, and BP control is also important in control of her CHF. F/u BUN/Cr, electrolytes, daily weight, Is and Os. Code(s): I50.33 - ACUTE ON CHRONIC DIASTOLIC (CONGESTIVE) HEART FAILURE (3) Intertrigo Code(s): L30.4 - ERYTHEMA INTERTRIGO (4) Acute on chronic respiratory failure with hypoxemia Code(s): J96.21 - ACUTE AND CHRONIC RESPIRATORY FAILURE WITH HYPOXIA (5) Hypercholesterolemia Assessment/Plan: LDL 138 mg/dL; now on atorvastatin 40 mg daily. E Commerce Analyst for help with diet modification, weight loss. Code(s): E78.00 - PURE HYPERCHOLESTEROLEMIA, UNSPECIFIED (6) RAINA (obstructive sleep apnea) Code(s): G47.33 - OBSTRUCTIVE SLEEP APNEA (ADULT) (PEDIATRIC) (7) Asthma Code(s): J45.909 - UNSPECIFIED ASTHMA, UNCOMPLICATED (8) HTN (hypertension) Assessment/Plan: Increase losartan to 50 mg daily. On IV furosemide. Dietary consult ordered. Code(s): I10 - ESSENTIAL (PRIMARY) HYPERTENSION (9) Morbid (severe) obesity with alveolar hypoventilation Assessment/Plan: Pt says she has thought of having gastric bypass surgery, but is afraid because she is at high risk "and I might not make it off the table". The risks in continuing to have the weight she is at presently were discussed. At 19 yrs old, she weighed about 150 lbs; weight went up after of her 2nd child, at age 24. At home now, she says the family tends to order fast food, and she eats it with them. Nutrition/dietary consult has been ordered. Code(s): E66.2 - MORBID (SEVERE) OBESITY WITH ALVEOLAR HYPOVENTILATION (10) Cellulitis Code(s): L03.90 - CELLULITIS, UNSPECIFIED
--- NOTE | 2019-08-17 11:03 | CON.PULM ---
Consult Consult Specialty:: PULMONARY Referred by:: Dr Conti Reason for Consultation:: shortness of breath - History of Present Illness Chief Complaint: wheezing History of Present Illness: 44yo female with h/o HTN, hyperlipidemia, asthma, morbid obesity, RAINA, chronic hypoxic respiratory failure on home O2 who was admitted with shortness of breath and leg swelling x 2-3 days. Denies chest pain or discomfort. No cough but with wheezing. No fevers, chills or sweats. Reports compliance with her medications. Reports increased abdominal bloating and leg swelling. Sleeps on 3 pillows. She is a nonsmoker. - History Source History Provided By: Patient, Medical Record Limitations to Obtaining History: No Limitations - Past Medical History Cardio/Vascular: Yes: HTN Pulmonary: Yes: Asthma, COPD, Sleep Apnea, O2 Dependent ...LMP: 07/11/19 ...LMP Comment: Duration: 2 days, limited discharge ...: No - Alcohol/Substance Use Hx Alcohol Use: No - Smoking History Smoking history: Never smoked Have you smoked in the past 12 months: No Home Medications - Allergies Allergies/Adverse Reactions: Allergies Allergy/AdvReac Type Severity Reaction Status Date / Time No Known Allergies Allergy Verified 08/16/19 09:58 - Home Medications Home Medications: Ambulatory Orders Albuterol Sulfate Inhaler - [Ventolin HFA Inhaler -] 1 puff PRN 02/11/19 Bupropion HCl [Wellbutrin Xl -] 150 mg PO DAILY 02/11/19 Losartan Potassium 25 mg PO DAILY 02/11/19 Pravastatin Sodium 10 mg PO DAILY 02/11/19 Furosemide [Lasix] 40 mg PO BID #60 tablet 05/27/19 Amlodipine Besylate [Norvasc -] 5 mg PO DAILY 08/16/19 Metformin HCl [Glucophage] 500 mg PO BID 08/16/19 Ropinirole HCl [Requip -] 0.5 mg PO DAILY 08/16/19 Review of Systems - Review of Systems Constitutional: denies: Chills, Fever, Weakness Eyes: denies: Recent Change in Vision HENT: denies: Nasal Congestion, Throat Pain Neck: denies: Stiffness, Tenderness Cardiovascular: reports: Edema, Shortness of Breath. denies: Chest Pain, Palpitations Respiratory: reports: SOB on Exertion, Wheezing. denies: Cough, Hemoptysis Gastrointestinal: reports: Bloating. denies: Abdominal Pain, Nausea, Vomiting Genitourinary: denies: Dysuria, Hematuria Neurological: denies: Dizziness, Headache Endocrine: reports: Unexplained Weight Gain Physical Exam Vital Sings: Vital Signs Temperature 97.9 F 08/17/19 06:45 Pulse Rate 64 08/17/19 06:45 Respiratory Rate 08/17/19 09:00 Blood Pressure 157/72 08/17/19 06:45 O2 Sat by Pulse Oximetry (%) 97 08/16/19 21:00 Constitutional: Yes: Calm Eyes: Yes: Conjunctiva Clear, EOM Intact HENT: Yes: Atraumatic, Normocephalic Neck: Yes: Supple, Trachea Midline Cardiovascular: Yes: Regular Rate and Rhythm Respiratory: Yes: Diminished (decreased breath sounds at the bases) ...Clubbing: No Gastrointestinal: Yes: Normal Bowel Sounds, Soft, Abdomen, Obese. No: Tenderness Edema: Yes Labs: CBC, BMP 08/17/19 05:45 08/17/19 05:45 Imaging - Results Chest X-ray: Report Reviewed, Image Reviewed (pulmonary vascular congestion) Assessment/Plan Acute on Chronic Diastolic Heart Failure Volume Overload Chronic Hypoxic Respiratory Failure Morbid Obesity Obstructive Sleep Apnea Asthma HTN Hyperlipidemia - IV lasix - monitor urine output, creatinine - daily weights - O2 to keep Spo2 >90% - inhaled bronchodilators - CPAP at night - can defer systemic steroids at this time - DVT prophylaxis Thank you for this consult Connor Vee MD
[2019-08-17] MEDS ORDERED: LOSARTAN POTASSIUM 25 MG TABLET PO ONE (12:00)
[2019-08-17] MEDS: ALBUTEROL SO4 2.5/IPRATROPIUM 0.5 INH SOL 3 ML VIAL.NEB. NEB SCH ×3 (12:45→20:25)
--- NOTE | 2019-08-17 14:21 | PN ---
Physical Exam: SUBJECTIVE: Patient seen and examined at the bedside. Patient stated that she does not follow a strict diet and does not count the amount of salt in her food. She noted that she drinks a lot of water because she is diabetic and gets very thirsty. Endorsed improvement of her shortness of breath. Currently denied cp, abd pain, n/v/c/d, headaches, dizziness, lightheadedness, cough, palpitations. OBJECTIVE: Vital Signs Period Temp Pulse Resp BP Sys/Uqan Pulse Ox Last 24 Hr 97.4 F-98.3 F 64-74 18-22 136-161/69-83 95-98 GENERAL: The patient is awake, alert, and fully oriented, in no acute distress. EYES: PERRL, extraocular movements intact, conjunctiva clear. ENT: Oropharynx clear without exudates, moist mucous membranes. LUNGS: Breath sounds difficult to auscultate due to body habitus. Unable to appreciate good breath sounds, but wheezes auscultated. HEART: Regular rate and rhythm, S1, S2. Unable to appreciate murmurs. ABDOMEN: Soft, obese, nontender, normoactive bowel sounds, no guarding, no rebound. EXTREMITIES: Significant chronic lymphedema and pitting edema 2+ noted. NEUROLOGICAL: Cranial nerves II through XII grossly intact. 5/5 muscle strength bilaterally upper and lower extremities. PSYCH: Normal mood, normal affect. Laboratory Results - last 24 hr 08/17/19 08/17/19 08/17/19 05:45 05:45 05:57 WBC 7.9 RBC 6.13 H Hgb 13.8 Hct 46.1 H MCV 75.2 L MCH 22.6 L MCHC 30.0 L RDW 23.3 H Plt Count 289 MPV 8.1 Absolute Neuts (auto) 5.8 Neutrophils % 73.9 Lymphocytes % 17.4 D Monocytes % 5.9 Eosinophils % 2.2 Basophils % 0.6 Nucleated RBC % 0 Sodium 138 Potassium 4.2 Chloride 93 L Carbon Dioxide 38 H Anion Gap 8 BUN 14.1 Creatinine 0.6 Est GFR (CKD-EPI)AfAm 127.58 Est GFR (CKD-EPI)NonAf 110.08 POC Glucometer 110 Random Glucose 95 Hemoglobin A1c % Calcium 9.0 Magnesium 2.1 Total Bilirubin 1.6 H Direct Bilirubin 0.3 H AST 11 L ALT 13 Alkaline Phosphatase 67 Total Protein 6.5 Albumin 3.2 L Triglycerides 202 H Cholesterol 198 Total LDL Cholesterol 138 H HDL Cholesterol 38 L TSH 1.46 08/17/19 06:00 WBC RBC Hgb Hct MCV MCH MCHC RDW Plt Count MPV Absolute Neuts (auto) Neutrophils % Lymphocytes % Monocytes % Eosinophils % Basophils % Nucleated RBC % Sodium Potassium Chloride Carbon Dioxide Anion Gap BUN Creatinine Est GFR (CKD-EPI)AfAm Est GFR (CKD-EPI)NonAf POC Glucometer Random Glucose Hemoglobin A1c % 6.7 H Calcium Magnesium Total Bilirubin Direct Bilirubin AST ALT Alkaline Phosphatase Total Protein Albumin Triglycerides Cholesterol Total LDL Cholesterol HDL Cholesterol TSH Active Medications Generic Name Dose Route Start Last Admin Trade Name Freq PRN Reason Stop Dose Admin Albuterol Sulfate 1 amp 08/17/19 11:10 Ventolin 0.083% Nebulizer Soln - NEB Q4H PRN SHORT OF BREATH/WHEEZING Albuterol/Ipratropium 1 amp 08/17/19 12:00 08/17/19 12:45 Duoneb - NEB 1 amp RQID LAKESHIA Administration Atorvastatin Calcium 40 mg 08/17/19 22:00 Lipitor - PO HS LAKESHIA Bupropion HCl 150 mg 08/17/19 10:00 08/17/19 09:16 Wellbutrin Xl - PO 150 mg DAILY LAKESHIA Administration Enoxaparin Sodium 40 mg 08/17/19 10:00 08/17/19 09:16 Lovenox - SQ 40 mg DAILY LAKESHIA Administration Furosemide 40 mg 08/17/19 06:00 08/17/19 13:32 Lasix Injection - IVPUSH 40 mg BID@0600,1400 LAKESHIA Administration Losartan Potassium 50 mg 08/18/19 10:00 Cozaar - PO DAILY LAKESHIA Nystatin 1 applic 08/16/19 14:30 08/17/19 09:17 Nystop Powder - TP 1 applic DAILY LAKESHIA Administration ASSESSMENT/PLAN: Mary Lou Ward is a 44 year old female with past medical history of RAINA (on 4L NC , CPAP at night), asthma, depression, HTN, and HLD admitted with shortness of breath likely secondary to CHF decompensation CHF Decompensation - likely in the setting of high salt diet and increase fluid intake - CXR with noted increased congestive changes - IV Lasix 40mg bid - echo from 01/2019 with normal LV, EF 60-65% - Echo ordered - Cardiology consulted, recs appreciated - pulmonology consulted, recs appreciated - Supplemental O2 to keep SpO2 >90% - [email or web address] prn - I&O, daily weights Intertrigo - Nystatin powder to affected areas RAINA - CPAP at bedtime Elevated Bilirubin - no abdominal symptoms - bilirubin 1.6, direct 0.3 - previous abd U/S (02/06) noting hepatomegaly with fatty infiltration vs hepatocellular disease - no elevation of liver enzymes, continue to monitor Depression - Continue Wellbutrin 150mg daily HTN - increase losartan to 50mg daily - continue home amlodipine 5mg HLD - increase atorvastatin to 40mg to keep LDL below 70 DM - BGM - ISS - A1c 6.7 FEN - no standing fluids, 1L fluid restriction - continue to monitor electrolytes and replete as necessary - Sodium restricted diet Prophylaxis - Lovenox 40mg sq daily Disposition - continue to monitor on Med-surg Visit type - Emergency Visit Emergency Visit: Yes ED Registration Date: 08/16/19 Care time: The patient presented to the Emergency Department on the above date and was hospitalized for further evaluation of their emergent condition. - New Patient This patient is new to me today: Yes Date on this admission: 08/17/19 - Critical Care Critical Care patient: No
--- NOTE | 2019-08-17 16:45 | ECHO ---
Name: VALENTÍN CARLSON Exam:Adult Echocardiogram Study Date: 08/17/2019 03:53 PM Age: 44 yrs Reason For Study: FLUID OVERLOAD Height: 70 in Weight: 450 lb BSA: 2.9 m2 MMode/2D Measurements & Calculations IVSd: 1.1 cm Ao root diam: 2.7 cm LVIDd: 5.8 cm LA dimension: 4.6 cm LVIDs: 3.6 cm ACS: 1.7 cm LVPWd: 1.2 cm IVSs: 1.9 cm LVPWs: 1.5 cm EDV(Teich): 166.4 ml ESV(Teich): 54.5 ml LVOT diam: 1.9 cm RV S Yon: 19.1 cm/sec Doppler Measurements & Calculations MV E max yon: 135.1 cm/sec Ao V2 max: 152.0 cm/sec MV A max yon: 85.8 cm/sec Ao max P.2 mmHg MV E/A: 1.6 Ao V2 mean: 100.6 cm/sec MV dec time: 0.37 sec Ao mean P.8 mmHg Ao V2 VTI: 22.7 cm SANDRA(I,D): 3.6 cm2 SANDRA(V,D): 2.6 cm2 LV V1 max P.6 mmHg SV(LVOT): 81.6 ml LV V1 mean P.2 mmHg LV V1 max: 146.4 cm/sec LV V1 mean: 93.3 cm/sec LV V1 VTI: 30.2 cm TR max yon: 205.0 cm/sec PA V2 max: 177.9 cm/sec TR max P.8 mmHg PA max P.7 mmHg Med Peak E' Yon: 9.5 cm/sec Med E/e': 14.3 Lat Peak E' Yon: 10.4 cm/sec Lat E/e': 13.0 Procedure A complete two-dimensional transthoracic echocardiogram was performed (2D, M-mode, Doppler and color flow Doppler). The study was technically difficult with many images being suboptimal in quality. Left Ventricle The left ventricular size, thickness and function are normal. The left ventricular ejection fraction is normal. Ejection Fraction = 55-60%. No regional wall motion abnormalities noted. Right Ventricle The right ventricle is normal in size and function. Atria Normal left and right atrial size and function. Mitral Valve There is no mitral regurgitation noted. Tricuspid Valve There is trace tricuspid regurgitation. There was insufficient TR detected to calculate RV systolic p ressure. Aortic Valve No hemodynamically significant valvular aortic stenosis. No aortic regurgitation is present. Pulmonic Valve The pulmonic valve is not well visualized. Great Vessels The aortic root is normal size. Pericardium/Pleura There is no pericardial effusion. Interpretation Summary The study was technically difficult with many images being suboptimal in quality. The left ventricular size, thickness and function are normal The right ventricle is normal in size and function. There is trace tricuspid regurgitation. MD Steve Claudio 08/17/2019 04:44 PM
[2019-08-17] MEDS: INSULIN SLIDING SCALE (NOVOLOG) 1 VIAL SQ SCH ×2 (17:11→21:01)
--- NOTE | 2019-08-17 19:08 | PN ---
Teaching Attending Note Name of Resident: Ja Novoa ATTENDING PHYSICIAN STATEMENT I saw and evaluated the patient. I reviewed the resident's note and discussed the case with the resident. I agree with the resident's findings and plan as documented. SUBJECTIVE: Patient is comfortable with no acute distress. No shortness of breath. Vital Signs Temperature 98.3 F 08/17/19 18:37 Pulse Rate 73 08/17/19 18:37 Respiratory Rate 20 08/17/19 18:37 Blood Pressure 141/63 08/17/19 18:37 O2 Sat by Pulse Oximetry (%) 97 08/16/19 21:00 GENERAL: The patient is awake, alert, and fully oriented, in no acute distress. HEAD: Normal with no signs of trauma. EYES: PERRL, extraocular movements intact, sclera anicteric, conjunctiva clear. ENT: Ears normal, oropharynx clear without exudates, moist mucous membranes. NECK: Trachea midline, full range of motion, supple. LUNGS: decreased Breath sounds bl, no wheezes, no crackles, no accessory muscle use. HEART: Regular rate and rhythm, S1, S2 without murmur, rub or gallop. ABDOMEN: Soft, nontender, nondistended, normoactive bowel sounds, no guarding, no rebound, no hepatosplenomegaly, no masses. EXTREMITIES: 2+ pulses, warm, well-perfused, no edema. NEUROLOGICAL: Cranial nerves II through XII grossly intact. Normal speech, gait not observed. PSYCH: Normal mood, normal affect. SKIN: Warm, dry, normal turgor, no rashes or lesions noted CBCD WBC 7.9 K/mm3 (4.0-10.0) 08/17/19 05:45 RBC 6.13 M/mm3 (3.60-5.2) H 08/17/19 05:45 Hgb 13.8 GM/dL (10.7-15.3) 08/17/19 05:45 Hct 46.1 % (32.4-45.2) H 08/17/19 05:45 MCV 75.2 fl (80-96) L 08/17/19 05:45 MCHC 30.0 g/dl (32.0-36.0) L 08/17/19 05:45 RDW 23.3 % (11.6-15.6) H 08/17/19 05:45 Plt Count 289 K/MM3 (134-434) 08/17/19 05:45 MPV 8.1 fl (7.5-11.1) 08/17/19 05:45 CMP Sodium 138 mmol/L (136-145) 08/17/19 05:45 Potassium 4.2 mmol/L (3.5-5.1) 08/17/19 05:45 Chloride 93 mmol/L (98-107) L 08/17/19 05:45 Carbon Dioxide 38 mmol/L (21-32) H 08/17/19 05:45 Anion Gap 8 MMOL/L (8-16) 08/17/19 05:45 BUN 14.1 mg/dL (7-18) 08/17/19 05:45 Creatinine 0.6 mg/dL (0.55-1.3) 08/17/19 05:45 Random Glucose 95 mg/dL (74-106) 08/17/19 05:45 Calcium 9.0 mg/dL (8.5-10.1) 08/17/19 05:45 Total Bilirubin 1.6 mg/dL (0.2-1) H 08/17/19 05:45 AST 11 U/L (15-37) L 08/17/19 05:45 ALT 13 U/L (13-61) 08/17/19 05:45 Alkaline Phosphatase 67 U/L (45-117) 08/17/19 05:45 Total Protein 6.5 g/dl (6.4-8.2) 08/17/19 05:45 Albumin 3.2 g/dl (3.4-5.0) L 08/17/19 05:45 Current Medications Generic Name Dose Route Start Last Admin Trade Name Freq PRN Reason Stop Dose Admin Albuterol Sulfate 1 amp 08/17/19 11:10 Ventolin 0.083% Nebulizer Soln - NEB Q4H PRN SHORT OF BREATH/WHEEZING Albuterol/Ipratropium 1 amp 08/17/19 12:00 08/17/19 15:21 Duoneb - NEB 1 amp RQID [facility] Administration Amlodipine Besylate 5 mg 08/18/19 10:00 Norvasc - PO DAILY [facility] Atorvastatin Calcium 40 mg 08/17/19 22:00 Lipitor - PO HS [facility] Bupropion HCl 150 mg 08/17/19 10:00 08/17/19 09:16 Wellbutrin Xl - PO 150 mg DAILY [facility] Administration Enoxaparin Sodium 40 mg 08/17/19 10:00 08/17/19 09:16 Lovenox - SQ 40 mg DAILY [facility] Administration Furosemide 40 mg 08/17/19 06:00 08/17/19 13:32 Lasix Injection - IVPUSH 40 mg BID@0600,1400 [facility] Administration Insulin Aspart 1 vial 08/17/19 16:30 08/17/19 17:11 Novolog Vial Sliding Scale - SQ 4 units ACHS [facility] Administration Protocol Losartan Potassium 50 mg 08/18/19 10:00 Cozaar - PO DAILY [facility] Nystatin 1 applic 08/16/19 14:30 08/17/19 09:17 Nystop Powder - TP 1 applic DAILY [facility] Administration Ropinirole HCl 0.5 mg 08/18/19 10:00 Requip - PO DAILY [facility] Home Medications Medication Instructions Recorded Albuterol Sulfate Inhaler - 1 puff PRN 02/11/19 [Ventolin HFA Inhaler -] Bupropion HCl [Wellbutrin Xl -] 150 mg PO DAILY 02/11/19 Losartan Potassium 25 mg PO DAILY 02/11/19 Pravastatin Sodium 10 mg PO DAILY 02/11/19 Furosemide [Lasix] 40 mg PO BID #60 tablet 05/27/19 Amlodipine Besylate [Norvasc -] 5 mg PO DAILY 08/16/19 Metformin HCl [Glucophage] 500 mg PO BID 08/16/19 Ropinirole HCl [Requip -] 0.5 mg PO DAILY 08/16/19 ASSESSMENT/PLAN: Mary Lou Ward is a 44 year old female with past medical history of RAINA (on 4L NC , CPAP at night), asthma, depression, HTN, and HLD admitted with shortness of breath likely secondary to CHF decompensation #CHF Decompensation on IV lasix continue Is and Os , daily weight #Intertrigo; Nystatin powder to affected areas #RAINA; CPAP at bedtime #Elevated Bilirubin: monitor #Depression: Continue Wellbutrin 150mg daily #HTN: increase losartan to 50mg daily, home amlodipine 5mg #HLD: increase atorvastatin to 40mg to keep LDL below 70 #DM ss scale with coverage # Class 3 obesity : weight loss , lifestyle and sx recommended DVT Px: Lovenox 40mg sq daily
[2019-08-17] MEDS ORDERED: INSULIN (NOVOLOG) ASPART 100 UNITS/ML 10ML VIAL ONE (20:22)
[2019-08-17] MEDS: ATORVASTATIN CA 10 MG TABLET (FP) PO SCH (21:01)
[2019-08-18 06:22] LABS: BASO % 0.7 % (0-2.0); EOS % 2.5 % (0-4.5); HEMATOCRIT 46.8 % (32.4-45.2); HEMOGLOBIN 14.2 GM/dL (10.7-15.3); LYMPH % 16.3 % (8-40); MCH 22.9 pg (25.7-33.7); MCHC 30.3 g/dl (32.0-36.0); MEAN CELL VOLUME 75.7 fl (80-96); MEAN PLT VOLUME 8.4 fl (7.5-11.1); MONO % 7.4 % (3.8-10.2); NEUT % 73.1 % (42.8-82.8); PLATELET COUNT 266 K/MM3 (134-434); RBC 6.18 M/mm3 (3.60-5.2); RDW 23.1 % (11.6-15.6); WHITE BLOOD COUNT 6.4 K/mm3 (4.0-10.0)
[2019-08-18 06:40] LABS: BILIRUBIN,TOTAL 1.6 mg/dL (0.2-1); CALCIUM 8.3 mg/dL (8.5-10.1); CREATININE 0.6 mg/dL (0.55-1.3); POTASSIUM 3.7 mmol/L (3.5-5.1); TOT PROT 6.7 g/dl (6.4-8.2)
[2019-08-18] MEDS: FUROSEMIDE 40 MG/4 ML INJECTABLE VIAL IVPUSH SCH ×2 (06:46→14:10)
[2019-08-18] MEDS: INSULIN SLIDING SCALE (NOVOLOG) 1 VIAL SQ SCH ×4 (06:50→21:37)
[2019-08-18] MEDS: ALBUTEROL SO4 2.5/IPRATROPIUM 0.5 INH SOL 3 ML VIAL.NEB. NEB SCH ×4 (09:00→19:43)
--- NOTE | 2019-08-18 09:28 | PN ---
Teaching Attending Note Name of Resident: Ja Novoa ATTENDING PHYSICIAN STATEMENT I saw and evaluated the patient. I reviewed the resident's note and discussed the case with the resident. I agree with the resident's findings and plan as documented. SUBJECTIVE: Patient is comfortable with no acute distress. OBJECTIVE: Vital Signs Temperature 97.5 F L 08/18/19 06:00 Pulse Rate 66 08/18/19 06:00 Respiratory Rate 20 08/18/19 06:00 Blood Pressure 147/71 08/18/19 06:00 O2 Sat by Pulse Oximetry (%) 95 08/17/19 21:00 GENERAL: The patient is awake, alert, and fully oriented, in no acute distress. HEAD: Normal with no signs of trauma. EYES: PERRL, extraocular movements intact, sclera anicteric, conjunctiva clear. ENT: Ears normal, oropharynx clear without exudates, moist mucous membranes. NECK: Trachea midline, full range of motion, supple. LUNGS: decreased Breath sounds bl, no wheezes, no crackles, no accessory muscle use. HEART: Regular rate and rhythm, S1, S2 without murmur, rub or gallop. ABDOMEN: Soft, nontender, nondistended, normoactive bowel sounds, no guarding, no rebound, no hepatosplenomegaly, no masses. EXTREMITIES: 2+ pulses, warm, well-perfused, no edema. NEUROLOGICAL: Cranial nerves II through XII grossly intact. Normal speech, gait not observed. PSYCH: Normal mood, normal affect. SKIN: Warm, dry, normal turgor, no rashes or lesions noted CBCD WBC 6.4 K/mm3 (4.0-10.0) 08/18/19 06:04 RBC 6.18 M/mm3 (3.60-5.2) H 08/18/19 06:04 Hgb 14.2 GM/dL (10.7-15.3) 08/18/19 06:04 Hct 46.8 % (32.4-45.2) H 08/18/19 06:04 MCV 75.7 fl (80-96) L 08/18/19 06:04 MCHC 30.3 g/dl (32.0-36.0) L 08/18/19 06:04 RDW 23.1 % (11.6-15.6) H 08/18/19 06:04 Plt Count 266 K/MM3 (134-434) 08/18/19 06:04 MPV 8.4 fl (7.5-11.1) 08/18/19 06:04 CMP Sodium 140 mmol/L (136-145) 08/18/19 06:04 Potassium 3.7 mmol/L (3.5-5.1) 08/18/19 06:04 Chloride 95 mmol/L (98-107) L 08/18/19 06:04 Carbon Dioxide 44 mmol/L (21-32) H 08/18/19 06:04 Anion Gap 2 MMOL/L (8-16) L 08/18/19 06:04 BUN 12.0 mg/dL (7-18) 08/18/19 06:04 Creatinine 0.6 mg/dL (0.55-1.3) 08/18/19 06:04 Random Glucose 100 mg/dL (74-106) 08/18/19 06:04 Calcium 8.3 mg/dL (8.5-10.1) L 08/18/19 06:04 Total Bilirubin 1.6 mg/dL (0.2-1) H 08/18/19 06:04 AST 10 U/L (15-37) L 08/18/19 06:04 ALT 14 U/L (13-61) 08/18/19 06:04 Alkaline Phosphatase 68 U/L (45-117) 08/18/19 06:04 Total Protein 6.7 g/dl (6.4-8.2) 08/18/19 06:04 Albumin 3.0 g/dl (3.4-5.0) L 08/18/19 06:04 Current Medications Generic Name Dose Route Start Last Admin Trade Name Freq PRN Reason Stop Dose Admin Albuterol Sulfate 1 amp 08/17/19 11:10 Ventolin 0.083% Nebulizer Soln - NEB Q4H PRN SHORT OF BREATH/WHEEZING Albuterol/Ipratropium 1 amp 08/17/19 12:00 08/17/19 20:25 Duoneb - NEB 1 amp RQID [facility]AK[facility] Administration Amlodipine Besylate 5 mg 08/18/19 10:00 Norvasc - PO DAILY [facility] Atorvastatin Calcium 40 mg 08/17/19 22:00 08/17/19 21:01 Lipitor - PO 40 mg HS [facility] Administration Bupropion HCl 150 mg 08/17/19 10:00 08/17/19 09:16 Wellbutrin Xl - PO 150 mg DAILY [facility] Administration Enoxaparin Sodium 40 mg 08/17/19 10:00 08/17/19 09:16 Lovenox - SQ 40 mg DAILY [facility] Administration Furosemide 40 mg 08/17/19 06:00 08/18/19 06:46 Lasix Injection - IVPUSH 40 mg BID@0600,1400 L[facility] Administration Insulin Aspart 1 vial 08/17/19 16:30 08/18/19 06:50 Novolog Vial Sliding Scale - SQ Not Given ACHS [facility] Protocol Losartan Potassium 50 mg 08/18/19 10:00 Cozaar - PO DAILY [facility] Nystatin 1 applic 08/16/19 14:30 08/17/19 09:17 Nystop Powder - TP 1 applic DAILY [facility] Administration Ropinirole HCl 0.5 mg 08/18/19 10:00 Requip - PO DAILY [facility] Home Medications Medication Instructions Recorded Albuterol Sulfate Inhaler - 1 puff PRN 02/11/19 [Ventolin HFA Inhaler -] Bupropion HCl [Wellbutrin Xl -] 150 mg PO DAILY 02/11/19 Losartan Potassium 25 mg PO DAILY 02/11/19 Pravastatin Sodium 10 mg PO DAILY 02/11/19 Furosemide [Lasix] 40 mg PO BID #60 tablet 05/27/19 Amlodipine Besylate [Norvasc -] 5 mg PO DAILY 08/16/19 Metformin HCl [Glucophage] 500 mg PO BID 08/16/19 Ropinirole HCl [Requip -] 0.5 mg PO DAILY 08/16/19 ASSESSMENT/PLAN: Patient is a 44yof with Pmhx of RAINA (on 4L NC, CPAP at night), asthma, depression, HTN, and HLD admitted with shortness of breath likely secondary to CHF decompensation #Acute diatolic CHF Exacerbation : on IV lasix 40mg bid continue Is and Os , daily weight, monitor kidney function #Intertrigo; Nystatin powder to affected areas #RAINA; CPAP at bedtime #Elevated Bilirubin: monitor #Depression: Continue Wellbutrin 150mg daily #HTN: increase losartan to 50mg daily, home amlodipine 5mg #HLD: increase atorvastatin to 40mg to keep LDL below 70 #DM ss scale with coverage # Class 3 obesity : weight loss , lifestyle and sx recommended DVT Px: Lovenox 40mg sq daily
[2019-08-18] MEDS: amLODIPine BESYLATE 5 MG TABLET (FP) PO SCH (10:03)
[2019-08-18] MEDS: ENOXAPARIN NA (PORCINE) 40 MG/0.4 ML DISP.SYRIN SQ SCH (10:03)
[2019-08-18] MEDS: LOSARTAN POTASSIUM 50 MG TABLET (FP) PO SCH (10:04)
[2019-08-18] MEDS: NYSTATIN POWDER 100,000 UNITS/GM - 15 GM TOPICAL POWDER TP SCH (10:04)
[2019-08-18] MEDS: rOPINIRole HCL 0.5 MG TABLET PO SCH (10:05)
--- NOTE | 2019-08-18 11:10 | PN ---
Progress Note, Physician History of Present Illness: The patient is a 44 morbidly obese female, with a significant PMH of RAINA (on home 4L oxygen), asthma (never intubated, hospitalized once), depression, HTN, HLD, who presents to the ED for evaluation of edema for 2 days. Patient notes she has bilateral lower extremity edema at baseline, but notes it has become significantly worse over the past couple days. She feels as if she is retaining more fluid in her legs and abdomen than typical, despite the fact that she is on Lasix daily. Patient notes it is painful for her to walk secondary to her edema, and her stomach feels harder than usual. She additionally reports ~20pd weight gain at this time. Patient endorses associated SOB (despite being on 4L of home O2), wheezing, and dyspnea on exertion. Allergies: NKA, NKDA Surgical History: None reported Social History: Denies EtOH, tobacco, or illicit drug use PCP: Dr. [place] Dispatch Supervisor: Dr. Jackson Pulmonology: Dr. Alas - Current Medication List Current Medications: Active Medications Albuterol Sulfate (Ventolin 0.083% Nebulizer Soln -) 1 amp NEB Q4H PRN PRN Reason: SHORT OF BREATH/WHEEZING Albuterol/Ipratropium (Duoneb -) 1 amp NEB RQID [facility] Last Admin: 08/17/19 20:25 Dose: 1 amp Amlodipine Besylate (Norvasc -) 5 mg PO DAILY [facility] Last Admin: 08/18/19 10:03 Dose: 5 mg Atorvastatin Calcium (Lipitor -) 40 mg PO HS [facility] Last Admin: 08/17/19 21:01 Dose: 40 mg Bupropion HCl (Wellbutrin Xl -) 150 mg PO DAILY [facility] Last Admin: 08/18/19 10:03 Dose: 150 mg Enoxaparin Sodium (Lovenox -) 40 mg SQ DAILY [facility] Last Admin: 08/18/19 10:03 Dose: 40 mg Furosemide (Lasix Injection -) 40 mg IVPUSH BID@0600,1400 [facility] Last Admin: 08/18/19 06:46 Dose: 40 mg Insulin Aspart (Novolog Vial Sliding Scale -) 1 vial SQ ACHS [facility]; Protocol Last Admin: 08/18/19 06:50 Dose: Not Given Losartan Potassium (Cozaar -) 50 mg PO DAILY [facility] Last Admin: 08/18/19 10:04 Dose: 50 mg Nystatin (Nystop Powder -) 1 applic TP DAILY [facility] Last Admin: 08/18/19 10:04 Dose: 1 applic Ropinirole HCl (Requip -) 0.5 mg PO DAILY [facility] Last Admin: 08/18/19 10:05 Dose: 0.5 mg - Objective Vital Signs: Vital Signs Temperature 97.5 F L 08/18/19 06:00 Pulse Rate 66 08/18/19 06:00 Respiratory Rate 20 08/18/19 06:00 Blood Pressure 147/71 08/18/19 06:00 O2 Sat by Pulse Oximetry (%) 95 08/17/19 21:00 Eyes: Yes: WNL, Conjunctiva Clear, EOM Intact HENT: Yes: WNL, Atraumatic, Normocephalic Neck: Yes: WNL, Supple, Trachea Midline Cardiovascular: Yes: WNL, Regular Rate and Rhythm Respiratory: Yes: WNL, Regular, CTA Bilaterally Gastrointestinal: Yes: WNL, Normal Bowel Sounds Genitourinary: Yes: WNL Musculoskeletal: Yes: WNL Extremities: Yes: WNL Edema: Yes Integumentary: Yes: WNL Neurological: Yes: WNL, Alert, Oriented ...Motor Strength: WNL Psychiatric: Yes: WNL Labs: CBC, BMP 08/18/19 06:04 08/18/19 06:04 Assessment/Plan - Problems (1) [place] cardiac risk >20% in next 10 years Assessment/Plan: Pt does not remember ever having a stress test or coronary angiogram. Her weight makes it difficult to have either of the above tests at the present time. Mother had CHF. Pt never smoked; no hx cocaine; No hx alcoholism. Code(s): Z91.89 - [facility] PERSONAL RISK FACTORS, NOT ELSEWHERE CLASSIFIED (2) Acute on chronic diastolic (congestive) heart failure Assessment/Plan: On losartan, amlodipine, and furosemide. Morbid obesity is the prime factor, and BP control is also important in control of her CHF. F/u BUN/Cr, electrolytes, daily weight, Is and Os. Code(s): I50.33 - ACUTE ON CHRONIC DIASTOLIC (CONGESTIVE) HEART FAILURE (3) Intertrigo Code(s): L30.4 - ERYTHEMA INTERTRIGO (4) Acute on chronic respiratory failure with hypoxemia Code(s): J96.21 - ACUTE AND CHRONIC RESPIRATORY FAILURE WITH HYPOXIA (5) Hypercholesterolemia Assessment/Plan: LDL 138 mg/dL; now on atorvastatin 40 mg daily. Information Assurance Analyst for help with diet modification, weight loss. Code(s): E78.00 - PURE HYPERCHOLESTEROLEMIA, UNSPECIFIED (6) RAINA (obstructive sleep apnea) Code(s): G47.33 - OBSTRUCTIVE SLEEP APNEA (ADULT) (PEDIATRIC) (7) Asthma Code(s): J45.909 - UNSPECIFIED ASTHMA, UNCOMPLICATED (8) HTN (hypertension) Assessment/Plan: Increase losartan to 50 mg daily. On IV furosemide. Dietary consult ordered. Code(s): I10 - ESSENTIAL (PRIMARY) HYPERTENSION (9) Morbid (severe) obesity with alveolar hypoventilation Assessment/Plan: Pt says she has thought of having gastric bypass surgery, but is afraid because she is at high risk "and I might not make it off the table". The risks in continuing to have the weight she is at presently were discussed. At 19 yrs old, she weighed about 150 lbs; weight went up after of her 2nd child, at age 24. At home now, she says the family tends to order fast food, and she eats it with them. Nutrition/dietary consult has been ordered. Code(s): E66.2 - MORBID (SEVERE) OBESITY WITH ALVEOLAR HYPOVENTILATION (10) Cellulitis Code(s): L03.90 - CELLULITIS, UNSPECIFIED
--- NOTE | 2019-08-18 11:33 | PN ---
Physical Exam: SUBJECTIVE: Patient seen and examined at the bedside. Stated that her breathing was somewhat improved. Stated that she continues to have swelling in her legs and had some pain in her left arm. Endorsed good appetite. Denied cp, abd pain, n/v/c/d, headaches, dizziness, lightheadedness, fever, chills. OBJECTIVE: Vital Signs Period Temp Pulse Resp BP Sys/Quan Pulse Ox Last 24 Hr 97.5 F-98.6 F 66-77 20-20 141-153/63-78 95-95 GENERAL: The patient is awake, alert, and fully oriented, in no acute distress. EYES: PERRL, extraocular movements intact, conjunctiva clear. ENT: Oropharynx clear without exudates, moist mucous membranes. LUNGS: Breath sounds difficult to auscultate due to body habitus. Unable to appreciate good breath sounds, but wheezes auscultated. HEART: Regular rate and rhythm, S1, S2. Unable to appreciate murmurs. ABDOMEN: Soft, obese, nontender, normoactive bowel sounds, no guarding, no rebound. EXTREMITIES: Significant chronic lymphedema and pitting edema 2+ noted. NEUROLOGICAL: Cranial nerves II through XII grossly intact. 5/5 muscle strength bilaterally upper and lower extremities. PSYCH: Normal mood, normal affect. Laboratory Results - last 24 hr 08/17/19 08/17/19 08/18/19 16:24 20:48 06:04 WBC 6.4 RBC 6.18 H Hgb 14.2 Hct 46.8 H MCV 75.7 L MCH 22.9 L MCHC 30.3 L RDW 23.1 H Plt Count 266 MPV 8.4 Absolute Neuts (auto) 4.7 Neutrophils % 73.1 Lymphocytes % 16.3 Monocytes % 7.4 Eosinophils % 2.5 Basophils % 0.7 Nucleated RBC % 0 Sodium Potassium Chloride Carbon Dioxide Anion Gap BUN Creatinine Est GFR (CKD-EPI)AfAm Est GFR (CKD-EPI)NonAf POC Glucometer 215 155 Random Glucose Calcium Magnesium Total Bilirubin AST ALT Alkaline Phosphatase Total Protein Albumin 08/18/19 08/18/19 06:04 06:49 WBC RBC Hgb Hct MCV MCH MCHC RDW Plt Count MPV Absolute Neuts (auto) Neutrophils % Lymphocytes % Monocytes % Eosinophils % Basophils % Nucleated RBC % Sodium 140 Potassium 3.7 Chloride 95 L Carbon Dioxide 44 H Anion Gap 2 L BUN 12.0 Creatinine 0.6 Est GFR (CKD-EPI)AfAm 127.58 Est GFR (CKD-EPI)NonAf 110.08 POC Glucometer 94 Random Glucose 100 Calcium 8.3 L Magnesium 2.0 Total Bilirubin 1.6 H AST 10 L ALT 14 Alkaline Phosphatase 68 Total Protein 6.7 Albumin 3.0 L Active Medications Generic Name Dose Route Start Last Admin Trade Name Freq PRN Reason Stop Dose Admin Albuterol Sulfate 1 amp 08/17/19 11:10 Ventolin 0.083% Nebulizer Soln - NEB Q4H PRN SHORT OF BREATH/WHEEZING Albuterol/Ipratropium 1 amp 08/17/19 12:00 08/17/19 20:25 Duoneb - NEB 1 amp RQID [facility] Administration Amlodipine Besylate 5 mg 08/18/19 10:00 08/18/19 10:03 Norvasc - PO 5 mg DAILY [facility] Administration Atorvastatin Calcium 40 mg 08/17/19 22:00 08/17/19 21:01 Lipitor - PO 40 mg HS [facility] Administration Bupropion HCl 150 mg 08/17/19 10:00 08/18/19 10:03 Wellbutrin Xl - PO 150 mg DAILY [facility] Administration Enoxaparin Sodium 40 mg 08/17/19 10:00 08/18/19 10:03 Lovenox - SQ 40 mg DAILY [facility] Administration Furosemide 40 mg 08/17/19 06:00 08/18/19 06:46 Lasix Injection - IVPUSH 40 mg BID@0600,1400 [facility] Administration Insulin Aspart 1 vial 08/17/19 16:30 08/18/19 06:50 Novolog Vial Sliding Scale - SQ Not Given ACHS [facility] Protocol Losartan Potassium 50 mg 08/18/19 10:00 08/18/19 10:04 Cozaar - PO 50 mg DAILY [facility] Administration Nystatin 1 applic 08/16/19 14:30 08/18/19 10:04 Nystop Powder - TP 1 applic DAILY [facility] Administration Ropinirole HCl 0.5 mg 08/18/19 10:00 08/18/19 10:05 Requip - PO 0.5 mg DAILY [facility] Administration ASSESSMENT/PLAN: Mary Lou Ward is a 44 year old female with past medical history of RAINA (on 4L NC , CPAP at night), asthma, depression, HTN, and HLD admitted with shortness of breath likely secondary to CHF decompensation CHF Decompensation - likely in the setting of high salt diet and increase fluid intake - CXR with noted increased congestive changes - increased IV Lasix 60mg bid - echo from 01/2019 with normal LV, EF 60-65% - Echo EF 55-60%, LV size thickness function normal, RV normal, trace tricuspid regurg - Cardiology consulted, recs appreciated - pulmonology consulted, recs appreciated - Supplemental O2 to keep SpO2 >90% - duonesarbjit prn - I&O, daily weights Intertrigo - Nystatin powder to affected areas RAINA - CPAP at bedtime Elevated Bilirubin - no abdominal symptoms - bilirubin 1.6, direct 0.3 - previous abd U/S (02/06) noting hepatomegaly with fatty infiltration vs hepatocellular disease - no elevation of liver enzymes, continue to monitor Depression - Continue Wellbutrin 150mg daily HTN - increase losartan to 50mg daily - continue home amlodipine 5mg HLD - increase atorvastatin to 40mg to keep LDL below 70 DM - BGM - ISS - A1c 6.7 FEN - no standing fluids, 1L fluid restriction - continue to monitor electrolytes and replete as necessary - Sodium restricted diet Prophylaxis - Lovenox 40mg sq daily Disposition - continue to monitor on Med-surg Visit type - Emergency Visit Emergency Visit: Yes ED Registration Date: 08/16/19 Care time: The patient presented to the Emergency Department on the above date and was hospitalized for further evaluation of their emergent condition. - New Patient This patient is new to me today: No - Critical Care Critical Care patient: No
--- NOTE | 2019-08-18 14:40 | PN ---
Progress Note (short form) - Note Progress Note: PULMONARY OOB TO CHAIR SPEAKING ON PHONE APPEARS STABLE VSS/AFEBRILE Constitutional: Yes: Calm Eyes: Yes: Conjunctiva Clear, EOM Intact HENT: Yes: Atraumatic, Normocephalic Neck: Yes: Supple, Trachea Midline Cardiovascular: Yes: Regular Rate and Rhythm Respiratory: Yes: Diminished (decreased breath sounds at the bases) ...Clubbing: No Gastrointestinal: Yes: Normal Bowel Sounds, Soft, Abdomen, Obese. No: Tenderness Edema: Yes Labs: NOTED Chest X-ray: Report Reviewed, Image Reviewed (pulmonary vascular congestion) Acute on Chronic Diastolic Heart Failure Volume Overload Chronic Hypoxic Respiratory Failure Morbid Obesity Obstructive Sleep Apnea Asthma HTN Hyperlipidemia - IV lasix - monitor urine output, creatinine - daily weights - O2 to keep Spo2 >90% - inhaled bronchodilators - CPAP at night - can defer systemic steroids at this time - DVT prophylaxis Leah GALLEGO MD
[2019-08-18] MEDS: ACETAMINOPHEN 325 MG TABLET (FP) PO PRN (17:13)
[2019-08-18] MEDS: ATORVASTATIN CA 10 MG TABLET (FP) PO SCH (21:33)
[2019-08-19] MEDS: INSULIN SLIDING SCALE (NOVOLOG) 1 VIAL SQ SCH ×4 (06:05→22:22)
[2019-08-19] MEDS: FUROSEMIDE 40 MG/4 ML INJECTABLE VIAL IVPUSH SCH ×2 (06:07→13:42)
[2019-08-19] MEDS: ALBUTEROL SO4 2.5/IPRATROPIUM 0.5 INH SOL 3 ML VIAL.NEB. NEB SCH ×4 (07:50→20:32)
[2019-08-19] MEDS: ENOXAPARIN NA (PORCINE) 40 MG/0.4 ML DISP.SYRIN SQ SCH (09:31)
[2019-08-19] MEDS: LOSARTAN POTASSIUM 50 MG TABLET (FP) PO SCH (10:00)
[2019-08-19] MEDS: amLODIPine BESYLATE 5 MG TABLET (FP) PO SCH (10:00)
[2019-08-19] MEDS: NYSTATIN POWDER 100,000 UNITS/GM - 15 GM TOPICAL POWDER TP SCH (10:01)
[2019-08-19] MEDS: rOPINIRole HCL 0.5 MG TABLET PO SCH (10:04)
[2019-08-19] MEDS: ACETAMINOPHEN 325 MG TABLET (FP) PO PRN ×2 (10:15→20:53)
--- NOTE | 2019-08-19 12:11 | PN ---
Progress Note (short form) - Note Progress Note: OOB to chair. Reports nasal congestion. Breathing feels a little better today. Did not use NIPPV overnight as she felt claustrophobic with the mask. Intake & Output 08/16/19 08/17/19 08/18/19 08/19/19 23:59 23:59 23:59 23:59 Intake Total 1700 1760 Output Total 3300 1000 Balance 1700 -1540 -1000 Weight 486 lb 487 lb 482 lb 478 lb 1 oz Last Vital Signs Temp Pulse Resp BP Pulse Ox 98.5 F 65 20 130/68 94 L 08/19/19 05:50 08/19/19 05:50 08/19/19 05:50 08/19/19 05:50 08/19/19 09:03 Active Medications Acetaminophen (Tylenol -) 650 mg PO Q6H PRN PRN Reason: HEADACHE Last Admin: 08/18/19 17:13 Dose: 650 mg Albuterol Sulfate (Ventolin 0.083% Nebulizer Soln -) 1 amp NEB Q4H PRN PRN Reason: SHORT OF BREATH/WHEEZING Albuterol/Ipratropium (Duoneb -) 1 amp NEB RQID [facility] Last Admin: 08/19/19 07:50 Dose: 1 amp Amlodipine Besylate (Norvasc -) 5 mg PO DAILY [facility] Last Admin: 08/18/19 10:03 Dose: 5 mg Atorvastatin Calcium (Lipitor -) 40 mg PO HS [facility] Last Admin: 08/18/19 21:33 Dose: 40 mg Bupropion HCl (Wellbutrin Xl -) 150 mg PO DAILY [facility] Last Admin: 08/18/19 10:03 Dose: 150 mg Enoxaparin Sodium (Lovenox -) 40 mg SQ DAILY [facility] Last Admin: 08/19/19 09:31 Dose: 40 mg Fluticasone Propionate (Flonase -) 2 spray NS DAILY [facility] Furosemide (Lasix Injection -) 60 mg IVPUSH BID@0600,1400 [facility] Last Admin: 08/19/19 06:07 Dose: 60 mg Insulin Aspart (Novolog Vial Sliding Scale -) 1 vial SQ ACHS [facility]; Protocol Last Admin: 08/19/19 06:05 Dose: Not Given Losartan Potassium (Cozaar -) 50 mg PO DAILY [facility] Last Admin: 08/18/19 10:04 Dose: 50 mg Nystatin (Nystop Powder -) 1 applic TP DAILY [facility] Last Admin: 08/18/19 10:04 Dose: 1 applic Ropinirole HCl (Requip -) 0.5 mg PO DAILY [facility] Last Admin: 08/18/19 10:05 Dose: 0.5 mg Constitutional: Yes: NAD Eyes: Yes: Conjunctiva Clear, EOM Intact HENT: Yes: Atraumatic, Normocephalic Neck: Yes: Supple, Trachea Midline Cardiovascular: Yes: Regular Rate and Rhythm Respiratory: Yes: Diminished (decreased breath sounds at the bases) ...Clubbing: No Gastrointestinal: Yes: Normal Bowel Sounds, Soft, Abdomen, Obese. No: Tenderness Edema: Yes Labs: Laboratory Results - last 24 hr 08/18/19 08/18/19 08/18/19 12:17 16:59 21:36 POC Glucometer 109 114 123 08/19/19 08/19/19 06:04 11:28 POC Glucometer 97 125 Assessment/Plan Acute on Chronic Diastolic Heart Failure Volume Overload Chronic Hypoxic Respiratory Failure Morbid Obesity Obstructive Sleep Apnea Asthma HTN Hyperlipidemia - IV lasix - monitor urine output, creatinine - daily weights - O2 to keep Spo2 >90% - inhaled bronchodilators - NIPPV QHS if willing - defer systemic steroids at this time - DVT prophylaxis Dr Carreno
[2019-08-19] MEDS: FLUTICASONE PROP 0.05% 16 GM NASAL SPRAY NS SCH (17:00)
--- NOTE | 2019-08-19 21:02 | PN ---
Progress Note (short form) - Note Progress Note: Patient is c/o having infection of her left toes. Vital Signs Temperature 97.6 F 08/19/19 18:00 Pulse Rate 67 08/19/19 18:00 Respiratory Rate 22 H 08/19/19 18:00 Blood Pressure 152/75 08/19/19 18:00 O2 Sat by Pulse Oximetry (%) 94 L 08/19/19 09:03 GENERAL: The patient is awake, alert, and fully oriented, in no acute distress. HEAD: Normal with no signs of trauma. EYES: PERRL, extraocular movements intact, sclera anicteric, conjunctiva clear. ENT: Ears normal, oropharynx clear without exudates, moist mucous membranes. NECK: Trachea midline, full range of motion, supple. LUNGS: decreased Breath sounds BL, no wheezes, no crackles, no accessory muscle use. HEART: Regular rate and rhythm, S1, S2 without murmur, rub or gallop. ABDOMEN: Soft, nontender, nondistended, normoactive bowel sounds, no guarding, no rebound, no hepatosplenomegaly, no masses. EXTREMITIES: 2+ pulses, warm, well-perfused, 2+ edema. fungaus nails and cellulitis of her toes. NEUROLOGICAL: Cranial nerves II through XII grossly intact. Normal speech, gait not observed. PSYCH: Normal mood, normal affect. SKIN: Warm, dry, normal turgor, no rashes or lesions noted CBCD WBC 6.4 K/mm3 (4.0-10.0) 08/18/19 06:04 RBC 6.18 M/mm3 (3.60-5.2) H 08/18/19 06:04 Hgb 14.2 GM/dL (10.7-15.3) 08/18/19 06:04 Hct 46.8 % (32.4-45.2) H 08/18/19 06:04 MCV 75.7 fl (80-96) L 08/18/19 06:04 MCHC 30.3 g/dl (32.0-36.0) L 08/18/19 06:04 RDW 23.1 % (11.6-15.6) H 08/18/19 06:04 Plt Count 266 K/MM3 (134-434) 08/18/19 06:04 MPV 8.4 fl (7.5-11.1) 08/18/19 06:04 CMP Sodium 140 mmol/L (136-145) 08/18/19 06:04 Potassium 3.7 mmol/L (3.5-5.1) 08/18/19 06:04 Chloride 95 mmol/L (98-107) L 08/18/19 06:04 Carbon Dioxide 44 mmol/L (21-32) H 08/18/19 06:04 Anion Gap 2 MMOL/L (8-16) L 08/18/19 06:04 BUN 12.0 mg/dL (7-18) 08/18/19 06:04 Creatinine 0.6 mg/dL (0.55-1.3) 08/18/19 06:04 Random Glucose 100 mg/dL (74-106) 08/18/19 06:04 Calcium 8.3 mg/dL (8.5-10.1) L 08/18/19 06:04 Total Bilirubin 1.6 mg/dL (0.2-1) H 08/18/19 06:04 AST 10 U/L (15-37) L 08/18/19 06:04 ALT 14 U/L (13-61) 08/18/19 06:04 Alkaline Phosphatase 68 U/L (45-117) 08/18/19 06:04 Total Protein 6.7 g/dl (6.4-8.2) 08/18/19 06:04 Albumin 3.0 g/dl (3.4-5.0) L 08/18/19 06:04 Current Medications Generic Name Dose Route Start Last Admin Trade Name Breezyq PRN Reason Stop Dose Admin Acetaminophen 650 mg 08/18/19 16:54 08/19/19 20:53 Tylenol - PO 650 mg Q6H PRN Administration HEADACHE Albuterol Sulfate 1 amp 08/17/19 11:10 Ventolin 0.083% Nebulizer Soln - NEB Q4H PRN SHORT OF BREATH/WHEEZING Albuterol/Ipratropium 1 amp 08/17/19 12:00 08/19/19 20:32 Duoneb - NEB 1 amp RQID [facility] Administration Amlodipine Besylate 5 mg 08/18/19 10:00 08/19/19 10:00 Norvasc - PO 5 mg DAILY [facility] Administration Atorvastatin Calcium 40 mg 08/17/19 22:00 08/18/19 21:33 Lipitor - PO 40 mg HS [facility] Administration Bupropion HCl 150 mg 08/17/19 10:00 08/19/19 10:04 Wellbutrin Xl - PO 150 mg DAILY [facility] Administration Enoxaparin Sodium 40 mg 08/17/19 10:00 08/19/19 09:31 Lovenox - SQ 40 mg DAILY [facility] Administration Fluticasone Propionate 2 spray 08/19/19 12:15 08/19/19 17:00 Flonase - NS 2 sprays DAILY [facility] Administration Furosemide 60 mg 08/18/19 11:34 08/19/19 13:42 Lasix Injection - IVPUSH 60 mg BID@0600,1400 [facility] Administration Insulin Aspart 1 vial 08/17/19 16:30 08/19/19 18:48 Novolog Vial Sliding Scale - SQ Not Given ACHS [facility] Protocol Losartan Potassium 50 mg 08/18/19 10:00 08/19/19 10:00 Cozaar - PO 50 mg DAILY [facility] Administration Nystatin 1 applic 08/16/19 14:30 08/19/19 10:01 Nystop Powder - TP 1 applic DAILY [facility] Administration Ropinirole HCl 0.5 mg 08/18/19 10:00 08/19/19 10:04 Requip - PO 0.5 mg DAILY [facility] Administration Home Medications Medication Instructions Recorded Albuterol Sulfate Inhaler - 1 puff PRN 02/11/19 [Ventolin HFA Inhaler -] Bupropion HCl [Wellbutrin Xl -] 150 mg PO DAILY 02/11/19 Losartan Potassium 25 mg PO DAILY 02/11/19 Pravastatin Sodium 10 mg PO DAILY 02/11/19 Furosemide [Lasix] 40 mg PO BID #60 tablet 05/27/19 Amlodipine Besylate [Norvasc -] 5 mg PO DAILY 08/16/19 Metformin HCl [Glucophage] 500 mg PO BID 08/16/19 Ropinirole HCl [Requip -] 0.5 mg PO DAILY 08/16/19 ASSESSMENT/PLAN: Mary Lou Ward is a 44 year old female with past medical history of RAINA (on 4L NC , CPAP at night), asthma, depression, HTN, and HLD admitted with shortness of breath likely secondary to CHF decompensation #Acute D. CHF Decompensation on IV lasix , improving but slowly #Intertrigo; Nystatin powder to affected areas #RAINA: CPAP at bedtime hs #Elevated Bilirubin; monitor #Depression: Continue Wellbutrin 150mg daily #HTN: increase losartan to 50mg daily, home amlodipine 5mg #HLD: increase atorvastatin to 40mg to keep LDL below 70 #DM ss scale with coverage #Class III Obesity: discussed the surgical options with the patient as per patient , she was told that she needs to loose weight prior to any surgeries. # Cellulitis of her toes of left : podiatry consult , started onIV antx, id consult Prophylaxis: Lovenox 40mg Visit type - Emergency Visit Emergency Visit: Yes ED Registration Date: 08/16/19 Care time: The patient presented to the Emergency Department on the above date and was hospitalized for further evaluation of their emergent condition. - New Patient This patient is new to me today: No - Critical Care Critical Care patient: No - Discharge Referral Referred to [facility] Med P.C.: No
[2019-08-19] MEDS ORDERED: DEXTROSE 5%-WATER - 50 ML IVPB ONE (21:25)
[2019-08-19] MEDS ORDERED: ceFAZolin SODIUM 1 GM VIAL ONE (21:25)
[2019-08-19] MEDS ORDERED: INSULIN (NOVOLOG) ASPART 100 UNITS/ML 10ML VIAL ONE (21:25)
[2019-08-19] MEDS: ATORVASTATIN CA 10 MG TABLET (FP) PO SCH (22:21)
[2019-08-19] MEDS: CEFAZOLIN 1 GM in DEXTROSE 5%-WATER - 50 ML IVPB SCH (22:21)
[2019-08-20] MEDS ORDERED: ceFAZolin SODIUM 1 GM VIAL ONE ×3 (02:29→16:57)
[2019-08-20] MEDS ORDERED: DEXTROSE 5%-WATER - 50 ML IVPB ONE ×3 (02:29→16:57)
[2019-08-20] MEDS: CEFAZOLIN 1 GM in DEXTROSE 5%-WATER - 50 ML IVPB SCH ×3 (03:26→17:42)
[2019-08-20] MEDS: ALBUTEROL SO4 0.083% IH SOL 2.5 MG/3 ML VIAL.NEB. NEB PRN (04:20)
[2019-08-20] MEDS: FUROSEMIDE 40 MG/4 ML INJECTABLE VIAL IVPUSH SCH ×2 (06:33→14:02)
[2019-08-20] MEDS: INSULIN SLIDING SCALE (NOVOLOG) 1 VIAL SQ SCH ×4 (06:33→21:32)
[2019-08-20 08:33] LABS: ALBUMIN 3.4 g/dl (3.4-5.0); BILIRUBIN,TOTAL 1.3 mg/dL (0.2-1); BLOOD UREA NITROGEN 13.5 mg/dL (7-18); CALCIUM 8.5 mg/dL (8.5-10.1); CREATININE 0.7 mg/dL (0.55-1.3); PHOSPHOROUS 2.9 mg/dL (2.5-4.9); POTASSIUM 3.8 mmol/L (3.5-5.1); TOT PROT 7.3 g/dl (6.4-8.2)
[2019-08-20] MEDS: ALBUTEROL SO4 2.5/IPRATROPIUM 0.5 INH SOL 3 ML VIAL.NEB. NEB SCH ×4 (08:35→20:14)
[2019-08-20 09:31] LABS: BASO % 1.3 % (0-2.0); EOS % 1.7 % (0-4.5); HEMATOCRIT 48.8 % (32.4-45.2); HEMOGLOBIN 14.5 GM/dL (10.7-15.3); MCH 22.8 pg (25.7-33.7); MCHC 29.8 g/dl (32.0-36.0); MEAN CELL VOLUME 76.5 fl (80-96); MEAN PLT VOLUME 8.9 fl (7.5-11.1); MONO % 8.7 % (3.8-10.2); NEUT % 76.3 % (42.8-82.8); PLATELET COUNT 283 K/MM3 (134-434); RBC 6.38 M/mm3 (3.60-5.2); RDW 22.8 % (11.6-15.6); WHITE BLOOD COUNT 8.3 K/mm3 (4.0-10.0)
[2019-08-20] MEDS: amLODIPine BESYLATE 5 MG TABLET (FP) PO SCH (09:49)
[2019-08-20] MEDS: NYSTATIN POWDER 100,000 UNITS/GM - 15 GM TOPICAL POWDER TP SCH ×2 (09:49→21:22)
[2019-08-20] MEDS: ENOXAPARIN NA (PORCINE) 40 MG/0.4 ML DISP.SYRIN SQ SCH (09:49)
[2019-08-20] MEDS: rOPINIRole HCL 0.5 MG TABLET PO SCH (09:49)
[2019-08-20] MEDS: LOSARTAN POTASSIUM 50 MG TABLET (FP) PO SCH (09:49)
[2019-08-20] MEDS: FLUTICASONE PROP 0.05% 16 GM NASAL SPRAY NS SCH (09:49)
--- NOTE | 2019-08-20 12:21 | PN ---
Progress Note (short form) - Note Progress Note: OOB to chair. Still with nasal congestion. Breathing feels a little better today. Did not use NIPPV overnight as she felt claustrophobic with the mask. Intake & Output 08/17/19 08/18/19 08/19/19 08/20/19 23:59 23:59 23:59 23:59 Intake Total 1700 1760 Output Total 3300 84144 600 Balance 1700 -1540 -28392 -600 Weight 487 lb 482 lb 478 lb 1 oz 477 lb 1 oz Last Vital Signs Temp Pulse Resp BP Pulse Ox 97.6 F 75 22 H 127/67 94 L 08/20/19 05:57 08/20/19 05:57 08/20/19 05:57 08/20/19 05:57 08/19/19 21:00 Active Medications Acetaminophen (Tylenol -) 650 mg PO Q6H PRN PRN Reason: HEADACHE Last Admin: 08/19/19 20:53 Dose: 650 mg Albuterol Sulfate (Ventolin 0.083% Nebulizer Soln -) 1 amp NEB Q4H PRN PRN Reason: SHORT OF BREATH/WHEEZING Last Admin: 08/20/19 04:20 Dose: 1 amp Albuterol/Ipratropium (Duoneb -) 1 amp NEB RQID [facility] Last Admin: 08/20/19 08:35 Dose: 1 amp Amlodipine Besylate (Norvasc -) 5 mg PO DAILY [facility] Last Admin: 08/20/19 09:49 Dose: 5 mg Atorvastatin Calcium (Lipitor -) 40 mg PO HS [facility] Last Admin: 08/19/19 22:21 Dose: 40 mg Bupropion HCl (Wellbutrin Xl -) 150 mg PO DAILY [facility] Last Admin: 08/20/19 09:50 Dose: 150 mg Enoxaparin Sodium (Lovenox -) 40 mg SQ DAILY [facility] Last Admin: 08/20/19 09:49 Dose: 40 mg Fluticasone Propionate (Flonase -) 2 spray NS DAILY [facility] Last Admin: 08/20/19 09:49 Dose: 2 sprays Furosemide (Lasix Injection -) 60 mg IVPUSH BID@0600,1400 [facility] Last Admin: 08/20/19 06:33 Dose: 60 mg Cefazolin Sodium 1 gm/ (Dextrose) 50 mls @ 100 mls/hr IVPB Q8H-IV [facility] Last Admin: 08/20/19 09:48 Dose: 100 mls/hr Insulin Aspart (Novolog Vial Sliding Scale -) 1 vial SQ ACHS [facility]; Protocol Last Admin: 08/20/19 06:33 Dose: Not Given Losartan Potassium (Cozaar -) 50 mg PO DAILY [facility] Last Admin: 08/20/19 09:49 Dose: 50 mg Nystatin (Nystop Powder -) 1 applic TP DAILY [facility] Last Admin: 08/20/19 09:49 Dose: 1 applic Ropinirole HCl (Requip -) 0.5 mg PO DAILY [facility] Last Admin: 08/20/19 09:49 Dose: 0.5 mg Constitutional: Yes: NAD Eyes: Yes: Conjunctiva Clear, EOM Intact HENT: Yes: Atraumatic, Normocephalic Neck: Yes: Supple, Trachea Midline Cardiovascular: Yes: Regular Rate and Rhythm Respiratory: Yes: Diminished (decreased breath sounds at the bases) ...Clubbing: No Gastrointestinal: Yes: Normal Bowel Sounds, Soft, Abdomen, Obese. No: Tenderness Edema: Yes Labs: Laboratory Results - last 24 hr 08/19/19 08/19/19 08/20/19 16:20 22:18 06:32 WBC RBC Hgb Hct MCV MCH MCHC RDW Plt Count MPV Absolute Neuts (auto) Neutrophils % Lymphocytes % Monocytes % Eosinophils % Basophils % Nucleated RBC % Sodium Potassium Chloride Carbon Dioxide Anion Gap BUN Creatinine Est GFR (CKD-EPI)AfAm Est GFR (CKD-EPI)NonAf POC Glucometer 152 167 109 Random Glucose Calcium Phosphorus Magnesium Total Bilirubin AST ALT Alkaline Phosphatase Total Protein Albumin 08/20/19 08/20/19 08/20/19 07:44 07:44 11:54 WBC 8.3 RBC 6.38 H Hgb 14.5 Hct 48.8 H MCV 76.5 L MCH 22.8 L MCHC 29.8 L RDW 22.8 H Plt Count 283 MPV 8.9 Absolute Neuts (auto) 6.4 Neutrophils % 76.3 Lymphocytes % 12.0 D Monocytes % 8.7 Eosinophils % 1.7 Basophils % 1.3 Nucleated RBC % 0 Sodium 135 L Potassium 3.8 Chloride 94 L Carbon Dioxide 40 H Anion Gap 1 L BUN 13.5 Creatinine 0.7 Est GFR (CKD-EPI)AfAm 121.27 Est GFR (CKD-EPI)NonAf 104.64 POC Glucometer 112 Random Glucose 114 H Calcium 8.5 Phosphorus 2.9 Magnesium 2.0 Total Bilirubin 1.3 H AST 12 L ALT 19 Alkaline Phosphatase 72 Total Protein 7.3 Albumin 3.4 Assessment/Plan Acute on Chronic Diastolic Heart Failure Volume Overload Chronic Hypoxic Respiratory Failure Morbid Obesity Obstructive Sleep Apnea Asthma HTN Hyperlipidemia - IV lasix - monitor urine output, creatinine - daily weights - O2 to keep Spo2 >90% - inhaled bronchodilators - NIPPV QHS if willing - defer systemic steroids at this time - DVT prophylaxis Dr Carreno
--- NOTE | 2019-08-20 12:25 | PN ---
Progress Note (short form) - Note Progress Note: ID CONSULT DICTATED ?CELLULITIS FEET BILAT ? TINEA PEDIS CONTINUE EMPIRIC CEFAZOLIN TOPICAL ANTIFUNGAL
[2019-08-20] MEDS ORDERED: PT OWN MED DRAWER 7, Y5N ONE (14:04)
--- NOTE | 2019-08-20 14:20 | PN ---
Physical Exam: SUBJECTIVE: Patient seen and examined. She reports bottom of her feet feel hard and are uncomfortable. She also reports increased pain from rash under pannus on right side. OBJECTIVE: Vital Signs Period Temp Pulse Resp BP Sys/Quan Pulse Ox Last 24 Hr 97.5 F-98.2 F 67-80 22-24 127-155/67-92 94-95 GENERAL: The patient is awake, alert, and fully oriented, in no acute distress. Sitting in chair. Morbidly obese. HEAD: Normal with no signs of trauma. EYES: PERRL, extraocular movements intact, conjunctiva clear. ENT: Ears normal, nares patent, moist mucous membranes. NECK: Trachea midline, full range of motion. LUNGS: Clear to auscultation bilaterally anteriorly HEART: Regular rate and rhythm, S1, S2 without murmur, rub or gallop. ABDOMEN: Obese, normoactive bowel sounds, erythematous rash under right pannus, no active drainage noted. EXTREMITIES: B/l lower extremity +1 edema with onychomycosis and dry heels, erythema noted distally b/l feet and toes with blisters forming on dorsal surface of right foot NEUROLOGICAL: Normal speech, able to stand independently. PSYCH: Normal mood, normal affect. SKIN: see above Laboratory Results - last 24 hr 08/19/19 08/19/19 08/20/19 16:20 22:18 06:32 WBC RBC Hgb Hct MCV MCH MCHC RDW Plt Count MPV Absolute Neuts (auto) Neutrophils % Lymphocytes % Monocytes % Eosinophils % Basophils % Nucleated RBC % Sodium Potassium Chloride Carbon Dioxide Anion Gap BUN Creatinine Est GFR (CKD-EPI)AfAm Est GFR (CKD-EPI)NonAf POC Glucometer 152 167 109 Random Glucose Calcium Phosphorus Magnesium Total Bilirubin AST ALT Alkaline Phosphatase Total Protein Albumin 08/20/19 08/20/19 08/20/19 07:44 07:44 11:54 WBC 8.3 RBC 6.38 H Hgb 14.5 Hct 48.8 H MCV 76.5 L MCH 22.8 L MCHC 29.8 L RDW 22.8 H Plt Count 283 MPV 8.9 Absolute Neuts (auto) 6.4 Neutrophils % 76.3 Lymphocytes % 12.0 D Monocytes % 8.7 Eosinophils % 1.7 Basophils % 1.3 Nucleated RBC % 0 Sodium 135 L Potassium 3.8 Chloride 94 L Carbon Dioxide 40 H Anion Gap 1 L BUN 13.5 Creatinine 0.7 Est GFR (CKD-EPI)AfAm 121.27 Est GFR (CKD-EPI)NonAf 104.64 POC Glucometer 112 Random Glucose 114 H Calcium 8.5 Phosphorus 2.9 Magnesium 2.0 Total Bilirubin 1.3 H AST 12 L ALT 19 Alkaline Phosphatase 72 Total Protein 7.3 Albumin 3.4 Active Medications Generic Name Dose Route Start Last Admin Trade Name Freq PRN Reason Stop Dose Admin Acetaminophen 650 mg 08/18/19 16:54 08/19/19 20:53 Tylenol - PO 650 mg Q6H PRN Administration HEADACHE Albuterol Sulfate 1 amp 08/17/19 11:10 08/20/19 04:20 Ventolin 0.083% Nebulizer Soln - NEB 1 amp Q4H PRN Administration SHORT OF BREATH/WHEEZING Albuterol/Ipratropium 1 amp 08/17/19 12:00 08/20/19 11:35 Duoneb - NEB Not Given RQID [facility] Amlodipine Besylate 5 mg 08/18/19 10:00 08/20/19 09:49 Norvasc - PO 5 mg DAILY [facility] Administration Atorvastatin Calcium 40 mg 08/17/19 22:00 08/19/19 22:21 Lipitor - PO 40 mg HS [facility] Administration Bupropion HCl 150 mg 08/17/19 10:00 08/20/19 09:50 Wellbutrin Xl - PO 150 mg DAILY [facility] Administration Emollient Ointment 1 applic 08/20/19 14:00 Aquaphor - TP BID [facility] Enoxaparin Sodium 40 mg 08/17/19 10:00 08/20/19 09:49 Lovenox - SQ 40 mg DAILY [facility] Administration Fluticasone Propionate 2 spray 08/19/19 12:15 08/20/19 09:49 Flonase - NS 2 sprays DAILY [facility] Administration Furosemide 60 mg 08/18/19 11:34 08/20/19 06:33 Lasix Injection - IVPUSH 60 mg BID@0600,1400 [facility] Administration Cefazolin Sodium 1 gm/ 50 mls @ 100 mls/hr 08/19/19 21:15 08/20/19 09:48 Dextrose IVPB 100 mls/hr Q8H-IV [facility] Administration Insulin Aspart 1 vial 08/17/19 16:30 08/20/19 11:30 Novolog Vial Sliding Scale - SQ Not Given ACHS [facility] Protocol Losartan Potassium 50 mg 08/18/19 10:00 08/20/19 09:49 Cozaar - PO 50 mg DAILY [facility] Administration Multi-Ingredient Ointment 1 applic 08/20/19 14:00 Zinc Oxide TP BID [facility] Nystatin 1 applic 08/20/19 22:00 Nystop Powder - TP BID [facility] Ropinirole HCl 0.5 mg 08/18/19 10:00 08/20/19 09:49 Requip - PO 0.5 mg DAILY [facility] Administration ASSESSMENT/PLAN: Pt is a 44 year old female with past medical history of RAINA (on 4L NC, CPAP at night), asthma, depression, HTN, and HLD admitted with shortness of breath likely secondary to CHF decompensation. She now complains of LE discomfort and increased redness. #b/l LE cellulitis -present on both feet, with blisters forming on right foot -Ancef 1g Q8H day 2 -podiatry consulted #intertrigo -increase Nystatin to BID -add zinc oxide BID -Tylenol PRN pain #CHF exacerbation #asthma exacerbation -likely in the setting of high salt diet and increase fluid intake -CXR with noted increased congestive changes -continue IV Lasix 60mg bid -standing and PRN albuterol -output 1520cc yesterday -monitor output and weights -pulm following- defer systemic steroids at this time -cards following #RAINA -CPAP at bedtime if pt tolerates #hyperbilirubinemia, improving 06/26-->1.3 -previous abd U/S (02/06) noting hepatomegaly with fatty infiltration vs hepatocellular disease -monitor #depression -Wellbutrin 150mg daily #HTN -losartan 50mg daily -amlodipine 5mg #HLD -atorvastatin 40mg daily -goal LDL<70 #DM -BGM -SSI FEN PO fluids, 1L fluid restriction monitor labs sodium restricted diet DVT Ppx Lovenox 40mg sq daily Disposition med/surg waiting for improvement of cellulitis and increased fluid loss Visit type - Emergency Visit Emergency Visit: Yes ED Registration Date: 08/16/19 Care time: The patient presented to the Emergency Department on the above date and was hospitalized for further evaluation of their emergent condition. - New Patient This patient is new to me today: Yes Date on this admission: 08/20/19 - Critical Care Critical Care patient: No - Discharge Referral Referred to [facility] Med [facility].C.: No ATTENDING PHYSICIAN STATEMENT I saw and evaluated the patient. I reviewed the resident's note and discussed the case with the resident. I agree with the resident's findings and plan as documented. SUBJECTIVE: OBJECTIVE: ASSESSMENT AND PLAN:
[2019-08-20] MEDS: MINERAL OIL/PET HY-PHL TOPICAL OINTMENT 454 GM JAR TP SCH ×2 (17:42→23:02)
--- NOTE | 2019-08-20 17:50 | CONS ---
DATE OF CONSULTATION: DATE OF DICTATION: 08/20/2019 A 44-year-old, morbidly obese female, history of obstructive sleep apnea and asthma, evaluated for possible cellulitis of the lower extremities bilaterally. She was admitted to the hospital on August 16, 2019, with a several-day history of worsening lower extremity edema and 20-pound weight gain. She was treated for decompensated congestive heart failure. Over the past couple of days, she was noted to have worsening erythema of the feet bilaterally. She was empirically treated with cefazolin. She denies any traumatic injury. No complaints of fever or chills. No history of drug resistant organisms. Past medical history positive for morbid obesity, asthma, obstructive sleep apnea, hypertension, hyperlipidemia. No known allergies. LABORATORY DATA: White count 8.3, hematocrit 48.8, platelets 287. Creatinine 0.7. PHYSICAL EXAMINATION: General: She is morbidly obese, out of bed to chair. Vital Signs: Temperature 97.6. Blood pressure 127/67. Pulse 77, regular. Respirations 22 per minute. Eyes: Sclerae anicteric. Heart Sounds: S1, S2. Lungs: Clear. Abdomen: Massive pannus with erythema below the skin folds in the lower abdomen. Extremities: 3+ lower extremity edema. There is erythema and scaly skin present over the feet bilaterally involving the right 1st, 2nd, and 5th toes, as well as the medial and lateral aspects of the foot. The left foot involves all of the toes as well as the medial and lateral aspects of the foot. IMPRESSION: 1. Cellulitis versus tinea pedis. 2. Decompensated congestive heart failure. 3. Continue empiric antibiotic coverage of skin pathogens with cefazolin. Trial of empirical topical antifungal. Podiatry evaluation. Thank you for the kind referral. JOVANA ALAS M.D. [id number]
[2019-08-20] MEDS ORDERED: MAG HYDROX/AL HYDROX/SIMETH 30 ML UNIT-DOSE CUP PO ONE (19:53)
--- NOTE | 2019-08-20 19:53 | PN ---
Teaching Attending Note Name of Resident: Magdalena Ariza ATTENDING PHYSICIAN STATEMENT I saw and evaluated the patient. I reviewed the resident's note and discussed the case with the resident. I agree with the resident's findings and plan as documented. SUBJECTIVE: Patient is comfortable with no acute distress. Vital Signs Temperature 98.4 F 08/20/19 18:43 Pulse Rate 73 08/20/19 18:43 Respiratory Rate 20 08/20/19 18:43 Blood Pressure 144/69 08/20/19 18:43 O2 Sat by Pulse Oximetry (%) 95 08/20/19 09:00 GENERAL: The patient is awake, alert, and fully oriented, in no acute distress. HEAD: Normal with no signs of trauma. EYES: PERRL, extraocular movements intact, sclera anicteric, conjunctiva clear. ENT: Ears normal, oropharynx clear without exudates, moist mucous membranes. NECK: Trachea midline, full range of motion, supple. LUNGS: decreased Breath sounds BL, no wheezes, no crackles, no accessory muscle use. HEART: Regular rate and rhythm, S1, S2 without murmur, rub or gallop. ABDOMEN: Soft, nontender, nondistended, normoactive bowel sounds, no guarding, no rebound, no hepatosplenomegaly, no masses. EXTREMITIES: 2+ pulses, warm, well-perfused, 2+ edema. fungaus nails and cellulitis of her toes. NEUROLOGICAL: Cranial nerves II through XII grossly intact. Normal speech, gait not observed. PSYCH: Normal mood, normal affect. SKIN: Warm, dry, normal turgor, no rashes or lesions noted CBCD WBC 8.3 K/mm3 (4.0-10.0) 08/20/19 07:44 RBC 6.38 M/mm3 (3.60-5.2) H 08/20/19 07:44 Hgb 14.5 GM/dL (10.7-15.3) 08/20/19 07:44 Hct 48.8 % (32.4-45.2) H 08/20/19 07:44 MCV 76.5 fl (80-96) L 08/20/19 07:44 MCHC 29.8 g/dl (32.0-36.0) L 08/20/19 07:44 RDW 22.8 % (11.6-15.6) H 08/20/19 07:44 Plt Count 283 K/MM3 (134-434) 08/20/19 07:44 MPV 8.9 fl (7.5-11.1) 08/20/19 07:44 CMP Sodium 135 mmol/L (136-145) L 08/20/19 07:44 Potassium 3.8 mmol/L (3.5-5.1) 08/20/19 07:44 Chloride 94 mmol/L (98-107) L 08/20/19 07:44 Carbon Dioxide 40 mmol/L (21-32) H 08/20/19 07:44 Anion Gap 1 MMOL/L (8-16) L 08/20/19 07:44 BUN 13.5 mg/dL (7-18) 08/20/19 07:44 Creatinine 0.7 mg/dL (0.55-1.3) 08/20/19 07:44 Random Glucose 114 mg/dL (74-106) H 08/20/19 07:44 Calcium 8.5 mg/dL (8.5-10.1) 08/20/19 07:44 Total Bilirubin 1.3 mg/dL (0.2-1) H 08/20/19 07:44 AST 12 U/L (15-37) L 08/20/19 07:44 ALT 19 U/L (13-61) 08/20/19 07:44 Alkaline Phosphatase 72 U/L (45-117) 08/20/19 07:44 Total Protein 7.3 g/dl (6.4-8.2) 08/20/19 07:44 Albumin 3.4 g/dl (3.4-5.0) 08/20/19 07:44 Current Medications Generic Name Dose Route Start Last Admin Trade Name Freq PRN Reason Stop Dose Admin Acetaminophen 650 mg 08/18/19 16:54 08/19/19 20:53 Tylenol - PO 650 mg Q6H PRN Administration HEADACHE Albuterol Sulfate 1 amp 08/17/19 11:10 08/20/19 04:20 Ventolin 0.083% Nebulizer Soln - NEB 1 amp Q4H PRN Administration SHORT OF BREATH/WHEEZING Albuterol/Ipratropium 1 amp 08/17/19 12:00 03/01/20 15:34 Duoneb - NEB 1 amp RQID LAKESHIA Administration Amlodipine Besylate 5 mg 08/18/19 10:00 08/20/19 09:49 Norvasc - PO 5 mg DAILY LAKESHIA Administration Atorvastatin Calcium 40 mg 08/17/19 22:00 08/19/19 22:21 Lipitor - PO 40 mg HS LAKESHIA Administration Bupropion HCl 150 mg 08/17/19 10:00 08/20/19 09:50 Wellbutrin Xl - PO 150 mg DAILY LAKESHIA Administration Emollient Ointment 1 applic 08/20/19 14:00 08/20/19 17:42 Aquaphor - TP 1 applic BID LAKESHIA Administration Enoxaparin Sodium 40 mg 08/17/19 10:00 08/20/19 09:49 Lovenox - SQ 40 mg DAILY LAKESHIA Administration Fluticasone Propionate 2 spray 08/19/19 12:15 08/20/19 09:49 Flonase - NS 2 sprays DAILY LAKESHIA Administration Furosemide 60 mg 08/18/19 11:34 08/20/19 14:02 Lasix Injection - IVPUSH 60 mg BID@0600,1400 LAKESHIA Administration Cefazolin Sodium 1 gm/ 50 mls @ 100 mls/hr 08/19/19 21:15 08/20/19 17:42 Dextrose IVPB 100 mls/hr Q8H-IV LAKESHIA Administration Insulin Aspart 1 vial 08/17/19 16:30 08/20/19 16:30 Novolog Vial Sliding Scale - SQ Not Given ACHS LAKESHIA Protocol Losartan Potassium 50 mg 08/18/19 10:00 08/20/19 09:49 Cozaar - PO 50 mg DAILY LAKESHIA Administration Multi-Ingredient Ointment 1 applic 08/20/19 14:00 Zinc Oxide TP BID LAKESHIA Nystatin 1 applic 08/20/19 22:00 Nystop Powder - TP BID LAKESHIA Ropinirole HCl 0.5 mg 08/18/19 10:00 08/20/19 09:49 Requip - PO 0.5 mg DAILY LAKESHIA Administration Home Medications Medication Instructions Recorded Albuterol Sulfate Inhaler - 1 puff PRN 02/11/19 [Ventolin HFA Inhaler -] Bupropion HCl [Wellbutrin Xl -] 150 mg PO DAILY 02/11/19 Losartan Potassium 25 mg PO DAILY 02/11/19 Pravastatin Sodium 10 mg PO DAILY 02/11/19 Furosemide [Lasix] 40 mg PO BID #60 tablet 05/27/19 Amlodipine Besylate [Norvasc -] 5 mg PO DAILY 08/16/19 Metformin HCl [Glucophage] 500 mg PO BID 08/16/19 Ropinirole HCl [Requip -] 0.5 mg PO DAILY 08/16/19 Intake & Output 08/17/19 08/18/19 08/19/19 08/20/19 23:59 23:59 23:59 23:59 Intake Total 1700 1760 300 Output Total 3300 24402 1250 Balance 1700 -1540 -05498 -950 Weight 220.899 kg 218.632 kg 216.846 kg 216.392 kg ASSESSMENT/PLAN: Mary Lou Ward is a 44 year old female with past medical history of RAINA (on 4L NC , CPAP at night), asthma, depression, HTN, and HLD admitted with shortness of breath likely secondary to CHF decompensation #Acute D. CHF Exacerbation: increased IV lasix to 60mg bid continue, to monitor Is and os , daily weights # Cellulitis of her toes/Tinea pedis: on Iv cefazolin continue, podiatry consult and Id consulted #Intertrigo; Nystatin powder to affected areas #RAINA: CPAP at bedtime hs #Elevated Bilirubin; monitor #Depression: Continue Wellbutrin 150mg daily #HTN: increase losartan to 50mg daily, home amlodipine 5mg #HLD: increase atorvastatin to 40mg to keep LDL below 70 #DM ss scale with coverage #Class III Obesity: discussed the surgical options with the patient as per patient , she was told that she needs to loose weight prior to any surgeries. Prophylaxis: Lovenox 40mg
[2019-08-20] MEDS: ACETAMINOPHEN 325 MG TABLET (FP) PO PRN (21:19)
[2019-08-20] MEDS: ZINC OXIDE 20% TOPICAL OINTMENT 30 GM TUBE TP SCH (21:20)
[2019-08-20] MEDS: ATORVASTATIN CA 10 MG TABLET (FP) PO SCH (21:21)
[2019-08-21] MEDS ORDERED: ceFAZolin SODIUM 1 GM VIAL ONE ×2 (01:01→09:15)
[2019-08-21] MEDS ORDERED: DEXTROSE 5%-WATER - 50 ML IVPB ONE ×2 (01:01→09:15)
[2019-08-21] MEDS: CEFAZOLIN 1 GM in DEXTROSE 5%-WATER - 50 ML IVPB SCH ×2 (02:54→09:23)
[2019-08-21] MEDS: FUROSEMIDE 40 MG/4 ML INJECTABLE VIAL IVPUSH SCH ×2 (05:48→13:57)
[2019-08-21] MEDS: ACETAMINOPHEN 325 MG TABLET (FP) PO PRN (05:52)
[2019-08-21] MEDS: INSULIN SLIDING SCALE (NOVOLOG) 1 VIAL SQ SCH ×4 (05:59→21:47)
[2019-08-21 06:46] LABS: ALBUMIN 3.1 g/dl (3.4-5.0); BILIRUBIN,TOTAL 1.5 mg/dL (0.2-1); BLOOD UREA NITROGEN 13.4 mg/dL (7-18); CALCIUM 8.2 mg/dL (8.5-10.1); CREATININE 0.6 mg/dL (0.55-1.3); MAGNESIUM 2.1 mg/dL (1.8-2.4); POTASSIUM 3.7 mmol/L (3.5-5.1); TOT PROT 6.6 g/dl (6.4-8.2)
[2019-08-21 06:53] LABS: BASO % 0.6 % (0-2.0); EOS % 2.3 % (0-4.5); HEMATOCRIT 44.2 % (32.4-45.2); HEMOGLOBIN 13.3 GM/dL (10.7-15.3); LYMPH % 14.8 % (8-40); MCH 23.1 pg (25.7-33.7); MCHC 30.2 g/dl (32.0-36.0); MEAN CELL VOLUME 76.4 fl (80-96); MEAN PLT VOLUME 8.8 fl (7.5-11.1); MONO % 8.8 % (3.8-10.2); NEUT % 73.5 % (42.8-82.8); PLATELET COUNT 267 K/MM3 (134-434); RBC 5.78 M/mm3 (3.60-5.2); RDW 23.2 % (11.6-15.6); WHITE BLOOD COUNT 7.2 K/mm3 (4.0-10.0)
[2019-08-21] MEDS: ALBUTEROL SO4 2.5/IPRATROPIUM 0.5 INH SOL 3 ML VIAL.NEB. NEB SCH ×4 (07:45→20:34)
--- NOTE | 2019-08-21 08:46 | PN ---
Progress Note, Physician History of Present Illness: The patient is a 44 morbidly obese female, with a significant PMH of RAINA (on home 4L oxygen), asthma (never intubated, hospitalized once), depression, HTN, HLD, who presents to the ED for evaluation of edema for 2 days. Patient notes she has bilateral lower extremity edema at baseline, but notes it has become significantly worse over the past couple days. She feels as if she is retaining more fluid in her legs and abdomen than typical, despite the fact that she is on Lasix daily. Patient notes it is painful for her to walk secondary to her edema, and her stomach feels harder than usual. She additionally reports ~20pd weight gain at this time. Patient endorses associated SOB (despite being on 4L of home O2), wheezing, and dyspnea on exertion. Allergies: NKA, NKDA Surgical History: None reported Social History: Denies EtOH, tobacco, or illicit drug use PCP: Dr. Charlton Cement Gun Operator: Dr. Jackson Pulmonology: Dr. Alas - Current Medication List Current Medications: Active Medications Acetaminophen (Tylenol -) 650 mg PO Q6H PRN PRN Reason: HEADACHE Last Admin: 08/21/19 05:52 Dose: 650 mg Albuterol Sulfate (Ventolin 0.083% Nebulizer Soln -) 1 amp NEB Q4H PRN PRN Reason: SHORT OF BREATH/WHEEZING Last Admin: 08/20/19 04:20 Dose: 1 amp Albuterol/Ipratropium (Duoneb -) 1 amp NEB RQID [facility] Last Admin: 08/21/19 07:45 Dose: 1 amp Amlodipine Besylate (Norvasc -) 5 mg PO DAILY [facility] Last Admin: 08/20/19 09:49 Dose: 5 mg Atorvastatin Calcium (Lipitor -) 40 mg PO HS [facility] Last Admin: 08/20/19 21:21 Dose: 40 mg Bupropion HCl (Wellbutrin Xl -) 150 mg PO DAILY [facility] Last Admin: 08/20/19 09:50 Dose: 150 mg Emollient Ointment (Aquaphor -) 1 applic TP BID [facility] Last Admin: 08/20/19 23:02 Dose: 1 applic Enoxaparin Sodium (Lovenox -) 40 mg SQ DAILY [facility] Last Admin: 08/20/19 09:49 Dose: 40 mg Fluticasone Propionate (Flonase -) 2 spray NS DAILY [facility] Last Admin: 08/20/19 09:49 Dose: 2 sprays Furosemide (Lasix Injection -) 60 mg IVPUSH BID@0600,1400 [facility] Last Admin: 08/21/19 05:48 Dose: 60 mg Cefazolin Sodium 1 gm/ (Dextrose) 50 mls @ 100 mls/hr IVPB Q8H-IV [facility] Last Admin: 08/21/19 02:54 Dose: 100 mls/hr Insulin Aspart (Novolog Vial Sliding Scale -) 1 vial SQ ACHS [facility]; Protocol Last Admin: 08/21/19 05:59 Dose: Not Given Losartan Potassium (Cozaar -) 50 mg PO DAILY [facility] Last Admin: 08/20/19 09:49 Dose: 50 mg Multi-Ingredient Ointment (Zinc Oxide) 1 applic TP BID [facility] Last Admin: 08/20/19 21:20 Dose: 1 applic Nystatin (Nystop Powder -) 1 applic TP BID [facility] Last Admin: 08/20/19 21:22 Dose: 1 applic Ropinirole HCl (Requip -) 0.5 mg PO DAILY [facility] Last Admin: 08/20/19 09:49 Dose: 0.5 mg - Objective Vital Signs: Vital Signs Temperature 98.1 F 08/21/19 06:00 Pulse Rate 73 08/21/19 06:00 Respiratory Rate 20 08/21/19 06:00 Blood Pressure 143/72 08/21/19 06:00 O2 Sat by Pulse Oximetry (%) 96 08/20/19 21:00 Eyes: Yes: WNL, Conjunctiva Clear, EOM Intact HENT: Yes: WNL, Atraumatic, Normocephalic Neck: Yes: WNL, Supple, Trachea Midline Cardiovascular: Yes: WNL, Regular Rate and Rhythm Respiratory: Yes: WNL, Regular, CTA Bilaterally Gastrointestinal: Yes: WNL, Normal Bowel Sounds Genitourinary: Yes: WNL Musculoskeletal: Yes: WNL Extremities: Yes: WNL Edema: Yes Integumentary: Yes: WNL Neurological: Yes: WNL, Alert, Oriented ...Motor Strength: WNL Psychiatric: Yes: WNL Labs: CBC, BMP 08/21/19 05:43 08/21/19 05:43 Assessment/Plan - Problems (1) [place] cardiac risk >20% in next 10 years Assessment/Plan: Pt does not remember ever having a stress test or coronary angiogram. Her weight makes it difficult to have either of the above tests at the present time. Mother had CHF. Pt never smoked; no hx cocaine; No hx alcoholism. Code(s): Z91.89 - OTH PERSONAL RISK FACTORS, NOT ELSEWHERE CLASSIFIED (2) Acute on chronic diastolic (congestive) heart failure Assessment/Plan: On losartan, amlodipine, and furosemide. Morbid obesity is the prime factor, and BP control is also important in control of her CHF. F/u BUN/Cr, electrolytes, daily weight, Is and Os. Code(s): I50.33 - ACUTE ON CHRONIC DIASTOLIC (CONGESTIVE) HEART FAILURE (3) Intertrigo Code(s): L30.4 - ERYTHEMA INTERTRIGO (4) Acute on chronic respiratory failure with hypoxemia Code(s): J96.21 - ACUTE AND CHRONIC RESPIRATORY FAILURE WITH HYPOXIA (5) Hypercholesterolemia Assessment/Plan: LDL 138 mg/dL; now on atorvastatin 40 mg daily. Public Health Training Assistant for help with diet modification, weight loss. Code(s): E78.00 - PURE HYPERCHOLESTEROLEMIA, UNSPECIFIED (6) RAINA (obstructive sleep apnea) Code(s): G47.33 - OBSTRUCTIVE SLEEP APNEA (ADULT) (PEDIATRIC) (7) Asthma Code(s): J45.909 - UNSPECIFIED ASTHMA, UNCOMPLICATED (8) HTN (hypertension) Assessment/Plan: Increase losartan to 50 mg daily. On IV furosemide. Dietary consult ordered. Code(s): I10 - ESSENTIAL (PRIMARY) HYPERTENSION (9) Morbid (severe) obesity with alveolar hypoventilation Assessment/Plan: Pt says she has thought of having gastric bypass surgery, but is afraid because she is at high risk "and I might not make it off the table". The risks in continuing to have the weight she is at presently were discussed. At 19 yrs old, she weighed about 150 lbs; weight went up after of her 2nd child, at age 24. At home now, she says the family tends to order fast food, and she eats it with them. Nutrition/dietary consult has been ordered. Code(s): E66.2 - MORBID (SEVERE) OBESITY WITH ALVEOLAR HYPOVENTILATION (10) Cellulitis Code(s): L03.90 - CELLULITIS, UNSPECIFIED
[2019-08-21] MEDS ORDERED: PT OWN MED DRAWER 7, Y5N ONE ×2 (09:15→20:42)
[2019-08-21] MEDS: ZINC OXIDE 20% TOPICAL OINTMENT 30 GM TUBE TP SCH ×3 (09:23→21:06)
[2019-08-21] MEDS: amLODIPine BESYLATE 5 MG TABLET (FP) PO SCH (09:24)
[2019-08-21] MEDS: MINERAL OIL/PET HY-PHL TOPICAL OINTMENT 454 GM JAR TP SCH ×2 (09:24→21:06)
[2019-08-21] MEDS: rOPINIRole HCL 0.5 MG TABLET PO SCH (09:24)
[2019-08-21] MEDS: FLUTICASONE PROP 0.05% 16 GM NASAL SPRAY NS SCH (09:25)
[2019-08-21] MEDS: LOSARTAN POTASSIUM 50 MG TABLET (FP) PO SCH (09:25)
[2019-08-21] MEDS: NYSTATIN POWDER 100,000 UNITS/GM - 15 GM TOPICAL POWDER TP SCH ×2 (09:26→21:11)
[2019-08-21] MEDS: ENOXAPARIN NA (PORCINE) 40 MG/0.4 ML DISP.SYRIN SQ SCH (09:26)
--- NOTE | 2019-08-21 10:04 | PN ---
Progress Note (short form) - Note Progress Note: OOB to chair. Nasal congestion a little better. Breathing feels a little better today but had a few episodes overnight of likely related to OSAS. Intake & Output 08/18/19 08/19/19 08/20/19 08/21/19 23:59 23:59 23:59 23:59 Intake Total 1760 300 50 Output Total 3300 09614 2150 1000 Balance -1540 -13800 -1850 -950 Weight 482 lb 478 lb 1 oz 477 lb 1 oz 474 lb 3 oz Last Vital Signs Temp Pulse Resp BP Pulse Ox 98.1 F 73 20 143/72 96 08/21/19 06:00 08/21/19 06:00 08/21/19 06:00 08/21/19 06:00 08/20/19 21:00 Active Medications Acetaminophen (Tylenol -) 650 mg PO Q6H PRN PRN Reason: HEADACHE Last Admin: 08/21/19 05:52 Dose: 650 mg Albuterol Sulfate (Ventolin 0.083% Nebulizer Soln -) 1 amp NEB Q4H PRN PRN Reason: SHORT OF BREATH/WHEEZING Last Admin: 08/20/19 04:20 Dose: 1 amp Albuterol/Ipratropium (Duoneb -) 1 amp NEB RQID [facility] Last Admin: 08/21/19 07:45 Dose: 1 amp Amlodipine Besylate (Norvasc -) 5 mg PO DAILY [facility] Last Admin: 08/21/19 09:24 Dose: 5 mg Atorvastatin Calcium (Lipitor -) 40 mg PO HS [facility] Last Admin: 08/20/19 21:21 Dose: 40 mg Bupropion HCl (Wellbutrin Xl -) 150 mg PO DAILY [facility] Last Admin: 08/21/19 09:24 Dose: 150 mg Emollient Ointment (Aquaphor -) 1 applic TP BID [facility] Last Admin: 08/21/19 09:24 Dose: 1 applic Enoxaparin Sodium (Lovenox -) 40 mg SQ DAILY [facility] Last Admin: 08/21/19 09:26 Dose: 40 mg Famotidine (Acid Scout Sniper) 10 mg PO DAILY PRN PRN Reason: INDIGESTION Fluticasone Propionate (Flonase -) 2 spray NS DAILY [facility] Last Admin: 03/02/20 09:25 Dose: 2 sprays Furosemide (Lasix Injection -) 60 mg IVPUSH BID@0600,1400 [facility] Last Admin: 08/21/19 05:48 Dose: 60 mg Cefazolin Sodium 1 gm/ (Dextrose) 50 mls @ 100 mls/hr IVPB Q8H-IV [facility] Last Admin: 08/21/19 09:23 Dose: 100 mls/hr Insulin Aspart (Novolog Vial Sliding Scale -) 1 vial SQ ACHS [facility]; Protocol Last Admin: 08/21/19 05:59 Dose: Not Given Losartan Potassium (Cozaar -) 50 mg PO DAILY [facility] Last Admin: 08/21/19 09:25 Dose: 50 mg Multi-Ingredient Ointment (Zinc Oxide) 1 applic TP BID [facility] Last Admin: 08/21/19 09:23 Dose: 1 applic Nystatin (Nystop Powder -) 1 applic TP BID [facility] Last Admin: 08/21/19 09:26 Dose: 1 applic Ropinirole HCl (Requip -) 0.5 mg PO DAILY [facility] Last Admin: 08/21/19 09:24 Dose: 0.5 mg Sodium Chloride ([place] Nasal [place] -) 2 spray NS BID [facility] Constitutional: Yes: NAD Eyes: Yes: Conjunctiva Clear, EOM Intact HENT: Yes: Atraumatic, Normocephalic Neck: Yes: Supple, Trachea Midline Cardiovascular: Yes: Regular Rate and Rhythm Respiratory: Yes: Diminished (decreased breath sounds at the bases) ...Clubbing: No Gastrointestinal: Yes: Normal Bowel Sounds, Soft, Abdomen, Obese. No: Tenderness Edema: Yes Labs: Laboratory Results - last 24 hr 08/20/19 08/20/19 08/20/19 11:54 16:43 21:25 WBC RBC Hgb Hct MCV MCH MCHC RDW Plt Count MPV Absolute Neuts (auto) Neutrophils % Lymphocytes % Monocytes % Eosinophils % Basophils % Nucleated RBC % Sodium Potassium Chloride Carbon Dioxide Anion Gap BUN Creatinine Est GFR (CKD-EPI)AfAm Est GFR (CKD-EPI)NonAf POC Glucometer 112 117 146 Random Glucose Calcium Magnesium Total Bilirubin AST ALT Alkaline Phosphatase Total Protein Albumin 08/21/19 08/21/19 08/21/19 05:43 05:43 05:50 WBC 7.2 RBC 5.78 H Hgb 13.3 Hct 44.2 MCV 76.4 L MCH 23.1 L MCHC 30.2 L RDW 23.2 H Plt Count 267 MPV 8.8 Absolute Neuts (auto) 5.3 Neutrophils % 73.5 Lymphocytes % 14.8 D Monocytes % 8.8 Eosinophils % 2.3 Basophils % 0.6 Nucleated RBC % 0 Sodium 138 Potassium 3.7 Chloride 92 L Carbon Dioxide 41 H Anion Gap 4 L BUN 13.4 Creatinine 0.6 Est GFR (CKD-EPI)AfAm 127.58 Est GFR (CKD-EPI)NonAf 110.08 POC Glucometer 107 Random Glucose 101 Calcium 8.2 L Magnesium 2.1 Total Bilirubin 1.5 H AST 11 L ALT 16 Alkaline Phosphatase 63 Total Protein 6.6 Albumin 3.1 L Assessment/Plan Acute on Chronic Diastolic Heart Failure Volume Overload Chronic Hypoxic Respiratory Failure Morbid Obesity Obstructive Sleep Apnea Asthma HTN Hyperlipidemia - CPAP ordered - Lasix - O2 to keep Spo2 >90% - inhaled bronchodilators - defer systemic steroids at this time - DVT prophylaxis Dr Carreno
[2019-08-21] MEDS: SODIUM CHLORIDE NASAL SPRAY 44 ML BOTTLE NS SCH ×2 (10:29→21:10)
[2019-08-21] MEDS: FAMOTIDINE 10 MG TABLET PO PRN (14:00)
--- NOTE | 2019-08-21 14:59 | PN ---
Physical Exam: SUBJECTIVE: Patient seen and examined at the bedside. Stated that her feet continue to be swollen and have significant redness. Endorses that her breathing feels better. Endorses that she has discomfort on her skin around her abdomen. Denies cp, sob, abd pain, n/v/c/d, headaches, dizziness, lightheadedness, dysuria, hematuria, focal weakness, numbness, tingling. OBJECTIVE: Vital Signs Period Temp Pulse Resp BP Sys/Quan Pulse Ox Last 24 Hr 97.7 F-98.4 F 68-76 20-20 143-155/66-85 96 GENERAL: The patient is awake, alert, and fully oriented, in no acute distress. EYES: PERRL, extraocular movements intact, conjunctiva clear. ENT: Oropharynx clear without exudates, moist mucous membranes. LUNGS: Breath sounds difficult to auscultate due to body habitus. Unable to appreciate good breath sounds, but no wheezes auscultated. HEART: Regular rate and rhythm, S1, S2. Unable to appreciate murmurs. ABDOMEN: Soft, obese, nontender, normoactive bowel sounds, no guarding, no rebound. Significant redness on the abdomen on the R side in between skin folds. EXTREMITIES: Significant chronic lymphedema and pitting edema 2+ noted. Significant redness of the feet bilaterally. Noted warmth and tenderness to touch. NEUROLOGICAL: Cranial nerves II through XII grossly intact. 5/5 muscle strength bilaterally upper and lower extremities. PSYCH: Normal mood, normal affect. Laboratory Results - last 24 hr 08/20/19 08/20/19 08/21/19 16:43 21:25 05:43 WBC 7.2 RBC 5.78 H Hgb 13.3 Hct 44.2 MCV 76.4 L MCH 23.1 L MCHC 30.2 L RDW 23.2 H Plt Count 267 MPV 8.8 Absolute Neuts (auto) 5.3 Neutrophils % 73.5 Lymphocytes % 14.8 D Monocytes % 8.8 Eosinophils % 2.3 Basophils % 0.6 Nucleated RBC % 0 Sodium Potassium Chloride Carbon Dioxide Anion Gap BUN Creatinine Est GFR (CKD-EPI)AfAm Est GFR (CKD-EPI)NonAf POC Glucometer 117 146 Random Glucose Calcium Magnesium Total Bilirubin AST ALT Alkaline Phosphatase Total Protein Albumin 08/21/19 08/21/19 08/21/19 05:43 05:50 11:48 WBC RBC Hgb Hct MCV MCH MCHC RDW Plt Count MPV Absolute Neuts (auto) Neutrophils % Lymphocytes % Monocytes % Eosinophils % Basophils % Nucleated RBC % Sodium 138 Potassium 3.7 Chloride 92 L Carbon Dioxide 41 H Anion Gap 4 L BUN 13.4 Creatinine 0.6 Est GFR (CKD-EPI)AfAm 127.58 Est GFR (CKD-EPI)NonAf 110.08 POC Glucometer 107 131 Random Glucose 101 Calcium 8.2 L Magnesium 2.1 Total Bilirubin 1.5 H AST 11 L ALT 16 Alkaline Phosphatase 63 Total Protein 6.6 Albumin 3.1 L Active Medications Generic Name Dose Route Start Last Admin Trade Name Freq PRN Reason Stop Dose Admin Acetaminophen 650 mg 08/18/19 16:54 08/21/19 05:52 Tylenol - PO 650 mg Q6H PRN Administration HEADACHE Albuterol Sulfate 1 amp 08/17/19 11:10 08/20/19 04:20 Ventolin 0.083% Nebulizer Soln - NEB 1 amp Q4H PRN Administration SHORT OF BREATH/WHEEZING Albuterol/Ipratropium 1 amp 08/17/19 12:00 08/21/19 11:20 Duoneb - NEB 1 amp RQID LAKESHIA Administration Amlodipine Besylate 5 mg 08/18/19 10:00 08/21/19 09:24 Norvasc - PO 5 mg DAILY LAKESHIA Administration Atorvastatin Calcium 40 mg 08/17/19 22:00 08/20/19 21:21 Lipitor - PO 40 mg HS LAKESHIA Administration Bupropion HCl 150 mg 08/17/19 10:00 08/21/19 09:24 Wellbutrin Xl - PO 150 mg DAILY LAK[facility]IA Administration Emollient Ointment 1 applic 08/20/19 14:00 08/21/19 09:24 Aquaphor - TP 1 applic BID LAKESHIA Administration Enoxaparin Sodium 40 mg 08/17/19 10:00 08/21/19 09:26 Lovenox - SQ 40 mg DAILY LAK[facility]IA Administration Famotidine 10 mg 08/21/19 08:48 08/21/19 14:00 Acid Health Insurance Adjuster PO 10 mg DAILY PRN Administration INDIGESTION Fluticasone Propionate 2 spray 08/19/19 12:15 08/21/19 09:25 Flonase - NS 2 sprays DAILY L[facility] Administration Furosemide 60 mg 08/18/19 11:34 08/21/19 13:57 Lasix Injection - IVPUSH 60 mg BID@0600,1400 L[facility] Administration Cefazolin Sodium 1 gm/ 50 mls @ 100 mls/hr 08/19/19 21:15 08/21/19 09:23 Dextrose IVPB 100 mls/hr Q8H-IV [facility] Administration Insulin Aspart 1 vial 08/17/19 16:30 08/21/19 11:56 Novolog Vial Sliding Scale - SQ Not Given ACHS LAK[facility]IA Protocol Losartan Potassium 50 mg 08/18/19 10:00 08/21/19 09:25 Cozaar - PO 50 mg DAILY [facility] Administration Multi-Ingredient Ointment 1 applic 08/20/19 14:00 08/21/19 09:23 Zinc Oxide TP 1 applic BID [facility]AK[facility] Administration Nystatin 1 applic 08/20/19 22:00 08/21/19 09:26 Nystop Powder - TP 1 applic BID [facility] Administration Ropinirole HCl 0.5 mg 08/18/19 10:00 08/21/19 09:24 Requip - PO 0.5 mg DAILY [facility] Administration Sodium Chloride 2 spray 08/21/19 10:00 08/21/19 10:29 [place] Nasal [place] - NS 2 spr BID [facility] Administration ASSESSMENT/PLAN: Mary Lou Ward is a 44 year old female with past medical history of RAINA (on 4L NC , CPAP at night), asthma, depression, HTN, and HLD admitted with shortness of breath likely secondary to CHF decompensation CHF Decompensation - likely in the setting of high salt diet and increase fluid intake - CXR with noted increased congestive changes - continue IV Lasix 60mg bid - echo from 01/2019 with normal LV, EF 60-65% - Echo EF 55-60%, LV size thickness function normal, RV normal, trace tricuspid regurg - Cardiology consulted, recs appreciated - pulmonology consulted, recs appreciated - Supplemental O2 to keep SpO2 >90% - duonebs prn - I&O, daily weights - decreasing weight, fluid net negative yesterday of 1.85L Intertrigo - Nystatin powder to affected areas, use abdominal pad to decrease skin on skin contact Cellulitis - noted of the feet bilaterally - ID consulted, recs appreciated - cefazolin 1gm q8h - podiatry consulted RAINA - CPAP at bedtime Elevated Bilirubin - no abdominal symptoms - bilirubin 1.6, direct 0.3 - previous abd U/S (02/06) noting hepatomegaly with fatty infiltration vs hepatocellular disease - no elevation of liver enzymes, continue to monitor Depression - Continue Wellbutrin 150mg daily HTN - increase losartan to 50mg daily - continue home amlodipine 5mg HLD - increase atorvastatin to 40mg to keep LDL below 70 DM - BGM - ISS - A1c 6.7 FEN - no standing fluids, 1L fluid restriction - continue to monitor electrolytes and replete as necessary - Sodium restricted diet Prophylaxis - Lovenox 40mg sq daily Disposition - continue to monitor on Med-surg Visit type - Emergency Visit Emergency Visit: Yes ED Registration Date: 08/16/19 Care time: The patient presented to the Emergency Department on the above date and was hospitalized for further evaluation of their emergent condition. - New Patient This patient is new to me today: No - Critical Care Critical Care patient: No
--- NOTE | 2019-08-21 17:15 | CONSULT ---
Consult Consult Specialty:: Podiatry - History of Present Illness Chief Complaint: Redness of feet and painful elongated thickened toe nails in shoe gear. - Past Medical History Cardio/Vascular: Yes: HTN Pulmonary: Yes: Asthma, COPD, Sleep Apnea, O2 Dependent ...LMP: 07/11/19 ...LMP Comment: Duration: 2 days, limited discharge ...: No - Alcohol/Substance Use Hx Alcohol Use: No - Smoking History Smoking history: Never smoked Have you smoked in the past 12 months: No Home Medications - Allergies Allergies/Adverse Reactions: Allergies Allergy/AdvReac Type Severity Reaction Status Date / Time No Known Allergies Allergy Verified 08/16/19 09:58 - Home Medications Home Medications: Ambulatory Orders Albuterol Sulfate Inhaler - [Ventolin HFA Inhaler -] 1 puff PRN 02/11/19 Bupropion HCl [Wellbutrin Xl -] 150 mg PO DAILY 02/11/19 Losartan Potassium 25 mg PO DAILY 02/11/19 Pravastatin Sodium 10 mg PO DAILY 02/11/19 Furosemide [Lasix] 40 mg PO BID #60 tablet 05/27/19 Amlodipine Besylate [Norvasc -] 5 mg PO DAILY 08/16/19 Metformin HCl [Glucophage] 500 mg PO BID 08/16/19 Ropinirole HCl [Requip -] 0.5 mg PO DAILY 08/16/19 Physical Exam Vital Signs: Vital Signs Temperature 98.3 F 08/21/19 14:28 Pulse Rate 76 08/21/19 14:28 Respiratory Rate 20 08/21/19 14:28 Blood Pressure 145/66 08/21/19 14:28 O2 Sat by Pulse Oximetry (%) 95 08/21/19 09:00 Extremities: Yes: Other (non palpable pulses secondary to edema, +tender dystrophic mycotic nails with subungual debris, +inflammed nail beds x 10, + tinea pedis in a moccassin type distribution, +edema) Labs: CBC, BMP 08/21/19 05:43 08/21/19 05:43 Assessment/Plan onychomycosis pain tinea pedis Lotrisone cream bid to feet. Foot care [id number]. Will see if pt can tolerate terbinafine orally. Will follow.
--- NOTE | 2019-08-21 18:58 | PN ---
Teaching Attending Note Name of Resident: Ja Novoa ATTENDING PHYSICIAN STATEMENT I saw and evaluated the patient. I reviewed the resident's note and discussed the case with the resident. I agree with the resident's findings and plan as documented. SUBJECTIVE: Patients LEs are more erythromatous today. Vital Signs Temperature 98.5 F 08/21/19 18:01 Pulse Rate 76 08/21/19 18:01 Respiratory Rate 20 08/21/19 18:01 Blood Pressure 158/72 08/21/19 18:01 O2 Sat by Pulse Oximetry (%) 95 08/21/19 09:00 GENERAL: The patient is awake, alert, and fully oriented, in no acute distress. HEAD: Normal with no signs of trauma. EYES: PERRL, extraocular movements intact, sclera anicteric, conjunctiva clear. ENT: Ears normal, oropharynx clear without exudates, moist mucous membranes. NECK: Trachea midline, full range of motion, supple. LUNGS: decreased Breath sounds BL, no wheezes, no crackles, no accessory muscle use. HEART: Regular rate and rhythm, S1, S2 without murmur, rub or gallop. ABDOMEN: Soft, nontender, nondistended, normoactive bowel sounds, no guarding, no rebound, no hepatosplenomegaly, no masses. EXTREMITIES: 2+ pulses, warm, well-perfused, 2+ edema. fungaus nails and cellulitis of her toes and now the legs. NEUROLOGICAL: Cranial nerves II through XII grossly intact. Normal speech, gait not observed. PSYCH: Normal mood, normal affect. SKIN: Warm, dry, normal turgor, no rashes or lesions noted CBCD WBC 7.2 K/mm3 (4.0-10.0) 08/21/19 05:43 RBC 5.78 M/mm3 (3.60-5.2) H 08/21/19 05:43 Hgb 13.3 GM/dL (10.7-15.3) 08/21/19 05:43 Hct 44.2 % (32.4-45.2) 08/21/19 05:43 MCV 76.4 fl (80-96) L 08/21/19 05:43 MCHC 30.2 g/dl (32.0-36.0) L 08/21/19 05:43 RDW 23.2 % (11.6-15.6) H 08/21/19 05:43 Plt Count 267 K/MM3 (134-434) 08/21/19 05:43 MPV 8.8 fl (7.5-11.1) 08/21/19 05:43 CMP Sodium 138 mmol/L (136-145) 08/21/19 05:43 Potassium 3.7 mmol/L (3.5-5.1) 08/21/19 05:43 Chloride 92 mmol/L (98-107) L 08/21/19 05:43 Carbon Dioxide 41 mmol/L (21-32) H 08/21/19 05:43 Anion Gap 4 MMOL/L (8-16) L 08/21/19 05:43 BUN 13.4 mg/dL (7-18) 08/21/19 05:43 Creatinine 0.6 mg/dL (0.55-1.3) 08/21/19 05:43 Random Glucose 101 mg/dL (74-106) 08/21/19 05:43 Calcium 8.2 mg/dL (8.5-10.1) L 08/21/19 05:43 Total Bilirubin 1.5 mg/dL (0.2-1) H 08/21/19 05:43 AST 11 U/L (15-37) L 08/21/19 05:43 ALT 16 U/L (13-61) 08/21/19 05:43 Alkaline Phosphatase 63 U/L (45-117) 08/21/19 05:43 Total Protein 6.6 g/dl (6.4-8.2) 08/21/19 05:43 Albumin 3.1 g/dl (3.4-5.0) L 08/21/19 05:43 Current Medications Generic Name Dose Route Start Last Admin Trade Name Freq PRN Reason Stop Dose Admin Acetaminophen 650 mg 08/18/19 16:54 08/21/19 05:52 Tylenol - PO 650 mg Q6H PRN Administration HEADACHE Albuterol Sulfate 1 amp 08/17/19 11:10 08/20/19 04:20 Ventolin 0.083% Nebulizer Soln - NEB 1 amp Q4H PRN Administration SHORT OF BREATH/WHEEZING Albuterol/Ipratropium 1 amp 08/17/19 12:00 08/21/19 16:10 Duoneb - NEB 1 amp RQID [facility] Administration Amlodipine Besylate 5 mg 08/18/19 10:00 08/21/19 09:24 Norvasc - PO 5 mg DAILY [facility] Administration Atorvastatin Calcium 40 mg 08/17/19 22:00 08/20/19 21:21 Lipitor - PO 40 mg HS [facility] Administration Bupropion HCl 150 mg 08/17/19 10:00 08/21/19 09:24 Wellbutrin Xl - PO 150 mg DAILY [facility] Administration Clotrimazole 1 applic 08/21/19 22:00 Lotrisone Cream (Small Tube) TP BID [facility] Emollient Ointment 1 applic 08/20/19 14:00 08/21/19 09:24 Aquaphor - TP 1 applic BID [facility] Administration Enoxaparin Sodium 40 mg 08/17/19 10:00 08/21/19 09:26 Lovenox - SQ 40 mg DAILY [facility] Administration Famotidine 10 mg 08/21/19 08:48 08/21/19 14:00 Acid [employer] PO 10 mg DAILY PRN Administration INDIGESTION Fluticasone Propionate 2 spray 08/19/19 12:15 08/21/19 09:25 Flonase - NS 2 sprays DAILY [facility] Administration Furosemide 60 mg 08/18/19 11:34 08/21/19 13:57 Lasix Injection - IVPUSH 60 mg BID@0600,1400 [facility] Administration Vancomycin HCl 1,250 mg/ 250 mls @ 166.667 mls/hr 08/21/19 18:00 Dextrose IVPB BID@0600,1800 [facility] Protocol Insulin Aspart 1 vial 08/17/19 16:30 08/21/19 16:56 Novolog Vial Sliding Scale - SQ Not Given ACHS [facility] Protocol Losartan Potassium 50 mg 08/18/19 10:00 08/21/19 09:25 Cozaar - PO 50 mg DAILY [facility] Administration Multi-Ingredient Ointment 1 applic 08/20/19 14:00 08/21/19 09:23 Zinc Oxide TP 1 applic BID [facility] Administration Nystatin 1 applic 08/20/19 22:00 08/21/19 09:26 Nystop Powder - TP 1 applic BID [facility] Administration Ropinirole HCl 0.5 mg 08/18/19 10:00 08/21/19 09:24 Requip - PO 0.5 mg DAILY [facility] Administration Sodium Chloride 2 spray 08/21/19 10:00 08/21/19 10:29 [place] Nasal [place] - NS 2 spr BID L[facility] Administration Home Medications Medication Instructions Recorded Albuterol Sulfate Inhaler - 1 puff PRN 02/11/19 [Ventolin HFA Inhaler -] Bupropion HCl [Wellbutrin Xl -] 150 mg PO DAILY 02/11/19 Losartan Potassium 25 mg PO DAILY 02/11/19 Pravastatin Sodium 10 mg PO DAILY 02/11/19 Furosemide [Lasix] 40 mg PO BID #60 tablet 05/27/19 Amlodipine Besylate [Norvasc -] 5 mg PO DAILY 08/16/19 Metformin HCl [Glucophage] 500 mg PO BID 08/16/19 Ropinirole HCl [Requip -] 0.5 mg PO DAILY 08/16/19 Intake & Output 08/18/19 08/19/19 08/20/19 08/21/19 23:59 23:59 23:59 23:59 Intake Total 1760 300 550 Output Total 3300 99343 2150 2600 Balance -1540 -04628 -1850 -2049 Weight 218.632 kg 216.846 kg 216.392 kg 215.088 kg ASSESSMENT/PLAN: Mary Lou Ward is a 44 year old female with past medical history of RAINA (on 4L NC , CPAP at night), asthma, depression, HTN, and HLD admitted with shortness of breath likely secondary to CHF decompensation #Acute D. CHF Exacerbation: continue IV lasix to 60mg bid continue, to monitor Is and os , daily weights # Cellulitis of her toes/Tinea pedis: worsened on Iv cefazolin , changed to iv vancomycin as oer ID, podiatry and ID consult appreciated. #Intertrigo; Nystatin powder to affected areas, zinc oxide #RAINA: CPAP at bedtime hs #Elevated Bilirubin; monitor #Depression: Continue Wellbutrin 150mg daily #HTN: increase losartan to 50mg daily, home amlodipine 5mg #HLD: increase atorvastatin to 40mg to keep LDL below 70 #DM ss scale with coverage #Class III Obesity: discussed the surgical options with the patient as per patient , she was told that she needs to loose weight prior to any surgeries. Prophylaxis: Lovenox 40mg
[2019-08-21] MEDS: VANCOMYCIN 1,250 MG in DEXTROSE 5%-WATER - 250 ML IVPB SCH (19:05)
[2019-08-21] MEDS: ATORVASTATIN CA 10 MG TABLET (FP) PO SCH (21:05)
[2019-08-21] MEDS: CLOTRIMAZOLE/BETAMET DIPROP 15 GM TUBE TP SCH (21:05)
--- NOTE | 2019-08-21 21:14 | PN ---
Progress Note, Physician History of Present Illness: LETHARGIC TODAY SUPINE IN BED DEVELOPED WORSENING ERYTHEMA, NOW EXTENDING TO LE AND PANNUS - Current Medication List Current Medications: Active Medications Acetaminophen (Tylenol -) 650 mg PO Q6H PRN PRN Reason: HEADACHE Last Admin: 08/21/19 05:52 Dose: 650 mg Albuterol Sulfate (Ventolin 0.083% Nebulizer Soln -) 1 amp NEB Q4H PRN PRN Reason: SHORT OF BREATH/WHEEZING Last Admin: 08/20/19 04:20 Dose: 1 amp Albuterol/Ipratropium (Duoneb -) 1 amp NEB RQID [facility] Last Admin: 08/21/19 20:34 Dose: 1 amp Amlodipine Besylate (Norvasc -) 5 mg PO DAILY [facility] Last Admin: 08/21/19 09:24 Dose: 5 mg Atorvastatin Calcium (Lipitor -) 40 mg PO HS [facility] Last Admin: 08/20/19 21:21 Dose: 40 mg Bupropion HCl (Wellbutrin Xl -) 150 mg PO DAILY [facility] Last Admin: 08/21/19 09:24 Dose: 150 mg Clotrimazole (Lotrisone Cream (Small Tube)) 1 applic TP BID [facility] Emollient Ointment (Aquaphor -) 1 applic TP BID [facility] Last Admin: 08/21/19 09:24 Dose: 1 applic Enoxaparin Sodium (Lovenox -) 40 mg SQ DAILY [facility] Last Admin: 08/21/19 09:26 Dose: 40 mg Famotidine (Acid Installer Inspector Final) 10 mg PO DAILY PRN PRN Reason: INDIGESTION Last Admin: 08/21/19 14:00 Dose: 10 mg Fluticasone Propionate (Flonase -) 2 spray NS DAILY [facility] Last Admin: 08/21/19 09:25 Dose: 2 sprays Furosemide (Lasix Injection -) 60 mg IVPUSH BID@0600,1400 [facility] Last Admin: 08/21/19 13:57 Dose: 60 mg Vancomycin HCl 1,250 mg/ (Dextrose) 250 mls @ 166.667 mls/hr IVPB BID@0600, 1800 [facility]; Protocol Last Admin: 08/21/19 19:05 Dose: 166.667 mls/hr Insulin Aspart (Novolog Vial Sliding Scale -) 1 vial SQ ACHS [facility]; Protocol Last Admin: 08/21/19 16:56 Dose: Not Given Losartan Potassium (Cozaar -) 50 mg PO DAILY [facility] Last Admin: 08/21/19 09:25 Dose: 50 mg Multi-Ingredient Ointment (Zinc Oxide) 1 applic TP BID [facility] Last Admin: 08/21/19 09:23 Dose: 1 applic Nystatin (Nystop Powder -) 1 applic TP BID [facility] Last Admin: 08/21/19 09:26 Dose: 1 applic Ropinirole HCl (Requip -) 0.5 mg PO DAILY [facility] Last Admin: 08/21/19 09:24 Dose: 0.5 mg Sodium Chloride ([place] Nasal [place] -) 2 spray NS BID [facility] Last Admin: 08/21/19 10:29 Dose: 2 spr - Objective Vital Signs: Vital Signs Temperature 98.5 F 08/21/19 18:01 Pulse Rate 76 08/21/19 18:01 Respiratory Rate 20 08/21/19 18:01 Blood Pressure 158/72 08/21/19 18:01 O2 Sat by Pulse Oximetry (%) 95 08/21/19 09:00 Constitutional: Yes: No Distress Eyes: Yes: Conjunctiva Clear Cardiovascular: Yes: Regular Rate and Rhythm, S1, S2 Respiratory: Yes: CTA Bilaterally Gastrointestinal: Yes: Normal Bowel Sounds, Soft, Other (MASSIVE PANNUS WITH ERYTHEMA LOWER ASPECT) Edema: Yes Edema: LLE: 3+, RLE: 3+ Integumentary: Yes: Other (+ ERYTHEMA/ WARMTH LE BILATERALLY BELOW KNEES TO FEET ) Labs: CBC, BMP 08/21/19 05:43 08/21/19 05:43 Assessment/Plan WORSENING BILATERAL LE CELLULITIS PANNICULITIS [facility] VANCOMYCIN FOR EMPIRIC TREATMENT OF SKIN PATHOGENS INCLUDING MRSA
[2019-08-22] MEDS: ALBUTEROL SO4 0.083% IH SOL 2.5 MG/3 ML VIAL.NEB. NEB PRN (01:25)
[2019-08-22] MEDS: FUROSEMIDE 40 MG/4 ML INJECTABLE VIAL IVPUSH SCH ×2 (05:57→13:53)
[2019-08-22] MEDS: VANCOMYCIN 1,250 MG in DEXTROSE 5%-WATER - 250 ML IVPB SCH ×2 (05:58→19:09)
[2019-08-22] MEDS: INSULIN SLIDING SCALE (NOVOLOG) 1 VIAL SQ SCH ×4 (06:05→22:59)
--- NOTE | 2019-08-22 07:46 | PN ---
Physical Exam: SUBJECTIVE: Patient seen and examined at the bedside. Patient stated that she did not tolerate vancomycin yesterday and started to feel diffuse itching. She denied increased sob, tightening of the throat, rashes. Stated that once vancomycin was stopped, her itching stopped. Endorsed that she has foot pain but it is improved from yesterday. Currently denied cp, abd pain, n/v/c/d, headaches, dizziness, lightheadedness, numbness, tingling, focal weakness. OBJECTIVE: Vital Signs Period Temp Pulse Resp BP Sys/Quan Pulse Ox Last 24 Hr 97.8 F-977 F 68-86 19-20 133-162/66-83 95-95 GENERAL: The patient is awake, alert, and fully oriented, in no acute distress. EYES: PERRL, extraocular movements intact, conjunctiva clear. ENT: Oropharynx clear without exudates, moist mucous membranes. LUNGS: Breath sounds difficult to auscultate due to body habitus. Faint bibasilar crackles noted, no wheezes auscultated HEART: Regular rate and rhythm, S1, S2. Unable to appreciate murmurs. ABDOMEN: Soft, obese, nontender, normoactive bowel sounds, no guarding, no rebound. Significant redness on the abdomen on the R side in between skin folds. EXTREMITIES: Significant chronic lymphedema and pitting edema 2+ noted, improving. Significant redness of the feet bilaterally, improving. Noted warmth and tenderness to touch. NEUROLOGICAL: Cranial nerves II through XII grossly intact. 5/5 muscle strength bilaterally upper and lower extremities. PSYCH: Normal mood, normal affect. Laboratory Results - last 24 hr 08/21/19 08/21/19 08/21/19 11:48 16:54 21:39 POC Glucometer 131 137 164 08/22/19 06:05 POC Glucometer 103 Active Medications Generic Name Dose Route Start Last Admin Trade Name Freq PRN Reason Stop Dose Admin Acetaminophen 650 mg 08/18/19 16:54 08/21/19 05:52 Tylenol - PO 650 mg Q6H PRN Administration HEADACHE Albuterol Sulfate 1 amp 08/17/19 11:10 08/22/19 01:25 Ventolin 0.083% Nebulizer Soln - NEB 1 amp Q4H PRN Administration SHORT OF BREATH/WHEEZING Albuterol/Ipratropium 1 amp 08/17/19 12:00 08/21/19 20:34 Duoneb - NEB 1 amp RQID LAKESHIA Administration Amlodipine Besylate 5 mg 08/18/19 10:00 08/21/19 09:24 Norvasc - PO 5 mg DAILY L[facility] Administration Atorvastatin Calcium 40 mg 08/17/19 22:00 08/21/19 21:05 Lipitor - PO 40 mg HS LAKESHIA Administration Bupropion HCl 150 mg 08/17/19 10:00 08/21/19 09:24 Wellbutrin Xl - PO 150 mg DAILY [facility] Administration Clotrimazole 1 applic 08/21/19 22:00 08/21/19 21:05 Lotrisone Cream (Small Tube) TP 1 applic BID [facility] Administration Emollient Ointment 1 applic 08/20/19 14:00 08/21/19 21:06 Aquaphor - TP 1 applic BID [facility] Administration Enoxaparin Sodium 40 mg 08/17/19 10:00 08/21/19 09:26 Lovenox - SQ 40 mg DAILY [facility] Administration Famotidine 10 mg 08/21/19 08:48 08/21/19 14:00 Acid [employer] PO 10 mg DAILY PRN Administration INDIGESTION Fluticasone Propionate 2 spray 08/19/19 12:15 08/21/19 09:25 Flonase - NS 2 sprays DAILY [facility]AK[facility] Administration Furosemide 60 mg 08/18/19 11:34 08/22/19 05:57 Lasix Injection - IVPUSH 60 mg BID@0600,1400 [facility] Administration Vancomycin HCl 1,250 mg/ 250 mls @ 166.667 mls/hr 08/21/19 18:00 08/22/19 05: 58 Dextrose IVPB Not Given BID@0600,1800 [facility] Protocol Insulin Aspart 1 vial 08/17/19 16:30 08/22/19 06:05 Novolog Vial Sliding Scale - SQ Not Given ACHS [facility] Protocol Losartan Potassium 50 mg 08/18/19 10:00 08/21/19 09:25 Cozaar - PO 50 mg DAILY [facility] Administration Multi-Ingredient Ointment 1 applic 08/20/19 14:00 08/21/19 21:06 Zinc Oxide TP 1 applic BID [facility] Administration Nystatin 1 applic 08/20/19 22:00 08/21/19 21:11 Nystop Powder - TP 1 applic BID [facility] Administration Ropinirole HCl 0.5 mg 08/18/19 10:00 08/21/19 09:24 Requip - PO 0.5 mg DAILY [facility] Administration Sodium Chloride 2 spray 08/21/19 10:00 08/21/19 21:10 [place] Nasal [place] - NS 2 spr BID LAKESHIA Administration ASSESSMENT/PLAN: Mary Lou Ward is a 44 year old female with past medical history of RAINA (on 4L NC , CPAP at night), asthma, depression, HTN, and HLD admitted with shortness of breath likely secondary to CHF decompensation. CHF Decompensation - likely in the setting of high salt diet and increase fluid intake - CXR with noted increased congestive changes - continue IV Lasix 60mg bid - echo from 01/2019 with normal LV, EF 60-65% - Echo EF 55-60%, LV size thickness function normal, RV normal, trace tricuspid regurg - Cardiology consulted, recs appreciated - pulmonology consulted, recs appreciated - Supplemental O2 to keep SpO2 >90% - gurpreet prn - I&O, daily weights - decreasing weight, fluid net negative yesterday of 1750 Intertrigo - Nystatin powder to affected areas, use abdominal pad to decrease skin on skin contact Cellulitis - noted of the feet bilaterally - ID consulted, recs appreciated - vancomycin attempted yesterday had itching reaction to medication - spoken with ID and will reevaluate the patient and change antibiotics - podiatry consulted, recs appreciated, start Lotrisone RAINA - CPAP at bedtime - will attempt BiPAP during the day as patient has difficulty with mask at night Elevated Bilirubin - no abdominal symptoms - bilirubin 1.6, direct 0.3 - previous abd U/S (02/06) noting hepatomegaly with fatty infiltration vs hepatocellular disease - no elevation of liver enzymes, continue to monitor Depression - Continue Wellbutrin 150mg daily HTN - increase losartan to 50mg daily - continue home amlodipine 5mg HLD - atorvastatin at 40mg to keep LDL below 70 DM - BGM - ISS - A1c 6.7 FEN - no standing fluids, 1L fluid restriction - continue to monitor electrolytes and replete as necessary - Sodium restricted diet Prophylaxis - Lovenox 40mg sq daily Disposition - continue to monitor on Med-surg Visit type - Emergency Visit Emergency Visit: Yes ED Registration Date: 08/16/19 Care time: The patient presented to the Emergency Department on the above date and was hospitalized for further evaluation of their emergent condition. - New Patient This patient is new to me today: No - Critical Care Critical Care patient: No
--- NOTE | 2019-08-22 08:57 | PN ---
Teaching Attending Note Name of Resident: Ja Novoa ATTENDING PHYSICIAN STATEMENT I saw and evaluated the patient. I reviewed the resident's note and discussed the case with the resident. I agree with the resident's findings and plan as documented. SUBJECTIVE: Patient is comfortable with no acute distress, Bipap was ordered, stated that she will wear it during day time vs night. Also refusing Vancomycin since had a reaction to it, had a hot flush like symptom, patient refusing vanco. Vital Signs Temperature 977 F H 08/22/19 06:00 Pulse Rate 86 08/22/19 06:00 Respiratory Rate 20 08/22/19 06:00 Blood Pressure 162/76 08/22/19 06:00 O2 Sat by Pulse Oximetry (%) 95 08/21/19 21:00 GENERAL: The patient is awake, alert, and fully oriented, in no acute distress. HEAD: Normal with no signs of trauma. EYES: PERRL, extraocular movements intact, sclera anicteric, conjunctiva clear. ENT: Ears normal, oropharynx clear without exudates, moist mucous membranes. NECK: Trachea midline, full range of motion, supple. LUNGS: decreased Breath sounds BL, no wheezes, no crackles, no accessory muscle use. HEART: Regular rate and rhythm, S1, S2 without murmur, rub or gallop. ABDOMEN: Soft, nontender, nondistended, normoactive bowel sounds, no guarding, no rebound, no hepatosplenomegaly, no masses. EXTREMITIES: 2+ pulses, warm, well-perfused, 2+ edema. fungaus nails and cellulitis of her toes and now erythema of the whole legs ,up the knees, but less red today. NEUROLOGICAL: Cranial nerves II through XII grossly intact. Normal speech, gait not observed. PSYCH: Normal mood, normal affect. SKIN: Warm, dry, normal turgor CBCD WBC 7.2 K/mm3 (4.0-10.0) 08/21/19 05:43 RBC 5.78 M/mm3 (3.60-5.2) H 08/21/19 05:43 Hgb 13.3 GM/dL (10.7-15.3) 08/21/19 05:43 Hct 44.2 % (32.4-45.2) 08/21/19 05:43 MCV 76.4 fl (80-96) L 08/21/19 05:43 MCHC 30.2 g/dl (32.0-36.0) L 08/21/19 05:43 RDW 23.2 % (11.6-15.6) H 08/21/19 05:43 Plt Count 267 K/MM3 (134-434) 08/21/19 05:43 MPV 8.8 fl (7.5-11.1) 08/21/19 05:43 CMP Sodium 138 mmol/L (136-145) 08/21/19 05:43 Potassium 3.7 mmol/L (3.5-5.1) 08/21/19 05:43 Chloride 92 mmol/L (98-107) L 08/21/19 05:43 Carbon Dioxide 41 mmol/L (21-32) H 08/21/19 05:43 Anion Gap 4 MMOL/L (8-16) L 08/21/19 05:43 BUN 13.4 mg/dL (7-18) 08/21/19 05:43 Creatinine 0.6 mg/dL (0.55-1.3) 08/21/19 05:43 Random Glucose 101 mg/dL (74-106) 08/21/19 05:43 Calcium 8.2 mg/dL (8.5-10.1) L 08/21/19 05:43 Total Bilirubin 1.5 mg/dL (0.2-1) H 08/21/19 05:43 AST 11 U/L (15-37) L 08/21/19 05:43 ALT 16 U/L (13-61) 08/21/19 05:43 Alkaline Phosphatase 63 U/L (45-117) 08/21/19 05:43 Total Protein 6.6 g/dl (6.4-8.2) 08/21/19 05:43 Albumin 3.1 g/dl (3.4-5.0) L 08/21/19 05:43 Home Medications Medication Instructions Recorded Albuterol Sulfate Inhaler - 1 puff PRN 02/11/19 [Ventolin HFA Inhaler -] Bupropion HCl [Wellbutrin Xl -] 150 mg PO DAILY 02/11/19 Losartan Potassium 25 mg PO DAILY 02/11/19 Pravastatin Sodium 10 mg PO DAILY 08/24/19 Furosemide [Lasix] 40 mg PO BID #60 tablet 05/27/19 Amlodipine Besylate [Norvasc -] 5 mg PO DAILY 08/16/19 Metformin HCl [Glucophage] 500 mg PO BID 08/16/19 Ropinirole HCl [Requip -] 0.5 mg PO DAILY 08/16/19 Intake & Output 08/18/19 08/19/19 08/20/19 08/21/19 23:59 23:59 23:59 23:59 Intake Total 1760 300 550 Output Total 3300 99570 2150 2600 Balance -1540 -32972 -1849 -2049 Weight 218.632 kg 216.846 kg 216.392 kg 215.088 kg Current Medications Generic Name Dose Route Start Last Admin Trade Name Freq PRN Reason Stop Dose Admin Acetaminophen 650 mg 08/18/19 16:54 08/21/19 05:52 Tylenol - PO 650 mg Q6H PRN Administration HEADACHE Albuterol Sulfate 1 amp 08/17/19 11:10 08/22/19 01:25 Ventolin 0.083% Nebulizer Soln - NEB 1 amp Q4H PRN Administration SHORT OF BREATH/WHEEZING Albuterol/Ipratropium 1 amp 08/17/19 12:00 08/21/19 20:34 Duoneb - NEB 1 amp RQID [facility] Administration Amlodipine Besylate 5 mg 08/18/19 10:00 08/21/19 09:24 Norvasc - PO 5 mg DAILY [facility] Administration Atorvastatin Calcium 40 mg 08/17/19 22:00 08/21/19 21:05 Lipitor - PO 40 mg HS [facility] Administration Bupropion HCl 150 mg 08/17/19 10:00 08/21/19 09:24 Wellbutrin Xl - PO 150 mg DAILY [facility] Administration Clotrimazole 1 applic 08/21/19 22:00 08/21/19 21:05 Lotrisone Cream (Small Tube) TP 1 applic BID [facility] Administration Emollient Ointment 1 applic 08/20/19 14:00 08/21/19 21:06 Aquaphor - TP 1 applic BID [facility] Administration Enoxaparin Sodium 40 mg 08/17/19 10:00 08/21/19 09:26 Lovenox - SQ 40 mg DAILY [facility] Administration Famotidine 10 mg 08/21/19 08:48 08/21/19 14:00 Acid [facility] PO 10 mg DAILY PRN Administration INDIGESTION Fluticasone Propionate 2 spray 08/19/19 12:15 08/21/19 09:25 Flonase - NS 2 sprays DAILY [facility] Administration Furosemide 60 mg 08/18/19 11:34 08/22/19 05:57 Lasix Injection - IVPUSH 60 mg BID@0600,1400 [facility] Administration Vancomycin HCl 1,250 mg/ 250 mls @ 166.667 mls/hr 08/21/19 18:00 08/22/19 05: 58 Dextrose IVPB Not Given BID@0600,1800 [facility] Protocol Insulin Aspart 1 vial 08/17/19 16:30 08/22/19 06:05 Novolog Vial Sliding Scale - SQ Not Given ACHS [facility] Protocol Losartan Potassium 50 mg 08/18/19 10:00 08/21/19 09:25 Cozaar - PO 50 mg DAILY [facility] Administration Multi-Ingredient Ointment 1 applic 08/20/19 14:00 08/21/19 21:06 Zinc Oxide TP 1 applic BID [facility] Administration Nystatin 1 applic 08/20/19 22:00 08/21/19 21:11 Nystop Powder - TP 1 applic BID [facility] Administration Ropinirole HCl 0.5 mg 08/18/19 10:00 08/21/19 09:24 Requip - PO 0.5 mg DAILY [facility] Administration Sodium Chloride 2 spray 08/21/19 10:00 08/21/19 21:10 [place] Nasal [place] - NS 2 spr BID [facility] Administration Intake & Output 08/19/19 08/20/19 08/21/19 08/22/19 23:59 23:59 23:59 23:59 Intake Total 300 850 400 Output Total 14911 2150 2600 2900 Balance -37492 -1850 -1750 -2500 Weight 216.846 kg 216.392 kg 215.088 kg 215.683 kg ASSESSMENT/PLAN: Mary Lou Ward is a 44 year old female with past medical history of RAINA (on 4L NC , CPAP at night), asthma, depression, HTN, and HLD admitted with shortness of breath likely secondary to CHF decompensation #Acute D. CHF Exacerbation: continue IV lasix to 60mg bid continue, to monitor Is and os , daily weights # Cellulitis of her toes/Tinea pedis: worsened on Iv cefazolin , changed to iv vancomycin as per ID,but patient is refusing Vanco since she had a hot flush like symptoms but patient does not want the meds. even on a slow rate. ID was consulted and discussed with . #Intertrigo; Nystatin powder to affected areas, zinc oxide #RAINA: CPAP at bedtime hs #Elevated Bilirubin; monitor #Depression: Continue Wellbutrin 150mg daily #HTN: increase losartan to 50mg daily, home amlodipine 5mg #HLD: continue atorvastatin 40mg to keep LDL below 70 #DM ss scale with coverage #Class III Obesity: discussed the surgical options with the patient as per patient , she was told that she needs to loose weight prior to any surgeries. #Chronic Hypoxic Respiratory Failure #RAINA on Bipap # Hx of Asthma Prophylaxis: Lovenox 40mg
[2019-08-22 09:01] LABS: BLOOD UREA NITROGEN 10.9 mg/dL (7-18); CALCIUM 8.5 mg/dL (8.5-10.1); CREATININE 0.5 mg/dL (0.55-1.3); MAGNESIUM 2.1 mg/dL (1.8-2.4); PHOSPHOROUS 3.1 mg/dL (2.5-4.9); POTASSIUM 3.6 mmol/L (3.5-5.1)
[2019-08-22] MEDS: ALBUTEROL SO4 2.5/IPRATROPIUM 0.5 INH SOL 3 ML VIAL.NEB. NEB SCH ×4 (09:18→20:28)
[2019-08-22] MEDS ORDERED: PT OWN MED DRAWER 7, Y5N ONE ×3 (10:04→22:46)
[2019-08-22] MEDS: MINERAL OIL/PET HY-PHL TOPICAL OINTMENT 454 GM JAR TP SCH ×2 (10:12→22:59)
[2019-08-22] MEDS: SODIUM CHLORIDE NASAL SPRAY 44 ML BOTTLE NS SCH ×2 (10:12→22:58)
[2019-08-22] MEDS: rOPINIRole HCL 0.5 MG TABLET PO SCH (10:14)
[2019-08-22] MEDS: amLODIPine BESYLATE 5 MG TABLET (FP) PO SCH (10:14)
--- NOTE | 2019-08-22 10:14 | PN ---
Progress Note (short form) - Note Progress Note: OOB to chair. Nasal congestion better. Breathing feels better today but again had a few episodes overnight of likely related to OSAS. Refused CPAP overnight. Intake & Output 08/19/19 08/20/19 08/21/19 08/22/19 23:59 23:59 23:59 23:59 Intake Total 300 850 Output Total 61135 2150 2600 1400 Balance -79197 -1850 -1750 -1400 Weight 478 lb 1 oz 477 lb 1 oz 474 lb 3 oz 475 lb 8 oz Last Vital Signs Temp Pulse Resp BP Pulse Ox 98.3 F 73 22 H 155/62 95 08/22/19 09:00 08/22/19 09:00 08/22/19 09:00 08/22/19 09:00 08/21/19 21:00 Active Medications Acetaminophen (Tylenol -) 650 mg PO Q6H PRN PRN Reason: HEADACHE Last Admin: 08/21/19 05:52 Dose: 650 mg Albuterol Sulfate (Ventolin 0.083% Nebulizer Soln -) 1 amp NEB Q4H PRN PRN Reason: SHORT OF BREATH/WHEEZING Last Admin: 08/22/19 01:25 Dose: 1 amp Albuterol/Ipratropium (Duoneb -) 1 amp NEB RQID [facility] Last Admin: 08/22/19 09:18 Dose: 1 amp Amlodipine Besylate (Norvasc -) 5 mg PO DAILY [facility] Last Admin: 08/21/19 09:24 Dose: 5 mg Atorvastatin Calcium (Lipitor -) 40 mg PO HS [facility] Last Admin: 08/21/19 21:05 Dose: 40 mg Bupropion HCl (Wellbutrin Xl -) 150 mg PO DAILY [facility] Last Admin: 08/21/19 09:24 Dose: 150 mg Clotrimazole (Lotrisone Cream (Small Tube)) 1 applic TP BID [facility] Last Admin: 08/21/19 21:05 Dose: 1 applic Emollient Ointment (Aquaphor -) 1 applic TP BID [facility] Last Admin: 08/21/19 21:06 Dose: 1 applic Enoxaparin Sodium (Lovenox -) 40 mg SQ DAILY [facility] Last Admin: 08/21/19 09:26 Dose: 40 mg Famotidine (Acid Banquet Prep Cook) 10 mg PO DAILY PRN PRN Reason: INDIGESTION Last Admin: 08/21/19 14:00 Dose: 10 mg Fluticasone Propionate (Flonase -) 2 spray NS DAILY [facility] Last Admin: 08/21/19 09:25 Dose: 2 sprays Furosemide (Lasix Injection -) 60 mg IVPUSH BID@0600,1400 [facility] Last Admin: 08/22/19 05:57 Dose: 60 mg Vancomycin HCl 1,250 mg/ (Dextrose) 250 mls @ 166.667 mls/hr IVPB BID@0600, 1800 [facility]; Protocol Last Admin: 08/22/19 05:58 Dose: Not Given Insulin Aspart (Novolog Vial Sliding Scale -) 1 vial SQ ACHS [facility]; Protocol Last Admin: 08/22/19 06:05 Dose: Not Given Losartan Potassium (Cozaar -) 50 mg PO DAILY [facility] Last Admin: 08/21/19 09:25 Dose: 50 mg Multi-Ingredient Ointment (Zinc Oxide) 1 applic TP BID [facility] Last Admin: 08/21/19 21:06 Dose: 1 applic Nystatin (Nystop Powder -) 1 applic TP BID [facility] Last Admin: 08/21/19 21:11 Dose: 1 applic Ropinirole HCl (Requip -) 0.5 mg PO DAILY [facility] Last Admin: 08/21/19 09:24 Dose: 0.5 mg Sodium Chloride ([place] Nasal [place] -) 2 spray NS BID [facility] Last Admin: 08/21/19 21:10 Dose: 2 spr Constitutional: Yes: NAD Eyes: Yes: Conjunctiva Clear, EOM Intact HENT: Yes: Atraumatic, Normocephalic Neck: Yes: Supple, Trachea Midline Cardiovascular: Yes: Regular Rate and Rhythm Respiratory: Yes: Diminished (decreased breath sounds at the bases) ...Clubbing: No Gastrointestinal: Yes: Normal Bowel Sounds, Soft, Abdomen, Obese. No: Tenderness Edema: Yes Labs: Laboratory Results - last 24 hr 08/21/19 08/21/19 08/21/19 11:48 16:54 21:39 Sodium Potassium Chloride Carbon Dioxide Anion Gap BUN Creatinine Est GFR (CKD-EPI)AfAm Est GFR (CKD-EPI)NonAf POC Glucometer 131 137 164 Random Glucose Calcium Phosphorus Magnesium 08/22/19 08/22/19 06:05 08:08 Sodium 138 Potassium 3.6 Chloride 93 L Carbon Dioxide 40 H Anion Gap 5 L BUN 10.9 Creatinine 0.5 L Est GFR (CKD-EPI)AfAm 135.47 Est GFR (CKD-EPI)NonAf 116.89 POC Glucometer 103 Random Glucose 105 Calcium 8.5 Phosphorus 3.1 Magnesium 2.1 Assessment/Plan Acute on Chronic Diastolic Heart Failure Volume Overload Chronic Hypoxic Respiratory Failure Morbid Obesity Obstructive Sleep Apnea Asthma HTN Hyperlipidemia - CPAP ordered and patient reports that she will attempt to use it - Lasix - O2 to keep Spo2 >90% - inhaled bronchodilators - defer systemic steroids at this time - DVT prophylaxis Dr Carreno
[2019-08-22] MEDS: NYSTATIN POWDER 100,000 UNITS/GM - 15 GM TOPICAL POWDER TP SCH ×2 (10:15→22:58)
[2019-08-22] MEDS: ENOXAPARIN NA (PORCINE) 40 MG/0.4 ML DISP.SYRIN SQ SCH (10:15)
[2019-08-22] MEDS: CLOTRIMAZOLE/BETAMET DIPROP 15 GM TUBE TP SCH ×2 (10:15→22:58)
[2019-08-22] MEDS: LOSARTAN POTASSIUM 50 MG TABLET (FP) PO SCH (10:15)
[2019-08-22] MEDS: ZINC OXIDE 20% TOPICAL OINTMENT 30 GM TUBE TP SCH ×2 (10:16→22:59)
[2019-08-22] MEDS: FLUTICASONE PROP 0.05% 16 GM NASAL SPRAY NS SCH (10:17)
[2019-08-22] MEDS: diphenhydrAMINE HCL 25 MG CAPSULE (FP) PO PRN (18:40)
--- NOTE | 2019-08-22 22:53 | PN ---
Progress Note, Physician History of Present Illness: OOB IN CHAIR REPORTS DEVELOPING GENERALIZED PRURITIS WITH VANCOMYCIN NO RASH REPORTED - Current Medication List Current Medications: Active Medications Acetaminophen (Tylenol -) 650 mg PO Q6H PRN PRN Reason: HEADACHE Last Admin: 08/21/19 05:52 Dose: 650 mg Albuterol Sulfate (Ventolin 0.083% Nebulizer Soln -) 1 amp NEB Q4H PRN PRN Reason: SHORT OF BREATH/WHEEZING Last Admin: 08/22/19 01:25 Dose: 1 amp Albuterol/Ipratropium (Duoneb -) 1 amp NEB RQID [facility] Last Admin: 08/22/19 20:28 Dose: 1 amp Amlodipine Besylate (Norvasc -) 5 mg PO DAILY [facility] Last Admin: 08/22/19 10:14 Dose: 5 mg Atorvastatin Calcium (Lipitor -) 40 mg PO HS [facility] Last Admin: 08/21/19 21:05 Dose: 40 mg Bupropion HCl (Wellbutrin Xl -) 150 mg PO DAILY [facility] Last Admin: 08/22/19 10:16 Dose: 150 mg Clotrimazole (Lotrisone Cream (Small Tube)) 1 applic TP BID [facility] Last Admin: 08/22/19 10:15 Dose: 1 applic Diphenhydramine HCl (Benadryl -) 50 mg PO Q12H PRN PRN Reason: FOR ITCHING Last Admin: 08/22/19 18:40 Dose: 50 mg Emollient Ointment (Aquaphor -) 1 applic TP BID [facility] Last Admin: 08/22/19 10:12 Dose: 1 applic Enoxaparin Sodium (Lovenox -) 40 mg SQ DAILY [facility] Last Admin: 08/22/19 10:15 Dose: 40 mg Famotidine (Acid Solvent Plant Treater) 10 mg PO DAILY PRN PRN Reason: INDIGESTION Last Admin: 08/21/19 14:00 Dose: 10 mg Fluticasone Propionate (Flonase -) 2 spray NS DAILY [facility] Last Admin: 08/22/19 10:17 Dose: 2 sprays Furosemide (Lasix Injection -) 60 mg IVPUSH BID@0600,1400 [facility] Last Admin: 08/22/19 13:53 Dose: 60 mg Vancomycin HCl 1,250 mg/ (Dextrose) 250 mls @ 166.667 mls/hr IVPB BID@0600, 1800 [facility]; Protocol Last Admin: 08/22/19 19:09 Dose: 166.667 mls/hr Insulin Aspart (Novolog Vial Sliding Scale -) 1 vial SQ ACHS [facility]; Protocol Last Admin: 08/22/19 18:38 Dose: Not Given Losartan Potassium (Cozaar -) 50 mg PO DAILY [facility] Last Admin: 08/22/19 10:15 Dose: 50 mg Multi-Ingredient Ointment (Zinc Oxide) 1 applic TP BID [facility] Last Admin: 08/22/19 10:16 Dose: 1 applic Nystatin (Nystop Powder -) 1 applic TP BID [facility] Last Admin: 08/22/19 10:15 Dose: 1 applic Ropinirole HCl (Requip -) 0.5 mg PO DAILY [facility] Last Admin: 08/22/19 10:14 Dose: 0.5 mg Sodium Chloride ([place] Nasal [place] -) 2 spray NS BID [facility] Last Admin: 08/22/19 10:12 Dose: 2 spr - Objective Vital Signs: Vital Signs Temperature 98.0 F 08/22/19 17:43 Pulse Rate 68 08/22/19 17:43 Respiratory Rate 20 08/22/19 17:43 Blood Pressure 122/55 L 08/22/19 17:43 O2 Sat by Pulse Oximetry (%) 96 08/22/19 09:00 Constitutional: Yes: No Distress, Obese Cardiovascular: Yes: Regular Rate and Rhythm, S1, S2 Respiratory: Yes: CTA Bilaterally Gastrointestinal: Yes: Normal Bowel Sounds, Soft, Abdomen, Obese. No: Tenderness Extremities: Yes: Other (+ LE ERYTHEMA/ WARMTH) Labs: CBC, BMP 08/21/19 05:43 08/22/19 08:08 Assessment/Plan PROBABLE RED MAN SYNDROME BILATERAL LE CELLULITIS PANNICULITIS TINEA PEDIS RECHALLANGE VANCOMYCIN WITH BENADRYL PRE-MEDICATION
[2019-08-22] MEDS: ATORVASTATIN CA 10 MG TABLET (FP) PO SCH (22:59)
--- NOTE | 2019-08-23 02:39 | PN ---
Progress Note, Physician Chief Complaint: Pt A&Ox3; no chest pain; + dyspnea on mild exertion. History of Present Illness: 44 yr old white woman with PMH of morbid obesity, RAINA (on home 4L oxygen), asthma (never intubated, hospitalized once), depression, HTN, HLD, who presents to the ED for evaluation of edema for 2 days. Patient notes she has bilateral lower extremity edema at baseline, but notes it has become significantly worse over the past few days. She feels as if she is retaining more fluid in her legs and abdomen than typical, despite the fact that she is on Lasix daily. Patient notes it is painful for her to walk secondary to her edema, and her stomach feels harder than usual. She additionally reports ~20pd weight gain at this time. Patient endorses associated SOB (despite being on 4L of home O2), wheezing , and dyspnea on exertion. Allergies: NKA, NKDA Surgical History: None reported Social History: Denies EtOH, tobacco, or illicit drug use PCP: Dr. Charlton Pulmonology: Dr. Alas - Current Medication List Current Medications: Active Medications Acetaminophen (Tylenol -) 650 mg PO Q6H PRN PRN Reason: HEADACHE Last Admin: 08/21/19 05:52 Dose: 650 mg Albuterol Sulfate (Ventolin 0.083% Nebulizer Soln -) 1 amp NEB Q4H PRN PRN Reason: SHORT OF BREATH/WHEEZING Last Admin: 08/22/19 01:25 Dose: 1 amp Albuterol/Ipratropium (Duoneb -) 1 amp NEB RQID [facility] Last Admin: 08/22/19 20:28 Dose: 1 amp Amlodipine Besylate (Norvasc -) 5 mg PO DAILY [facility] Last Admin: 08/22/19 10:14 Dose: 5 mg Atorvastatin Calcium (Lipitor -) 40 mg PO HS [facility] Last Admin: 08/22/19 22:59 Dose: 40 mg Bupropion HCl (Wellbutrin Xl -) 150 mg PO DAILY [facility] Last Admin: 08/22/19 10:16 Dose: 150 mg Clotrimazole (Lotrisone Cream (Small Tube)) 1 applic TP BID [facility] Last Admin: 08/22/19 22:58 Dose: 1 applic Diphenhydramine HCl (Benadryl -) 50 mg PO Q12H PRN PRN Reason: FOR ITCHING Last Admin: 08/22/19 18:40 Dose: 50 mg Emollient Ointment (Aquaphor -) 1 applic TP BID [facility] Last Admin: 08/22/19 22:59 Dose: 1 applic Enoxaparin Sodium (Lovenox -) 40 mg SQ DAILY [facility] Last Admin: 08/22/19 10:15 Dose: 40 mg Famotidine (Acid Form Tamper) 10 mg PO DAILY PRN PRN Reason: INDIGESTION Last Admin: 08/21/19 14:00 Dose: 10 mg Fluticasone Propionate (Flonase -) 2 spray NS DAILY [facility] Last Admin: 08/22/19 10:17 Dose: 2 sprays Furosemide (Lasix Injection -) 60 mg IVPUSH BID@0600,1400 [facility] Last Admin: 08/22/19 13:53 Dose: 60 mg Vancomycin HCl 1,250 mg/ (Dextrose) 250 mls @ 166.667 mls/hr IVPB BID@0600, 1800 [facility]; Protocol Last Admin: 08/22/19 19:09 Dose: 166.667 mls/hr Insulin Aspart (Novolog Vial Sliding Scale -) 1 vial SQ ACHS [facility]; Protocol Last Admin: 08/22/19 22:59 Dose: Not Given Losartan Potassium (Cozaar -) 50 mg PO DAILY [facility] Last Admin: 08/22/19 10:15 Dose: 50 mg Multi-Ingredient Ointment (Zinc Oxide) 1 applic TP BID [facility] Last Admin: 08/22/19 22:59 Dose: 1 applic Nystatin (Nystop Powder -) 1 applic TP BID [facility] Last Admin: 08/22/19 22:58 Dose: 1 applic Ropinirole HCl (Requip -) 0.5 mg PO DAILY [facility] Last Admin: 08/22/19 10:14 Dose: 0.5 mg Sodium Chloride ([place] Nasal [place] -) 2 spray NS BID [facility] Last Admin: 08/22/19 22:58 Dose: 2 spr - Objective Vital Signs: Vital Signs Temperature 97.8 F 08/22/19 21:00 Pulse Rate 85 08/22/19 21:00 Respiratory Rate 22 H 08/22/19 21:00 Blood Pressure 111/56 L 08/22/19 21:00 O2 Sat by Pulse Oximetry (%) 96 08/22/19 09:00 Constitutional: Yes: Anxious, Obese Eyes: Yes: WNL HENT: Yes: WNL Neck: Yes: WNL Cardiovascular: Yes: S1, S2 Respiratory: Yes: Regular Gastrointestinal: Yes: WNL, Soft, Abdomen, Obese ...Rectal Exam: Yes: Deferred Genitourinary: Yes: Anuria Breast(s): Yes: WNL Musculoskeletal: Yes: Back Pain, Joint Stiffness, Joint Swelling, Muscle Weakness Extremities: Yes: Cool Edema: Yes Edema: LLE: 2+, RLE: 2+ Peripheral Pulses WNL: Yes Integumentary: Yes: Erythema (RLE>LLE), Venous Stasis Changes Neurological: Yes: Alert, Oriented, Weakness Psychiatric: Yes: Alert, Oriented, Other (food addiction; depression) Labs: CBC, BMP 08/21/19 05:43 08/22/19 08:08 - ....Imaging Chest X-ray: Image Reviewed EKG: Image Reviewed Problem List - Problems (1) [place] cardiac risk >20% in next 10 years Assessment/Plan: Pt does not remember ever having a stress test or coronary angiogram. Her weight makes it difficult to have either of the above tests at the present time. Mother had CHF. Pt never smoked; no hx cocaine; No hx alcoholism. Aggressive control of BP, glucose, lipids. Weight loss is imperative. If pt cannot lose a significant amount of weight in the next 6 months with "conservative' regimen, would strongly consider bariatric surgery. Code(s): Z91.89 - OTH PERSONAL RISK FACTORS, NOT ELSEWHERE CLASSIFIED (2) Acute on chronic diastolic (congestive) heart failure Assessment/Plan: On losartan, amlodipine, and furosemide. Morbid obesity is the prime factor, and BP control is also important in control of her CHF. F/u BUN/Cr, electrolytes, daily weight, Is and Os. Code(s): I50.33 - ACUTE ON CHRONIC DIASTOLIC (CONGESTIVE) HEART FAILURE (3) Intertrigo Code(s): L30.4 - ERYTHEMA INTERTRIGO (4) Acute on chronic respiratory failure with hypoxemia Code(s): J96.21 - ACUTE AND CHRONIC RESPIRATORY FAILURE WITH HYPOXIA (5) Hypercholesterolemia Assessment/Plan: LDL 138 mg/dL; now on atorvastatin 40 mg daily. [facility] Administrator for help with diet modification, weight loss. Code(s): E78.00 - PURE HYPERCHOLESTEROLEMIA, UNSPECIFIED (6) RAINA (obstructive sleep apnea) Code(s): G47.33 - OBSTRUCTIVE SLEEP APNEA (ADULT) (PEDIATRIC) (7) Asthma Code(s): J45.909 - UNSPECIFIED ASTHMA, UNCOMPLICATED (8) HTN (hypertension) Assessment/Plan: Increased losartan to 50 mg daily. On IV furosemide. Weight loss is loaiza. Code(s): I10 - ESSENTIAL (PRIMARY) HYPERTENSION (9) Morbid (severe) obesity with alveolar hypoventilation Assessment/Plan: Pt says she has thought of having gastric bypass surgery, but is afraid because she is at high risk "and I might not make it off the table". The risks in continuing to have the weight she is at presently were discussed. At 19 yrs old, she weighed about 150 lbs; weight went up after of her 2nd child, at age 24. Now 475 lbs. At home now, she says the family tends to order fast food, and she eats it with them. She says "it will be different now; I told my family they have to keep their bad food away from me". Code(s): E66.2 - MORBID (SEVERE) OBESITY WITH ALVEOLAR HYPOVENTILATION (10) Cellulitis Code(s): L03.90 - CELLULITIS, UNSPECIFIED
[2019-08-23] MEDS: INSULIN SLIDING SCALE (NOVOLOG) 1 VIAL SQ SCH ×4 (06:02→22:10)
[2019-08-23] MEDS ORDERED: PT OWN MED DRAWER 7, Y5N ONE ×2 (06:24→08:56)
[2019-08-23] MEDS: VANCOMYCIN 1,250 MG in DEXTROSE 5%-WATER - 250 ML IVPB SCH ×2 (06:27→18:46)
[2019-08-23] MEDS: FUROSEMIDE 40 MG/4 ML INJECTABLE VIAL IVPUSH SCH ×2 (06:27→13:41)
--- NOTE | 2019-08-23 06:36 | PN ---
Physical Exam: SUBJECTIVE: Patient seen and examined at the bedside. The patient stated she was feeling better and her foot was improving. She denied acute complaints of fevers, chills, cp, abd pain, n/v/c/d, headaches, dizziness, lightheadedness. Was restarted on vancomycin with benadryl which she tolerated well. OBJECTIVE: Vital Signs Period Temp Pulse Resp BP Sys/Quan Pulse Ox Last 24 Hr 97.7 F-98.3 F 68-92 20-22 111-155/55-62 96 GENERAL: The patient is awake, alert, and fully oriented, in no acute distress. EYES: PERRL, extraocular movements intact, conjunctiva clear. ENT: Oropharynx clear without exudates, moist mucous membranes. LUNGS: Breath sounds difficult to auscultate due to body habitus. Faint bibasilar crackles noted, no wheezes auscultated HEART: Regular rate and rhythm, S1, S2. Unable to appreciate murmurs. ABDOMEN: Soft, obese, nontender, normoactive bowel sounds, no guarding, no rebound. Significant redness on the abdomen on the R side in between skin folds. EXTREMITIES: Significant chronic lymphedema and pitting edema 2+ noted, improving. Significant redness of the feet bilaterally, greatly improving. Decreased warmth and tenderness to touch. NEUROLOGICAL: Cranial nerves II through XII grossly intact. 5/5 muscle strength bilaterally upper and lower extremities. PSYCH: Normal mood, normal affect. Laboratory Results - last 24 hr 08/22/19 08/22/19 08/22/19 08:08 11:19 16:38 Sodium 138 Potassium 3.6 Chloride 93 L Carbon Dioxide 40 H Anion Gap 5 L BUN 10.9 Creatinine 0.5 L Est GFR (CKD-EPI)AfAm 135.47 Est GFR (CKD-EPI)NonAf 116.89 POC Glucometer 131 145 Random Glucose 105 Calcium 8.5 Phosphorus 3.1 Magnesium 2.1 08/22/19 08/23/19 22:53 05:47 Sodium Potassium Chloride Carbon Dioxide Anion Gap BUN Creatinine Est GFR (CKD-EPI)AfAm Est GFR (CKD-EPI)NonAf POC Glucometer 99 116 Random Glucose Calcium Phosphorus Magnesium Active Medications Generic Name Dose Route Start Last Admin Trade Name Freq PRN Reason Stop Dose Admin Acetaminophen 650 mg 08/18/19 16:54 08/21/19 05:52 Tylenol - PO 650 mg Q6H PRN Administration HEADACHE Albuterol Sulfate 1 amp 08/17/19 11:10 08/22/19 01:25 Ventolin 0.083% Nebulizer Soln - NEB 1 amp Q4H PRN Administration SHORT OF BREATH/WHEEZING Albuterol/Ipratropium 1 amp 08/17/19 12:00 08/22/19 20:28 Duoneb - NEB 1 amp RQID LAKESHIA Administration Amlodipine Besylate 5 mg 08/18/19 10:00 08/22/19 10:14 Norvasc - PO 5 mg DAILY LAKESHIA Administration Atorvastatin Calcium 40 mg 08/17/19 22:00 08/22/19 22:59 Lipitor - PO 40 mg HS LAKESHIA Administration Bupropion HCl 150 mg 08/17/19 10:00 08/22/19 10:16 Wellbutrin Xl - PO 150 mg DAILY LAKESHIA Administration Clotrimazole 1 applic 08/21/19 22:00 08/22/19 22:58 Lotrisone Cream (Small Tube) TP 1 applic BID LAKESHIA Administration Diphenhydramine HCl 50 mg 08/22/19 17:55 08/22/19 18:40 Benadryl - PO 50 mg Q12H PRN Administration FOR ITCHING Emollient Ointment 1 applic 08/20/19 14:00 08/22/19 22:59 Aquaphor - TP 1 applic BID LAKESHIA Administration Enoxaparin Sodium 40 mg 08/17/19 10:00 08/22/19 10:15 Lovenox - SQ 40 mg DAILY LAKESHIA Administration Famotidine 10 mg 08/21/19 08:48 08/21/19 14:00 Acid Qa Internship PO 10 mg DAILY PRN Administration INDIGESTION Fluticasone Propionate 2 spray 08/19/19 12:15 08/22/19 10:17 Flonase - NS 2 sprays DAILY LAKESHIA Administration Furosemide 60 mg 08/18/19 11:34 08/22/19 13:53 Lasix Injection - IVPUSH 60 mg BID@0600,1400 LAKESHIA Administration Vancomycin HCl 1,250 mg/ 250 mls @ 166.667 mls/hr 08/21/19 18:00 08/22/19 19:09 Dextrose IVPB 166.667 mls/hr BID@0600,1800 LAKESHIA Administration Protocol Insulin Aspart 1 vial 08/17/19 16:30 08/23/19 06:02 Novolog Vial Sliding Scale - SQ Not Given ACHS LAKESHIA Protocol Losartan Potassium 50 mg 08/18/19 10:00 08/22/19 10:15 Cozaar - PO 50 mg DAILY LAKESHIA Administration Multi-Ingredient Ointment 1 applic 08/20/19 14:00 08/22/19 22:59 Zinc Oxide TP 1 applic BID LAKESHIA Administration Nystatin 1 applic 08/20/19 22:00 08/22/19 22:58 Nystop Powder - TP 1 applic BID LAKESHIA Administration Ropinirole HCl 0.5 mg 08/18/19 10:00 08/22/19 10:14 Requip - PO 0.5 mg DAILY LAKESHIA Administration Sodium Chloride 2 spray 08/21/19 10:00 08/22/19 22:58 [place] Nasal [place] - NS 2 spr BID LAKESHIA Administration ASSESSMENT/PLAN: Mary Lou Ward is a 44 year old female with past medical history of RAINA (on 4L NC, CPAP at night), asthma, depression, HTN, and HLD admitted with shortness of breath likely secondary to CHF decompensation. CHF Decompensation - likely in the setting of high salt diet and increase fluid intake - CXR with noted increased congestive changes - continue IV Lasix 60mg bid - echo from 01/2019 with normal LV, EF 60-65% - Echo EF 55-60%, LV size thickness function normal, RV normal, trace tricuspid regurg - Cardiology consulted, recs appreciated - pulmonology consulted, recs appreciated - Supplemental O2 to keep SpO2 >90% - duonebs prn - I&O, daily weights - decreasing weight, fluid net negative yesterday of 2550 Intertrigo - Nystatin powder to affected areas, use abdominal pad to decrease skin on skin contact Cellulitis - noted of the feet bilaterally - ID consulted, recs appreciated - vancomycin continued with benadryl to minimize itching which is tolerated well - podiatry consulted, recs appreciated, start Lotrisone RAINA - CPAP at bedtime - will attempt BiPAP during the day as patient has difficulty with mask at night Elevated Bilirubin - no abdominal symptoms - bilirubin 1.6, direct 0.3 - previous abd U/S (02/06) noting hepatomegaly with fatty infiltration vs hepatocellular disease - no elevation of liver enzymes, continue to monitor Depression - Continue Wellbutrin 150mg daily HTN - losartan 50mg daily - continue home amlodipine 5mg HLD - atorvastatin at 40mg to keep LDL below 70 DM - BGM - ISS - A1c 6.7 FEN - no standing fluids, 1L fluid restriction - continue to monitor electrolytes and replete as necessary - Sodium restricted diet Prophylaxis - Lovenox 40mg sq daily Disposition - continue to monitor on Med-surg Visit type - Emergency Visit Emergency Visit: Yes ED Registration Date: 08/16/19 Care time: The patient presented to the Emergency Department on the above date and was hospitalized for further evaluation of their emergent condition. - New Patient This patient is new to me today: No - Critical Care Critical Care patient: No
[2019-08-23 07:32] LABS: BASO % 0.7 % (0-2.0); EOS % 2.5 % (0-4.5); HEMATOCRIT 43.5 % (32.4-45.2); HEMOGLOBIN 13.2 GM/dL (10.7-15.3); LYMPH % 12.8 % (8-40); MCH 23.1 pg (25.7-33.7); MCHC 30.3 g/dl (32.0-36.0); MEAN PLT VOLUME 8.8 fl (7.5-11.1); MONO % 6.9 % (3.8-10.2); NEUT % 77.1 % (42.8-82.8); PLATELET COUNT 292 K/MM3 (134-434); RBC 5.72 M/mm3 (3.60-5.2); RDW 23.4 % (11.6-15.6); WHITE BLOOD COUNT 7.1 K/mm3 (4.0-10.0)
[2019-08-23 07:55] LABS: BLOOD UREA NITROGEN 10.7 mg/dL (7-18); CREATININE 0.5 mg/dL (0.55-1.3); MAGNESIUM 2.2 mg/dL (1.8-2.4); POTASSIUM 3.8 mmol/L (3.5-5.1)
[2019-08-23] MEDS: ALBUTEROL SO4 2.5/IPRATROPIUM 0.5 INH SOL 3 ML VIAL.NEB. NEB SCH ×4 (08:00→20:15)
[2019-08-23] MEDS: amLODIPine BESYLATE 5 MG TABLET (FP) PO SCH (09:16)
[2019-08-23] MEDS: ENOXAPARIN NA (PORCINE) 40 MG/0.4 ML DISP.SYRIN SQ SCH (09:16)
[2019-08-23] MEDS: LOSARTAN POTASSIUM 50 MG TABLET (FP) PO SCH (09:16)
[2019-08-23] MEDS: SODIUM CHLORIDE NASAL SPRAY 44 ML BOTTLE NS SCH ×2 (09:17→22:13)
[2019-08-23] MEDS: FLUTICASONE PROP 0.05% 16 GM NASAL SPRAY NS SCH (09:17)
[2019-08-23] MEDS: CLOTRIMAZOLE/BETAMET DIPROP 15 GM TUBE TP SCH ×2 (09:17→22:13)
[2019-08-23] MEDS: ZINC OXIDE 20% TOPICAL OINTMENT 30 GM TUBE TP SCH ×2 (09:17→22:21)
[2019-08-23] MEDS: rOPINIRole HCL 0.5 MG TABLET PO SCH (09:17)
[2019-08-23] MEDS: MINERAL OIL/PET HY-PHL TOPICAL OINTMENT 454 GM JAR TP SCH ×2 (09:17→22:14)
[2019-08-23] MEDS: NYSTATIN POWDER 100,000 UNITS/GM - 15 GM TOPICAL POWDER TP SCH ×2 (09:17→22:15)
[2019-08-23] MEDS: BENZOCAINE/MENTH/CETYLPYRD CL 1 EACH LOZENGE MM PRN (09:20)
--- NOTE | 2019-08-23 11:29 | PN ---
Progress Note, Physician History of Present Illness: AWAKE, ALERT TOLERATED VANCOMYCIN WITH BENADRYL NO C/O PRURITIS/ RASH - Current Medication List Current Medications: Active Medications Acetaminophen (Tylenol -) 650 mg PO Q6H PRN PRN Reason: HEADACHE Last Admin: 08/21/19 05:52 Dose: 650 mg Albuterol Sulfate (Ventolin 0.083% Nebulizer Soln -) 1 amp NEB Q4H PRN PRN Reason: SHORT OF BREATH/WHEEZING Last Admin: 08/22/19 01:25 Dose: 1 amp Albuterol/Ipratropium (Duoneb -) 1 amp NEB RQID [facility]AKESHIA Last Admin: 08/22/19 20:28 Dose: 1 amp Amlodipine Besylate (Norvasc -) 5 mg PO DAILY [facility] Last Admin: 08/23/19 09:16 Dose: 5 mg Atorvastatin Calcium (Lipitor -) 40 mg PO HS [facility] Last Admin: 08/22/19 22:59 Dose: 40 mg Benzocaine/Menthol (Cepacol Lozenge -) 1 each MM PRN PRN PRN Reason: SORE THROAT Last Admin: 08/23/19 09:20 Dose: 1 each Bupropion HCl (Wellbutrin Xl -) 150 mg PO DAILY [facility] Last Admin: 08/23/19 09:17 Dose: 150 mg Clotrimazole (Lotrisone Cream (Small Tube)) 1 applic TP BID [facility] Last Admin: 08/23/19 09:17 Dose: 1 applic Diphenhydramine HCl (Benadryl -) 50 mg PO Q12H PRN PRN Reason: FOR ITCHING Last Admin: 08/22/19 18:40 Dose: 50 mg Emollient Ointment (Aquaphor -) 1 applic TP BID [facility] Last Admin: 08/23/19 09:17 Dose: 1 applic Enoxaparin Sodium (Lovenox -) 40 mg SQ DAILY [facility] Last Admin: 08/23/19 09:16 Dose: 40 mg Famotidine (Acid [employer] Worker) 10 mg PO DAILY PRN PRN Reason: INDIGESTION Last Admin: 08/21/19 14:00 Dose: 10 mg Fluticasone Propionate (Flonase -) 2 spray NS DAILY [facility] Last Admin: 08/23/19 09:17 Dose: 1 sprays Furosemide (Lasix Injection -) 60 mg IVPUSH BID@0600,1400 [facility] Last Admin: 08/23/19 06:27 Dose: 60 mg Vancomycin HCl 1,250 mg/ (Dextrose) 250 mls @ 166.667 mls/hr IVPB BID@0600, 1800 [facility]; Protocol Last Admin: 08/23/19 06:27 Dose: 166.667 mls/hr Insulin Aspart (Novolog Vial Sliding Scale -) 1 vial SQ ACHS [facility]; Protocol Last Admin: 08/23/19 06:02 Dose: Not Given Losartan Potassium (Cozaar -) 50 mg PO DAILY [facility] Last Admin: 08/23/19 09:16 Dose: 50 mg Multi-Ingredient Ointment (Zinc Oxide) 1 applic TP BID [facility] Last Admin: 08/23/19 09:17 Dose: 1 applic Nystatin (Nystop Powder -) 1 applic TP BID [facility] Last Admin: 08/23/19 09:17 Dose: 1 applic Ropinirole HCl (Requip -) 0.5 mg PO DAILY [facility] Last Admin: 08/23/19 09:17 Dose: 0.5 mg Sodium Chloride ([place] Nasal [place] -) 2 spray NS BID [facility] Last Admin: 08/23/19 09:17 Dose: 2 spr - Objective Vital Signs: Vital Signs Temperature 98.7 F 08/23/19 09:24 Pulse Rate 71 08/23/19 09:24 Respiratory Rate 19 08/23/19 09:24 Blood Pressure 132/68 08/23/19 09:24 O2 Sat by Pulse Oximetry (%) 96 08/22/19 09:00 Constitutional: Yes: No Distress, Obese Cardiovascular: Yes: Regular Rate and Rhythm, S1, S2 Respiratory: Yes: CTA Bilaterally Gastrointestinal: Yes: Normal Bowel Sounds, Soft. No: Tenderness Extremities: Yes: Other (DECREASED LE ERYTHEMA/ WARMTH) Edema: Yes Labs: CBC, BMP 08/23/19 06:38 08/23/19 06:38 Assessment/Plan PROBABLE RED MAN SYNDROME BILATERAL LE CELLULITIS PANNICULITIS TINEA PEDIS CONTINUE VANCOMYCIN WITH BENADRYL PRE-MEDICATION
[2019-08-23] MEDS: ACETAMINOPHEN 325 MG TABLET (FP) PO PRN (13:41)
--- NOTE | 2019-08-23 14:09 | PN ---
Progress Note (short form) - Note Progress Note: PULMONARY Denies shortness of breath. c/o purulent discharge from feet. Vital Signs Period Temp Pulse Resp BP Sys/Quan Pulse Ox Last 24 Hr 97.8 F-98.7 F 68-85 19-22 111-137/55-70 Gen: NAD at rest Heart: RRR Lung: distant breath sounds Abd: soft, nontender Ext: + edema, +erythema CBC, BMP 08/23/19 06:38 08/23/19 06:38 Active Medications Acetaminophen (Tylenol -) 650 mg PO Q6H PRN PRN Reason: HEADACHE Last Admin: 08/23/19 13:41 Dose: 650 mg Albuterol Sulfate (Ventolin 0.083% Nebulizer Soln -) 1 amp NEB Q4H PRN PRN Reason: SHORT OF BREATH/WHEEZING Last Admin: 08/22/19 01:25 Dose: 1 amp Albuterol/Ipratropium (Duoneb -) 1 amp NEB RQID [facility] Last Admin: 08/23/19 12:57 Dose: Not Given Amlodipine Besylate (Norvasc -) 5 mg PO DAILY [facility] Last Admin: 08/23/19 09:16 Dose: 5 mg Atorvastatin Calcium (Lipitor -) 40 mg PO HS [facility] Last Admin: 08/22/19 22:59 Dose: 40 mg Benzocaine/Menthol (Cepacol Lozenge -) 1 each MM PRN PRN PRN Reason: SORE THROAT Last Admin: 08/23/19 09:20 Dose: 1 each Bupropion HCl (Wellbutrin Xl -) 150 mg PO DAILY [facility] Last Admin: 08/23/19 09:17 Dose: 150 mg Clotrimazole (Lotrisone Cream (Small Tube)) 1 applic TP BID [facility] Last Admin: 08/23/19 09:17 Dose: 1 applic Diphenhydramine HCl (Benadryl -) 50 mg PO Q12H PRN PRN Reason: FOR ITCHING Last Admin: 08/22/19 18:40 Dose: 50 mg Emollient Ointment (Aquaphor -) 1 applic TP BID [facility] Last Admin: 08/23/19 09:17 Dose: 1 applic Enoxaparin Sodium (Lovenox -) 40 mg SQ DAILY [facility] Last Admin: 03/04/20 09:16 Dose: 40 mg Famotidine (Acid Skin Piler) 10 mg PO DAILY PRN PRN Reason: INDIGESTION Last Admin: 08/21/19 14:00 Dose: 10 mg Fluticasone Propionate (Flonase -) 2 spray NS DAILY [facility] Last Admin: 08/23/19 09:17 Dose: 1 sprays Furosemide (Lasix Injection -) 60 mg IVPUSH BID@0600,1400 [facility] Last Admin: 08/23/19 13:41 Dose: 60 mg Vancomycin HCl 1,250 mg/ (Dextrose) 250 mls @ 166.667 mls/hr IVPB BID@0600, 1800 [facility]; Protocol Last Admin: 08/23/19 06:27 Dose: 166.667 mls/hr Insulin Aspart (Novolog Vial Sliding Scale -) 1 vial SQ ACHS [facility]; Protocol Last Admin: 08/23/19 11:40 Dose: Not Given Losartan Potassium (Cozaar -) 50 mg PO DAILY [facility] Last Admin: 08/23/19 09:16 Dose: 50 mg Multi-Ingredient Ointment (Zinc Oxide) 1 applic TP BID [facility] Last Admin: 08/23/19 09:17 Dose: 1 applic Nystatin (Nystop Powder -) 1 applic TP BID [facility] Last Admin: 08/23/19 09:17 Dose: 1 applic Ropinirole HCl (Requip -) 0.5 mg PO DAILY [facility] Last Admin: 08/23/19 09:17 Dose: 0.5 mg Sodium Chloride ([place] Nasal [place] -) 2 spray NS BID [facility] Last Admin: 08/23/19 09:17 Dose: 2 spr A/P Acute on Chronic Diastolic Heart Failure Volume Overload Cellulitis/Panniculitis Chronic Hypoxic Respiratory Failure Morbid Obesity Obstructive Sleep Apnea Asthma HTN Hyperlipidemia - continue lasix - monitor urine output, creatinine - daily weights - O2 to keep SpO2 >90% - CPAP at night - inhaled bronchodilators - DVT prophylaxis
--- NOTE | 2019-08-23 14:17 | PN ---
Progress Note, Physician History of Present Illness: The patient is a 44 morbidly obese female, with a significant PMH of RAINA (on home 4L oxygen), asthma (never intubated, hospitalized once), depression, HTN, HLD, who presents to the ED for evaluation of edema for 2 days. Patient notes she has bilateral lower extremity edema at baseline, but notes it has become significantly worse over the past couple days. She feels as if she is retaining more fluid in her legs and abdomen than typical, despite the fact that she is on Lasix daily. Patient notes it is painful for her to walk secondary to her edema, and her stomach feels harder than usual. She additionally reports ~20pd weight gain at this time. Patient endorses associated SOB (despite being on 4L of home O2), wheezing, and dyspnea on exertion. Allergies: NKA, NKDA Surgical History: None reported Social History: Denies EtOH, tobacco, or illicit drug use PCP: Dr. Charlton Rust Proofer: Dr. Jackson Pulmonology: Dr. Alas - Current Medication List Current Medications: Active Medications Acetaminophen (Tylenol -) 650 mg PO Q6H PRN PRN Reason: HEADACHE Last Admin: 08/23/19 13:41 Dose: 650 mg Albuterol Sulfate (Ventolin 0.083% Nebulizer Soln -) 1 amp NEB Q4H PRN PRN Reason: SHORT OF BREATH/WHEEZING Last Admin: 08/22/19 01:25 Dose: 1 amp Albuterol/Ipratropium (Duoneb -) 1 amp NEB RQID [facility] Last Admin: 08/23/19 12:57 Dose: Not Given Amlodipine Besylate (Norvasc -) 5 mg PO DAILY [facility] Last Admin: 08/23/19 09:16 Dose: 5 mg Atorvastatin Calcium (Lipitor -) 40 mg PO HS [facility] Last Admin: 08/22/19 22:59 Dose: 40 mg Benzocaine/Menthol (Cepacol Lozenge -) 1 each MM PRN PRN PRN Reason: SORE THROAT Last Admin: 08/23/19 09:20 Dose: 1 each Bupropion HCl (Wellbutrin Xl -) 150 mg PO DAILY [facility] Last Admin: 08/23/19 09:17 Dose: 150 mg Clotrimazole (Lotrisone Cream (Small Tube)) 1 applic TP BID [facility] Last Admin: 08/23/19 09:17 Dose: 1 applic Diphenhydramine HCl (Benadryl -) 50 mg PO Q12H PRN PRN Reason: FOR ITCHING Last Admin: 08/22/19 18:40 Dose: 50 mg Emollient Ointment (Aquaphor -) 1 applic TP BID [facility] Last Admin: 08/23/19 09:17 Dose: 1 applic Enoxaparin Sodium (Lovenox -) 40 mg SQ DAILY [facility] Last Admin: 08/23/19 09:16 Dose: 40 mg Famotidine (Acid Industrial Spray Painter) 10 mg PO DAILY PRN PRN Reason: INDIGESTION Last Admin: 08/21/19 14:00 Dose: 10 mg Fluticasone Propionate (Flonase -) 2 spray NS DAILY [facility] Last Admin: 08/23/19 09:17 Dose: 1 sprays Furosemide (Lasix Injection -) 60 mg IVPUSH BID@0600,1400 [facility] Last Admin: 08/23/19 13:41 Dose: 60 mg Vancomycin HCl 1,250 mg/ (Dextrose) 250 mls @ 166.667 mls/hr IVPB BID@0600, 1800 [facility]; Protocol Last Admin: 08/23/19 06:27 Dose: 166.667 mls/hr Insulin Aspart (Novolog Vial Sliding Scale -) 1 vial SQ ACHS [facility]; Protocol Last Admin: 08/23/19 11:40 Dose: Not Given Losartan Potassium (Cozaar -) 50 mg PO DAILY [facility] Last Admin: 08/23/19 09:16 Dose: 50 mg Multi-Ingredient Ointment (Zinc Oxide) 1 applic TP BID [facility] Last Admin: 08/23/19 09:17 Dose: 1 applic Nystatin (Nystop Powder -) 1 applic TP BID [facility] Last Admin: 08/23/19 09:17 Dose: 1 applic Ropinirole HCl (Requip -) 0.5 mg PO DAILY [facility] Last Admin: 08/23/19 09:17 Dose: 0.5 mg Sodium Chloride ([place] Nasal [place] -) 2 spray NS BID [facility] Last Admin: 08/23/19 09:17 Dose: 2 spr - Objective Vital Signs: Vital Signs Temperature 98 F 08/23/19 14:10 Pulse Rate 71 08/23/19 14:10 Respiratory Rate 20 08/23/19 14:10 Blood Pressure 155/66 08/23/19 14:10 O2 Sat by Pulse Oximetry (%) 96 08/22/19 09:00 Eyes: Yes: WNL, Conjunctiva Clear, EOM Intact HENT: Yes: WNL, Atraumatic, Normocephalic Neck: Yes: WNL, Supple, Trachea Midline Cardiovascular: Yes: WNL, Regular Rate and Rhythm Respiratory: Yes: WNL, Regular, CTA Bilaterally Gastrointestinal: Yes: WNL, Normal Bowel Sounds Genitourinary: Yes: WNL Musculoskeletal: Yes: WNL Extremities: Yes: WNL Edema: Yes Integumentary: Yes: WNL Neurological: Yes: WNL, Alert, Oriented ...Motor Strength: WNL Psychiatric: Yes: WNL Labs: CBC, BMP 08/23/19 06:38 08/23/19 06:38 Assessment/Plan - Problems (1) Girard cardiac risk >20% in next 10 years Assessment/Plan: Pt does not remember ever having a stress test or coronary angiogram. Her weight makes it difficult to have either of the above tests at the present time. Mother had CHF. Pt never smoked; no hx cocaine; No hx alcoholism. Aggressive control of BP, glucose, lipids. Weight loss is imperative. If pt cannot lose a significant amount of weight in the next 6 months with "conservative' regimen, would strongly consider bariatric surgery. Code(s): Z91.89 - OTH PERSONAL RISK FACTORS, NOT ELSEWHERE CLASSIFIED (2) Acute on chronic diastolic (congestive) heart failure Assessment/Plan: On losartan, amlodipine, and furosemide. Morbid obesity is the prime factor, and BP control is also important in control of her CHF. F/u BUN/Cr, electrolytes, daily weight, Is and Os. Code(s): I50.33 - ACUTE ON CHRONIC DIASTOLIC (CONGESTIVE) HEART FAILURE (3) Intertrigo Code(s): L30.4 - ERYTHEMA INTERTRIGO (4) Acute on chronic respiratory failure with hypoxemia Code(s): J96.21 - ACUTE AND CHRONIC RESPIRATORY FAILURE WITH HYPOXIA (5) Hypercholesterolemia Assessment/Plan: LDL 138 mg/dL; now on atorvastatin 40 mg daily. Manager Marketing for help with diet modification, weight loss. Code(s): E78.00 - PURE HYPERCHOLESTEROLEMIA, UNSPECIFIED (6) RAINA (obstructive sleep apnea) Code(s): G47.33 - OBSTRUCTIVE SLEEP APNEA (ADULT) (PEDIATRIC) (7) Asthma Code(s): J45.909 - UNSPECIFIED ASTHMA, UNCOMPLICATED (8) HTN (hypertension) Assessment/Plan: Increased losartan to 50 mg daily. On IV furosemide. Weight loss is loaiza. Code(s): I10 - ESSENTIAL (PRIMARY) HYPERTENSION (9) Morbid (severe) obesity with alveolar hypoventilation Assessment/Plan: Pt says she has thought of having gastric bypass surgery, but is afraid because she is at high risk "and I might not make it off the table". The risks in continuing to have the weight she is at presently were discussed. At 19 yrs old, she weighed about 150 lbs; weight went up after of her 2nd child, at age 24. Now 475 lbs. At home now, she says the family tends to order fast food, and she eats it with them. She says "it will be different now; I told my family they have to keep their bad food away from me". Code(s): E66.2 - MORBID (SEVERE) OBESITY WITH ALVEOLAR HYPOVENTILATION (10) Cellulitis Code(s): L03.90 - CELLULITIS, UNSPECIFIED
[2019-08-23] MEDS: diphenhydrAMINE HCL 25 MG CAPSULE (FP) PO PRN (17:41)
--- NOTE | 2019-08-23 19:41 | PN ---
Teaching Attending Note Name of Resident: Jojo Ceja ATTENDING PHYSICIAN STATEMENT I saw and evaluated the patient. I reviewed the resident's note and discussed the case with the resident. I agree with the resident's findings and plan as documented. SUBJECTIVE: No fever or chills. No NEVAREZ , no SOB . she thinks her feet are better ( pain and redness ) OBJECTIVE: NAD, morbidly obese. comfortable, facial vanna. CV: RRR Lungs: decreased breath sounds half way down on both sides Abd: morbidly obese. large pannus. erythema and wet skin under pannus R > L . erythema under breasts EXt:edema on legs and thighs feet with erythema and tenderness. small vesicles with purulent material visible on dorsal and solar areas R foot > L foot fungla infection among toes ASSESSMENT AND PLAN: 43 y/o lady with h/o morbid obesity, RAINA, chronic resp failure with 4 L of O2 at base line Asthma, depression , DM , and HTN,panniculitis , who presented with welling in [place] and was diagnosed with cellulitis and acute CHF 1- Acute on chronic diastolic CHF 2- LE cellulitis 3- Panniculitis : improved 4- HTN 5- Morbid obesity 6- DM 7- intertrigo 8- Red man syndrome plan : - cont vanco with benadryl - cont lasix - conjt increased dsoe of losartan - cont SSI - cont norvasc - cont statin - cont topical antifungals - cont lovenox for DVT px
[2019-08-23] MEDS: ATORVASTATIN CA 10 MG TABLET (FP) PO SCH (22:15)
[2019-08-24] MEDS ORDERED: PT OWN MED DRAWER 7, Y5N ONE ×3 (05:07→16:37)
[2019-08-24] MEDS: VANCOMYCIN 1,250 MG in DEXTROSE 5%-WATER - 250 ML IVPB SCH ×2 (07:32→17:55)
[2019-08-24] MEDS: FUROSEMIDE 40 MG/4 ML INJECTABLE VIAL IVPUSH SCH ×2 (07:32→15:40)
[2019-08-24] MEDS: INSULIN SLIDING SCALE (NOVOLOG) 1 VIAL SQ SCH ×4 (07:32→22:16)
[2019-08-24 07:37] LABS: BLOOD UREA NITROGEN 12.6 mg/dL (7-18); CALCIUM 9.1 mg/dL (8.5-10.1); CREATININE 0.6 mg/dL (0.55-1.3); MAGNESIUM 2.2 mg/dL (1.8-2.4); POTASSIUM 3.6 mmol/L (3.5-5.1)
[2019-08-24] MEDS: BENZOCAINE/MENTH/CETYLPYRD CL 1 EACH LOZENGE MM PRN (08:13)
[2019-08-24] MEDS: ALBUTEROL SO4 2.5/IPRATROPIUM 0.5 INH SOL 3 ML VIAL.NEB. NEB SCH ×4 (08:30→20:16)
--- NOTE | 2019-08-24 08:30 | PN ---
Physical Exam: SUBJECTIVE: Patient seen and examined at the bedside. Stated her breathing feels better. Noted that her foot feels less painful and notes that swelling has decreased. Endorses good appetite. Denies cp, abd pain, n/v/c/d, fever, chills, headaches, dizziness, lightheadedness, focal weakness, numbness, tingling. Endorses that she uses her BiPAP as much as she can during the night. OBJECTIVE: Vital Signs Period Temp Pulse Resp BP Sys/Quan Pulse Ox Last 24 Hr 98 F-98.7 F 70-71 19-20 125-155/64-68 94 GENERAL: The patient is awake, alert, and fully oriented, in no acute distress. EYES: PERRL, extraocular movements intact, conjunctiva clear. ENT: Oropharynx clear without exudates, moist mucous membranes. LUNGS: Breath sounds difficult to auscultate due to body habitus. Faint bibasilar crackles noted, no wheezes auscultated HEART: Regular rate and rhythm, S1, S2. Unable to appreciate murmurs. ABDOMEN: Soft, obese, nontender, normoactive bowel sounds, no guarding, no rebound. Significant redness on the abdomen on the R side in between skin folds. EXTREMITIES: Significant chronic lymphedema and pitting edema 2+ noted, improving. Significant redness of the feet bilaterally, greatly improving. Decreased warmth and tenderness to touch. NEUROLOGICAL: Cranial nerves II through XII grossly intact. 5/5 muscle strength bilaterally upper and lower extremities. PSYCH: Normal mood, normal affect. Laboratory Results - last 24 hr 08/23/19 08/23/19 08/23/19 06:38 11:37 17:40 Sodium Potassium Chloride Carbon Dioxide Anion Gap BUN Creatinine Est GFR (CKD-EPI)AfAm Est GFR (CKD-EPI)NonAf POC Glucometer 109 130 Random Glucose Calcium Magnesium Transferrin 242 08/23/19 08/24/19 22:09 06:00 Sodium 138 Potassium 3.6 Chloride 94 L Carbon Dioxide 39 H Anion Gap 5 L BUN 12.6 Creatinine 0.6 Est GFR (CKD-EPI)AfAm 127.58 Est GFR (CKD-EPI)NonAf 110.08 POC Glucometer 151 Random Glucose 118 H Calcium 9.1 Magnesium 2.2 Transferrin Active Medications Generic Name Dose Route Start Last Admin Trade Name Freq PRN Reason Stop Dose Admin Acetaminophen 650 mg 08/18/19 16:54 08/23/19 13:41 Tylenol - PO 650 mg Q6H PRN Administration HEADACHE Albuterol Sulfate 1 amp 08/17/19 11:10 08/22/19 01:25 Ventolin 0.083% Nebulizer Soln - NEB 1 amp Q4H PRN Administration SHORT OF BREATH/WHEEZING Albuterol/Ipratropium 1 amp 08/17/19 12:00 08/23/19 20:15 Duoneb - NEB 1 amp RQID LAKESHIA Administration Amlodipine Besylate 5 mg 08/18/19 10:00 08/23/19 09:16 Norvasc - PO 5 mg DAILY LAKESHIA Administration Atorvastatin Calcium 40 mg 08/17/19 22:00 08/23/19 22:15 Lipitor - PO 40 mg HS LAKESHIA Administration Benzocaine/Menthol 1 each 08/23/19 06:49 08/24/19 08:13 Cepacol Lozenge - MM 1 each PRN PRN Administration SORE THROAT Bupropion HCl 150 mg 08/17/19 10:00 08/23/19 09:17 Wellbutrin Xl - PO 150 mg DAILY LAKESHIA Administration Clotrimazole 1 applic 08/21/19 22:00 08/23/19 22:13 Lotrisone Cream (Small Tube) TP 1 applic BID LAKESHIA Administration Diphenhydramine HCl 50 mg 08/22/19 17:55 08/23/19 17:41 Benadryl - PO 50 mg Q12H PRN Administration FOR ITCHING Emollient Ointment 1 applic 08/20/19 14:00 08/23/19 22:14 Aquaphor - TP 1 applic BID LAKESHIA Administration Enoxaparin Sodium 40 mg 08/17/19 10:00 08/23/19 09:16 Lovenox - SQ 40 mg DAILY LAKESHIA Administration Famotidine 10 mg 08/21/19 08:48 08/21/19 14:00 Acid Box Loader PO 10 mg DAILY PRN Administration INDIGESTION Fluticasone Propionate 2 spray 08/19/19 12:15 08/23/19 09:17 Flonase - NS 1 sprays DAILY LAKESHIA Administration Furosemide 60 mg 08/18/19 11:34 08/24/19 07:32 Lasix Injection - IVPUSH 60 mg BID@0600,1400 LAKESHIA Administration Vancomycin HCl 1,250 mg/ 250 mls @ 166.667 mls/hr 08/21/19 18:00 08/24/19 07:32 Dextrose IVPB 166.667 mls/hr BID@0600,1800 LAKESHIA Administration Protocol Insulin Aspart 1 vial 08/17/19 16:30 08/24/19 07:32 Novolog Vial Sliding Scale - SQ Not Given ACHS LAKESHIA Protocol Losartan Potassium 50 mg 08/18/19 10:00 08/23/19 09:16 Cozaar - PO 50 mg DAILY LAKESHIA Administration Multi-Ingredient Ointment 1 applic 08/20/19 14:00 08/23/19 22:21 Zinc Oxide TP 1 applic BID LAKESHIA Administration Nystatin 1 applic 08/20/19 22:00 08/23/19 22:15 Nystop Powder - TP 1 applic BID LAKESHIA Administration Ropinirole HCl 0.5 mg 08/18/19 10:00 08/23/19 09:17 Requip - PO 0.5 mg DAILY LAKESHIA Administration Sodium Chloride 2 spray 08/21/19 10:00 08/23/19 22:13 [place] Nasal [place] - NS 2 spr BID LAKESHIA Administration ASSESSMENT/PLAN: Mary Lou Ward is a 44 year old female with past medical history of RAINA (on 4L NC, CPAP at night), asthma, depression, HTN, and HLD admitted with shortness of breath likely secondary to CHF decompensation. CHF Decompensation - likely in the setting of high salt diet and increase fluid intake - CXR with noted increased congestive changes - continue IV Lasix 60mg bid - echo from 01/2019 with normal LV, EF 60-65% - Echo EF 55-60%, LV size thickness function normal, RV normal, trace tricuspid regurg - Cardiology consulted, recs appreciated - pulmonology consulted, recs appreciated - Supplemental O2 to keep SpO2 >90% - duonebs prn - I&O, daily weights - decreasing weight, down to 211kg from admitting 220kg. Pt notes dry wt is 204kg Intertrigo - Nystatin powder to affected areas, use abdominal pad to decrease skin on skin contact Cellulitis - noted of the feet bilaterally - ID consulted, recs appreciated - vancomycin continued with benadryl to minimize itching which is tolerated well. Vancomycin level today - podiatry consulted, recs appreciated, start Lotrisone RAINA - CPAP at bedtime - will attempt BiPAP during the day as patient has difficulty with mask at night Elevated Bilirubin - no abdominal symptoms - bilirubin 1.6, direct 0.3 - previous abd U/S (02/06) noting hepatomegaly with fatty infiltration vs hepatocellular disease - no elevation of liver enzymes, continue to monitor Depression - Continue Wellbutrin 150mg daily HTN - losartan 50mg daily - continue home amlodipine 5mg HLD - atorvastatin at 40mg to keep LDL below 70 DM - BGM - ISS - A1c 6.7 FEN - no standing fluids, 1L fluid restriction - continue to monitor electrolytes and replete as necessary - Sodium restricted diet Prophylaxis - Lovenox 40mg sq daily Disposition - continue to monitor on Med-surg Visit type - Emergency Visit Emergency Visit: Yes ED Registration Date: 08/16/19 Care time: The patient presented to the Emergency Department on the above date and was hospitalized for further evaluation of their emergent condition. - New Patient This patient is new to me today: No - Critical Care Critical Care patient: No
--- NOTE | 2019-08-24 09:28 | PN ---
Progress Note (short form) - Note Progress Note: OOB to chair. Nasal congestion better. Breathing feels better today. Used NIPPV all night and has been using during the daytime. No acute events overnight. Intake & Output 08/21/19 08/22/19 08/23/19 08/24/19 23:59 23:59 23:59 23:59 Intake Total 528 190 1881 450 Output Total 2600 3300 2800 1000 Balance -1750 -2550 -1500 -550 Weight 474 lb 3 oz 475 lb 8 oz 466 lb 1.6 oz Last Vital Signs Temp Pulse Resp BP Pulse Ox 98.2 F 70 19 141/64 94 L 08/23/19 21:00 08/23/19 21:00 08/23/19 21:00 08/23/19 21:00 08/23/19 21:00 Active Medications Acetaminophen (Tylenol -) 650 mg PO Q6H PRN PRN Reason: HEADACHE Last Admin: 08/23/19 13:41 Dose: 650 mg Documented by: Albuterol Sulfate (Ventolin 0.083% Nebulizer Soln -) 1 amp NEB Q4H PRN PRN Reason: SHORT OF BREATH/WHEEZING Last Admin: 08/22/19 01:25 Dose: 1 amp Documented by: Albuterol/Ipratropium (Duoneb -) 1 amp NEB RQID [facility] Last Admin: 08/24/19 08:30 Dose: Not Given Documented by: Amlodipine Besylate (Norvasc -) 5 mg PO DAILY [facility] Last Admin: 08/23/19 09:16 Dose: 5 mg Documented by: Atorvastatin Calcium (Lipitor -) 40 mg PO HS [facility] Last Admin: 08/23/19 22:15 Dose: 40 mg Documented by: Benzocaine/Menthol (Cepacol Lozenge -) 1 each MM PRN PRN PRN Reason: SORE THROAT Last Admin: 08/24/19 08:13 Dose: 1 each Documented by: Bupropion HCl (Wellbutrin Xl -) 150 mg PO DAILY [facility] Last Admin: 08/23/19 09:17 Dose: 150 mg Documented by: Clotrimazole (Lotrisone Cream (Small Tube)) 1 applic TP BID [facility] Last Admin: 08/23/19 22:13 Dose: 1 applic Documented by: Diphenhydramine HCl (Benadryl -) 50 mg PO Q12H PRN PRN Reason: FOR ITCHING Last Admin: 08/23/19 17:41 Dose: 50 mg Documented by: Emollient Ointment (Aquaphor -) 1 applic TP BID [facility] Last Admin: 08/23/19 22:14 Dose: 1 applic Documented by: Enoxaparin Sodium (Lovenox -) 40 mg SQ DAILY [facility] Last Admin: 08/23/19 09:16 Dose: 40 mg Documented by: Famotidine (Acid Pilot Plant Research Technician) 10 mg PO DAILY PRN PRN Reason: INDIGESTION Last Admin: 08/21/19 14:00 Dose: 10 mg Documented by: Fluticasone Propionate (Flonase -) 2 spray NS DAILY [facility] Last Admin: 08/23/19 09:17 Dose: 1 sprays Documented by: Furosemide (Lasix Injection -) 60 mg IVPUSH BID@0600,1400 [facility] Last Admin: 08/24/19 07:32 Dose: 60 mg Documented by: Vancomycin HCl 1,250 mg/ (Dextrose) 250 mls @ 166.667 mls/hr IVPB BID@0600,1800 [facility]; Protocol Last Admin: 08/24/19 07:32 Dose: 166.667 mls/hr Documented by: Insulin Aspart (Novolog Vial Sliding Scale -) 1 vial SQ ACHS [facility]; Protocol Last Admin: 08/24/19 07:32 Dose: Not Given Documented by: Losartan Potassium (Cozaar -) 50 mg PO DAILY [facility] Last Admin: 08/23/19 09:16 Dose: 50 mg Documented by: Multi-Ingredient Ointment (Zinc Oxide) 1 applic TP BID [facility] Last Admin: 08/23/19 22:21 Dose: 1 applic Documented by: Nystatin (Nystop Powder -) 1 applic TP BID [facility] Last Admin: 08/23/19 22:15 Dose: 1 applic Documented by: Ropinirole HCl (Requip -) 0.5 mg PO DAILY [facility] Last Admin: 08/23/19 09:17 Dose: 0.5 mg Documented by: Sodium Chloride ([place] Nasal [place] -) 2 spray NS BID [facility] Last Admin: 08/23/19 22:13 Dose: 2 spr Documented by: Constitutional: Yes: NAD Eyes: Yes: Conjunctiva Clear, EOM Intact HENT: Yes: Atraumatic, Normocephalic Neck: Yes: Supple, Trachea Midline Cardiovascular: Yes: Regular Rate and Rhythm Respiratory: Yes: Diminished (decreased breath sounds at the bases) ...Clubbing: No Gastrointestinal: Yes: Normal Bowel Sounds, Soft, Abdomen, Obese. No: Tenderness Edema: Yes Labs: Laboratory Results - last 24 hr 08/23/19 08/23/19 08/23/19 06:38 11:37 17:40 Sodium Potassium Chloride Carbon Dioxide Anion Gap BUN Creatinine Est GFR (CKD-EPI)AfAm Est GFR (CKD-EPI)NonAf POC Glucometer 109 130 Random Glucose Calcium Magnesium Transferrin 242 08/23/19 08/24/19 08/24/19 22:09 05:24 06:00 Sodium 138 Potassium 3.6 Chloride 94 L Carbon Dioxide 39 H Anion Gap 5 L BUN 12.6 Creatinine 0.6 Est GFR (CKD-EPI)AfAm 127.58 Est GFR (CKD-EPI)NonAf 110.08 POC Glucometer 151 115 Random Glucose 118 H Calcium 9.1 Magnesium 2.2 Transferrin Assessment/Plan Acute on Chronic Diastolic Heart Failure Volume Overload Chronic Hypoxic Respiratory Failure Morbid Obesity Obstructive Sleep Apnea Asthma HTN Hyperlipidemia - NIPPV QHS & PRN - Lasix - O2 to keep Spo2 >90% - inhaled bronchodilators - Defer systemic steroids at this time - DVT prophylaxis Dr Carreno
[2019-08-24] MEDS: FLUTICASONE PROP 0.05% 16 GM NASAL SPRAY NS SCH (10:19)
[2019-08-24] MEDS: rOPINIRole HCL 0.5 MG TABLET PO SCH (10:19)
[2019-08-24] MEDS: ENOXAPARIN NA (PORCINE) 40 MG/0.4 ML DISP.SYRIN SQ SCH (10:19)
[2019-08-24] MEDS: LOSARTAN POTASSIUM 50 MG TABLET (FP) PO SCH (10:19)
[2019-08-24] MEDS: amLODIPine BESYLATE 5 MG TABLET (FP) PO SCH (10:19)
[2019-08-24] MEDS: MINERAL OIL/PET HY-PHL TOPICAL OINTMENT 454 GM JAR TP SCH ×2 (10:19→22:17)
[2019-08-24] MEDS: NYSTATIN POWDER 100,000 UNITS/GM - 15 GM TOPICAL POWDER TP SCH ×2 (10:20→22:15)
[2019-08-24] MEDS: ZINC OXIDE 20% TOPICAL OINTMENT 30 GM TUBE TP SCH ×2 (10:20→22:16)
[2019-08-24] MEDS: CLOTRIMAZOLE/BETAMET DIPROP 15 GM TUBE TP SCH ×2 (10:20→22:16)
[2019-08-24] MEDS: SODIUM CHLORIDE NASAL SPRAY 44 ML BOTTLE NS SCH ×2 (10:20→22:15)
[2019-08-24] MEDS: diphenhydrAMINE HCL 25 MG CAPSULE (FP) PO PRN (17:08)
--- NOTE | 2019-08-24 18:02 | PN ---
Teaching Attending Note Name of Resident: Ja Novoa ATTENDING PHYSICIAN STATEMENT I saw and evaluated the patient. I reviewed the resident's note and discussed the case with the resident. I agree with the resident's findings and plan as documented. SUBJECTIVE: No fever or chills. No NEVAREZ. no SOB . feet feel better OBJECTIVE: NAD, morbidly obese. comfortable, facial hair. CV: RRR Lungs: decreased breath sounds at bases EXt:edema on legs Feet with erythema and tenderness ( improved compared to yesterday). Small vesicles with purulent material visible on dorsal and solar areas R foot > L foot ( also improved ) fungla infection among toes ASSESSMENT AND PLAN: 43 y/o lady with h/o morbid obesity, RAINA, chronic resp failure with 4 L of O2 at base line Asthma, depression , DM , and HTN,panniculitis , who presented with welling in LE and was diagnosed with cellulitis and acute CHF 1- Acute on chronic diastolic CHF 2- LE cellulitis 3- Red man syndrome 4- HTN 5- Morbid obesity 6- DM 7- intertrigo plan : - cont vanco with benadryl - Vanco trough this evening - cont lasix - cont increased dose of losartan - cont SSI - cont norvasc - cont statin - cont topical antifungals - cont lovenox for DVT px
[2019-08-24] MEDS: ATORVASTATIN CA 10 MG TABLET (FP) PO SCH (22:14)
[2019-08-25] MEDS ORDERED: PT OWN MED DRAWER 7, Y5N ONE ×3 (04:33→08:58)
[2019-08-25] MEDS: BENZOCAINE/MENTH/CETYLPYRD CL 1 EACH LOZENGE MM PRN ×3 (04:45→16:04)
[2019-08-25] MEDS: FUROSEMIDE 40 MG/4 ML INJECTABLE VIAL IVPUSH SCH ×2 (06:14→14:40)
[2019-08-25] MEDS: MINERAL OIL/PET HY-PHL TOPICAL OINTMENT 454 GM JAR TP SCH ×3 (06:15→21:42)
[2019-08-25 06:51] LABS: BLOOD UREA NITROGEN 11.2 mg/dL (7-18); CALCIUM 9.3 mg/dL (8.5-10.1); CREATININE 0.6 mg/dL (0.55-1.3); MAGNESIUM 2.2 mg/dL (1.8-2.4); POTASSIUM 3.8 mmol/L (3.5-5.1)
[2019-08-25] MEDS: INSULIN SLIDING SCALE (NOVOLOG) 1 VIAL SQ SCH ×4 (06:51→21:41)
[2019-08-25] MEDS: ALBUTEROL SO4 2.5/IPRATROPIUM 0.5 INH SOL 3 ML VIAL.NEB. NEB SCH ×4 (08:39→21:00)
[2019-08-25] MEDS: amLODIPine BESYLATE 5 MG TABLET (FP) PO SCH (09:53)
[2019-08-25] MEDS: LOSARTAN POTASSIUM 50 MG TABLET (FP) PO SCH (09:53)
[2019-08-25] MEDS: ENOXAPARIN NA (PORCINE) 40 MG/0.4 ML DISP.SYRIN SQ SCH (09:54)
[2019-08-25] MEDS: rOPINIRole HCL 0.5 MG TABLET PO SCH (09:55)
[2019-08-25] MEDS: FLUTICASONE PROP 0.05% 16 GM NASAL SPRAY NS SCH (09:55)
[2019-08-25] MEDS: CLOTRIMAZOLE/BETAMET DIPROP 15 GM TUBE TP SCH ×2 (09:58→21:42)
[2019-08-25] MEDS: SODIUM CHLORIDE NASAL SPRAY 44 ML BOTTLE NS SCH ×2 (09:58→21:42)
[2019-08-25] MEDS: NYSTATIN POWDER 100,000 UNITS/GM - 15 GM TOPICAL POWDER TP SCH ×2 (09:59→21:43)
[2019-08-25] MEDS: ZINC OXIDE 20% TOPICAL OINTMENT 30 GM TUBE TP SCH ×2 (10:00→21:43)
--- NOTE | 2019-08-25 12:01 | PN ---
Progress Note, Physician History of Present Illness: The patient is a 44 morbidly obese female, with a significant PMH of RAINA (on home 4L oxygen), asthma (never intubated, hospitalized once), depression, HTN, HLD, who presents to the ED for evaluation of edema for 2 days. Patient notes she has bilateral lower extremity edema at baseline, but notes it has become significantly worse over the past couple days. She feels as if she is retaining more fluid in her legs and abdomen than typical, despite the fact that she is on Lasix daily. Patient notes it is painful for her to walk secondary to her edema, and her stomach feels harder than usual. She additionally reports ~20pd weight gain at this time. Patient endorses associated SOB (despite being on 4L of home O2), wheezing, and dyspnea on exertion. Allergies: NKA, NKDA Surgical History: None reported Social History: Denies EtOH, tobacco, or illicit drug use PCP: Dr. Charlton Clinical Support Nurse: Dr. Jackson Pulmonology: Dr. Alas - Current Medication List Current Medications: Active Medications Acetaminophen (Tylenol -) 650 mg PO Q6H PRN PRN Reason: HEADACHE Last Admin: 08/23/19 13:41 Dose: 650 mg Documented by: Albuterol Sulfate (Ventolin 0.083% Nebulizer Soln -) 1 amp NEB Q4H PRN PRN Reason: SHORT OF BREATH/WHEEZING Last Admin: 08/22/19 01:25 Dose: 1 amp Documented by: Albuterol/Ipratropium (Duoneb -) 1 amp NEB RQID [facility] Last Admin: 08/25/19 08:39 Dose: Not Given Documented by: Amlodipine Besylate (Norvasc -) 5 mg PO DAILY [facility] Last Admin: 08/25/19 09:53 Dose: 5 mg Documented by: Atorvastatin Calcium (Lipitor -) 40 mg PO HS [facility] [place] Last Admin: 08/24/19 22:14 Dose: 40 mg Documented by: Benzocaine/Menthol (Cepacol Lozenge -) 1 each MM PRN PRN PRN Reason: SORE THROAT Last Admin: 08/25/19 09:53 Dose: 1 each Documented by: Bupropion HCl (Wellbutrin Xl -) 150 mg PO DAILY [facility] [place] Last Admin: 08/25/19 09:53 Dose: 150 mg Documented by: Clotrimazole (Lotrisone Cream (Small Tube)) 1 applic TP BID [facility] Last Admin: 08/25/19 09:58 Dose: 1 applic Documented by: Diphenhydramine HCl (Benadryl -) 50 mg PO Q12H PRN PRN Reason: FOR ITCHING Last Admin: 08/24/19 17:08 Dose: 50 mg Documented by: Emollient Ointment (Aquaphor -) 1 applic TP TID [facility] Last Admin: 08/25/19 06:15 Dose: 1 applic Documented by: Enoxaparin Sodium (Lovenox -) 40 mg SQ DAILY [facility] Last Admin: 08/25/19 09:54 Dose: 40 mg Documented by: Famotidine (Acid Copywriter) 10 mg PO DAILY PRN PRN Reason: INDIGESTION Last Admin: 08/21/19 14:00 Dose: 10 mg Documented by: Fluticasone Propionate (Flonase -) 2 spray NS DAILY [facility] Last Admin: 08/25/19 09:55 Dose: 2 sprays Documented by: Furosemide (Lasix Injection -) 60 mg IVPUSH BID@0600,1400 [facility] [place] Last Admin: 08/25/19 06:14 Dose: 60 mg Documented by: Vancomycin HCl 1,250 mg/ (Dextrose) 250 mls @ 166.667 mls/hr IVPB BID@0600,1800 [facility]; Protocol Last Admin: 08/24/19 17:55 Dose: 166.667 mls/hr Documented by: Insulin Aspart (Novolog Vial Sliding Scale -) 1 vial SQ ACHS [facility]; Protocol Last Admin: 08/25/19 11:47 Dose: Not Given Documented by: Losartan Potassium (Cozaar -) 50 mg PO DAILY [facility] [place] Last Admin: 08/25/19 09:53 Dose: 50 mg Documented by: Multi-Ingredient Ointment (Zinc Oxide) 1 applic TP BID [facility] [place] Last Admin: 08/25/19 10:00 Dose: 1 applic Documented by: Nystatin (Nystop Powder -) 1 applic TP BID [facility] Last Admin: 08/25/19 09:59 Dose: 1 applic Documented by: Ropinirole HCl (Requip -) 0.5 mg PO DAILY [facility] [place] Last Admin: 08/25/19 09:55 Dose: 0.5 mg Documented by: Sodium Chloride ([place] Nasal [place] -) 2 spray NS BID [facility] [place] Last Admin: 08/25/19 09:58 Dose: 2 spr Documented by: - Objective Vital Signs: Vital Signs Temperature 98.1 F 08/25/19 08:50 Pulse Rate 79 08/25/19 08:50 Respiratory Rate 18 08/25/19 08:50 Blood Pressure 150/69 08/25/19 08:50 O2 Sat by Pulse Oximetry (%) 94 L 08/24/19 21:00 Eyes: Yes: WNL, Conjunctiva Clear, EOM Intact HENT: Yes: WNL, Atraumatic, Normocephalic Neck: Yes: WNL, Supple, Trachea Midline Cardiovascular: Yes: WNL, Regular Rate and Rhythm Respiratory: Yes: WNL, Regular, CTA Bilaterally Gastrointestinal: Yes: WNL, Normal Bowel Sounds Genitourinary: Yes: WNL Musculoskeletal: Yes: WNL Extremities: Yes: WNL Edema: Yes Integumentary: Yes: WNL Neurological: Yes: WNL, Alert, Oriented ...Motor Strength: WNL Psychiatric: Yes: WNL Labs: CBC, BMP 08/23/19 06:38 08/25/19 06:00 Assessment/Plan - Problems (1) [place] cardiac risk >20% in next 10 years Assessment/Plan: Pt does not remember ever having a stress test or coronary angiogram. Her weight makes it difficult to have either of the above tests at the present time. Mother had CHF. Pt never smoked; no hx cocaine; No hx alcoholism. Aggressive control of BP, glucose, lipids. Weight loss is imperative. If pt cannot lose a significant amount of weight in the next 6 months with "conservative' regimen, would strongly consider bariatric surgery. Code(s): Z91.89 - OT PERSONAL RISK FACTORS, NOT ELSEWHERE CLASSIFIED (2) Acute on chronic diastolic (congestive) heart failure Assessment/Plan: On losartan, amlodipine, and furosemide. Morbid obesity is the prime factor, and BP control is also important in control of her CHF. F/u BUN/Cr, electrolytes, daily weight, Is and Os. Code(s): I50.33 - ACUTE ON CHRONIC DIASTOLIC (CONGESTIVE) HEART FAILURE (3) Intertrigo Code(s): L30.4 - ERYTHEMA INTERTRIGO (4) Acute on chronic respiratory failure with hypoxemia Code(s): J96.21 - ACUTE AND CHRONIC RESPIRATORY FAILURE WITH HYPOXIA (5) Hypercholesterolemia Assessment/Plan: LDL 138 mg/dL; now on atorvastatin 40 mg daily. Campaign Worker for help with diet modification, weight loss. Code(s): E78.00 - PURE HYPERCHOLESTEROLEMIA, UNSPECIFIED (6) RAINA (obstructive sleep apnea) Code(s): G47.33 - OBSTRUCTIVE SLEEP APNEA (ADULT) (PEDIATRIC) (7) Asthma Code(s): J45.909 - UNSPECIFIED ASTHMA, UNCOMPLICATED (8) HTN (hypertension) Assessment/Plan: Increased losartan to 50 mg daily. On IV furosemide. Weight loss is loaiza. Code(s): I10 - ESSENTIAL (PRIMARY) HYPERTENSION (9) Morbid (severe) obesity with alveolar hypoventilation Assessment/Plan: Pt says she has thought of having gastric bypass surgery, but is afraid because she is at high risk "and I might not make it off the table". The risks in continuing to have the weight she is at presently were discussed. At 19 yrs old, she weighed about 150 lbs; weight went up after of her 2nd child, at age 24. Now 475 lbs. At home now, she says the family tends to order fast food, and she eats it with them. She says "it will be different now; I told my family they have to keep their bad food away from me". Code(s): E66.2 - MORBID (SEVERE) OBESITY WITH ALVEOLAR HYPOVENTILATION (10) Cellulitis Code(s): L03.90 - CELLULITIS, UNSPECIFIED
--- NOTE | 2019-08-25 12:09 | PN ---
Progress Note, Physician History of Present Illness: AWAKE, ALERT OOB IN CHAIR TOLERATED VANCOMYCIN WITH BENADRYL NO C/O PRURITIS/ RASH AFEBRILE WBC WNL - Current Medication List Current Medications: Active Medications Acetaminophen (Tylenol -) 650 mg PO Q6H PRN PRN Reason: HEADACHE Last Admin: 08/23/19 13:41 Dose: 650 mg Documented by: Albuterol Sulfate (Ventolin 0.083% Nebulizer Soln -) 1 amp NEB Q4H PRN PRN Reason: SHORT OF BREATH/WHEEZING Last Admin: 08/22/19 01:25 Dose: 1 amp Documented by: Albuterol/Ipratropium (Duoneb -) 1 amp NEB RQID [facility] Last Admin: 08/25/19 08:39 Dose: Not Given Documented by: Amlodipine Besylate (Norvasc -) 5 mg PO DAILY [facility] Last Admin: 08/25/19 09:53 Dose: 5 mg Documented by: Atorvastatin Calcium (Lipitor -) 40 mg PO HS [facility] Last Admin: 08/24/19 22:14 Dose: 40 mg Documented by: Benzocaine/Menthol (Cepacol Lozenge -) 1 each MM PRN PRN PRN Reason: SORE THROAT Last Admin: 08/25/19 09:53 Dose: 1 each Documented by: Bupropion HCl (Wellbutrin Xl -) 150 mg PO DAILY [facility] Last Admin: 08/25/19 09:53 Dose: 150 mg Documented by: Clotrimazole (Lotrisone Cream (Small Tube)) 1 applic TP BID [facility] Last Admin: 08/25/19 09:58 Dose: 1 applic Documented by: Diphenhydramine HCl (Benadryl -) 50 mg PO Q12H PRN PRN Reason: FOR ITCHING Last Admin: 08/24/19 17:08 Dose: 50 mg Documented by: Emollient Ointment (Aquaphor -) 1 applic TP TID [facility] Last Admin: 08/25/19 06:15 Dose: 1 applic Documented by: Enoxaparin Sodium (Lovenox -) 40 mg SQ DAILY [facility] Last Admin: 08/25/19 09:54 Dose: 40 mg Documented by: Famotidine (Acid Snuff Blender) 10 mg PO DAILY PRN PRN Reason: INDIGESTION Last Admin: 08/21/19 14:00 Dose: 10 mg Documented by: Fluticasone Propionate (Flonase -) 2 spray NS DAILY [facility] Last Admin: 08/25/19 09:55 Dose: 2 sprays Documented by: Furosemide (Lasix Injection -) 60 mg IVPUSH BID@0600,1400 [facility] Last Admin: 08/25/19 06:14 Dose: 60 mg Documented by: Vancomycin HCl 1,250 mg/ (Dextrose) 250 mls @ 166.667 mls/hr IVPB BID@0600,1800 [facility]; Protocol Last Admin: 08/24/19 17:55 Dose: 166.667 mls/hr Documented by: Insulin Aspart (Novolog Vial Sliding Scale -) 1 vial SQ ACHS [facility]; Protocol Last Admin: 08/25/19 11:47 Dose: Not Given Documented by: Losartan Potassium (Cozaar -) 50 mg PO DAILY [facility] Last Admin: 08/25/19 09:53 Dose: 50 mg Documented by: Multi-Ingredient Ointment (Zinc Oxide) 1 applic TP BID [facility] Last Admin: 08/25/19 10:00 Dose: 1 applic Documented by: Nystatin (Nystop Powder -) 1 applic TP BID [facility] Last Admin: 08/25/19 09:59 Dose: 1 applic Documented by: Ropinirole HCl (Requip -) 0.5 mg PO DAILY [facility] Last Admin: 08/25/19 09:55 Dose: 0.5 mg Documented by: Sodium Chloride ([place] Nasal [place] -) 2 spray NS BID [facility] Last Admin: 08/25/19 09:58 Dose: 2 spr Documented by: - Objective Vital Signs: Vital Signs Temperature 98.1 F 08/25/19 08:50 Pulse Rate 79 08/25/19 08:50 Respiratory Rate 18 08/25/19 08:50 Blood Pressure 150/69 08/25/19 08:50 O2 Sat by Pulse Oximetry (%) 94 L 08/24/19 21:00 Constitutional: Yes: Obese Eyes: Yes: Conjunctiva Clear Cardiovascular: Yes: Regular Rate and Rhythm, S1, S2 Respiratory: Yes: CTA Bilaterally Gastrointestinal: Yes: Normal Bowel Sounds, Soft. No: Tenderness Edema: Yes Edema: LLE: 3+, RLE: 3+ Integumentary: Yes: Other (ERYTHEMA ON PANNUS, LE RESOLVED RESIDUAL HYPEREMIA, FEET) Labs: CBC, BMP 08/23/19 06:38 08/25/19 06:00 Assessment/Plan BILATERAL LE CELLULITIS RESOLVED PANNICULITIS TINEA PEDIS WOULD D/C VANCOMYCIN OBSERVE OFF ANTIBIOTICS CONTINUE TOPICAL ANTIFUNGAL
--- NOTE | 2019-08-25 12:23 | PN ---
Progress Note (short form) - Note Progress Note: Pt seen in bed. Painful elongated thickened toe nails. +tender dystrophic mycotic nails with subungual debris, +inflammed nail beds, +distal seperation of nail from bed onychomycosis pain Debride nails x 10. Foot care q8 weeks. Would benefit from fungal nail workup and tx outpatient.
--- NOTE | 2019-08-25 13:46 | PN ---
Physical Exam: SUBJECTIVE: Patient seen and examined at the bedside. Stated she is feeling ok, with no new complaints. Was worried about her feet and the blistering on them but denies pain in that region. She states her breathing is improved. Denies cp, abd pain, n/v/c/d, headaches, dizziness, lightheadedness, fever, chills, focal numbness, tingling, weakness. OBJECTIVE: Vital Signs Period Temp Pulse Resp BP Sys/Quan Pulse Ox Last 24 Hr 97.4 F-98.1 F 71-84 18-18 130-153/69-82 94 GENERAL: The patient is awake, alert, and fully oriented, in no acute distress. EYES: PERRL, extraocular movements intact, conjunctiva clear. ENT: Oropharynx clear without exudates, moist mucous membranes. LUNGS: Breath sounds difficult to auscultate due to body habitus. Faint bibasilar crackles noted, no wheezes auscultated HEART: Regular rate and rhythm, S1, S2. Unable to appreciate murmurs. ABDOMEN: Soft, obese, nontender, normoactive bowel sounds, no guarding, no rebound. Significant redness on the abdomen on the R side in between skin folds. EXTREMITIES: Significant chronic lymphedema and pitting edema 2+ noted, improving. Noted mild redness of the feet bilaterally, greatly improving. Decreased warmth and tenderness to touch. NEUROLOGICAL: Cranial nerves II through XII grossly intact. 5/5 muscle strength bilaterally upper and lower extremities. PSYCH: Normal mood, normal affect. Laboratory Results - last 24 hr 08/24/19 08/24/19 08/25/19 17:08 20:53 06:00 Sodium 140 Potassium 3.8 Chloride 94 L Carbon Dioxide 41 H Anion Gap 5 L BUN 11.2 Creatinine 0.6 Est GFR (CKD-EPI)AfAm 127.58 Est GFR (CKD-EPI)NonAf 110.08 POC Glucometer 117 144 Random Glucose 105 Calcium 9.3 Magnesium 2.2 Vancomycin Pre-Dose 08/25/19 08/25/19 08/25/19 06:38 07:30 11:46 Sodium Potassium Chloride Carbon Dioxide Anion Gap BUN Creatinine Est GFR (CKD-EPI)AfAm Est GFR (CKD-EPI)NonAf POC Glucometer 114 109 Random Glucose Calcium Magnesium Vancomycin Pre-Dose 10.4 H Active Medications Generic Name Dose Route Start Last Admin Trade Name Freq PRN Reason Stop Dose Admin Acetaminophen 650 mg 08/18/19 16:54 08/23/19 13:41 Tylenol - PO 650 mg Q6H PRN Administration HEADACHE Albuterol Sulfate 1 amp 08/17/19 11:10 08/22/19 01:25 Ventolin 0.083% Nebulizer Soln - NEB 1 amp Q4H PRN Administration SHORT OF BREATH/WHEEZING Albuterol/Ipratropium 1 amp 08/17/19 12:00 08/25/19 12:12 Duoneb - NEB 1 amp RQID LAKESHIA Administration Amlodipine Besylate 5 mg 08/18/19 10:00 08/25/19 09:53 Norvasc - PO 5 mg DAILY LAKESHIA Administration Atorvastatin Calcium 40 mg 08/17/19 22:00 08/24/19 22:14 Lipitor - PO 40 mg HS LAKESHIA Administration Benzocaine/Menthol 1 each 08/23/19 06:49 08/25/19 09:53 Cepacol Lozenge - MM 1 each PRN PRN Administration SORE THROAT Bupropion HCl 150 mg 08/17/19 10:00 08/25/19 09:53 Wellbutrin Xl - PO 150 mg DAILY LAKESHIA Administration Clotrimazole 1 applic 08/21/19 22:00 08/25/19 09:58 Lotrisone Cream (Small Tube) TP 1 applic BID LAKESHIA Administration Diphenhydramine HCl 50 mg 08/22/19 17:55 08/24/19 17:08 Benadryl - PO 50 mg Q12H PRN Administration FOR ITCHING Emollient Ointment 1 applic 08/24/19 22:00 08/25/19 06:15 Aquaphor - TP 1 applic TID LAKESHIA Administration Enoxaparin Sodium 40 mg 08/17/19 10:00 08/25/19 09:54 Lovenox - SQ 40 mg DAILY LAKESHIA Administration Famotidine 10 mg 08/21/19 08:48 08/21/19 14:00 Acid Snack Stewardess PO 10 mg DAILY PRN Administration INDIGESTION Fluticasone Propionate 2 spray 08/19/19 12:15 08/25/19 09:55 Flonase - NS 2 sprays DAILY LAKESHIA Administration Furosemide 60 mg 08/18/19 11:34 08/25/19 06:14 Lasix Injection - IVPUSH 60 mg BID@0600,1400 LAKESHIA Administration Insulin Aspart 1 vial 08/17/19 16:30 08/25/19 11:47 Novolog Vial Sliding Scale - SQ Not Given ACHS [facility] Protocol Losartan Potassium 50 mg 08/18/19 10:00 08/25/19 09:53 Cozaar - PO 50 mg DAILY LAKESHIA Administration Multi-Ingredient Ointment 1 applic 08/20/19 14:00 08/25/19 10:00 Zinc Oxide TP 1 applic BID LAKESHIA Administration Nystatin 1 applic 08/20/19 22:00 08/25/19 09:59 Nystop Powder - TP 1 applic BID LAKESHIA Administration Ropinirole HCl 0.5 mg 08/18/19 10:00 08/25/19 09:55 Requip - PO 0.5 mg DAILY LAKESHIA Administration Sodium Chloride 2 spray 08/21/19 10:00 08/25/19 09:58 [place] Nasal [place] - NS 2 spr BID LAKESHIA Administration ASSESSMENT/PLAN: Mary Lou Ward is a 44 year old female with past medical history of RAINA (on 4L NC, CPAP at night), asthma, depression, HTN, and HLD admitted with shortness of breath likely secondary to CHF decompensation. CHF Decompensation - likely in the setting of high salt diet and increase fluid intake - CXR with noted increased congestive changes - continue IV Lasix 60mg bid - echo from 01/2019 with normal LV, EF 60-65% - Echo EF 55-60%, LV size thickness function normal, RV normal, trace tricuspid regurg - Cardiology consulted, recs appreciated - pulmonology consulted, recs appreciated - Supplemental O2 to keep SpO2 >90% - jackiebs prn - I&O, daily weights - decreasing weight, down to 206kg from admitting 220kg. Pt notes dry wt is 204kg Intertrigo - Nystatin powder to affected areas, use abdominal pad to decrease skin on skin contact Cellulitis - noted of the feet bilaterally, improving - ID consulted, recs appreciated - will be observing off antibiotics - podiatry consulted, recs appreciated, continue Lotrisone RAINA - CPAP at bedtime - will attempt BiPAP during the day as patient has difficulty with mask at night Elevated Bilirubin - no abdominal symptoms - bilirubin 1.6, direct 0.3 - previous abd U/S (02/06) noting hepatomegaly with fatty infiltration vs hepatocellular disease - no elevation of liver enzymes, continue to monitor Depression - Continue Wellbutrin 150mg daily HTN - losartan 50mg daily - continue home amlodipine 5mg HLD - atorvastatin at 40mg to keep LDL below 70 DM - BGM - ISS - A1c 6.7 FEN - no standing fluids, 1L fluid restriction - continue to monitor electrolytes and replete as necessary - Sodium restricted diet Prophylaxis - Lovenox 40mg sq daily Disposition - continue to monitor on Med-surg Visit type - Emergency Visit Emergency Visit: Yes ED Registration Date: 08/16/19 Care time: The patient presented to the Emergency Department on the above date and was hospitalized for further evaluation of their emergent condition. - New Patient This patient is new to me today: No - Critical Care Critical Care patient: No
[2019-08-25 14:54] VITALS: BMI 65.2
[2019-08-25] MEDS: ACETAMINOPHEN 325 MG TABLET (FP) PO PRN (14:57)
--- NOTE | 2019-08-25 15:16 | PN ---
Progress Note (short form) - Note Progress Note: PULMONARY OOB TO CHAIR SLEEPING IN CHAIR/NOT ON PAP APPEARS STABLE VSS/AFEBRILE Constitutional: Yes: Calm Eyes: Yes: Conjunctiva Clear, EOM Intact HENT: Yes: Atraumatic, Normocephalic Neck: Yes: Supple, Trachea Midline Cardiovascular: Yes: Regular Rate and Rhythm Respiratory: Yes: Diminished (decreased breath sounds at the bases) ...Clubbing: No Gastrointestinal: Yes: Normal Bowel Sounds, Soft, Abdomen, Obese. No: Tenderness Edema: Yes Labs: NOTED Chest X-ray: Report Reviewed, Image Reviewed (pulmonary vascular congestion) Acute on Chronic Diastolic Heart Failure Volume Overload Chronic Hypoxic Respiratory Failure Morbid Obesity Obstructive Sleep Apnea Asthma HTN Hyperlipidemia - IV lasix - monitor urine output, creatinine - daily weights - O2 to keep Spo2 >90% - inhaled bronchodilators - CPAP at night/prn - DVT prophylaxis Leah GALLEGO MD
[2019-08-25] MEDS: FAMOTIDINE 10 MG TABLET PO PRN (16:04)
--- NOTE | 2019-08-25 17:57 | PN ---
Teaching Attending Note Name of Resident: Ja Novoa ATTENDING PHYSICIAN STATEMENT I saw and evaluated the patient. I reviewed the resident's note and discussed the case with the resident. I agree with the resident's findings and plan as documented. SUBJECTIVE: No fever or chills. No pain in feet. feels better OBJECTIVE: NAD, morbidly obese. comfortable, facial hair. CV: RRR Lungs: decreased breath sounds at bases. EXt: edema on legs Feet with improved erythema, now just 2 cm beyond MTP joints , but also on soles . Small vesicles with purulent material visible on dorsal and solar areas R foot > L foot ( also improved ) fungal infection among toes ASSESSMENT AND PLAN: 43 y/o lady with h/o morbid obesity, RAINA, chronic resp failure with 4 L of O2 at base line Asthma, depression , DM , and HTN,panniculitis , who presented with welling in [place] and was diagnosed with cellulitis and acute CHF 1- Acute on chronic diastolic CHF 2- LE cellulitis 3- Red man syndrome 4- HTN 5- Morbid obesity 6- DM 7- intertrigo plan : - off Abx per ID. monitor - cont lasix - cont increased dose of losartan. - cont SSI - cont norvasc - cont statin - cont topical antifungals - cont lovenox for DVT px
[2019-08-25] MEDS: ATORVASTATIN CA 10 MG TABLET (FP) PO SCH (21:42)
[2019-08-26] MEDS: FUROSEMIDE 40 MG/4 ML INJECTABLE VIAL IVPUSH SCH (06:54)
[2019-08-26] MEDS: INSULIN SLIDING SCALE (NOVOLOG) 1 VIAL SQ SCH ×3 (06:54→17:08)
[2019-08-26] MEDS: MINERAL OIL/PET HY-PHL TOPICAL OINTMENT 454 GM JAR TP SCH ×2 (06:54→13:28)
[2019-08-26 06:57] LABS: BLOOD UREA NITROGEN 11.1 mg/dL (7-18); CALCIUM 8.9 mg/dL (8.5-10.1); CREATININE 0.6 mg/dL (0.55-1.3); POTASSIUM 4.2 mmol/L (3.5-5.1)
[2019-08-26] MEDS: ALBUTEROL SO4 2.5/IPRATROPIUM 0.5 INH SOL 3 ML VIAL.NEB. NEB SCH ×3 (07:30→16:14)
[2019-08-26] MEDS ORDERED: PT OWN MED DRAWER 7, Y5N ONE (08:42)
[2019-08-26] MEDS: ENOXAPARIN NA (PORCINE) 40 MG/0.4 ML DISP.SYRIN SQ SCH (09:13)
[2019-08-26] MEDS: amLODIPine BESYLATE 5 MG TABLET (FP) PO SCH (09:13)
[2019-08-26] MEDS: LOSARTAN POTASSIUM 50 MG TABLET (FP) PO SCH (09:13)
[2019-08-26] MEDS: rOPINIRole HCL 0.5 MG TABLET PO SCH (09:14)
[2019-08-26] MEDS: FLUTICASONE PROP 0.05% 16 GM NASAL SPRAY NS SCH (09:15)
[2019-08-26] MEDS: CLOTRIMAZOLE/BETAMET DIPROP 15 GM TUBE TP SCH (09:16)
[2019-08-26] MEDS: NYSTATIN POWDER 100,000 UNITS/GM - 15 GM TOPICAL POWDER TP SCH (09:16)
[2019-08-26] MEDS: ZINC OXIDE 20% TOPICAL OINTMENT 30 GM TUBE TP SCH (09:17)
[2019-08-26] MEDS: BENZOCAINE/MENTH/CETYLPYRD CL 1 EACH LOZENGE MM PRN (09:20)
[2019-08-26] MEDS: SODIUM CHLORIDE NASAL SPRAY 44 ML BOTTLE NS SCH (09:48)
--- NOTE | 2019-08-26 09:58 | PN ---
Progress Note (short form) - Note Progress Note: asked to evaluate her feet she is oob in chair feels well Vital Signs Period Temp Pulse Resp BP Sys/Quan Pulse Ox Last 24 Hr 97.8 F-98.2 F 70-91 20-22 126-148/60-87 91-95 cor-rrr lungs clear both feet flaking skin still some erythema of the toes no purulence CBC, BMP 08/23/19 06:38 08/26/19 06:15 no cultures a/p resolving cellulitis morbid obesity osas asthma switch to po clindamycin 300 tid for 5 days add probiotics continue topical antifungal d/w hospitalist
--- NOTE | 2019-08-26 11:48 | PN ---
Teaching Attending Note Name of Resident: Ja Novoa ATTENDING PHYSICIAN STATEMENT I saw and evaluated the patient. I reviewed the resident's note and discussed the case with the resident. I agree with the resident's findings and plan as documented. SUBJECTIVE: No fever or chills. No N/V. no pain . No SOB OBJECTIVE: NAD, morbidly obese. comfortable, facial hair. CV: RRR, 2/6 SM at base Lungs: decreased breath sounds at bases. EXt: edema on legs Feet with improved erythema, now just 2 cm beyond MTP joints , but also on soles . skin peeling over the erythematous area. no vesicles . fungal infection among toes. thick nails ASSESSMENT AND PLAN: 43 y/o lady with h/o morbid obesity, RAINA, chronic resp failure with 4 L of O2 at base line Asthma, depression , DM , and HTN,panniculitis , who presented with welling in [place] and was diagnosed with cellulitis and acute CHF 1- Acute on chronic diastolic CHF 2- LE cellulitis 3- Red man syndrome 4- HTN 5- Morbid obesity 6- DM 7- Intertrigo 8- Tinea pedis 9- Onyc homycosis Plan : - d/w Dr. Conway. will give clindamycin x 5 more dayas after dc - cont lasix . switch to po lasix 60 mg BID - cont increased dose of losartan. - cont metformin at home - cont norvasc - cont statin - cont topical antifungals to continue - f/u with card , PCP, general sx ( bariatric sx eval) , podiatry - cont nystatin for intertrigo Dc home today. VNS arrangements. Son lives withher at home and can help apply creams to feet . ASSESSMENT AND PLAN:
--- NOTE | 2019-08-26 11:56 | DS ---
Physical Exam: SUBJECTIVE: Patient seen and examined at the bedside. The patient stated that she was feeling well and she was eager to go home. Noted that her foot discomfort and swelling had improved. Stated her breathing had improved. She denied any fevers, chills, headaches, dizziness, lightheadedness, chest pain, abdominal pain, n/v/c/d. OBJECTIVE: Vital Signs Period Temp Pulse Resp BP Sys/Quan Pulse Ox Last 24 Hr 97.8 F-98.2 F 70-91 20-22 126-148/60-87 91-95 PHYSICAL EXAM GENERAL: The patient is awake, alert, and fully oriented, in no acute distress. EYES: PERRL, extraocular movements intact, conjunctiva clear. ENT: Oropharynx clear without exudates, moist mucous membranes. LUNGS: Breath sounds difficult to auscultate due to body habitus. No wheezes auscultated HEART: Regular rate and rhythm, S1, S2. Unable to appreciate murmurs. ABDOMEN: Soft, obese, nontender, normoactive bowel sounds, no guarding, no rebound. Significant redness on the abdomen on the R side in between skin fold, improved, dry. EXTREMITIES: Significant chronic lymphedema and pitting edema 2+ noted, improving. Noted mild redness of the feet bilaterally, greatly improving. Decreased warmth and tenderness to touch. NEUROLOGICAL: Cranial nerves II through XII grossly intact. 5/5 muscle strength bilaterally upper and lower extremities. PSYCH: Normal mood, normal affect. LABS Laboratory Results - last 24 hr 08/25/19 08/25/19 08/26/19 17:26 21:40 06:00 Sodium Potassium Chloride Carbon Dioxide Anion Gap BUN Creatinine Est GFR (CKD-EPI)AfAm Est GFR (CKD-EPI)NonAf POC Glucometer 114 141 103 Random Glucose Calcium Magnesium 08/26/19 08/26/19 06:15 11:04 Sodium 141 Potassium 4.2 Chloride 96 L Carbon Dioxide 39 H Anion Gap 5 L BUN 11.1 Creatinine 0.6 Est GFR (CKD-EPI)AfAm 127.58 Est GFR (CKD-EPI)NonAf 110.08 POC Glucometer 115 Random Glucose 104 Calcium 8.9 Magnesium 2.0 HOSPITAL COURSE: Mary Lou Ward is a 44 year old female with past medical history of RAINA (on 4L NC, CPAP at night), asthma, depression, HTN, and HLD admitted with shortness of breath likely secondary to CHF decompensation. Patient had CHF decompensation likely in the setting of increased salt and water intake. Original CXR was noted with increased congestive changes. Patient was started on IV Lasix and last dose was Lasix 60mg IV bid. Echo was performed which noted EF 55-60%, LV size thickness function normal, RV normal, trace tricuspid regurg. Cardiology was consulted and increased losartan to 50mg, to continue diuresis , and advised weight loss and to follow up outpatient. Pulmonology saw the patient and recommended continued use of CPAP, O2, diuresis and to follow up outpatient. Patient had decrease of her admitting weight from 220kg to last weight of 207. Patient was advised to follow up with a bariatric surgeon. During admission patient was noted with intertrigo in the area of the R abdomen. Nystatin powder and gauze was applied to the area and the patient is to continue to apply it to the area and follow up with wound care. Patient was noted with cellulitis of the bilateral feet during admission and treated with vancomycin and will complete a course of clindamycin in the outpatient setting. Was seen by podiatry and was started on Lotrison cream to the bilateral feet. Was noted with elevated bilirubin with no abdominal complaints. Previous abd U/S in 01/2019 noted hepatomegaly with fatty infiltration vs hepatocellular disease. Patient was advised to have repeat laboratory work and follow up with her PCP. Was started on atorvastatin 40mg to keep her LDL below 70. Patient was advised for a low salt diet, limitation of fluids. Advised to follow up with her PCP, lay up operator, tailer in, middle school sports coach, bariatric surgeon, and pharmacy retail support specialist. Advised to have repeat bloodwork in 1 week. Patient was in agreement with the plan. Patient was discharged in stable medical condition. Date of Admission:08/16/19 Date of Discharge: 08/26/19 Minutes to complete discharge: 35 Discharge Summary Problems reviewed: Yes Reason For Visit: ACUTE ON CHRONIC DIASTOLIC CHF Current Active Problems Cellulitis of lower extremity (Acute) Intertrigo (Acute) [facility] cardiac risk >20% in next 10 years (Chronic) Condition: Improved - Instructions Diet, Activity, Other Instructions: You were admitted for decompensation of your congestive heart failure. You were given medications to to help remove fluid from your body. You will continue on those medications at home. You had an echocardiogram (ultrasound of the heart) performed which showed normal size, function of you heart and some abnormalities of your valves. You are advised to follow up with a lay up operator for these findings. You were treated for a foot infection and you will continue to take antibiotics at home. MEDICATIONS START to take Lasix 60mg twice a day. Take one 20mg and one 40mg pill for a total of 60mg twice a day. START to take losartan 50mg once a day. START to take clindamycin 300mg every 8 hours at 6AM, 2PM, and 10PM for a total of 5 days. Your last dose will be on August 30 at 6AM. START to take Lotrisone cream and apply it to your feet twice a day. START to take nystatin powder and apply it to the wound on your abdomen twice a day and cover it with gauze. START to take atorvastatin 40mg in the evening every day. REFERRALS Please follow up with your primary care physician, Dr. Charlton, within 1 week. Please follow up with the lay up operator, Dr. Jackson, within 1 week. Please follow up with the tailer in, Dr. Alas, within 2-3 weeks. Please follow up with your middle school sports coach, Dr. Pritchett, within 1 week. Please follow up with the bariatric surgeon within 4 weeks. Please follow up with the pharmacy retail support specialist, Dr. Miller, within 2 weeks. SPECIAL INSTRUCTIONS Please follow a low salt diet, do not add salt to your food and limit your water intake to 1 liter per day. Weight yourself daily and record the weights before you see your doctors. Follow up with all of your physicians. Wear your CPAP at night and follow up with the pulmonlogist. Have follow up bloodwork with your primary care doctor examining your kidney function and liver function in 1 week. Continue to use your 4 liters of oxygen as per your routine and continue the use of your CPAP every night. If you have any further symptoms of shortness of breath, chest pain, fevers, increasing pain and swelling in your feet, or any other general feelings of unwellness, please call 911 of go to your nearest emergency room. FOOT AND ABDOMEN CARE Apply lotrisone to your feet twice a day, applying the cream between your toes, on the soles of the feet allowing the cream to soak in. You do not need to cover the feet after you have applied the cream. Make sure to wash your feet daily and check them for any sores or ulcers. dry the feet very well Apply nystatin powder to your abdomen wound under your pannus twice a day and change the gauze pad that covers it twice a day. Place the gauze pad in a way that it limits the contact between the skin and the wound. Referrals: Senthil Starkey MD [Staff Physician] - 2 Weeks Ayan Alas MD [Staff Physician] - 1 Week Ayan Charlton MD [Primary Care Provider] - 1 Week Reuben Pritchett MD [Staff Physician] - 1 Week John Jackson MD [Staff Physician] - 1 Week Russ Miller DO [Staff Physician] - 2 Weeks Disposition: VNS/HOME HEALTH CARE - Home Medications Comprehensive Discharge Medication List: Ambulatory Orders Albuterol Sulfate Inhaler - [Ventolin HFA Inhaler -] 1 puff PRN 02/11/19 Bupropion HCl [Wellbutrin Xl -] 150 mg PO DAILY 02/11/19 Pravastatin Sodium 10 mg PO DAILY 02/11/19 Amlodipine Besylate [Norvasc -] 5 mg PO DAILY 08/16/19 Metformin HCl [Glucophage] 500 mg PO BID 08/16/19 Ropinirole HCl [Requip -] 0.5 mg PO DAILY 08/16/19 Clindamycin [Cleocin -] 300 mg PO Q8H #12 capsule 08/26/19 Clotrimazole/Betamet Diprop [Lotrisone -] 1 applic TP BID #1 tube 08/26/19 Furosemide [Lasix] 20 mg PO BID #60 tablet 08/26/19 Furosemide [Lasix] 40 mg PO BID #60 tablet 08/26/19 Gauze Bandage [Gauze] 1 each TP BID #20 bandage 08/26/19 Losartan Potassium [Cozaar -] 50 mg PO DAILY #30 tablet 08/26/19 Nystatin Powder [Nystop Powder -] 1 applic TP BID #1 bottle 08/26/19 Problem List - Problems (1) Cellulitis of lower extremity Code(s): L03.119 - CELLULITIS OF UNSPECIFIED PART OF LIMB (2) Intertrigo Code(s): L30.4 - ERYTHEMA INTERTRIGO (3) [facility] cardiac risk >20% in next 10 years Code(s): Z91.89 - OT PERSONAL RISK FACTORS, NOT ELSEWHERE CLASSIFIED (4) Acute on chronic diastolic (congestive) heart failure Code(s): I50.33 - ACUTE ON CHRONIC DIASTOLIC (CONGESTIVE) HEART FAILURE (5) Asthma Code(s): J45.909 - UNSPECIFIED ASTHMA, UNCOMPLICATED (6) HTN (hypertension) Code(s): I10 - ESSENTIAL (PRIMARY) HYPERTENSION (7) Hypercapnic respiratory failure, chronic Code(s): J96.12 - CHRONIC RESPIRATORY FAILURE WITH HYPERCAPNIA (8) Hyperlipidemia Code(s): E78.5 - HYPERLIPIDEMIA, UNSPECIFIED Qualifiers: Hyperlipidemia type: pure hypercholesterolemia Qualified Code(s): E78.00 - Pure hypercholesterolemia, unspecified; E78.0 - Pure hypercholesterolemia (9) Morbid (severe) obesity with alveolar hypoventilation Code(s): E66.2 - MORBID (SEVERE) OBESITY WITH ALVEOLAR HYPOVENTILATION (10) RAINA (obstructive sleep apnea) Code(s): G47.33 - OBSTRUCTIVE SLEEP APNEA (ADULT) (PEDIATRIC) (11) Acute on chronic respiratory failure with hypoxemia Code(s): J96.21 - ACUTE AND CHRONIC RESPIRATORY FAILURE WITH HYPOXIA (12) Shortness of breath on exertion Code(s): R06.02 - SHORTNESS OF BREATH This patient is new to me today: No Emergency Visit: Yes ED Registration Date: 08/16/19 Care time: The patient presented to the Emergency Department on the above date and was hospitalized for further evaluation of their emergent condition. Critical Care patient: No - Discharge Referral Referred to [facility] Med [facility] No
--- NOTE | 2019-08-26 13:10 | PN ---
Progress Note (short form) - Note Progress Note: PULMONARY OOB TO CHAIR WANTS TO GO HOME APPEARS STABLE VSS/AFEBRILE Constitutional: Yes: Calm Eyes: Yes: Conjunctiva Clear, EOM Intact HENT: Yes: Atraumatic, Normocephalic Neck: Yes: Supple, Trachea Midline Cardiovascular: Yes: Regular Rate and Rhythm Respiratory: Yes: Diminished (decreased breath sounds at the bases) ...Clubbing: No Gastrointestinal: Yes: Normal Bowel Sounds, Soft, Abdomen, Obese. No: Tenderness Edema: Yes Labs: NOTED Chest X-ray: Report Reviewed, Image Reviewed (pulmonary vascular congestion) Acute on Chronic Diastolic Heart Failure Volume Overload Chronic Hypoxic Respiratory Failure Morbid Obesity Obstructive Sleep Apnea Asthma HTN Hyperlipidemia - IV lasix changed to oral - monitor urine output, creatinine - daily weights - O2 to keep Spo2 >90% - inhaled bronchodilators - CPAP at night/prn - DVT prophylaxis Leah GALLEGO MD
[2019-08-26] MEDS ORDERED: CLINDAMYCIN HCL 150 MG CAPSULE (FP) PO SCH (14:00)
[2019-08-26] MEDS ORDERED: FUROSEMIDE 40 MG TABLET (FP) PO SCH ×2 (14:00→14:38)
[2019-08-26 18:32] VITALS: TEMP 98.2
[2019-08-26 20:03] VITALS: BP 159/75; PULSE 78
== END 2019-08-26 19:55 | disposition home health service (06) | DRG 194 ==
LOC: JER 09:47 → JERBED 13:39 → J7W 18:12
PROVIDERS: ADMIT Internal Medicine; ATTEND Internal Medicine
PROC: 5A09457 Assistance with Respiratory Ventilation, 24-96 Consecutive Hours, Continuous Positive Airway Pressure (ICD-10-PCS; principal; 2019-08-16)
DX: I11.0 Hypertensive heart disease with heart failure (principal); E11.9 Type 2 diabetes mellitus without complications; I50.33 Acute on chronic diastolic (congestive) heart failure; J96.11 Chronic respiratory failure with hypoxia; L03.115 Cellulitis of right lower limb; L03.116 Cellulitis of left lower limb; E66.01 Morbid (severe) obesity due to excess calories; Z68.44 Body mass index [BMI] 60.0-69.9, adult; E78.5 Hyperlipidemia, unspecified; L30.4 Erythema intertrigo; M79.3 Panniculitis, unspecified; G47.33 Obstructive sleep apnea (adult) (pediatric); J45.909 Unspecified asthma, uncomplicated; F32.9 Major depressive disorder, single episode, unspecified; Z99.81 Dependence on supplemental oxygen; M79.89 Other specified soft tissue disorders; Z71.3 Dietary counseling and surveillance
CPT/HCPCS: 36415; 71045-TC-FY; 80048; 80053; 80061; 82248; 82728; 82962; 83036; 83540; 83550; 83721; 83735; 83880; 84100; 84443; 84466; 84703; 85025; 93005; 93010; 93306-TC; 93971; 94640; 94660; 97116-GP; 97161-GP; 99285-25; G0480

== ENCOUNTER 2021-02-12 09:55 | Emergency (ER) | payer OTHER ==
[2021-02-12 10:00] VITALS: BMI 64.5
[2021-02-12 12:25] LABS: BASO % 0.6 % (0-2.0); EOS % 3.1 % (0-4.5); HEMATOCRIT 45.8 % (32.4-45.2); HEMOGLOBIN 15.7 GM/dL (10.7-15.3); LYMPH % 20.6 % (8-40); MCH 29.3 pg (25.7-33.7); MCHC 34.2 g/dl (32.0-36.0); MEAN CELL VOLUME 85.7 fl (80-96); MEAN PLT VOLUME 7.7 fl (7.5-11.1); MONO % 6.1 % (3.8-10.2); NEUT % 69.6 % (42.8-82.8); PLATELET COUNT 259 10^3/uL (134-434); RBC 5.35 M/mm3 (3.60-5.2); RDW 13.7 % (11.6-15.6)
[2021-02-12 12:46] LABS: CHLORIDE 101 mmol/L (98-107); SODIUM 141 mmol/L (136-145)
[2021-02-12 12:48] LABS: ALBUMIN 3.4 g/dl (3.4-5.0); ANION GAP 7 MMOL/L (8-16); BLOOD UREA NITROGEN 10.4 mg/dL (7-18); CO2 32 mmol/L (21-32); GLUCOSE,RANDOM 103 mg/dL (74-106)
[2021-02-12 12:51] LABS: SGOT/AST 15 U/L (15-37); SGPT/ALT 24 U/L (13-61)
[2021-02-12 12:52] LABS: CREATININE 0.7 mg/dL (0.55-1.3)
[2021-02-12 12:53] LABS: BILIRUBIN,TOTAL 0.9 mg/dL (0.2-1); TOT PROT 6.9 g/dl (6.4-8.2)
[2021-02-12 12:54] LABS: ALK PHOS 83 U/L (45-117)
[2021-02-12] MEDS ORDERED: FUROSEMIDE 40 MG/4 ML INJECTABLE VIAL ONE (14:10)
[2021-02-12] MEDS: FUROSEMIDE 40 MG/4 ML INJECTABLE VIAL IVPUSH ONE ×2 (14:13→14:18)
[2021-02-12 14:21] LABS: N-TERMINAL BNP 118.1 pg/ml (5-125)
[2021-02-12 14:47] VITALS: BP 110/90; PULSE 72; TEMP 97.8
== END 2021-02-12 14:36 | disposition home or self-care (01) ==
LOC: JER 09:55
DX: R60.0 Localized edema (principal)
CPT/HCPCS: 36415; 71045-TC-FY; 80053; 82550; 83880; 84484; 84703; 85025; 93005; 93010; 99285-25

== ENCOUNTER 2021-02-15 06:59 | Inpatient (IN) | payer OTHER ==
[2021-02-15 09:04] LABS: HEMATOCRIT 46.1 % (32.4-45.2); HEMOGLOBIN 15.5 GM/dL (10.7-15.3); MCH 28.6 pg (25.7-33.7); MCHC 33.6 g/dl (32.0-36.0); MEAN CELL VOLUME 85.1 fl (80-96); MEAN PLT VOLUME 7.9 fl (7.5-11.1); PLATELET COUNT 255 10^3/uL (134-434); RBC 5.42 M/mm3 (3.60-5.2); RDW 13.7 % (11.6-15.6); WHITE BLOOD COUNT 8.5 K/mm3 (4.0-10.0)
[2021-02-15 09:11] LABS: INR 1.03 (0.83-1.09); PROTHROMBIN TIME (PATIENT) 12.5 SEC (9.7-13.0)
[2021-02-15 09:33] LABS: CHLORIDE 102 mmol/L (98-107); SODIUM 140 mmol/L (136-145)
[2021-02-15 09:36] LABS: ALBUMIN 3.5 g/dl (3.4-5.0); ANION GAP 9 MMOL/L (8-16); BLOOD UREA NITROGEN 10.2 mg/dL (7-18); CO2 30 mmol/L (21-32); GLUCOSE,RANDOM 95 mg/dL (74-106)
[2021-02-15 09:40] LABS: CREATININE 0.7 mg/dL (0.55-1.3); SGOT/AST 13 U/L (15-37); SGPT/ALT 23 U/L (13-61)
[2021-02-15 09:41] LABS: BILIRUBIN,TOTAL 0.7 mg/dL (0.2-1); TOT PROT 7.1 g/dl (6.4-8.2)
[2021-02-15 09:43] LABS: ALK PHOS 78 U/L (45-117)
[2021-02-15] MEDS ORDERED: FUROSEMIDE 40 MG/4 ML INJECTABLE VIAL IVPUSH ONE (09:54)
[2021-02-15] MEDS ORDERED: FUROSEMIDE 40 MG/4 ML INJECTABLE VIAL ONE ×2 (10:03→10:05)
[2021-02-15] MEDS ORDERED: ENOXAPARIN NA (PORCINE) 40 MG/0.4 ML DISP.SYRIN SQ ONE (12:41)
[2021-02-15] MEDS: ENOXAPARIN NA (PORCINE) 40 MG/0.4 ML DISP.SYRIN SQ SCH (12:53)
[2021-02-15 14:13] LABS: CHOLESTEROL 214 mg/dL (50-200); LDL CHOLESTEROL (ONLY SJRH) 135 mg/dL (5-100); TRIGLYCERIDES 244 mg/dL (0-150)
[2021-02-15 14:17] LABS: HDL CHOLESTEROL 33 mg/dL (40-60)
[2021-02-15] MEDS ORDERED: PNEUMOC 13-VAL CONJ-DIP CRM/PF 0.5 ML DISP.SYRIN IM ONE (16:11)
[2021-02-15] MEDS ORDERED: PNEUMOCOCCAL 23 VACCINE 0.5 ML VIAL IM ONE (16:45)
[2021-02-15] MEDS: INSULIN SLIDING SCALE (NOVOLOG) 1 VIAL SQ SCH (17:00)
[2021-02-15] MEDS ORDERED: PT OWN MED DRAWER 7, Y5N ONE (22:24)
[2021-02-15] MEDS: ATORVASTATIN CA 40 MG TABLET (FP) PO SCH (22:28)
[2021-02-15] MEDS: NYSTATIN POWDER 100,000 UNITS/GM - 15 GM TOPICAL POWDER TP SCH (22:28)
[2021-02-15] MEDS: rOPINIRole HCL 0.5 MG TABLET PO SCH (22:29)
[2021-02-16] MEDS: ACETAMINOPHEN 325 MG TABLET (FP) PO PRN ×2 (05:14→16:38)
[2021-02-16] MEDS: INSULIN SLIDING SCALE (NOVOLOG) 1 VIAL SQ SCH ×3 (06:05→16:31)
[2021-02-16 08:24] LABS: BASO % 0.6 % (0-2.0); EOS % 2.8 % (0-4.5); HEMATOCRIT 48.3 % (32.4-45.2); HEMOGLOBIN 16.6 GM/dL (10.7-15.3); LYMPH % 18.8 % (8-40); MCH 29.4 pg (25.7-33.7); MCHC 34.4 g/dl (32.0-36.0); MEAN CELL VOLUME 85.4 fl (80-96); MEAN PLT VOLUME 7.8 fl (7.5-11.1); MONO % 5.7 % (3.8-10.2); NEUT % 72.1 % (42.8-82.8); PLATELET COUNT 212 10^3/uL (134-434); RBC 5.66 M/mm3 (3.60-5.2); RDW 13.8 % (11.6-15.6); WHITE BLOOD COUNT 8.2 K/mm3 (4.0-10.0)
[2021-02-16 08:28] LABS: INR 1.06 (0.83-1.09)
[2021-02-16 08:31] LABS: ACTIVATED PTT 31.7 SECONDS (25.2-36.5)
[2021-02-16 08:49] LABS: ALBUMIN 3.5 g/dl (3.4-5.0); BLOOD UREA NITROGEN 14.9 mg/dL (7-18); MAGNESIUM 1.8 mg/dL (1.8-2.4)
[2021-02-16 08:50] LABS: CALCIUM 8.4 mg/dL (8.5-10.1)
[2021-02-16 08:53] LABS: CREATININE 0.6 mg/dL (0.55-1.3)
[2021-02-16 08:55] LABS: BILIRUBIN,TOTAL 1.5 mg/dL (0.2-1)
[2021-02-16] MEDS ORDERED: PT OWN MED DRAWER 7, Y5N ONE ×2 (10:35→22:37)
[2021-02-16] MEDS: ENOXAPARIN NA (PORCINE) 40 MG/0.4 ML DISP.SYRIN SQ SCH (10:53)
[2021-02-16] MEDS: FUROSEMIDE 40 MG/4 ML INJECTABLE VIAL IVPUSH SCH (10:53)
[2021-02-16] MEDS: LOSARTAN POTASSIUM 50 MG TABLET PO SCH (10:53)
[2021-02-16] MEDS: NYSTATIN POWDER 100,000 UNITS/GM - 15 GM TOPICAL POWDER TP SCH ×2 (10:53→23:09)
[2021-02-16] MEDS: PETROLATUM, WHITE 30 GM TUBE TP SCH (10:53)
[2021-02-16] MEDS: rOPINIRole HCL 0.5 MG TABLET PO SCH (23:09)
[2021-02-16] MEDS: ATORVASTATIN CA 40 MG TABLET (FP) PO SCH (23:09)
[2021-02-17] MEDS: ACETAMINOPHEN 325 MG TABLET (FP) PO PRN ×2 (05:34→21:45)
[2021-02-17] MEDS: INSULIN SLIDING SCALE (NOVOLOG) 1 VIAL SQ SCH ×3 (06:11→16:50)
[2021-02-17] MEDS: CLOTRIMAZOLE/BETAMET DIPROP 15 GM TUBE TP SCH (09:44)
[2021-02-17] MEDS: ENOXAPARIN NA (PORCINE) 40 MG/0.4 ML DISP.SYRIN SQ SCH (09:44)
[2021-02-17] MEDS: FUROSEMIDE 40 MG/4 ML INJECTABLE VIAL IVPUSH SCH (09:44)
[2021-02-17] MEDS: LOSARTAN POTASSIUM 50 MG TABLET PO SCH (09:44)
[2021-02-17] MEDS: PETROLATUM, WHITE 30 GM TUBE TP SCH (09:45)
[2021-02-17] MEDS: NYSTATIN POWDER 100,000 UNITS/GM - 15 GM TOPICAL POWDER TP SCH ×2 (09:45→21:46)
[2021-02-17 19:48] VITALS: BMI 60.0
[2021-02-17] MEDS ORDERED: PT OWN MED DRAWER 7, Y5N ONE (21:23)
[2021-02-17] MEDS: ATORVASTATIN CA 40 MG TABLET (FP) PO SCH (21:46)
[2021-02-17] MEDS: rOPINIRole HCL 0.5 MG TABLET PO SCH (21:46)
[2021-02-18] MEDS: INSULIN SLIDING SCALE (NOVOLOG) 1 VIAL SQ SCH ×3 (06:28→17:33)
[2021-02-18] MEDS: ACETAMINOPHEN 325 MG TABLET (FP) PO PRN (06:33)
[2021-02-18] MEDS ORDERED: PT OWN MED DRAWER 7, Y5N ONE ×2 (09:41→21:55)
[2021-02-18] MEDS: LOSARTAN POTASSIUM 50 MG TABLET PO SCH (10:01)
[2021-02-18] MEDS: CLOTRIMAZOLE/BETAMET DIPROP 15 GM TUBE TP SCH (10:02)
[2021-02-18] MEDS: FUROSEMIDE 40 MG/4 ML INJECTABLE VIAL IVPUSH SCH (10:02)
[2021-02-18] MEDS: ENOXAPARIN NA (PORCINE) 40 MG/0.4 ML DISP.SYRIN SQ SCH (10:02)
[2021-02-18] MEDS: NYSTATIN POWDER 100,000 UNITS/GM - 15 GM TOPICAL POWDER TP SCH ×2 (10:03→22:00)
[2021-02-18] MEDS: PETROLATUM, WHITE 30 GM TUBE TP SCH (10:03)
[2021-02-18] MEDS ORDERED: ALBUTEROL SO4 HFA INHALER IH PRN (17:39)
[2021-02-18] MEDS: rOPINIRole HCL 0.5 MG TABLET PO SCH (22:00)
[2021-02-18] MEDS: ATORVASTATIN CA 40 MG TABLET (FP) PO SCH (22:00)
[2021-02-19] MEDS: FUROSEMIDE 40 MG TABLET (FP) PO SCH ×2 (06:25→13:36)
[2021-02-19] MEDS: INSULIN SLIDING SCALE (NOVOLOG) 1 VIAL SQ SCH ×3 (06:25→17:06)
[2021-02-19] MEDS: ACETAMINOPHEN 325 MG TABLET (FP) PO PRN (06:28)
[2021-02-19 09:36] LABS: HEMATOCRIT 45.8 % (32.4-45.2); HEMOGLOBIN 15.8 GM/dL (10.7-15.3); MCH 29.2 pg (25.7-33.7); MCHC 34.4 g/dl (32.0-36.0); MEAN CELL VOLUME 84.9 fl (80-96); MEAN PLT VOLUME 8.6 fl (7.5-11.1); PLATELET COUNT 240 10^3/uL (134-434); RDW 13.7 % (11.6-15.6)
[2021-02-19] MEDS ORDERED: PT OWN MED DRAWER 7, Y5N ONE (09:43)
[2021-02-19] MEDS: LOSARTAN POTASSIUM 50 MG TABLET PO SCH (09:44)
[2021-02-19] MEDS: ENOXAPARIN NA (PORCINE) 40 MG/0.4 ML DISP.SYRIN SQ SCH (09:44)
[2021-02-19] MEDS: CLOTRIMAZOLE/BETAMET DIPROP 15 GM TUBE TP SCH (09:46)
[2021-02-19] MEDS: NYSTATIN POWDER 100,000 UNITS/GM - 15 GM TOPICAL POWDER TP SCH (09:46)
[2021-02-19] MEDS: PETROLATUM, WHITE 30 GM TUBE TP SCH (09:46)
[2021-02-19 09:53] LABS: CALCIUM 8.7 mg/dL (8.5-10.1)
[2021-02-19 09:54] LABS: BLOOD UREA NITROGEN 13.3 mg/dL (7-18); MAGNESIUM 2.1 mg/dL (1.8-2.4)
[2021-02-19 09:57] LABS: CREATININE 0.6 mg/dL (0.55-1.3); PHOSPHOROUS 2.7 mg/dL (2.5-4.9)
[2021-02-19 18:21] VITALS: BP 125/75; PULSE 72; TEMP 98.5
== END 2021-02-19 18:21 | disposition home health service (06) | DRG 194 ==
LOC: JER 06:59 → JERBED 10:43 → J6S 14:28 → OBSVTOIN 02-16 14:40
PROVIDERS: ADMIT Student in an Organized Health Care Education/Training Program; ATTEND Internal Medicine
PROC: 0HBRXZZ Excision of Toe Nail, External Approach (ICD-10-PCS; principal; 2021-02-18)
PROC: 0HBRXZZ Excision of Toe Nail, External Approach (ICD-10-PCS; 2021-02-18)
PROC: 0HBRXZZ Excision of Toe Nail, External Approach (ICD-10-PCS; 2021-02-18)
PROC: 0HBRXZZ Excision of Toe Nail, External Approach (ICD-10-PCS; 2021-02-18)
PROC: 0HBRXZZ Excision of Toe Nail, External Approach (ICD-10-PCS; 2021-02-18)
PROC: 0HBRXZZ Excision of Toe Nail, External Approach (ICD-10-PCS; 2021-02-18)
PROC: 0HBRXZZ Excision of Toe Nail, External Approach (ICD-10-PCS; 2021-02-18)
PROC: 0HBRXZZ Excision of Toe Nail, External Approach (ICD-10-PCS; 2021-02-18)
PROC: 0HBRXZZ Excision of Toe Nail, External Approach (ICD-10-PCS; 2021-02-18)
PROC: 0HBRXZZ Excision of Toe Nail, External Approach (ICD-10-PCS; 2021-02-18)
DX: I11.0 Hypertensive heart disease with heart failure (principal); I50.33 Acute on chronic diastolic (congestive) heart failure; Z99.81 Dependence on supplemental oxygen; F32.9 Major depressive disorder, single episode, unspecified; E78.5 Hyperlipidemia, unspecified; E11.9 Type 2 diabetes mellitus without complications; Z79.84 Long term (current) use of oral hypoglycemic drugs; Z68.44 Body mass index [BMI] 60.0-69.9, adult; E66.2 Morbid (severe) obesity with alveolar hypoventilation; B35.1 Tinea unguium; B35.3 Tinea pedis; I89.0 Lymphedema, not elsewhere classified; I95.1 Orthostatic hypotension; L30.4 Erythema intertrigo; E78.00 Pure hypercholesterolemia, unspecified
CPT/HCPCS: 36415; 71046-TC-FY; 73630-TC-LT; 80048; 80053; 80061; 82550; 82962; 83036; 83735; 83880; 84100; 84443; 84484; 85025; 85027; 85610; 85730; 90732; 93005; 93010; 93306-TC; 97116-GP; 97161-GP; 99285-25; C9803; G0009; G0378; U0003; U0005

== ENCOUNTER 2021-03-12 11:47 | Emergency (ER) | payer OTHER ==
[2021-03-12 11:59] VITALS: BP 167/79; PULSE 74; TEMP 98.2; BMI 60.1
[2021-03-12] MEDS ORDERED: FAMOTIDINE 10 MG TABLET PO ONE (12:53)
[2021-03-12] MEDS ORDERED: DIPHENHYDRAMINE HCL 25 MG/10 ML CUP PO ONE (12:53)
[2021-03-12] MEDS ORDERED: predniSONE 20 MG TABLET (UD) PO ONE (12:54)
[2021-03-12] MEDS ORDERED: FAMOTIDINE 20 MG TABLET ONE (13:04)
[2021-03-12] MEDS ORDERED: diphenhydrAMINE HCL 25 MG CAPSULE (FP) PO ONE (13:04)
[2021-03-12] MEDS ORDERED: predniSONE 20 MG TABLET (UD) ONE (13:04)
== END 2021-03-12 13:19 | disposition home or self-care (01) ==
LOC: JERFT 11:47
DX: L29.9 Pruritus, unspecified (principal)
CPT/HCPCS: 99283-25

== ENCOUNTER 2021-07-30 08:31 | Observation (INO) | payer OTHER ==
[2021-07-30 11:19] LABS: EOS % 2.6 % (0-4.5); HEMATOCRIT 48.3 % (32.4-45.2); HEMOGLOBIN 15.8 GM/dL (10.7-15.3); LYMPH % 23.9 % (8-40); MCH 27.9 pg (25.7-33.7); MCHC 32.7 g/dl (32.0-36.0); MEAN CELL VOLUME 85.5 fl (80-96); MEAN PLT VOLUME 8.2 fl (7.5-11.1); NEUT % 66.5 % (42.8-82.8); PLATELET COUNT 276 10^3/uL (134-434); RBC 5.64 M/mm3 (3.60-5.2); RDW 13.9 % (11.6-15.6); WHITE BLOOD COUNT 8.5 K/mm3 (4.0-10.0)
[2021-07-30 11:55] LABS: ALBUMIN 3.5 g/dl (3.4-5.0); BLOOD UREA NITROGEN 15.1 mg/dL (7-18); CALCIUM 9.1 mg/dL (8.5-10.1); MAGNESIUM 2.2 mg/dL (1.8-2.4)
[2021-07-30 11:58] LABS: CREATININE 0.7 mg/dL (0.55-1.3)
[2021-07-30 12:00] LABS: BILIRUBIN,TOTAL 0.7 mg/dL (0.2-1); TOT PROT 7.1 g/dl (6.4-8.2)
[2021-07-30 12:04] LABS: N-TERMINAL BNP 43.6 pg/ml (5-125)
[2021-07-30] MEDS ORDERED: FUROSEMIDE 40 MG/4 ML INJECTABLE VIAL IVPUSH ONE (14:09)
[2021-07-30] MEDS ORDERED: FUROSEMIDE 40 MG/4 ML INJECTABLE VIAL ONE (14:50)
[2021-07-30] MEDS ORDERED: FLU VACC QS2021-22(6MOS UP)/PF 60 MCG/0.5 ML SYRINGE IM ONE ×2 (15:57→23:00)
[2021-07-30] MEDS: INSULIN SLIDING SCALE (NOVOLOG) 1 VIAL SQ SCH ×2 (18:02→22:32)
[2021-07-30] MEDS ORDERED: ALBUTEROL SO4 HFA INHALER IH PRN (18:31)
[2021-07-31] MEDS: ACETAMINOPHEN 325 MG TABLET (FP) PO PRN ×3 (00:32→22:54)
[2021-07-31] MEDS: FUROSEMIDE 40 MG/4 ML INJECTABLE VIAL IVPUSH SCH ×2 (05:07→14:07)
[2021-07-31] MEDS ORDERED: FUROSEMIDE 40 MG/4 ML INJECTABLE VIAL IVPUSH SCH (06:00)
[2021-07-31] MEDS: INSULIN SLIDING SCALE (NOVOLOG) 1 VIAL SQ SCH ×4 (06:29→23:08)
[2021-07-31 09:04] LABS: HEMOGLOBIN 16.6 GM/dL (10.7-15.3); MCH 29.1 pg (25.7-33.7); MCHC 34.5 g/dl (32.0-36.0); MEAN CELL VOLUME 84.4 fl (80-96); PLATELET COUNT 254 10^3/uL (134-434); RBC 5.69 M/mm3 (3.60-5.2); WHITE BLOOD COUNT 8.3 K/mm3 (4.0-10.0)
[2021-07-31 09:39] LABS: CALCIUM 9.3 mg/dL (8.5-10.1)
[2021-07-31 09:40] LABS: ALBUMIN 3.7 g/dl (3.4-5.0); BLOOD UREA NITROGEN 18.3 mg/dL (7-18); MAGNESIUM 2.1 mg/dL (1.8-2.4)
[2021-07-31 09:43] LABS: CREATININE 0.7 mg/dL (0.55-1.3); PHOSPHOROUS 3.3 mg/dL (2.5-4.9)
[2021-07-31 09:44] LABS: TOT PROT 7.5 g/dl (6.4-8.2)
[2021-07-31] MEDS ORDERED: POTASSIUM CHLORIDE TABS 20 MEQ TABLET.ER (FP) PO ONE (09:45)
[2021-07-31 09:53] LABS: BILIRUBIN,TOTAL 1.2 mg/dL (0.2-1)
[2021-07-31] MEDS: ENOXAPARIN NA (PORCINE) 40 MG/0.4 ML DISP.SYRIN SQ SCH (11:23)
[2021-07-31] MEDS ORDERED: INSULIN (NOVOLOG) ASPART 100 UNITS/ML 10ML VIAL ONE (11:31)
[2021-07-31 13:30] VITALS: BMI 57.2
[2021-07-31] MEDS ORDERED: ATORVASTATIN CA 80 MG TABLET (FP) PO SCH (22:00)
[2021-08-01] MEDS: FUROSEMIDE 40 MG/4 ML INJECTABLE VIAL IVPUSH SCH (05:51)
[2021-08-01] MEDS: INSULIN SLIDING SCALE (NOVOLOG) 1 VIAL SQ SCH ×2 (08:13→11:18)
[2021-08-01] MEDS: ENOXAPARIN NA (PORCINE) 40 MG/0.4 ML DISP.SYRIN SQ SCH (09:17)
[2021-08-01] MEDS: ACETAMINOPHEN 325 MG TABLET (FP) PO PRN (09:18)
[2021-08-01 11:01] LABS: BASO % 0.8 % (0-2.0); EOS % 2.1 % (0-4.5); HEMATOCRIT 49.3 % (32.4-45.2); HEMOGLOBIN 16.2 GM/dL (10.7-15.3); LYMPH % 20.5 % (8-40); MCH 28.1 pg (25.7-33.7); MCHC 32.9 g/dl (32.0-36.0); MEAN CELL VOLUME 85.5 fl (80-96); MEAN PLT VOLUME 8.3 fl (7.5-11.1); MONO % 7.5 % (3.8-10.2); NEUT % 69.1 % (42.8-82.8); PLATELET COUNT 238 10^3/uL (134-434); RBC 5.76 M/mm3 (3.60-5.2)
[2021-08-01 11:21] LABS: BLOOD UREA NITROGEN 18.5 mg/dL (7-18)
[2021-08-01 11:24] LABS: CREATININE 0.8 mg/dL (0.55-1.3)
[2021-08-01 13:54] VITALS: BP 154/95; PULSE 81; TEMP 98.1
== END 2021-08-01 13:57 | disposition home or self-care (01) ==
LOC: JER 08:31 → JERBED 14:31 → J8W 20:33
PROVIDERS: ADMIT Internal Medicine
PROC: 3E023GC Introduction of Other Therapeutic Substance into Muscle, Percutaneous Approach (ICD-10-PCS; principal; 2021-07-30)
PROC: 3E033GC Introduction of Other Therapeutic Substance into Peripheral Vein, Percutaneous Approach (ICD-10-PCS; 2021-07-30)
PROC: 3E023GC Introduction of Other Therapeutic Substance into Muscle, Percutaneous Approach (ICD-10-PCS; 2021-07-30)
DX: I11.0 Hypertensive heart disease with heart failure (principal); R60.9 Edema, unspecified; K76.0 Fatty (change of) liver, not elsewhere classified; J45.909 Unspecified asthma, uncomplicated; G47.33 Obstructive sleep apnea (adult) (pediatric); Z29.9 Encounter for prophylactic measures, unspecified; E66.01 Morbid (severe) obesity due to excess calories; Z68.43 Body mass index [BMI] 50.0-59.9, adult
CPT/HCPCS: 36415; 71046-TC-FY; 74177-TC; 80048; 80053; 80061; 82550; 82962; 83036; 83735; 83880; 84100; 84484; 85025; 85027; 90686; 93005; 93010; 93306-TC; 96372; 96374; 96376; 97116-GP; 97161-GP; 99285-25; C9803; G0378; Q9967; U0003; U0005

== ENCOUNTER 2022-02-02 07:27 | Emergency (ER) | payer OTHER ==
[2022-02-02 07:43] VITALS: RESP 19; BMI 62.0
[2022-02-02] MEDS ORDERED: FUROSEMIDE 40 MG/4 ML INJECTABLE VIAL IVPUSH ONE (09:10)
[2022-02-02 10:14] LABS: BASO % 1.1 % (0-2.0); HEMATOCRIT 43.3 % (32.4-45.2); MCH 29.2 pg (25.7-33.7); MCHC 34.5 g/dl (32.0-36.0); MEAN CELL VOLUME 84.5 fl (80-96); MEAN PLT VOLUME 7.6 fl (7.5-11.1); MONO % 6.2 % (3.8-10.2); NEUT % 64.7 % (42.8-82.8); PLATELET COUNT 265 10^3/uL (134-434); RBC 5.13 M/mm3 (3.60-5.2); RDW 13.9 % (11.6-15.6); WHITE BLOOD COUNT 8.2 K/mm3 (4.0-10.0)
[2022-02-02] MEDS ORDERED: FUROSEMIDE 40 MG/4 ML INJECTABLE VIAL ONE (10:37)
[2022-02-02 10:41] LABS: CALCIUM 9.1 mg/dL (8.5-10.1)
[2022-02-02 10:42] LABS: ALBUMIN 3.6 g/dl (3.4-5.0)
[2022-02-02 10:45] LABS: CREATININE 0.6 mg/dL (0.55-1.3)
[2022-02-02 10:46] LABS: TOT PROT 7.4 g/dl (6.4-8.2)
[2022-02-02 10:47] LABS: BILIRUBIN,TOTAL 0.5 mg/dL (0.2-1)
[2022-02-02 10:50] LABS: N-TERMINAL BNP 41.2 pg/ml (5-125)
[2022-02-02 12:47] VITALS: BP 166/89; PULSE 79; TEMP 98
== END 2022-02-02 11:46 | disposition home or self-care (01) ==
LOC: JER 07:27
PROC: 3E033NZ Introduction of Analgesics, Hypnotics, Sedatives into Peripheral Vein, Percutaneous Approach (ICD-10-PCS; principal; 2022-02-02)
DX: G47.33 Obstructive sleep apnea (adult) (pediatric) (principal)
CPT/HCPCS: 36415; 71045-TC-FY; 80053; 83880; 84484; 85025; 93005; 93010; 99284-25

== ENCOUNTER 2022-04-16 07:48 | Emergency (ER) | payer OTHER ==
[2022-04-16 07:59] VITALS: TEMP 98.3; BMI 61.9
[2022-04-16] MEDS ORDERED: ACETAMINOPHEN 1000 MG/100 ML BAG IVPB ONE (08:27)
[2022-04-16] MEDS ORDERED: FAMOTIDINE 20 MG/50 ML IVPB 20 MG/50 ML MG IVPB ONE ×2 (08:30→08:37)
[2022-04-16] MEDS ORDERED: MAG HYDROX/AL HYDROX/SIMETH -MYLANTA- ORAL SUSPENSION PO ONE (08:30)
[2022-04-16] MEDS ORDERED: MAG HYDROX/AL HYDROX/SIMETH 30 ML UNIT-DOSE CUP ONE (08:36)
[2022-04-16] MEDS ORDERED: ACETAMINOPHEN INJECTION 100 ML IVPB ONE (08:36)
[2022-04-16 08:37] LABS: BASO % 1.2 % (0-2.0); EOS % 3.2 % (0-4.5); HEMATOCRIT 45.3 % (32.4-45.2); HEMOGLOBIN 15.2 GM/dL (10.7-15.3); LYMPH % 24.6 % (8-40); MCH 28.3 pg (25.7-33.7); MCHC 33.6 g/dl (32.0-36.0); MEAN CELL VOLUME 84.3 fl (80-96); MEAN PLT VOLUME 8.1 fl (7.5-11.1); MONO % 5.7 % (3.8-10.2); NEUT % 65.3 % (42.8-82.8); PLATELET COUNT 292 10^3/uL (134-434); RBC 5.38 M/mm3 (3.60-5.2); WHITE BLOOD COUNT 8.6 K/mm3 (4.0-10.0)
[2022-04-16 08:50] LABS: INR 1.09 (0.83-1.09); PROTHROMBIN TIME (PATIENT) 12.6 SEC (9.7-13.0)
[2022-04-16 08:52] LABS: ACTIVATED PTT 32.7 SECONDS (25.2-36.5)
[2022-04-16 09:12] LABS: CHLORIDE 99 mmol/L (98-107); SODIUM 133 mmol/L (136-145)
[2022-04-16 09:14] LABS: CALCIUM 9.1 mg/dL (8.5-10.1)
[2022-04-16 09:15] LABS: ALBUMIN 3.3 g/dl (3.4-5.0); BLOOD UREA NITROGEN 15.6 mg/dL (7-18); CO2 29 mmol/L (21-32); GLUCOSE,RANDOM 138 mg/dL (74-106); LIPASE 11 U/L (73-393)
[2022-04-16 09:18] LABS: CREATININE 0.8 mg/dL (0.55-1.3); PHOSPHOROUS 3.7 mg/dL (2.5-4.9)
[2022-04-16 09:19] LABS: BILIRUBIN,TOTAL 0.7 mg/dL (0.2-1); TOT PROT 7.8 g/dl (6.4-8.2)
[2022-04-16 09:20] LABS: ALK PHOS 81 U/L (45-117)
[2022-04-16 09:23] LABS: N-TERMINAL BNP 56.4 pg/ml (5-125)
[2022-04-16 09:40] LABS: ANION GAP 4 MMOL/L (8-16); SGOT/AST 104 U/L (15-37); SGPT/ALT 32 U/L (13-61)
[2022-04-16 16:27] VITALS: BP 168/85; PULSE 75; RESP 18
== END 2022-04-16 16:35 | disposition home or self-care (01) ==
LOC: JER 07:48
PROC: 3E033GC Introduction of Other Therapeutic Substance into Peripheral Vein, Percutaneous Approach (ICD-10-PCS; principal; 2022-04-16)
DX: R10.11 Right upper quadrant pain (principal)
CPT/HCPCS: 0241U-QW; 36415; 71045-TC-FY; 76705-TC; 80053; 83690; 83735; 83880; 84100; 84132; 84484; 85025; 85610; 85730; 93005; 93010; 99285-25

== ENCOUNTER 2022-09-11 08:36 | Emergency (ER) | payer OTHER ==
[2022-09-11 09:01] VITALS: BP 153/61; PULSE 95; RESP 17; TEMP 98.2; BMI 66.4
[2022-09-11] MEDS ORDERED: ALBUTEROL SO4 2.5/IPRATROPIUM 0.5 INH SOL 3 ML VIAL.NEB. NEB ONE ×2 (09:17→09:37)
[2022-09-11 10:00] LABS: BASO % 0.9 % (0-2.0); EOS % 3.1 % (0-4.5); HEMOGLOBIN 14.3 GM/dL (10.7-15.3); LYMPH % 21.8 % (8-40); MCH 28.7 pg (25.7-33.7); MCHC 34.2 g/dl (32.0-36.0); MEAN CELL VOLUME 84.1 fl (80-96); MEAN PLT VOLUME 8.2 fl (7.5-11.1); MONO % 6.7 % (3.8-10.2); NEUT % 67.5 % (42.8-82.8); PLATELET COUNT 266 10^3/uL (134-434); RBC 4.99 M/mm3 (3.60-5.2); WHITE BLOOD COUNT 8.3 K/mm3 (4.0-10.0)
[2022-09-11 10:20] LABS: ALBUMIN 3.4 g/dl (3.4-5.0); BLOOD UREA NITROGEN 19.8 mg/dL (7-18); CALCIUM 9.1 mg/dL (8.5-10.1)
[2022-09-11 10:23] LABS: CREATININE 0.5 mg/dL (0.55-1.3)
[2022-09-11 10:25] LABS: BILIRUBIN,TOTAL 0.3 mg/dL (0.2-1); TOT PROT 7.1 g/dl (6.4-8.2)
[2022-09-11] MEDS ORDERED: ALBUTEROL SO4 0.083% IH SOL 2.5 MG/3 ML VIAL.NEB. NEB SCH (12:30)
[2022-09-11] MEDS ORDERED: methylPREDNISolone NA SUCC 125 MG/2 ML VIAL IVPB ONE (13:23)
[2022-09-11] MEDS ORDERED: IBUPROFEN 600 MG TABLET (FP) PO ONE ×2 (13:24→14:48)
[2022-09-11] MEDS ORDERED: methylPREDNISolone NA SUCC 125 MG/2 ML VIAL ONE (13:24)
[2022-09-11] MEDS ORDERED: ALBUTEROL SO4 0.083% IH SOL 2.5 MG/3 ML VIAL.NEB. NEB ONE (14:49)
== END 2022-09-11 15:54 | disposition home or self-care (01) ==
LOC: JER 08:36
PROC: 3E033GC Introduction of Other Therapeutic Substance into Peripheral Vein, Percutaneous Approach (ICD-10-PCS; principal; 2022-09-11)
PROC: 3E0F7GC Introduction of Other Therapeutic Substance into Respiratory Tract, Via Natural or Artificial Opening (ICD-10-PCS; 2022-09-11)
DX: R06.02 Shortness of breath (principal); M79.672 Pain in left foot
CPT/HCPCS: 0241U-QW; 36415; 71045-TC-FY; 73590-TC-LT-FY; 73610-TC-LT-FY; 73630-TC-LT; 80053; 82962; 83880; 84484; 85025; 85379; 93005; 93010; 93970-TC; 99285-25

== ENCOUNTER 2024-03-01 08:05 | Emergency (ER) | payer OTHER ==
[2024-03-01 08:13] VITALS: BP 161/57; PULSE 71; RESP 20; TEMP 98.4; BMI 66.4
[2024-03-01] MEDS ORDERED: LORATADINE 10 MG TABLET ONE (08:45)
[2024-03-01] MEDS: LORATADINE 10 MG TABLET PO ONE (08:51)
== END 2024-03-01 09:38 | disposition home or self-care (01) ==
LOC: JER 08:05
DX: R21 Rash and other nonspecific skin eruption (principal); L03.115 Cellulitis of right lower limb; L03.116 Cellulitis of left lower limb
CPT/HCPCS: 82962; 99283-25

== ENCOUNTER 2024-03-09 08:34 | Observation (INO) | payer OTHER ==
[2024-03-09 09:58] LABS: BASO % 1.2 % (0-2.0); EOS % 8.1 % (0-4.5); HEMATOCRIT 46.5 % (32.4-45.2); LYMPH % 18.4 % (8-40); MCH 27.9 pg (25.7-33.7); MCHC 32.2 g/dl (32.0-36.0); MEAN CELL VOLUME 86.6 fl (80-96); MONO % 4.5 % (3.8-10.2); NEUT % 67.8 % (42.8-82.8); RBC 5.37 M/mm3 (3.60-5.2)
[2024-03-09 10:02] LABS: WHITE BLOOD COUNT 12.2 K/mm3 (4.0-10.0)
[2024-03-09] MEDS ORDERED: diphenhydrAMINE HCL 25 MG CAPSULE (FP) PO ONE (10:09)
[2024-03-09] MEDS: diphenhydrAMINE HCL 25 MG CAPSULE (FP) PO ONE (10:13)
[2024-03-09] MEDS ORDERED: ASPIRIN 81 MG CHEWABLE TABLETS ONE (10:14)
[2024-03-09] MEDS: ASPIRIN 81 MG CHEWABLE TABLETS PO ONE (10:17)
[2024-03-09 10:35] LABS: ALBUMIN 3.5 g/dl (3.4-5.0); BLOOD UREA NITROGEN 11.7 mg/dL (7-18); CALCIUM 9.2 mg/dL (8.5-10.1)
[2024-03-09 10:38] LABS: CREATININE 0.7 mg/dL (0.55-1.3)
[2024-03-09 10:40] LABS: TOT PROT 7.5 g/dl (6.4-8.2)
[2024-03-09 10:43] LABS: N-TERMINAL BNP 58.2 pg/ml (5-125)
[2024-03-09] MEDS ORDERED: CLINDAMYCIN 600MG PREMIX IVPB 600 MG/50 ML BAG IVPB ONE (11:56)
[2024-03-09] MEDS: CLINDAMYCIN 600MG PREMIX IVPB 600 MG/50 ML BAG IVPB ONE (12:02)
[2024-03-09 14:57] VITALS: BMI 66.4
[2024-03-09] MEDS: ACETAMINOPHEN 325 MG TABLET (FP) PO PRN (17:25)
[2024-03-09] MEDS: FUROSEMIDE 40 MG/4 ML INJECTABLE VIAL IVPUSH SCH (17:25)
[2024-03-09] MEDS: CLINDAMYCIN 600MG PREMIX IVPB 600 MG/50 ML BAG IVPB SCH (17:26)
[2024-03-09] MEDS: CLOTRIMAZOLE/BETAMET DIPROP 15 GM TUBE TP PRN (17:26)
[2024-03-09] MEDS ORDERED: FUROSEMIDE 40 MG TABLET (FP) PO SCH (22:00)
[2024-03-09] MEDS: ATORVASTATIN CA 40 MG TABLET (FP) PO SCH (22:06)
[2024-03-09] MEDS: ENOXAPARIN NA (PORCINE) 40 MG/0.4 ML DISP.SYRIN SQ SCH (22:06)
[2024-03-10 08:20] LABS: HEMATOCRIT 44.9 % (32.4-45.2); MCH 28.3 pg (25.7-33.7); MCHC 33.4 g/dl (32.0-36.0); MEAN CELL VOLUME 84.9 fl (80-96); MEAN PLT VOLUME 7.5 fl (7.5-11.1); PLATELET COUNT 287 10^3/uL (134-434); RBC 5.29 M/mm3 (3.60-5.2); RDW 13.8 % (11.6-15.6)
[2024-03-10 08:39] LABS: POTASSIUM 3.5 mmol/L (3.5-5.1)
[2024-03-10 08:41] LABS: CALCIUM 8.9 mg/dL (8.5-10.1)
[2024-03-10 08:45] LABS: CREATININE 0.6 mg/dL (0.55-1.3)
[2024-03-10] MEDS ORDERED: PATIENT'S OWN MEDICATION (NON-FORMULARY) (Losartan/Hydrochlorothiazide [Losartan-Hctz 100- PO SCH (10:00)
[2024-03-10] MEDS: ALBUTEROL SO4 HFA INHALER IH PRN (10:08)
[2024-03-10] MEDS: hydrOXYzine PAMOATE 25 MG CAPSULE (FP) PO PRN (10:09)
[2024-03-10] MEDS: PANTOPRAZOLE 40 MG TABLET PO SCH (10:10)
[2024-03-10] MEDS: HYDROCHLOROTHIAZIDE 25 MG TABLET (FP) PO SCH (10:10)
[2024-03-10] MEDS: ESCITALOPRAM OXALATE 10 MG TABLET PO SCH (10:10)
[2024-03-10] MEDS: amLODIPine BESYLATE 10 MG TABLET (FP) PO SCH (10:10)
[2024-03-10] MEDS: LOSARTAN POTASSIUM 50 MG TABLET PO SCH (10:11)
[2024-03-12 08:13] LABS: INR 1.02 (0.83-1.09); PROTHROMBIN TIME (PATIENT) 11.7 SEC (9.7-13.0)
[2024-03-12 08:14] LABS: BASO % 0.5 % (0-2.0); HEMATOCRIT 45.2 % (32.4-45.2); HEMOGLOBIN 15.1 GM/dL (10.7-15.3); LYMPH % 18.2 % (8-40); MCH 28.3 pg (25.7-33.7); MCHC 33.5 g/dl (32.0-36.0); MEAN CELL VOLUME 84.5 fl (80-96); MEAN PLT VOLUME 7.5 fl (7.5-11.1); MONO % 5.3 % (3.8-10.2); PLATELET COUNT 281 10^3/uL (134-434); RBC 5.34 M/mm3 (3.60-5.2); RDW 13.7 % (11.6-15.6); WHITE BLOOD COUNT 9.5 K/mm3 (4.0-10.0)
[2024-03-12 08:16] LABS: ACTIVATED PTT 30.4 SECONDS (25.2-36.5)
[2024-03-12 08:25] LABS: POTASSIUM 3.3 mmol/L (3.5-5.1)
[2024-03-12 08:36] LABS: ALBUMIN 3.6 g/dl (3.4-5.0); CALCIUM 9.1 mg/dL (8.5-10.1)
[2024-03-12 08:37] LABS: BLOOD UREA NITROGEN 13.8 mg/dL (7-18)
[2024-03-12 08:40] LABS: CREATININE 0.6 mg/dL (0.55-1.3)
[2024-03-12 08:41] LABS: BILIRUBIN,TOTAL 1.2 mg/dL (0.2-1); TOT PROT 7.1 g/dl (6.4-8.2)
[2024-03-12] MEDS: PATIENT'S OWN MEDICATION (NON-FORMULARY) (Linaclotide [Linzess] 290 MCG Capsule) PO SCH (18:56)
[2024-03-12] MEDS: POTASSIUM CHLORIDE TABS 20 MEQ TABLET.ER (FP) PO SCH (19:16)
[2024-03-12 20:43] LABS: ERYTHROCYTE SEDIMENTATION RATE 59 mm/hr (0-20)
[2024-03-12] MEDS: CLINDAMYCIN HCL 150 MG CAPSULE (FP) PO SCH (21:16)
[2024-03-13 08:20] LABS: HEMATOCRIT 44.3 % (32.4-45.2); HEMOGLOBIN 14.7 GM/dL (10.7-15.3); MCH 28.4 pg (25.7-33.7); MCHC 33.1 g/dl (32.0-36.0); MEAN CELL VOLUME 85.9 fl (80-96); MEAN PLT VOLUME 7.7 fl (7.5-11.1); PLATELET COUNT 295 10^3/uL (134-434); RBC 5.16 M/mm3 (3.60-5.2); RDW 13.7 % (11.6-15.6)
[2024-03-13 08:36] LABS: POTASSIUM 3.3 mmol/L (3.5-5.1)
[2024-03-13 08:39] LABS: ALBUMIN 3.6 g/dl (3.4-5.0); BLOOD UREA NITROGEN 18.1 mg/dL (7-18); CALCIUM 8.8 mg/dL (8.5-10.1); MAGNESIUM 2.2 mg/dL (1.8-2.4)
[2024-03-13 08:42] LABS: CREATININE 0.7 mg/dL (0.55-1.3); PHOSPHOROUS 2.5 mg/dL (2.5-4.9)
[2024-03-13 08:44] LABS: BILIRUBIN,TOTAL 0.9 mg/dL (0.2-1); TOT PROT 7.3 g/dl (6.4-8.2)
[2024-03-13] MEDS: POTASSIUM CHLORIDE TABS 10 MEQ TABLET.ER (FP) PO ONE (09:52)
[2024-03-13] MEDS: ALBUTEROL SO4 0.083% IH SOL 2.5 MG/3 ML VIAL.NEB. NEB PRN (20:44)
[2024-03-14 01:24] VITALS: TEMP 98.1
[2024-03-14 06:24] VITALS: PULSE 76
[2024-03-14 09:47] LABS: POTASSIUM 3.9 mmol/L (3.5-5.1)
[2024-03-14 09:50] LABS: BLOOD UREA NITROGEN 17.9 mg/dL (7-18); CALCIUM 8.9 mg/dL (8.5-10.1)
[2024-03-14 09:54] LABS: CREATININE 0.7 mg/dL (0.55-1.3)
[2024-03-14] MEDS: POTASSIUM CHLORIDE TABS 20 MEQ TABLET.ER (FP) PO ONE (10:32)
[2024-03-14] MEDS ORDERED: TORSEMIDE 20 MG TABLET (FP) PO SCH (14:00)
[2024-03-14 16:26] VITALS: BP 106/75; RESP 88
== END 2024-03-14 14:00 | disposition home or self-care (01) ==
LOC: JER 08:34 → JERBED 13:31 → J4S 14:29
PROVIDERS: ADMIT Internal Medicine; ATTEND Internal Medicine
PROC: 3E03329 Introduction of Other Anti-infective into Peripheral Vein, Percutaneous Approach (ICD-10-PCS; principal; 2024-03-09)
PROC: 3E023GC Introduction of Other Therapeutic Substance into Muscle, Percutaneous Approach (ICD-10-PCS; 2024-03-09)
PROC: 3E033GC Introduction of Other Therapeutic Substance into Peripheral Vein, Percutaneous Approach (ICD-10-PCS; 2024-03-09)
DX: J96.21 Acute and chronic respiratory failure with hypoxia (principal); I11.0 Hypertensive heart disease with heart failure; E66.2 Morbid (severe) obesity with alveolar hypoventilation; J44.9 Chronic obstructive pulmonary disease, unspecified; E78.5 Hyperlipidemia, unspecified; F41.8 Other specified anxiety disorders; R07.9 Chest pain, unspecified; Z99.81 Dependence on supplemental oxygen; M79.89 Other specified soft tissue disorders; Z88.8 Allergy status to other drugs, medicaments and biological substances
CPT/HCPCS: 0241U-QW; 36415; 71045-TC-FY; 76830-TC; 80048; 80053; 82550; 82962; 83036; 83735; 83880; 84100; 84484; 85025; 85027; 85610; 85651; 85730; 86140; 93005; 93010; 93306-TC; 93970-TC; 94640; 96365; 96366; 96372; 96375; 99285-25; G0378

== ENCOUNTER 2025-01-22 06:53 | Inpatient (IN) | payer OTHER ==
[2025-01-22] MEDS: ALBUTEROL SO4 2.5/IPRATROPIUM 0.5 INH SOL 3 ML VIAL.NEB. NEB ONE (08:00)
[2025-01-22] MEDS ORDERED: ALBUTEROL SO4 2.5/IPRATROPIUM 0.5 INH SOL 3 ML VIAL.NEB. NEB ONE (08:06)
[2025-01-22 08:40] LABS: ABSOLUTE IMMATURE GRANULOCYTES 0.07 x10^3/uL (0.0-0.031); BASOPHILS # 0.06 x10^3/uL (0.01-0.08); EOSINOPHIL % 5.1 % (0.7-5.8); EOSINOPHILS # 0.49 x10^3/uL (0.04-0.36); MCHC 31.8 g/dl (32.2-35.5); MEAN CELL VOLUME 86.6 fl (79.4-94.8); MEAN PLT VOLUME 9.5 fl (9.4-12.3); MONOCYTE # 0.50 x10^3/uL (0.24-0.86); MONOCYTE % 5.2 % (4.7-12.5); RDW 12.5 % (12.2-17.1)
[2025-01-22 09:04] LABS: CO2 32.0 mmol/L (21-32); GLUCOSE,RANDOM 129.0 mg/dL (74-106)
[2025-01-22 09:07] LABS: SGPT/ALT 21.0 U/L (13-61)
[2025-01-22 09:08] LABS: CREATININE 0.7 mg/dL (0.55-1.3); SGOT/AST 31.0 U/L (15-37)
[2025-01-22 09:09] LABS: TOT PROT 7.8 g/dl (6.4-8.2)
[2025-01-22 09:10] LABS: ALK PHOS 83.0 U/L (45-117)
[2025-01-22 09:12] LABS: N-TERMINAL BNP 65.0 pg/ml (5-125)
[2025-01-22] MEDS ORDERED: diphenhydrAMINE HCL 25 MG CAPSULE (FP) PO ONE (09:23)
[2025-01-22] MEDS: diphenhydrAMINE HCL 25 MG CAPSULE (FP) PO ONE ×2 (09:26→20:28)
[2025-01-22 12:16] LABS: CO2 32.0 mmol/L (21-32)
[2025-01-22 12:17] LABS: GLUCOSE,RANDOM 127.0 mg/dL (74-106)
[2025-01-22 12:19] LABS: SGPT/ALT 19.0 U/L (13-61)
[2025-01-22 12:20] LABS: CREATININE 0.6 mg/dL (0.55-1.3); SGOT/AST 9.0 U/L (15-37)
[2025-01-22 12:21] LABS: TOT PROT 6.9 g/dl (6.4-8.2)
[2025-01-22 12:22] LABS: ALK PHOS 75.0 U/L (45-117)
[2025-01-22] MEDS ORDERED: KETOCONAZOLE 2% TOPICAL CREAM 15 GM TUBE TP SCH (14:15)
[2025-01-22] MEDS: CLINDAMYCIN 300 MG PREMIX IVPB 300 MG/50 ML BAG IVPB SCH (15:52)
[2025-01-22] MEDS: CLOTRIMAZOLE 1%TOPICAL SOLUTION 30 ML BOTTLE TP SCH (16:04)
[2025-01-22] MEDS: INSULIN ASPART SLIDING SCALE (NOVOLOG) 1 VIAL SQ SCH (17:20)
[2025-01-22] MEDS: FUROSEMIDE 40 MG/4 ML INJECTABLE VIAL IVPUSH SCH (17:21)
[2025-01-22 17:31] LABS: HIV INTERPRETATION NEGATIVE (NEGATIVE)
[2025-01-22 17:41] VITALS: BMI 59.8
[2025-01-22 17:41] LABS: HCV DIAGNOSTIC IN-HOUSE W/RFLX NON-REACTIVE (NONREACTIVE)
[2025-01-22] MEDS: ACETAMINOPHEN 1000 MG/100 ML BAG IVPB PRN (20:28)
[2025-01-22] MEDS ORDERED: ALBUTEROL SO4 HFA INHALER IH PRN (20:59)
[2025-01-22] MEDS: ATORVASTATIN CA 40 MG TABLET (FP) PO SCH (21:28)
[2025-01-22] MEDS: ESCITALOPRAM OXALATE 10 MG TABLET PO SCH (21:28)
[2025-01-22 22:42] LABS: EPI CELLS 25 /uL (0-25.1); HYALINE CASTS 1 /uL (0-3.1); URINE APPEARANCE CLEAR; URINE BACTERIA 565 /uL (0-1359); URINE BILIRUBIN NEGATIVE (NEGATIVE); URINE COLOR YELLOW; URINE GLUCOSE (UA) NEGATIVE (NEGATIVE); URINE KETONE NEGATIVE (NEGATIVE); URINE LEUK ESTERASE NEGATIVE (NEGATIVE); URINE NITRITE NEGATIVE (NEGATIVE); URINE PROTEIN 2+ (NEGATIVE); URINE RBC 42 /uL (0-23.9); URINE UROBILINOGEN 1.0 mg/dL (0.2-1.0); URINE WBC 27 /uL (0-25.8)
[2025-01-23 08:29] LABS: MCHC 32.4 g/dl (32.2-35.5); MEAN CELL VOLUME 84.7 fl (79.4-94.8); MEAN PLT VOLUME 9.5 fl (9.4-12.3); RDW 12.6 % (12.2-17.1)
[2025-01-23] MEDS: PANTOPRAZOLE 40 MG TABLET PO SCH (09:34)
[2025-01-23] MEDS: LOSARTAN POTASSIUM 50 MG TABLET PO SCH (09:34)
[2025-01-23] MEDS: ENOXAPARIN NA (PORCINE) 40 MG/0.4 ML DISP.SYRIN SQ SCH (09:34)
[2025-01-23] MEDS: HYDROCHLOROTHIAZIDE 25 MG TABLET (FP) PO SCH (09:34)
[2025-01-23 09:41] LABS: CO2 31.0 mmol/L (21-32); GLUCOSE,RANDOM 141.0 mg/dL (74-106)
[2025-01-23 09:43] LABS: SGPT/ALT 23.0 U/L (13-61)
[2025-01-23 09:44] LABS: CREATININE 0.7 mg/dL (0.55-1.3); SGOT/AST 12.0 U/L (15-37)
[2025-01-23 09:45] LABS: TOT PROT 7.7 g/dl (6.4-8.2)
[2025-01-23 09:46] LABS: ALK PHOS 93.0 U/L (45-117)
[2025-01-23] MEDS ORDERED: PATIENT'S OWN MEDICATION (NON-FORMULARY) (Losartan/Hydrochlorothiazide [Losartan-Hctz 100- PO SCH (10:00)
[2025-01-23] MEDS: URSODIOL 300 MG CAPSULE PO SCH (10:22)
[2025-01-23] MEDS: NAPH,MB-DB/K PH,MBDB POWDER PACKET PO SCH (10:22)
[2025-01-23] MEDS: ALBUTEROL SO4 2.5/IPRATROPIUM 0.5 INH SOL 3 ML VIAL.NEB. NEB PRN (10:56)
[2025-01-23] MEDS: HYDROCORTISONE 1% TOPICAL CREAM 30 GM TUBE TP PRN (17:24)
[2025-01-23] MEDS: hydrOXYzine PAMOATE 25 MG CAPSULE (FP) PO PRN (21:44)
[2025-01-23] MEDS: ACETAMINOPHEN 1000 MG/100 ML BAG IVPB ONE (22:51)
[2025-01-24 08:41] LABS: ABSOLUTE IMMATURE GRANULOCYTES 0.04 x10^3/uL (0.0-0.031); BASOPHILS # 0.06 x10^3/uL (0.01-0.08); EOSINOPHIL % 5.5 % (0.7-5.8); EOSINOPHILS # 0.53 x10^3/uL (0.04-0.36); MCHC 32.6 g/dl (32.2-35.5); MEAN CELL VOLUME 84.6 fl (79.4-94.8); MEAN PLT VOLUME 9.5 fl (9.4-12.3); MONOCYTE # 0.57 x10^3/uL (0.24-0.86); MONOCYTE % 6.0 % (4.7-12.5); RDW 12.5 % (12.2-17.1)
[2025-01-24 09:59] LABS: CO2 30.0 mmol/L (21-32); GLUCOSE,RANDOM 151.0 mg/dL (74-106)
[2025-01-24 10:02] LABS: CREATININE 0.6 mg/dL (0.55-1.3); SGOT/AST 12.0 U/L (15-37); SGPT/ALT 17.0 U/L (13-61)
[2025-01-24 10:03] LABS: ALK PHOS 87.0 U/L (45-117); TOT PROT 7.1 g/dl (6.4-8.2)
[2025-01-24] MEDS: POTASSIUM CHLORIDE ORAL LIQUID 20 MEQ/15 ML PO SCH (10:47)
[2025-01-24] MEDS: ACETAMINOPHEN 500 MG TABLET (FP) PO ONE (23:26)
[2025-01-25] MEDS: CLINDAMYCIN 600MG PREMIX IVPB 600 MG/50 ML BAG IVPB SCH (03:17)
[2025-01-25 08:32] LABS: ABSOLUTE IMMATURE GRANULOCYTES 0.08 x10^3/uL (0.0-0.031); BASOPHILS # 0.05 x10^3/uL (0.01-0.08); EOSINOPHIL % 5.1 % (0.7-5.8); EOSINOPHILS # 0.48 x10^3/uL (0.04-0.36); MCHC 33.0 g/dl (32.2-35.5); MEAN CELL VOLUME 84.4 fl (79.4-94.8); MEAN PLT VOLUME 9.5 fl (9.4-12.3); MONOCYTE # 0.67 x10^3/uL (0.24-0.86); MONOCYTE % 7.1 % (4.7-12.5); RDW 12.4 % (12.2-17.1)
[2025-01-25 09:12] LABS: CO2 33.0 mmol/L (21-32); GLUCOSE,RANDOM 142.0 mg/dL (74-106)
[2025-01-25 09:15] LABS: CREATININE 0.7 mg/dL (0.55-1.3); SGOT/AST 15.0 U/L (15-37); SGPT/ALT 19.0 U/L (13-61)
[2025-01-25 09:17] LABS: TOT PROT 7.0 g/dl (6.4-8.2)
[2025-01-25 09:18] LABS: ALK PHOS 83.0 U/L (45-117)
[2025-01-25] MEDS: POTASSIUM CHLORIDE TABS 20 MEQ TABLET.ER (FP) PO ONE (09:36)
[2025-01-25] MEDS: BUDESONIDE/FORMETEROL FUMARATE 160/4.5 mcg INHALER IH SCH (13:21)
[2025-01-25] MEDS: LEVALBUTEROL HCL 0.63 MG/3 ML VIAL.NEB. IH SCH (15:37)
[2025-01-25] MEDS: ACETAMINOPHEN 500 MG TABLET (FP) PO PRN (17:43)
[2025-01-25] MEDS: PREGABALIN 75 MG CAPSULE PO SCH (21:49)
[2025-01-25] MEDS: MUPIROCIN 2% TOPICAL OINTMENT 22 GM TUBE TP SCH (23:00)
[2025-01-26 09:13] LABS: ABSOLUTE IMMATURE GRANULOCYTES 0.07 x10^3/uL (0.0-0.031); BASOPHILS # 0.06 x10^3/uL (0.01-0.08); EOSINOPHIL % 5.4 % (0.7-5.8); EOSINOPHILS # 0.44 x10^3/uL (0.04-0.36); MCHC 32.0 g/dl (32.2-35.5); MEAN CELL VOLUME 84.8 fl (79.4-94.8); MEAN PLT VOLUME 9.6 fl (9.4-12.3); MONOCYTE # 0.58 x10^3/uL (0.24-0.86); MONOCYTE % 7.2 % (4.7-12.5); RDW 12.4 % (12.2-17.1)
[2025-01-26 10:12] LABS: CO2 33.0 mmol/L (21-32); GLUCOSE,RANDOM 141.0 mg/dL (74-106)
[2025-01-26 10:15] LABS: CREATININE 0.7 mg/dL (0.55-1.3); SGOT/AST 11.0 U/L (15-37); SGPT/ALT 18.0 U/L (13-61)
[2025-01-26 10:16] LABS: TOT PROT 6.9 g/dl (6.4-8.2)
[2025-01-26 10:18] LABS: ALK PHOS 81.0 U/L (45-117)
[2025-01-26] MEDS: FUROSEMIDE 40 MG TABLET (FP) PO SCH (14:15)
[2025-01-26 14:18] VITALS: PULSE 68; RESP 20
[2025-01-26] MEDS: MINERAL OIL/PET HY-PHL TOPICAL OINTMENT 454 GM JAR TP SCH (21:16)
[2025-01-27 05:58] VITALS: BP 114/56; TEMP 98.8
[2025-01-27 07:29] LABS: ABSOLUTE IMMATURE GRANULOCYTES 0.03 x10^3/uL (0.0-0.031); BASOPHILS # 0.04 x10^3/uL (0.01-0.08); EOSINOPHIL % 5.1 % (0.7-5.8); EOSINOPHILS # 0.47 x10^3/uL (0.04-0.36); MCHC 31.9 g/dl (32.2-35.5); MEAN CELL VOLUME 86.0 fl (79.4-94.8); MEAN PLT VOLUME 9.5 fl (9.4-12.3); MONOCYTE # 0.54 x10^3/uL (0.24-0.86); MONOCYTE % 5.9 % (4.7-12.5); RDW 12.4 % (12.2-17.1)
[2025-01-27 07:55] LABS: CO2 34.0 mmol/L (21-32); GLUCOSE,RANDOM 140.0 mg/dL (74-106)
[2025-01-27 07:59] LABS: CREATININE 0.6 mg/dL (0.55-1.3); SGOT/AST 7.0 U/L (15-37); SGPT/ALT 16.0 U/L (13-61)
[2025-01-27 08:00] LABS: TOT PROT 6.6 g/dl (6.4-8.2)
[2025-01-27 08:02] LABS: ALK PHOS 78.0 U/L (45-117)
[2025-01-27] MEDS ORDERED: CLINDAMYCIN HCL 150 MG CAPSULE (FP) PO SCH (14:00)
== END 2025-01-27 11:33 | disposition home or self-care (01) | DRG 383 ==
LOC: JER 06:53 → JERBED 12:26 → J8W 16:32
PROVIDERS: ADMIT Internal Medicine; ATTEND Nurse Practitioner Family
DX: L03.115 Cellulitis of right lower limb (principal); I11.0 Hypertensive heart disease with heart failure; I50.30 Unspecified diastolic (congestive) heart failure; E66.01 Morbid (severe) obesity due to excess calories; Z68.43 Body mass index [BMI] 50.0-59.9, adult; E11.9 Type 2 diabetes mellitus without complications; E78.5 Hyperlipidemia, unspecified; G47.33 Obstructive sleep apnea (adult) (pediatric); J44.9 Chronic obstructive pulmonary disease, unspecified; K21.9 Gastro-esophageal reflux disease without esophagitis; L03.116 Cellulitis of left lower limb; F32.A Depression, unspecified
CPT/HCPCS: 36415; 71046-TC-FY; 73630-TC-LT; 80053; 81003; 82962; 83735; 83880; 84100; 84484; 85025; 85027; 86140; 86803; 87086; 87389; 93005; 93010; 93306-TC; 93970-TC; 94640; 94660; 97116-GP; 97161-GP; 99285-25